=== PATIENT | female | born 1945 | race Caucasian/White ===

== ENCOUNTER 2020-08-02 14:00 | Outpatient (RCR) | payer MEDICARE, SELFPAY | END 2020-08-12 23:59 | disposition home or self-care (01) | LOC: SPO 14:00 | PROVIDERS: PCP Family Medicine; Referring Provider Physician Assistant; Visit Provider Physician Assistant | DX: S72.142A Displaced intertrochanteric fracture of left femur, initial encounter for closed fracture (principal); S52.592A Other fractures of lower end of left radius, initial encounter for closed fracture; X58.XXXA Exposure to other specified factors, initial encounter | CPT/HCPCS: 97110; 97116; 97162; 97165 ==

== ENCOUNTER 2020-08-13 06:00 | Outpatient (RCR) | payer MEDICARE, SELFPAY | END 2020-09-01 10:35 | disposition home or self-care (01) | LOC: SPO 06:00 | PROVIDERS: PCP Family Medicine; Visit Provider Physician Assistant | DX: S72.142D Displaced intertrochanteric fracture of left femur, subsequent encounter for closed fracture with routine healing (principal); S52.592D Other fractures of lower end of left radius, subsequent encounter for closed fracture with routine healing; X58.XXXD Exposure to other specified factors, subsequent encounter | CPT/HCPCS: 97035; 97110; 97116 ==

== ENCOUNTER 2021-12-30 10:10 | Emergency (ER) | payer MEDICARE, SELFPAY ==
[2021-12-30 10:29] VITALS: BP 175/90; PULSE 62; RESP 16; TEMP 36.4; O2SAT 96; BMI 15.6
--- NOTE | 2021-12-30 11:33 | XRR_ITS ---
PROCEDURE INFORMATION: Exam: XR Pelvis Exam date and time: 12/30/2021 11:13 AM Age: 76 years old Clinical indication: Hip pain; Bilateral; Prior surgery; Surgery date: 6+ months; Additional info: Injury TECHNIQUE: Imaging protocol: XR pelvis. Views: 1 or 2 view. COMPARISON: No relevant prior studies available. FINDINGS: Bones/joints: No acute fracture or dislocation identified. Old healed fracture deformities of the hips and bilateral ORIF hardware seen. No evidence of hardware related complication. There is itlm-gx-[id number] degenerative changes of the hip joints, manifested by joint space narrowing and periarticular osteophytes, left greater than right. Soft tissues: Unremarkable. XR/XR pelvis 1-2V* [id number] IMPRESSION: 1. No acute injury. 2. [id number] degenerative changes of the hip joints. 3. Status post bilateral hip fracture ORIF, without evidence of hardware related complication.
--- NOTE | 2021-12-30 11:33 | XRR_ITS ---
PROCEDURE INFORMATION: Exam: XR Left Ankle Exam date and time: 12/30/2021 11:15 AM Age: 76 years old Clinical indication: Injury or trauma; Fall; Blunt trauma; Ankle; Left TECHNIQUE: Imaging protocol: XR Left ankle. Views: 1 or 2 views. COMPARISON: No relevant prior studies available. FINDINGS: Bones/joints: No fracture or dislocation. Mild prominence of the soft tissues around the ankle is present. Soft tissues: See Bones/joints finding. XR/XR ankle LT 2V [id number] IMPRESSION: No acute fracture or dislocation.
--- NOTE | 2021-12-30 11:34 | XRR_ITS ---
PROCEDURE INFORMATION: Exam: XR Chest Exam date and time: 12/30/2021 11:10 AM Age: 76 years old Clinical indication: Injury or trauma; Fall; Blunt trauma (contusions or hematomas) TECHNIQUE: Imaging protocol: XR of the chest. Views: 1 view. COMPARISON: No relevant prior studies available. FINDINGS: Lungs: There is 1 cm sized nodular opacity in the left mid lung. Further evaluation such as with non urgent CT scan of the chest is suggested. There are emphysematous changes in the lungs. Pleural spaces: Unremarkable. No pleural effusion. No pneumothorax. Heart/Mediastinum: Heart is within normal limits of size. Vasculature: Atherosclerotic calcifications are present in the aortic arch. Bones/joints: There are what appear to be old healed fractures of the lateral aspects of the right 8th and 9th ribs. Soft tissues: There is a moderate hiatus hernia. XR/XR chest 1V portable [id number] IMPRESSION: Question of small left pulmonary nodule.
[2021-12-30 12:11] LABS: Basophils % 0.3 %; Eosinophils # 0.1 10^3/uL (0.0-0.8); Eosinophils % 0.9 %; Hematocrit 39.8 % (37.0-47.0); Hemoglobin 12.2 g/dL (11.5-15.3); Lymphocytes % 25.3 %; Mean Corpuscular HGB Conc 30.7 g/dL (30.0-36.0); Mean Corpuscular Volume 91.5 fl (81-99); Mean Platelet Volume 9.3 fL (7.4-10.4); Monocytes # 0.7 10^3/uL (0.2-0.9); Monocytes % 8.9 %; Neutrophils # 5.07 10^3/uL (1.8-7.7); Neutrophils % 64.2 %; Nucleated Red Blood Cells % 0 %; Platelet Count 344 10^3/cmm (130-400); Red Blood Count 4.35 10^6/uL (4.1-5.3); Red Cell Distribution Width 18.3 % (12.1-15.1); White Blood Count 7.9 10^3/uL (4.0-10.0)
[2021-12-30 12:26] LABS: Add Urine Microscopic? YES; Bilirubin Urine Neg (Negative); Blood Urine 2+ (Negative); Glucose Urine UA Norm (Normal); Ketones Urine Negative (Negative); Leukocyte Esterase Urine Negative (Negative); Nitrate Urine Negative (Negative); Protein Urine Neg (Negative); Specific Gravity, Urine 1.005 (1.005-1.030); Urine Appearance Clear (CLEAR); Urine Color Yellow (Yellow); Urobilinogen Urine Norm (Negative); pH Urine 5 (5-7)
[2021-12-30 12:28] LABS: Bacteria Urine 2+ /hpf; Mucus Urine 1+ /hpf; Squamous Epithelial Cell Urine RARE /hpf (0-5)
[2021-12-30 12:29] LABS: Add Urine Culture? Yes
--- NOTE | 2021-12-30 12:38 | W.ED.FALL ---
HPI - Fall General: Chief Complaint: Fall Stated Complaint: Rib and L leg pain Time Seen by Provider: 12/30/21 10:44 History of Present Illness: 76 year old fell against a door at home 2 weeks ago. She was seen at an outside hospital, primarily complaining of right shoulder pain at that time, x-rays were negative. Since then she has had persistent left ankle and hip pain and chest wall pain. She lives at home alone. Says she has been very weak. Her family has been trying to talk her into going to a mcc, but she has been reluctant up till now. She has had several falls at home for the last few months. No nausea, vomiting, diarrhea. No abdominal pain. No fever or shortness of breath. No wounds or rashes. Review of Systems General: Reports: 10 or more systems reviewed and unremarkable except in HPI and below Physical Exam Const: GENERAL APPEARANCE: lethargic and frail appearing NUTRITIONAL APPEARANCE: underweight ORIENTATION/CONSCIOUSNESS: Yes awake, Yes oriented to person, Yes oriented to place, Yes oriented to time and Yes lethargic HENMT: COMMON NORMALS: normocephalic and atraumatic HEAD & SCALP: normocephalic and atraumatic FACE & SINUS: normal facial exam Eye: COMMON NORMALS: Equal, round and reactive pupils present, EOMs intact bilaterally, conjunctivae normal and no scleral icterus CONJUNCTIVA: Yes conjunctivae normal PUPIL: Yes Equal, round and reactive pupils present Chest: CHEST: Yes tenderness rib (diffusely), No Ecchymosis present and No wounds Resp: EFFORT & INSPECTION: Yes able to speak in complete sentences, No tachypneic, No respiratory distress and No labored Cardio: COMMON NORMALS: regular rate and regular rhythm RATE: regular rate RHYTHM: regular rhythm GI: COMMON NORMALS: Soft to palpation INSPECTION: Yes normal to inspection PALPATION: Yes Soft to palpation, No Tenderness to palpation present (GI), No Guarding due to palpation present (GI) and No Rigid due to palpation Extremity: LEFT LOWER EXTREMITY: Yes ankle joint (tender) Left ankle: Yes inspection (baseline edema) and Yes palpation Neuro: SENSORIUM/ORIENTATION: Yes oriented to person, Yes oriented to place, Yes oriented to time and Yes lethargic Psych: ATTITUDE: Yes calm ACTIVITY/MOTOR BEHAVIOR: Yes psychomotor slowing SPEECH: Yes slow MOOD & AFFECT: Yes depressed mood, Yes apathetic and Yes Flat affect present Skin: COMMON NORMALS: no rashes or lesions noted GENERAL SKIN EXAM: no rashes or lesions noted Course Vital Signs: Vital signs: Vital Signs Temperature 97.6 F 12/30/21 10:29 Pulse Rate 62 12/30/21 10:29 Respiratory Rate 16 12/30/21 10:29 Blood Pressure 175/90 12/30/21 10:29 Pulse Oximetry 96 12/30/21 10:29 MDM - Fall Medical Decision Making 76 yo female with multiple falls, progressive debility and generalized weakness. Lives on her own, family is concerned about her safety and wants her to go to a mcc. She is agreeable. She has no acute fractures or other injuries on imaging today. Looking at her medications; she is a number of meds that could be contributing to her lethargy and fall risk , including gabapentin and norco, as well as prn tramadol and oxycodone. She appears volume depleted, and is on lasix 40mg qd. At this time she does not meet requirements for admission for NH placement. Her Daughter is here with her and has arranged appropriate followup for mcc assessment. I discussed problematic medications with her, and she will try to decrease the doses on some of those. Medical Records I reviewed the patient's medical records. Lab Data I reviewed the patient's lab results. : 12/30/21 11:50 12/30/21 11:50 Radiology Impressions Ankle X-Ray 12/30/21 11:33 IMPRESSION: No acute fracture or dislocation. Pelvis X-Ray 12/30/21 11:33 IMPRESSION: 1. No acute injury. 2. Sqve-[id number] degenerative changes of the hip joints. 3. Status post bilateral hip fracture ORIF, without evidence of hardware related complication. Chest X-Ray 12/30/21 11:34 IMPRESSION: Question of small left pulmonary nodule. Laboratory Results WBC 7.9 10^3/uL (4.0-10.0) 12/30/21 11:50 RBC 4.35 10^6/uL (4.1-5.3) 12/30/21 11:50 Hgb 12.2 g/dL (11.5-15.3) 12/30/21 11:50 Hct 39.8 % (37.0-47.0) 12/30/21 11:50 MCV 91.5 fl (81-99) 12/30/21 11:50 MCH 28.0 pg (28.0-34.0) 12/30/21 11:50 MCHC 30.7 g/dL (30.0-36.0) 12/30/21 11:50 RDW 18.3 % (12.1-15.1) H 12/30/21 11:50 Plt Count 344 10^3/cmm (130-400) 12/30/21 11:50 MPV 9.3 fL (7.4-10.4) 12/30/21 11:50 Neut % (Auto) 64.2 % 12/30/21 11:50 Lymph % (Auto) 25.3 % 12/30/21 11:50 [place] % (Auto) 8.9 % 12/30/21 11:50 Eos % (Auto) 0.9 % 12/30/21 11:50 Baso % (Auto) 0.3 % 12/30/21 11:50 Neut # (Auto) 5.07 10^3/uL (1.8-7.7) 12/30/21 11:50 Lymph # (Auto) 2.0 10^3/uL (0.8-4.8) 12/30/21 11:50 [place] # (Auto) 0.7 10^3/uL (0.2-0.9) 12/30/21 11:50 Eos # (Auto) 0.1 10^3/uL (0.0-0.8) 12/30/21 11:50 Baso # (Auto) 0.0 10^3/uL (0.0-0.1) 12/30/21 11:50 Nucleated RBC % (auto) 0 % 12/30/21 11:50 Nucleated RBCs # 0.0 /100WBC 12/30/21 11:50 Sodium 146 mmol/L (136-145) H 12/30/21 11:50 Potassium 3.7 mmol/L (3.5-5.1) 12/30/21 11:50 Chloride 106 mmol/L (98-107) 12/30/21 11:50 Carbon Dioxide 29 mmol/L (22-29) 12/30/21 11:50 Anion Gap 14.7 (5-19) 12/30/21 11:50 BUN 11 mg/dL (8-23) 12/30/21 11:50 Creatinine 0.7 mg/dL (0.5-0.9) 12/30/21 11:50 GFR Calculation Not Reportable 12/30/21 11:50 Glucose 96 mg/dL (65-115) 12/30/21 11:50 Calculated Osmolality 301 mOsm/kg (285-295) H 12/30/21 11:50 Calcium 10.4 mg/dL (8.5-10.5) 12/30/21 11:50 Magnesium 2.3 mg/dL (1.7-2.3) 12/30/21 11:50 Total Bilirubin 0.2 mg/dL (0.15-1.2) 12/30/21 11:50 AST 16 U/L (0-32) 12/30/21 11:50 ALT 8 U/L (0-33) 12/30/21 11:50 Alkaline Phosphatase 121 IU/L (35-105) H 12/30/21 11:50 Total Protein 7.3 g/dL (6.6-8.7) 12/30/21 11:50 Albumin 4.5 g/dL (3.5-5.2) 12/30/21 11:50 Globulin 2.8 g/dL (1.3-4.6) 12/30/21 11:50 Urine Color Yellow (Yellow) 12/30/21 11:53 Urine Appearance Clear (CLEAR) 12/30/21 11:53 Urine pH 5 (5-7) 12/30/21 11:53 Ur Specific [place] 1.005 (1.005-1.030) 12/30/21 11:53 Urine Protein Neg (Negative) 12/30/21 11:53 Urine Glucose (UA) Norm (Normal) 12/30/21 11:53 Urine Ketones Negative (Negative) 12/30/21 11:53 Urine Blood 2+ (Negative) H 12/30/21 11:53 Urine Nitrate Negative (Negative) 12/30/21 11:53 Urine Bilirubin Neg (Negative) 12/30/21 11:53 Urine Urobilinogen Norm mg/dL (Negative) 12/30/21 11:53 Ur Leukocyte Esterase Negative (Negative) 12/30/21 11:53 Urine RBC None /hpf (0-2) 12/30/21 11:53 Urine WBC None /hpf (0-5) 12/30/21 11:53 Ur Squamous Epith Cells Rare /hpf (0-5) 12/30/21 11:53 Amorphous Sediment Not Reportable 12/30/21 11:53 Urine Bacteria 2+ /hpf (NONE) H 12/30/21 11:53 Urine Mucus 1+ /hpf 12/30/21 11:53 Discharge Plan Discharge Patient Disposition: Home Clinical Impression: Weakness generalized, Falls frequently, Lives alone Condition: Stable Prescriptions: No Action multivitamin Tablet 1 tab PO DAILY 0RF tolterodine 2 mg capsule,extended release 24hr 2 mg PO DAILY 0RF furosemide 40 mg tablet 40 mg PO DAILY 0RF latanoprost 0.005 % drops 1 drp ophthalmic (eye) BEDTIME 0RF Zyrtec 10 mg Tablet 10 mg PO DAILY PRN (Reason: Allergic Reaction) 0RF aspirin 325 mg Tablet 325 mg PO DAILY 0RF sucralfate 1 gram Tablet 1 g PO TIDWM PRN (Reason: Stomach Upset) 0RF Restful Sleep 150-200-30 mg Capsule 1 cap PO DAILY 0RF potassium chloride 10 mEq tablet extended release 10 meq PO DAILY 0RF hydrocodone-acetaminophen 10-325 mg tablet 1 tab PO Q8H PRN (Reason: Pain) 0RF tramadol 50 mg Tablet 50 mg PO Q6H PRN (Reason: Pain) 0RF acetaminophen 500 mg Tablet 1,000 mg PO DAILY 0RF Vitamin B-12 50 mcg Tablet 50 mcg PO DAILY 0RF terbinafine HCl 250 mg tablet 250 mg PO DAILY 0RF famotidine 20 mg Tablet 20 mg PO DAILY PRN (Reason: Acid Reflux) 0RF amitriptyline 10 mg Tablet 10 mg PO BEDTIME PRN (Reason: Sleep) 0RF Tums 200 mg calcium (500 mg) Tablet,Chewable 200 mg PO DAILY PRN (Reason: Acid Reflux) 0RF gabapentin 300 mg capsule 600 mg PO BID 0RF omeprazole 20 mg capsule,delayed release(DR/EC) 20 mg PO DAILY 0RF Miralax 17 gram/dose Powder 17 g PO DAILY PRN (Reason: Constipation) 0RF oxycodone 5 mg Tablet 5 mg PO BEDTIME PRN (Reason: Pain) 0RF Vitamin D3 25 mcg (1,000 unit) Capsule 25 mcg PO DAILY 0RF biotin 1 mg Capsule 1 mg PO DAILY 0RF turmeric 400 mg Capsule 400 mg PO DAILY 0RF melatonin 12 mg Tablet 12 mg PO BEDTIME PRN (Reason: Sleep) 0RF vitamin K2 100 mcg Capsule 100 mcg PO DAILY 0RF Discharge Orders: Discharge ED (Routine); Ordered 12/30/21 Ordered By: Ivelisse Mcgrath Referrals: Eduardo Jimenez [Primary Care Provider] - Discharge Diet: Advance as tolerated Discharge Activity: Increase activity as tolerated Patient Instructions: Opioid Safety Activity Restrictions/Additional Instructions: Follow-up with your primary care doctor as scheduled this week. Decrease gabapentin to 300mg (1 pill) twice daily Only 1 hydrocodone at a time, every 6-8 hours Avoid taking oxycodone within 4 hours of hydrocodone. Ideally, try to discontinue oxycodone altogether. Decrease Lasix to 20 mg daily. Use a wheelchair whenever possible. 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
[2021-12-30 12:45] LABS: Alanine Aminotransferase 8 U/L (0-33); Albumin Level 4.5 g/dL (3.5-5.2); Alkaline Phosphatase 121 IU/L (35-105); Anion Gap 14.7 (5-19); Aspartate Amino Transferase 16 U/L (0-32); Blood Urea Nitrogen 11 mg/dL (8-23); Calcium 10.4 mg/dL (8.5-10.5); Carbon Dioxide 29 mmol/L (22-29); Chloride 106 mmol/L (98-107); Globulin 2.8 g/dL (1.3-4.6); Glucose 96 mg/dL (65-115); Magnesium 2.3 mg/dL (1.7-2.3); Osmolality Calculated 301 mOsm/kg (285-295); Potassium 3.7 mmol/L (3.5-5.1); Sodium 146 mmol/L (136-145); Total Bilirubin 0.2 mg/dL (0.15-1.2); Total Protein 7.3 g/dL (6.6-8.7)
--- NOTE | 2021-12-30 14:39 | PC.SOCIAL ---
CM was asked to come talk to patient and family about SNF placement. CM spoke to them about patient's insurance requiring 3 midnights inpatient and the physician didn't think that she would meet criteria. CM also explained self pay options and SNF vs [facility]. Patient and family are going to discuss with PCP after discharge too.
== END 2021-12-30 15:40 | disposition home or self-care (01) ==
PROVIDERS: Emergency Provider Family Medicine; PCP Family Medicine
DX: R53.1 Weakness (principal); R29.6 Repeated falls; Z79.82 Long term (current) use of aspirin
CPT/HCPCS: 71045; 72170; 73600; 80053; 81001; 83735; 85025; 87086; 99283

== ENCOUNTER 2022-01-22 08:44 | Emergency (ER) | payer MEDICARE, SELFPAY ==
[2022-01-22] VITALS (7 sets, daily range): BP systolic 127–151; BP diastolic 86–96; PULSE 73–83; RESP 15–23; TEMP 36.8; O2SAT 88–96; BMI 18.1
--- NOTE | 2022-01-22 09:04 | CT_ITS ---
WS: [id number] CT HEAD NONCONTRAST HISTORY: fall TECHNIQUE: Contiguous axial imaging performed through the brain in 2.5 mm imaging. Bone and soft tiss ue windows. Sagittal and coronal reformats reviewed. All CT scans at [facility] use at least one of these dose optimization techniques: automated exposure control; mA and/or kV adjustment per pa tient size (includes targeted exams where dose is matched to clinical indication); or iterative recon struction. DLP: 754.84 mGy.cm COMPARISON: None available. No acute intracranial hemorrhage, midline shift or mass effect. Mild atrophy and mild small vessel ischemic disease. No prior infarct. There is also mild cerebellar atrophy. Ventricles: Normal size with no hydrocephalus. Paranasal sinuses: As visualized are clear. Mastoid air cells: Well pneumatized. Calvarium and scalp: Skull is intact with no soft tissue edema or swelling. CT/CT head wo con* [id number] IMPRESSION: 1. No acute intracranial hemorrhage or edema. 2. Mild cerebellar and cerebral atrophy and chronic ischemic disease.
--- NOTE | 2022-01-22 09:11 | XRR_ITS ---
PROCEDURE INFORMATION: Exam: XR Chest Exam date and time: 01/22/2022 9:21 AM Age: 76 years old Clinical indication: Dyspnea; Angina pectoris; Patient HX: Cp near sternum, hip pain, isn't able to sit back for clear picture TECHNIQUE: Imaging protocol: XR of the chest. Views: 1 view. COMPARISON: CR XR chest 1V portable [id number] 12/30/2021 11:10 AM FINDINGS: Lungs: Low lung volumes seen. The lungs are otherwise clear No consolidation. Pleural spaces: Unremarkable. No pleural effusion. No pneumothorax. Heart/Mediastinum: Unremarkable. No cardiomegaly. Bones/joints: There is kyphoplasty in the lower dorsal spine. XR/XR chest 1V portable [id number] IMPRESSION: No acute findings. Stable dorsal spine kyphoplasty
[2022-01-22 09:27] LABS: Basophils % 0.2 %; Eosinophils % 0.2 %; Hematocrit 38.5 % (37.0-47.0); Hemoglobin 12.3 g/dL (11.5-15.3); Lymphocytes # 0.9 10^3/uL (0.8-4.8); Lymphocytes % 10.4 %; Mean Corpuscular HGB Conc 31.9 g/dL (30.0-36.0); Mean Corpuscular Hemoglobin 28.7 pg (28.0-34.0); Monocytes # 0.8 10^3/uL (0.2-0.9); Neutrophils # 6.71 10^3/uL (1.8-7.7); Neutrophils % 79.7 %; Nucleated Red Blood Cells % 0 %; Platelet Count 232 10^3/cmm (130-400); Red Blood Count 4.28 10^6/uL (4.1-5.3); Red Cell Distribution Width 17.2 % (12.1-15.1); White Blood Count 8.4 10^3/uL (4.0-10.0)
--- NOTE | 2022-01-22 09:39 | PC.PHAR ---
pt is from [facility]-bernarda huggins from [facility] states the pt takes care of her own medications[facility] states the pt has more medications she takes care of herself-pt verified medications and medications from the mar are entered-notes are made in the pharmacy comments
[2022-01-22 09:52] LABS: Alanine Aminotransferase 9 U/L (0-33); Albumin Level 3.7 g/dL (3.5-5.2); Alkaline Phosphatase 121 IU/L (35-105); Anion Gap 12.7 (5-19); Aspartate Amino Transferase 16 U/L (0-32); Blood Urea Nitrogen 18 mg/dL (8-23); Calcium 10.2 mg/dL (8.5-10.5); Carbon Dioxide 25 mmol/L (22-29); Chloride 102 mmol/L (98-107); Globulin 2.8 g/dL (1.3-4.6); Glucose 119 mg/dL (65-115); Osmolality Calculated 285 mOsm/kg (285-295); Potassium 3.7 mmol/L (3.5-5.1); Sodium 136 mmol/L (136-145); Total Bilirubin 0.4 mg/dL (0.15-1.2); Total Protein 6.5 g/dL (6.6-8.7)
[2022-01-22 10:08] LABS: Add Urine Microscopic? YES; Bilirubin Urine Neg (Negative); Blood Urine 3+ (Negative); Glucose Urine UA Norm (Normal); Ketones Urine Negative (Negative); Leukocyte Esterase Urine Negative (Negative); Nitrate Urine Negative (Negative); Protein Urine Trace (Negative); Urine Appearance Clear (CLEAR); Urine Color Dark Yellow (Yellow); Urobilinogen Urine 1 mg/dL (Negative); pH Urine 6 (5-7)
[2022-01-22 10:15] LABS: RBC Urine 50-80 /hpf (0-2)
[2022-01-22 10:16] LABS: Add Urine Culture? Yes; Bacteria Urine TRACE /hpf; Mucus Urine 1+ /hpf; Red Blood Cell Casts Urine 0-4 /lpf; Squamous Epithelial Cell Urine 0-4 /hpf (0-5)
--- NOTE | 2022-01-22 10:30 | W.ED.FALL ---
HPI - Fall General: Chief Complaint: Fall Stated Complaint: FALL HIT HEAD/HEADACHE Time Seen by Provider: 01/22/22 08:50 Source: patient Mode of arrival: EMS Limitations: no limitations History of Present Illness: 68-year-old female presents emergency room from assisted living via EMS. She had went to the restroom when she got up and began to walk she got dizzy weak and collapsed and fell. She has had multiple episodes of falling in the last week or 2. Patient states she did hit the right side of her head she denies loss of consciousness. She is denying any other injury. She is awake alert answers questions appropriately MD complaint: fall Onset (ago): minute(s) Fall from: standing Place fall occurred: snf/SNF Loss of consciousness: None Prolonged down time: no Symptoms prior to fall: lightheadedness Context: history of frequent falls Location of injury: head Associated symptoms-after fall: Reports difficulty walking and weakness; Denies abdominal pain, chest pain, confusion, headache(s), hematuria, lightheadedness, neck pain, numbness, short of breath or vertigo Review of Systems Const: Denies: fever(s), chills, body aches, change in appetite, fatigue or malaise ENMT: Denies: throat pain, ear or mastoid pain, nasal discharge or nasal congestion Card: Denies: chest pain or lightheadedness Resp: Denies: dyspnea, productive cough or non-productive cough GI: Denies: abdominal pain : Denies: hematuria Musc: Denies: neck pain Skin/Breast: Denies: rash or pruritus Neuro: Reports: difficulty walking; Denies: headache(s), vertigo or confusion FOR[facility]LY [facility] ED PFSH: Medical History Frequent falls Gastroesophageal reflux disease Osteoporosis Social History Smoking and tobacco status: never smoked Alcohol intake: never Physical Exam Const: GENERAL APPEARANCE: cooperative and comfortable ORIENTATION/CONSCIOUSNESS: Yes awake HENMT: COMMON NORMALS: normocephalic, atraumatic and hearing grossly normal bilaterally HEAD & SCALP: normocephalic and atraumatic Neck/C-Spine: COMMON NORMALS: no JVD Resp: COMMON NORMALS: normal respiratory effort, No retractions, No use of accessory muscles and clear to auscultation bilaterally AUSCULTATION: clear to auscultation bilaterally Cardio: COMMON NORMALS: no JVD, regular rate, regular rhythm and No murmurs present (Cardio) RATE: regular rate RHYTHM: regular rhythm GI: COMMON NORMALS: Soft to palpation and No hepatosplenomegaly present AUSCULTATION: Yes normoactive bowel sounds PALPATION: Yes Soft to palpation, No Tenderness to palpation present (GI), No Guarding due to palpation present (GI) and Yes No hepatosplenomegaly present Extremity: COMMON NORMALS: normal to inspection, capillary refill normal, no clubbing, cyanosis or edema, no calf tenderness and no pedal edema Skin: COMMON NORMALS: no rashes or lesions noted GENERAL SKIN EXAM: no rashes or lesions noted Course Vital Signs: Vital signs: Vital Signs Temperature 98.3 F 01/22/22 08:45 Pulse Rate 75 01/22/22 16:45 Respiratory Rate 18 01/22/22 16:45 Blood Pressure 151/86 01/22/22 16:45 Pulse Oximetry 92 01/22/22 16:45 MDM - Fall Medical Decision Making Labs and imaging reviewed CT the head is negative. We are about to did look at discharging the patient and I was made aware that she had been placed on oxygen was now requiring 2 L by nasal cannula. CTA of the chest was done was unremarkable there is no pneumonia. She clinically does not appear to be in congestive heart failure. We will discharge her home on home oxygen and have her follow-up with her primary care doctor. Suspect her oxygen needs may have contributed to her frequent falls. While her oxygen sats were low she did not complain of being short of breath. Medical Records I reviewed the patient's medical records. Lab Data I reviewed the patient's lab results. : 01/22/22 09:22 01/22/22 09:[address] 01/22/22 09:04 IMPRESSION: 1. No acute intracranial hemorrhage or edema. 2. Mild cerebellar and cerebral atrophy and chronic ischemic disease. Chest X-Ray 01/22/22 09:11 IMPRESSION: No acute findings. Stable dorsal spine kyphoplasty Abdomen/Pelvis CT 01/22/22 11:10 IMPRESSION: 1. No renal obstruction or calcifications identified. 2. Marked constipation. 3. Small pancreatic cystic masses the largest measures 9 mm in the tail of the pancreas. Differential includes serous cystadenomas and IPMNs. 4. Dense consolidation of the RIGHT lung base with a small effusion. Most consistent with atelectasis. 5. Large hiatal hernia or intrathoracic stomach. 6. Numerous osteoporotic compression fractures. Chest CTA 01/22/22 14:26 IMPRESSION: 1. No pulmonary embolism. 2. Subsegmental atelectasis lower lobes, greatest on the RIGHT with a small associated effusion. 3. Marked cardiomegaly. 4. Intrathoracic stomach versus large hiatal hernia. 5. Extensive osteopenia with numerous osteoporotic compression fractures throughout the thoracic and lumbar spines. Laboratory Results WBC 8.4 10^3/uL (4.0-10.0) 01/22/22 09: RBC 4.28 10^6/uL (4.1-5.3) 01/22/22 09:22 Hgb 12.3 g/dL (11.5-15.3) 01/22/22: Hct 38.5 % (37.0-47.0) 01/22/22: MCV 90.0 fl (81-99) 01/22/22: MCH 28.7 pg (28.0-34.0) 01/22/22: MCHC 31.9 g/dL (30.0-36.0) 01/22/22 09: RDW 17.2 % (12.1-15.1) H 01/22/22 09:22 Plt Count 232 10^3/cmm (130-400) 01/22/22 09: MPV 10.0 fL (7.4-10.4) 01/22/22 09: Neut % (Auto) 79.7 % 01/22/22:22 Lymph % (Auto) 10.4 % 01/22/22: Clinton % (Auto) 9.0 % 01/22/22: Eos % (Auto) 0.2 % 01/22/22 09:22 Baso % (Auto) 0.2 % 01/22/22:22 Neut # (Auto) 6.71 10^3/uL (1.8-7.7) 01/22/22 09: Lymph # (Auto) 0.9 10^3/uL (0.8-4.8) 01/22/22 09:22 Clinton # (Auto) 0.8 10^3/uL (0.2-0.9) 01/22/22 09:22 Eos # (Auto) 0.0 10^3/uL (0.0-0.8) 01/22/22 09:22 Baso # (Auto) 0.0 10^3/uL (0.0-0.1) 01/22/22 09: Nucleated RBC % (auto) 0 % 01/22/22 09: Nucleated RBCs # 0.0 /100WBC 01/22/22 09:22 Sodium 136 mmol/L (136-145) 01/22/22 09: Potassium 3.7 mmol/L (3.5-5.1) 01/22/22 09: Chloride 102 mmol/L (98-107) 01/22/22 09: Carbon Dioxide 25 mmol/L (22-29) 01/22/22 09: Anion Gap 12.7 (5-19) 01/22/22 09:22 BUN 18 mg/dL (8-23) 01/22/22 09:22 Creatinine 0.5 mg/dL (0.5-0.9) 01/22/22 09:22 GFR Calculation Not Reportable 01/22/22: Glucose 119 mg/dL (65-115) H 01/22/22 09:22 Calculated Osmolality 285 mOsm/kg (285-295) 01/22/22: Calcium 10.2 mg/dL (8.5-10.5) 01/22/22 09:22 Total Bilirubin 0.4 mg/dL (0.15-1.2) 01/22/22:22 AST 16 U/L (0-32) 01/22/22:22 ALT 9 U/L (0-33) 01/22/22 09:22 Alkaline Phosphatase 121 IU/L (35-105) H 01/22/22 09:22 Total Protein 6.5 g/dL (6.6-8.7) L 01/22/22 09:22 Albumin 3.7 g/dL (3.5-5.2) 01/22/22 09:22 Globulin 2.8 g/dL (1.3-4.6) 01/22/22 09:22 Urine Color Dark yellow (Yellow) 01/22/22 09:15 Urine Appearance Clear (CLEAR) 01/22/22 09:15 Urine pH 6 (5-7) 01/22/22 09:15 Ur Specific Upson 1.020 (1.005-1.030) 01/22/22 09:15 Urine Protein Trace (Negative) 01/22/22 09:15 Urine Glucose (UA) Norm (Normal) 01/22/22 09:15 Urine Ketones Negative (Negative) 01/22/22 09:15 Urine Blood 3+ (Negative) H 01/22/22 09:15 Urine Nitrate Negative (Negative) 01/22/22 09:15 Urine Bilirubin Neg (Negative) 01/22/22 09:15 Urine Urobilinogen 1 mg/dL (Negative) H 01/22/22 09:15 Ur Leukocyte Esterase Negative (Negative) 01/22/22 09:15 Urine RBC 50-80 /hpf (0-2) H 01/22/22 09:15 Urine WBC None /hpf (0-5) 01/22/22 09:15 Ur Squamous Epith Cells 0-4 /hpf (0-5) H 01/22/22 09:15 Amorphous Sediment Not Reportable 01/22/22 09:15 Urine Bacteria Trace /hpf (NONE) 01/22/22 09:15 RBC Casts 0-4 /lpf 01/22/22 09:15 Urine Mucus 1+ /hpf 01/22/22 09:15 Discharge Plan Discharge Patient Disposition: Home Clinical Impression: Fall, Osteoporosis, Frequent falls, Cystitis, Hypoxia Prescriptions: New Macrobid 100 mg capsule 100 mg PO BID 7 Days Qty: 14 0RF Rx Instructions: must administer with a meal/food No Action aspirin [Aspir-81] 81 mg Tablet,Delayed Release (Dr/Ec) 81 mg PO Q4H PRN (Reason: Pain) 0RF Tylenol 8 Hour 650 mg Tablet Extended Release 650 mg PO Q4H PRN (Reason: pain/fever) 0RF diphenhydramine HCl 25 mg Capsule 25 mg PO PRN 0RF ibuprofen 600 mg Tablet 600 mg PO DAILY 0RF ibandronate 150 mg Tablet 150 mg PO Q30D 0RF megestrol 40 mg Tablet See Rx Instructions .ROUTE .COMPLEX 0RF Rx Instructions: 40 mg po before meals and at bedtime multivitamin Tablet 1 tab PO DAILY 0RF furosemide 40 mg tablet 40 mg PO DAILY 0RF latanoprost 0.005 % drops 1 drp ophthalmic (eye) BEDTIME 0RF cetirizine [Zyrtec] 10 mg Tablet 10 mg PO DAILY PRN (Reason: Allergy Symptoms) 0RF Restful Sleep 150-200-30 mg Capsule 3 cap PO DAILY PRN (Reason: Restless Leg(S)) 0RF potassium chloride 10 mEq tablet extended release 10 meq PO DAILY 0RF hydrocodone-acetaminophen 10-325 mg tablet 1 tab PO BEDTIME 0RF Vitamin B-12 50 mcg Tablet 50 mcg PO DAILY 0RF terbinafine HCl 250 mg tablet 250 mg PO DAILY 0RF gabapentin 300 mg capsule 300 mg PO BID 0RF omeprazole 20 mg capsule,delayed release(DR/EC) 20 mg PO DAILY 0RF polyethylene glycol 3350 [Miralax] 17 gram/dose Powder 17 g PO DAILY PRN (Reason: Constipation) 0RF cholecalciferol (vitamin D3) [Vitamin D3] 25 mcg (1,000 unit) Capsule 25 mcg PO DAILY 0RF biotin 1 mg Capsule 1 mg PO DAILY 0RF turmeric 400 mg Capsule 400 mg PO DAILY 0RF vitamin K2 100 mcg Capsule 100 mcg PO DAILY 0RF Discharge Orders: Discharge ED (Routine); Ordered 01/22/22 Ordered By: Gerardo Gonsales Other Ambulatory Orders: DME: Oxygen (Order) Location: None Selected Ordered By: Gerardo Gonsales Referrals: Eduardo Jimenez [Primary Care Provider] - Discharge Diet: Usual diet Discharge Activity: Increase activity as tolerated Activity Restrictions/Additional Instructions: Complete antibiotics as prescribed. sustainable products marketing manager will make arrangements for you to have pulmonary function test follow-up with your primary care doctor. Coding Level of Care Code ED Crematorium Operator for Monica Fwlolis Exam Comprehensive
--- NOTE | 2022-01-22 11:10 | CT_ITS ---
WS: [id number] CT ABDOMEN AND PELVIS NONCONTRAST HISTORY: hematuria TECHNIQUE: Imaging performed through the abdomen and pelvis. Coronal and sagittal reformats are submi tted. All CT scans at [facility] use at least one of these dose optimization techniques: auto mated exposure control; mA and/or kV adjustment per patient size (includes targeted exams where dose is matched to clinical indication); or iterative reconstruction. DLP: 755.57 mGy.cm COMPARISON: None available. Lower thorax: Dependent changes at the lung bases, more focal consolidation at the RIGHT lung base. T here is a small amount of fluid and atelectasis. Heart is markedly enlarged. There is a large hiatal hernia. The majority of the stomach is intrathoracic. Liver: Normal size liver. No mass or bile duct dilatation. Gallbladder: Not visualized and surgically removed. Pancreas: Poorly visualized. There are several small cysts in the body and tail of the pancreas. The largest in the tail measures 9 mm. No adjacent inflammation. Spleen: Normal. Adrenal glands: Normal. No mass. Right kidney: Normal size kidney with no mass or hydronephrosis. Left kidney: No hydronephrosis or calcification. 10 mm low-attenuation nodule from the mid lateral ki dney. Aorta: Extensive atherosclerotic plaque. Aorta is tortuous and ectatic. Lymph nodes would be difficult to visualize without separation from the adjacent structures. There is very little fat present. GI tract: Marked fecal retention and constipation. No obstruction. No pneumatosis is evident. Abdominal wall: Negative. No hernia. Pelvis: No free fluid or adenopathy. Urinary bladder is well distended. Uterus is not identified. Osseous structures: Severe osteopenia. Osteoporotic compression fractures. Osteoporotic compression f ractures involve all the lumbar vertebral bodies and T11 and T12. Prior vertebroplasty at T11. Prior bilateral hip ORIF. CT/CT kidney stone [id number] IMPRESSION: 1. No renal obstruction or calcifications identified. 2. Marked constipation. 3. Small pancreatic cystic masses the largest measures 9 mm in the tail of the pancreas. Differential includes serous cystadenomas and IPMNs. 4. Dense consolidation of the RIGHT lung base with a small effusion. Most cons istent with atelectasis. 5. Large hiatal hernia or intrathoracic stomach. 6. Numerous osteoporotic compression fractures.
[2022-01-22] MEDS: morphine 4 mg/mL SDV 1 mL 2 MG IVP (11:51)
--- NOTE | 2022-01-22 14:26 | CT_ITS ---
WS: [id number] CT CHEST ANGIOGRAPHY WITH REFORMATS HISTORY: hypoxia TECHNIQUE: Contiguous axial images are obtained through the chest during arterial injection of intrav enous contrast. Images are reconstructed to evaluate the pulmonary arteries. MIP imaging also reviewe d. All CT scans at [facility] use at least one of these dose optimization techniques: automat ed exposure control; mA and/or kV adjustment per patient size (includes targeted exams where dose is matched to clinical indication); or iterative reconstruction. CONTRAST: Omnipaque 350; 95 mL IV. DLP: 491.64 mGy.cm COMPARISON: None available. Very good opacification of the pulmonary arteries. No filling defects or embolism. Mild atheroscleros is of the thoracic aorta. There is no aneurysm. Mild diffuse ectasia. Marked enlargement of the heart . No filling defect in the LEFT atrial appendage. Partial atelectasis RIGHT lower lobe. Small amount of atelectasis adjacent to the descending thoracic aorta on the LEFT. There is a very small layering RIGHT pleural effusion. No pulmonary mass or pneumonia. Small pericardial effusion. Large hiatal tere ia versus intrathoracic stomach. Extensive osteopenia. Multiple osteoporotic compression fractures. Severe vertebral planar compressio n fracture of T12. Prior vertebroplasty of T11. Severe compression fracture T8. Additional healing ri b fracture with callus formation in the mid to inferior RIGHT thorax. There is discontinuity of the d istal sternum. This was seen on a prior study thought to be related to a re-formation artifact. This may be a prior fracture. It does appear healed. CT/CT angio chest PE protcl [id number] IMPRESSION: 1. No pulmonary embolism. 2. Subsegmental atelectasis lower lobes, greatest on the RIGHT with a small as sociated effusion. 3. Marked cardiomegaly. 4. Intrathoracic stomach versus large hiatal hernia. 5. Extensive osteopenia with numerous osteoporotic compression fractures throu ghout the thoracic and lumbar spines.
[2022-01-22] MEDS: iohexol 350 mg/mL 100 mL Btl IV (15:05)
--- NOTE | 2022-01-23 07:00 | DCPLANNER ---
Addendum entered by Cathryn Mace 02/13/22 18:50: Patient had a follow up appointment scheduled for a PFT - appointment was cancelled. Addendum entered by Cathryn Mace 01/30/22 08:08: Patient has a PFT scheduled for Friday, February 13, 2022 at 10:15. Centralized scheduling will call patient with appointment information. Original Note: grocery department manager had message to schedule a PFT for patient. grocery department manager faxed signed order to centralized scheduling, who will call patient with appointment information.
== END 2022-01-22 16:47 | disposition home or self-care (01) ==
PROVIDERS: Emergency Provider Family Medicine; PCP Family Medicine
DX: R09.02 Hypoxemia (principal); N30.90 Cystitis, unspecified without hematuria; R29.6 Repeated falls; M81.0 Age-related osteoporosis without current pathological fracture; K21.9 Gastro-esophageal reflux disease without esophagitis
CPT/HCPCS: 51701; 70450; 71045; 71275; 74176; 80053; 81001; 85025; 87086; 96374; 99284; J2270; Q9967

== ENCOUNTER 2022-04-03 01:50 | Emergency (ER) | payer MEDICARE, SELFPAY ==
--- NOTE | 2022-04-03 01:50 | XRR_ITS ---
PROCEDURE INFORMATION: Exam: XR Left Hip Exam date and time: 04/03/2022 2:28 AM Age: 76 years old Clinical indication: Injury or trauma; Fall; Blunt trauma (contusions or hematomas); Left; Hip TECHNIQUE: Imaging protocol: Radiologic exam of the Left hip. Views: 2 or 3 views hip with pelvis when performed. COMPARISON: CR XR pelvis 1-2V* [id number] 12/30/2021 11:13 AM FINDINGS: Bones/joints: Diffuse osteopenia is noted. Hardware is present within the left femur. New mild sclerosis at medial left pubic bone likely represents healing nondisplaced fracture. No additional fractures and no findings of dislocation. Left femoroacetabular degenerative change again noted. Soft tissues: Unremarkable. XR/XR hip LT 2-3V wo/w pel* [id number] IMPRESSION: New mild sclerosis at medial left pubic bone likely represents healing nondisplaced fracture. Otherwise, no acute findings.
[2022-04-03 01:51] VITALS: BMI 19.2
[2022-04-03 01:53] VITALS: BP 164/71; PULSE 74; RESP 16; TEMP 36.6; O2SAT 95
--- NOTE | 2022-04-03 01:54 | XRR_ITS ---
PROCEDURE INFORMATION: Exam: XR Lumbosacral Spine Exam date and time: 04/03/2022 2:28 AM Age: 76 years old Clinical indication: Injury or trauma; Fall; Blunt trauma (contusions or hematomas) TECHNIQUE: Imaging protocol: Radiologic exam of the lumbosacral spine. Views: 2 or 3 views. COMPARISON: CT kidney stone [id number] 01/22/2022 1:20 PM FINDINGS: Bones/joints: Multilevel endplate compressions in lumbar spine are unchanged. Multilevel degenerative disc change. Soft tissues: Unremarkable. XR/XR lumbar spine 2-3V* [id number] IMPRESSION: No new abnormalities.
--- NOTE | 2022-04-03 01:55 | W.ED.FALL ---
HPI - Fall General: Chief Complaint: Fall Stated Complaint: left hip pain Time Seen by Provider: 04/03/22 01:50 Source: patient and EMS Mode of arrival: EMS Limitations: no limitations History of Present Illness: 76-year-old female who is here from local [place] [facility] after a fall. She states she tripped and fell landed on her left side she states she has some left hip pain along with left shoulder pain and slight low back pain she has no obvious deformity she denies any her head denies neck pain. Patient rates her pain a 2 out of 10 currently is resting comfortably in bed. Associated symptoms-after fall: Denies abdominal pain, chest pain or headache(s) Review of Systems Const: Denies: fever(s), chills, body aches or change in appetite Eyes: Denies: blurry vision or eye discomfort ENMT: Denies: throat pain or dental pain Card: Denies: chest pain Resp: Denies: dyspnea GI: Denies: abdominal pain, nausea, vomiting or diarrhea : Denies: dysuria Musc: Reports: back pain and extremity pain Skin/Breast: Denies: rash Neuro: Denies: headache(s) Psych: Denies: depression Dionicio/Lymph: Denies: easy bruising All/Imm: Denies: urticaria PFSH ED PFSH: Medical History Frequent falls Gastroesophageal reflux disease Osteoporosis Social History Smoking and tobacco status: former smoker Alcohol intake: never Physical Exam Const: COMMON NORMALS: no acute distress, patient oriented x3 and healthy appearing HENMT: COMMON NORMALS: normocephalic and atraumatic HEAD & SCALP: normocephalic and atraumatic Eye: COMMON NORMALS: Equal, round and reactive pupils present and EOMs intact bilaterally PUPIL: Yes Equal, round and reactive pupils present Neck/C-Spine: COMMON NORMALS: full ROM and supple Chest: COMMONS NORMALS: normal inspection of the chest and normal palpation of entire chest wall Resp: COMMON NORMALS: normal respiratory effort, No retractions, No use of accessory muscles and clear to auscultation bilaterally AUSCULTATION: clear to auscultation bilaterally Cardio: COMMON NORMALS: regular rate, regular rhythm and No murmurs present (Cardio) RATE: regular rate RHYTHM: regular rhythm GI: COMMON NORMALS: Normal to inspection, nondistended, normoactive bowel sounds present, Soft to palpation, non-tender and no masses PALPATION: Yes Soft to palpation Back/Pelvis: OTHER: L-spine tenderness no obvious deformity Extremity: COMMON NORMALS: normal to inspection and full ROM NARRATIVE EXTREMITY EXAM: Slight pain in left hip with range of motion no obvious deformity Neuro: COMMON NORMALS: patient oriented x3, moves all extremities and no focal motor deficits Psych: COMMON NORMALS: mental status grossly normal, Normal thought process present and cooperative THOUGHT PROCESS: Normal thought process present Skin: COMMON NORMALS: no rashes or lesions noted and no wounds GENERAL SKIN EXAM: no rashes or lesions noted Course Vital Signs: Vital signs: Vital Signs Temperature 97.9 F 04/03/22 01:53 Pulse Rate 61 04/03/22 04:42 Respiratory Rate 16 04/03/22 04:42 Blood Pressure 141/74 04/03/22 04:42 Pulse Oximetry 95 04/03/22 04:42 MDM - Fall Medical Decision Making Patient presents here with vertebral fractures along with a scapular fracture from a fall. She appears to have recent healing sternal and rib fractures. I did speak to Dr. Emery of spine Ortho who recommended follow-up. He did not recommend a TLSO brace as patient would likely not tolerate it with the rib fractures. She has no retropulsion on the vertebral body fractures. Patient stable for discharge back to the [place] [facility] we will place in a sling for her clavicle fracture Lab Data Radiology Impressions Hip/Pelvis X-Ray 04/03/22 01:50 IMPRESSION: New mild sclerosis at medial left pubic bone likely represents healing nondisplaced fracture. Otherwise, no acute findings. Lumbar Spine X-Ray 04/03/22 01:54 IMPRESSION: No new abnormalities. Shoulder X-Ray 04/03/22 01:57 IMPRESSION: Fracture of distal left clavicle. Ribs X-Ray 04/03/22 02:25 IMPRESSION: Multilevel healed left rib fractures are noted; please see discussion relating to new sclerosis probably representing healing fracture at anterior left 1st rib on CT from same date. Chest/Abdomen/Pelvis CT 04/03/22 02:56 IMPRESSION: Interval multilevel compression fractures of cervicothoracic spine. Healing fractures of sternum and healing of new fractures of anterior right rib 2 and anterior left rib 1. No acute cardiopulmonary findings. Large hiatal hernia. IMPRESSION: Interval development of sclerosis at medial left pubic bones likely represents healing occult fracture. No acute intra-abdominal findings. ADDENDUM: 04/03/22 0502 Cases discussed with ordering clinician. Hip CT 04/03/22 03:17 IMPRESSION: Sclerosis present at medial left pubic bones likely represents healing fracture. Otherwise, no acute findings. Discharge Plan Discharge Patient Disposition: Home Clinical Impression: Fall, Closed compression fracture of thoracic vertebra, Compression fracture of C7 vertebra Closed fracture of left clavicle Qualifiers: Encounter type: initial encounter Clavicle location: unspecified part of clavicle Condition: Stable Prescriptions: New hydrocodone-acetaminophen 5-325 mg tablet 1 tab PO Q6H PRN (Reason: pain) Qty: 14 0RF No Action hydrocodone-acetaminophen 5-325 mg tablet 1 tab PO Q8H PRN (Reason: pain) 30 Days Qty: 90 0RF aspirin [Aspir-81] 81 mg Tablet,Delayed Release (Dr/Ec) 81 mg PO Q4H PRN (Reason: Pain) 0RF Tylenol 8 Hour 650 mg Tablet Extended Release 650 mg PO Q4H PRN (Reason: pain/fever) 0RF diphenhydramine HCl 25 mg Capsule 25 mg PO PRN 0RF ibuprofen 600 mg Tablet 600 mg PO DAILY 0RF ibandronate 150 mg Tablet 150 mg PO Q30D 0RF megestrol 40 mg Tablet See Rx Instructions .ROUTE .COMPLEX 0RF Rx Instructions: 40 mg po before meals and at bedtime multivitamin Tablet 1 tab PO DAILY 0RF furosemide 40 mg tablet 40 mg PO DAILY 0RF cetirizine [Zyrtec] 10 mg Tablet 10 mg PO DAILY PRN (Reason: Allergy Symptoms) 0RF potassium chloride 10 mEq tablet extended release 10 meq PO DAILY 0RF Vitamin B-12 50 mcg Tablet 50 mcg PO DAILY 0RF gabapentin 300 mg capsule 300 mg PO BID 0RF omeprazole 20 mg capsule,delayed release(DR/EC) 20 mg PO DAILY 0RF polyethylene glycol 3350 [Miralax] 17 gram/dose Powder 17 g PO DAILY PRN (Reason: Constipation) 0RF cholecalciferol (vitamin D3) [Vitamin D3] 25 mcg (1,000 unit) Capsule 25 mcg PO DAILY 0RF Discharge Orders: Discharge ED (Routine); Ordered 04/03/22 Ordered By: Aj Vizcarra Referrals: Constantine Garcia DO [Primary Care Provider] - Caio Emery DO [Physician] - 1-3 days Discharge Diet: Advance as tolerated Discharge Activity: Resume usual activity Patient Instructions: Vertebral Compression Fracture (ED) Coding Level of Care Code ED Property Maintenance Technician for Chg Fwd Exam Comprehensive
--- NOTE | 2022-04-03 01:57 | XRR_ITS ---
PROCEDURE INFORMATION: Exam: XR Left Shoulder Exam date and time: 04/03/2022 2:28 AM Age: 76 years old Clinical indication: Injury or trauma; Fall; Swelling (edema); Shoulder; Left TECHNIQUE: Imaging protocol: Radiologic exam of the Left shoulder. Views: 2 or more views. COMPARISON: CR XR chest 1V portable [id number] 01/22/2022 9:21 AM FINDINGS: Bones/joints: Mildly comminuted fracture of distal clavicle noted. Diffuse osteopenia is evident. No dislocation. Soft tissues: Normal. XR/XR shoulder LT min 2V* [id number] IMPRESSION: Fracture of distal left clavicle.
--- NOTE | 2022-04-03 02:25 | XRR_ITS ---
PROCEDURE INFORMATION: Exam: XR Left Ribs with PA Chest Exam date and time: 04/03/2022 2:45 AM Age: 76 years old Clinical indication: Injury or trauma; Fall; Rib area, left side; Blunt trauma TECHNIQUE: Imaging protocol: Radiologic exam of the Left ribs with PA chest. Views: 3 views COMPARISON: CR XR chest 1V portable [id number] 01/22/2022 9:21 AM FINDINGS: Lungs: Unremarkable. No consolidation. Pleural spaces: Unremarkable. No pleural effusion. No pneumothorax. Heart/Mediastinum: Mild cardiomegaly. Bones/joints: Multilevel healed left rib fractures are noted. Diffuse osteopenia is evident. XR/XR ribs LT mn 3V w CXR1V [id number] IMPRESSION: Multilevel healed left rib fractures are noted; please see discussion relating to new sclerosis probably representing healing fracture at anterior left 1st rib on CT from same date.
--- NOTE | 2022-04-03 02:56 | CTR_ITS ---
PROCEDURE INFORMATION: Exam: CT Chest Without Contrast; Diagnostic Exam date and time: 04/03/2022 3:26 AM Age: 76 years old Clinical indication: Injury or trauma; Fall; Blunt; Generalized; Swelling (edema); Patient HX: PT fell. Complained of rib and hip pain. Unable to lie flat TECHNIQUE: Imaging protocol: Diagnostic computed tomography of the chest without contrast. Radiation optimization: All CT scans at this facility use at least one of these dose optimization techniques: automated exposure control; mA and/or kV adjustment per patient size (includes targeted exams where dose is matched to clinical indication); or iterative reconstruction. COMPARISON: CT angio chest PE protcl [id number] 01/22/2022 3:02 PM RADIATION DOSE METRICS: Total DLP (mGy-cm): 877.16 FINDINGS: Lungs: Mild dependent pulmonary parenchymal opacities likely represent atelectasis. Pleural spaces: Unremarkable. No pneumothorax. No pleural effusion. Heart: Coronary calcifications are noted. Lymph nodes: Unremarkable. No enlarged lymph nodes. Vasculature: Aortic calcifications are noted. No findings of aneurysm or mediastinal hemorrhage. Diaphragm: Large hiatal hernia. Bones/joints: Interval multilevel compression fractures involving vertebral bodies of C7, T1, T4, T6, T7, and T10. Interval fracture of manubrium of sternum with early healing. Early healing of lower sternal body fracture also noted. Interval fractures of anterior right rib 2 and anterior left rib 1 both demonstrate early healing. Multiple additional posttraumatic rib deformities are otherwise unchanged. Vertebroplasty findings at T11 vertebral body. Soft tissues: Unremarkable. PROCEDURE INFORMATION: Exam: CT Abdomen And Pelvis Without Contrast Exam date and time: 04/03/2022 3:26 AM Age: 76 years old Clinical indication: Injury or trauma; Fall; Blunt; Generalized; Swelling (edema); Patient HX: PT fell. Complained of rib and hip pain. Unable to lie flat TECHNIQUE: Imaging protocol: Computed tomography of the abdomen and pelvis without contrast. Radiation optimization: All CT scans at this facility use at least one of these dose optimization techniques: automated exposure control; mA and/or kV adjustment per patient size (includes targeted exams where dose is matched to clinical indication); or iterative reconstruction. COMPARISON: CR (PELVIS, ) 04/03/2022 2:28 AM RADIATION DOSE METRICS: Total DLP (mGy-cm): 877.16 FINDINGS: Liver: Normal. No mass. Gallbladder and bile ducts: Normal. No calcified stones. No ductal dilation. Pancreas: Normal. No ductal dilation. Spleen: Normal. No splenomegaly. Adrenal glands: Normal. No mass. Kidneys and ureters: Normal. No hydronephrosis. Stomach and bowel: Unremarkable. No obstruction. No mucosal thickening. Appendix: No evidence of appendicitis. Intraperitoneal space: Unremarkable. No free air. No significant fluid collection. Vasculature: Vascular calcifications are noted. No abdominal aortic aneurysm. Lymph nodes: Unremarkable. No enlarged lymph nodes. Urinary bladder: Unremarkable as visualized. Reproductive: Hysterectomy. Bones/joints: Bilateral femoral hardware in place. Interval development of sclerosis at medial left pubic bones likely represents healing occult fracture. Soft tissues: Unremarkable. CT/[place] [id number] IMPRESSION: Interval multilevel compression fractures of cervicothoracic spine. Healing fractures of sternum and healing of new fractures of anterior right rib 2 and anterior left rib 1. No acute cardiopulmonary findings. Large hiatal hernia. IMPRESSION: Interval development of sclerosis at medial left pubic bones likely represents healing occult fracture. No acute intra-abdominal findings.
--- NOTE | 2022-04-03 03:17 | CTR_ITS ---
PROCEDURE INFORMATION: Exam: CT Left Lower Extremity Without Contrast, Hip Exam date and time: 04/03/2022 3:32 AM Age: 76 years old Clinical indication: Injury or trauma; Fall; Blunt trauma; Left; Injury details: PT fell. Complained of rib and hip pain. Unable to lie flat TECHNIQUE: Imaging protocol: CT of the Left lower extremity without contrast was performed. Exam focused on the hip. Radiation optimization: All CT scans at this facility use at least one of these dose optimization techniques: automated exposure control; mA and/or kV adjustment per patient size (includes targeted exams where dose is matched to clinical indication); or iterative reconstruction. COMPARISON: CR (PELVIS, ) 04/03/2022 2:28 AM RADIATION DOSE METRICS: Total DLP (mGy-cm): 540.87 FINDINGS: Bones/joints: Hardware is noted within the left femur with compression screws noted at femoral neck and head and nail in place within the femoral shaft. Sclerosis present at medial left pubic bones likely represents healing fracture. No additional acute findings. Degenerative change femoroacetabular joint is moderately advanced. Soft tissues: Normal. CT/CT hip LT wo con* [id number] IMPRESSION: Sclerosis present at medial left pubic bones likely represents healing fracture. Otherwise, no acute findings.
[2022-04-03 04:42] VITALS: BP 141/74; PULSE 61; RESP 16; O2SAT 95
[2022-04-03] MEDS: HYDROcodone-acetaminophen 5-325 mg Tablet 1 TAB PO (05:35)
[2022-04-03 06:29] VITALS: BP 139/59; PULSE 74; RESP 18; TEMP 36.7; O2SAT 95
--- NOTE | 2022-04-03 10:00 | PC.SOCIAL ---
Addendum entered by Cathryn Mace 04/26/22 16:09: Patient had a follow up appointment scheduled for 04.04.22 at ortho - patient did not attend appointment. Original Note: Ortho Follow Up Message sent to Ortho clinic requesting follow up with Dr. Emery. Clinic will contact patient/facility with appointment time.
== END 2022-04-03 07:37 | disposition home or self-care (01) ==
PROVIDERS: Emergency Provider Emergency Medicine; PCP Family Medicine
DX: S12.691A Other nondisplaced fracture of seventh cervical vertebra, initial encounter for closed fracture (principal); S42.032A Displaced fracture of lateral end of left clavicle, initial encounter for closed fracture; W01.0XXA Fall on same level from slipping, tripping and stumbling without subsequent striking against object, initial encounter; Y92.129 Unspecified place in nursing home as the place of occurrence of the external cause; Z87.891 Personal history of nicotine dependence
CPT/HCPCS: 71101; 71250; 72100; 73030; 73502; 73700; 74176; 99283

== ENCOUNTER 2022-05-14 16:44 | Emergency (ER) | payer MEDICARE, SELFPAY ==
[2022-05-14 16:48] VITALS: BP 140/80; PULSE 80; RESP 17; TEMP 36.9; O2SAT 94; BMI 21.9
--- NOTE | 2022-05-14 17:03 | CTR_ITS ---
PROCEDURE INFORMATION: Exam: CT Head Without Contrast Exam date and time: 05/14/2022 6:41 PM Age: 77 years old Clinical indication: Altered mental status/memory loss; Additional info: AMS TECHNIQUE: Imaging protocol: Computed tomography of the head without contrast. Sagittal and coronal reformatted images were created and reviewed. Radiation optimization: All CT scans at this facility use at least one of these dose optimization techniques: automated exposure control; mA and/or kV adjustment per patient size (includes targeted exams where dose is matched to clinical indication); or iterative reconstruction. COMPARISON: CT head wo con* [id number] 01/22/2022 9:39 AM RADIATION DOSE METRICS: Total DLP (mGy-cm): 1197.98 FINDINGS: Brain: No acute intracranial hemorrhage. No acute infarct. No intra-axial or extra-axial masses. Stephens-white matter differentiation is preserved. No cerebral edema. No extra-axial fluid collections. No midline shift. No evidence for Chiari 1 malformation. Stable mild atrophy of the brain parenchyma. Stable mildly decreased attenuation in the deep white matter, consistent with mild chronic microangiopathic change. Cerebral ventricles: No hydrocephalus. Paranasal sinuses: Paranasal sinuses are clear. Mastoid air cells: Mastoid air cells are clear bilaterally. Orbital cavities: Globes and lenses, extraocular muscles, and optic nerves are intact bilaterally. No acute intraorbital abnormality. Bones/joints: No acute fracture. Soft tissues: No acute abnormality of the extracranial soft tissues. Vasculature: Atherosclerotic changes in the visualized arteries. CT/CT head wo con* [id number] IMPRESSION: 1. No acute abnormality of the brain. 2. Stable mild atrophy of the brain parenchyma. 3. Stable mild chronic white matter microangiopathic change. 4. Incidental/nonacute findings are listed in the report.
--- NOTE | 2022-05-14 17:03 | XRR_ITS ---
PROCEDURE INFORMATION: Exam: XR Chest Exam date and time: 05/14/2022 5:21 PM Age: 77 years old Clinical indication: Other: Fentanyl patch od; Additional info: AMS TECHNIQUE: Imaging protocol: Radiologic exam of the chest. Views: 1 view. COMPARISON: CT chest abdpel [id number] 04/03/2022 3:26 AM FINDINGS: Lungs: No focal consolidation. No pulmonary edema. Pleural spaces: No pleural effusion. No pneumothorax. Heart/Mediastinum: Stable moderate enlargement of the cardiac silhouette. Mediastinal contours are unremarkable. Stable moderate hiatal hernia. Vasculature: Stable tortuosity of the aorta. Stable vascular calcifications in the aorta. Bones/joints: Unremarkable for age. XR/XR chest 1V portable [id number] IMPRESSION: 1. No acute cardiopulmonary process. 2. Stable moderate hiatal hernia. 3. Incidental/nonacute findings are listed in the report.
--- NOTE | 2022-05-14 17:04 | ECG_ITS ---
[facility] Test Date: 2022-05-14 Pat Name: Trini Jeter Department: Room: Gender: Female Janitorial Assistant: : 1945 Requested By: Victorino Moody Order Number: [id number] Judith MD: Keegan Yung M.D. Measurements Intervals [place] Rate: 77 P: 37 TN: 200 QRS: 2 QRSD: 85 T: 69 QT: 395 QTc: 448 Interpretive Statements SINUS RHYTHM Possible old septal NH POSSIBLE LEFT ATRIAL ENLARGEMENT [-0.1mV P-WAVE IN V1/V2] MODERATE ST DEPRESSION [0.05+ mV ST DEPRESSION] No previous ECG available for comparison Electronically Signed On 05-14-2022 21:18:32 CDT by Keegan Yung M.D. [id number]
--- NOTE | 2022-05-14 17:23 | PC.NURSE ---
PT PLACED ON CONTINUOUS NIBP, SPO2, AND CM
--- NOTE | 2022-05-14 17:39 | ED_ITS ---
HPI - General Adult General: Chief complaint: Overdose Stated complaint: POSSIBLE FENTANYL OD Time Seen by Provider: 05/14/22 16:54 History of Present Illness: Patient is a 77-year-old female who presents the emergency room for concerns of confusion and altered mental status. Patient was found by nursing staff earlier today to have 9 of her fentanyl patches missing from her drawer. The longterm staff suspected that the patient has gone through 9 patches in the last 5-day. Earlier this morning, patient was noted to take off her fentanyl patch. Patient was noted to be lightheaded to bring patient to the emergency room for concerns of possible fentanyl overdose. Patient at no time had any respiratory depression or obtundation On arrival, patient is AAO x3 mildly confused. Per EMS, patient never had any respiratory depression or altered mental status. Onset:earlier today Duration: unknown Location:longterm Severity:mild/moderate Associated symptoms: Deny chest pain, dyspnea, nausea, rash, palpitations or vomiting Review of Systems Const: Denies: fever(s) or chills Eyes: Denies: change in vision ENMT: Denies: mouth pain Card: Denies: chest pain or palpitations Resp: Denies: dyspnea or non-productive cough GI: Denies: abdominal pain, nausea, vomiting or diarrhea : Denies: dysuria Musc: Denies: extremity pain Skin/Breast: Denies: rash or new lesions Neuro: Reports: other (altered mental status); Denies: weakness in extremities Psych: Reports: other (Normal mood) Dionicio/Lymph: Denies: easy bruising PFS ED PFSH: Medical History Frequent falls Gastroesophageal reflux disease Osteoporosis Social History Smoking and tobacco status: former smoker Alcohol intake: never Physical Exam Const: COMMON NORMALS: alert HENMT: COMMON NORMALS: atraumatic HEAD & SCALP: atraumatic MOUTH: moist mucous membranes not abnormal Eye: COMMON NORMALS: EOMs intact bilaterally and conjunctivae normal CONJUNCTIVA: Yes conjunctivae normal Neck/C-Spine: COMMON NORMALS: full ROM and supple Resp: COMMON NORMALS: normal respiratory effort and clear to auscultation bilaterally AUSCULTATION: clear to auscultation bilaterally Cardio: COMMON NORMALS: regular rate RATE: regular rate GI: COMMON NORMALS: Soft to palpation and non-tender PALPATION: Yes Soft to palpation OTHER: No focal TTP. NO guarding rebound, guarding, rigidity. No CVA tenderness to percussion. Neg Machado/Neg McBurney's point tenderness, no suprabupic tenderness to palpation. Extremity: COMMON NORMALS: full ROM Neuro: SENSORIUM/ORIENTATION: Yes alert MOTOR EXAM: No Abnormal motor st rength present and Other motor observations present (no focal motor deficits) OTHER: AAOx3, answering all questions appropriately, +occasional confusion, moving all extremities, CN2-12 grossly intact Psych: COMMON NORMALS: speech normal SPEECH: Yes normal speech MOOD & AFFECT: Yes euthymic mood Skin: OTHER: +no attached fentayl patches, bruises or track araujo Course Vital Signs: Vital signs: Vital Signs Temperature 98.3 F 05/14/22 19:00 Pulse Rate 76 05/14/22 19:00 Respiratory Rate 20 H 05/14/22 19:00 Blood Pressure 160/88 05/14/22 19:00 Pulse Oximetry 98 05/14/22 19:00 Oxygen Delivery Me thod 05/14/22 19:00 MDM - General Adult Medical Decision Making 77-year-old female male with a history of osteoporosis, 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 On physical exam, patient has no more fentanyl patches applied. Troponin x2 with delta less than 5. Rest of work-up largely unremarkable. CT head negative for any acute finding. Her chest appears to be clear. Patient is now able to tolerate p.o. without any difficulty. Do not suspect respiratory depression or acute opiate toxicity from fentanyl patch after observation for 3 hours. Disposition: Discharge. Patient's counseled regarding diagnostic impression, treatment plan. Patient given ED strict return precautions to return for continuation, worsening, or development of new symptoms. Instructed to f/u w/ PCP regarding symptoms today. Patient's verbalized understanding. Lab Data : 05/14/22 17:27 05/14/22 17:27 Radiology Impressions Chest X-Ray 05/14/22 17:03 IMPRESSION: 1. No acute cardiopulmonary process. 2. Stable moderate hiatal hernia. 3. Incidental/nonacute findings are listed in the report. Head CT 05/14/22 17:03 IMPRESSION: 1. No acute abnormality of the brain. 2. Stable mild atrophy of the brain parenchyma. 3. Stable mild chronic white matter microangiopathic change. 4. Incidental/nonacute findings are listed in the report. Laboratory Results WBC 10.5 10^3/uL (4.0-10.0) H 05/14/22 17: RBC 4.57 10^6/uL (4.1-5.3) 05/14/22 17: Hgb 13.9 g/dL (11.5-15.3) 05/14/22 17: Hct 43.1 % (37.0-47.0) 05/14/22 17: MCV 94.3 fl (81-99) 05/14/22: MCH 30.4 pg (28.0-34.0) 05/14/22: MCHC 32.3 g/dL (30.0-36.0) 05/14/22: RDW 13.5 % (12.1-15.1) 05/14/22: Plt Count 175 10^3/cmm (130-400) 05/14/22: MPV 10.7 fL (7.4-10.4) H 05/14/22: Neut % (Auto) 71.9 % 05/14/22: Lymph % (Auto) 19.1 % 05/14/22: [place] % (Auto) 8.4 % 05/14/22: Eos % (Auto) 0.2 % 05/14/22: Baso % (Auto) 0.2 % 05/14/22: Neut # (Auto) 7.55 10^3/uL (1.8-7.7) 05/14/22: Lymph # (Auto) 2.0 10^3/uL (0.8-4.8) 05/14/22: [place] # (Auto) 0.9 10^3/uL (0.2-0.9) 05/14/22: Eos # (Auto) 0.0 10^3/uL (0.0-0.8) 05/14/22: Baso # (Auto) 0.0 10^3/uL (0.0-0.1) 05/14/22 17:27 Nucleated RBC % (auto) 0 % 05/14/22 17: Nucleated RBCs # 0.0 /100WBC 05/14/22 17:27 Sodium 136 mmol/L (136-145) 05/14/22 17:27 Potassium 5.1 mmol/L (3.5-5.1) 05/14/22 17:27 Chloride 97 mmol/L (98-107) L 05/14/22 17:27 Carbon Dioxide 31 mmol/L (22-29) H 05/14/22 17:27 Anion Gap 13.1 (5-19) 05/14/22 17:27 BUN 18 mg/dL (8-23) 05/14/22 17: Creatinine 0.6 mg/dL (0.5-0.9) 05/14/22 17:27 GFR Calculation Not Reportable 05/14/22 17: Glucose 94 mg/dL (65-115) 05/14/22 17: Calculated Osmolality 284 mOsm/kg (285-295) L 05/14/22 17:27 Calcium 10.5 mg/dL (8.5-10.5) 05/14/22 17:27 Total Bilirubin 0.2 mg/dL (0.15-1.2) 05/14/22 17:27 AST 24 U/L (0-32) 05/14/22 17:27 ALT 10 U/L (0-33) 05/14/22 17:27 Alkaline Phosphatase 83 IU/L (35-105) 05/14/22 17:27 Troponin T Baseline 22 ng/L (0-10) H 05/14/22 17:27 Troponin T 120 Minute 22.00 ng/L (0-10) H 05/14/22 19:24 Delta Troponin T 0 ABS# (0-10) 05/14/22 19:24 Total Protein 6.5 g/dL (6.6-8.7) L 05/14/22 17:27 Albumin 4.2 g/dL (3.5-5.2) 05/14/22 17:27 Globulin 2.3 g/dL (1.3-4.6) 05/14/22 17: Lipase 28 U/L (13-60) 05/14/22 17:27 Salicylates < 0.3 mg/dL (3-10) L 05/14/22 17:27 Acetaminophen < 5.0 ug/mL (10-30) L 05/14/22 17:27 Imaging Data Other Imaging: Radiologist's impression: [facility] [address] [place] [place] [address] CT Scan Report Signed Patient: Trini Jeter Unit #: [id number] : 1945 Age/Sex: 77 / F ADM Date: 05/14/22 Loc: ER Room/Bed: Attending Dr: Ordering Provider/Ordering MD: Victorino Moody MD Date of Service: 05/14/22 Procedure(s): CT head wo con* [id number] Accession Number(s): [id number] Report Number: [id number] PROCEDURE INFORMATION: Exam: CT Head Without Contrast Exam date and time: 05/14/2022 6:41 PM Age: 77 years old Clinical indication: Altered mental status/memory loss; Additional info: AMS TECHNIQUE: Imaging protocol: Computed tomography of the head without contrast. Sagittal and coronal reformatted images were created and reviewed. Radiation optimization: All CT scans at this facility use at least one of these dose optimization techniques: automated exposure control; mA and/or kV adjustment per patient size (includes targeted exams where dose is matched to clinical indication); or iterative reconstruction. COMPARISON: CT head wo con* [id number] 01/22/2022 9:39 AM RADIATION DOSE METRICS: Total DLP (mGy-cm): 1197.98 FINDINGS: Brain: No acute intracranial hemorrhage. No acute infarct. No intra-axial or extra-axial masses. Stephens-white matter differentiation is preserved. No cerebral edema. No extra-axial fluid collections. No midline shift. No evidence for Chiari 1 malformation. Stable mild atrophy of the brain parenchyma. Stable mildly decreased attenuation in the deep white matter, consistent with mild chronic microangiopathic change. Cerebral ventricles: No hydrocephalus. Paranasal sinuses: Paranasal sinuses are clear. Mastoid air cells: Mastoid air cells are clear bilaterally. Orbital cavities: Globes and lenses, extraocular muscles, and optic nerves are intact bilaterally. No acute intraorbital abnormality. Bones/joints: No acute fracture. Soft tissues: No acute abnormality of the extracranial soft tissues. Vasculature: Atherosclerotic changes in the visualized arteries. CT/CT head wo con* [id number] IMPRESSION: 1. No acute abnormality of the brain. 2. Stable mild atrophy of the brain parenchyma. 3. Stable mild chronic white matter microangiopathic change. 4. Incidental/nonacute findings are listed in the report. ? Dictated By: Julieta Dillard MD Signed By: Julieta Dillard MD Signed Date/Time: 05/14/22 190 DD/ [address] [address] XRay Report Signed Patient: Trini Jeter Unit #: [id number] : 1945 Age/Sex: 77 / F ADM Date: 05/14/22 Loc: ER Room/Bed: Attending Dr: Ordering Provider/Ordering MD: Victorino Moody MD Date of Service: 05/14/22 Procedure(s): XR chest 1V portable [id number] Accession Number(s): [id number] Report Number: [id number] PROCEDURE INFORMATION: Exam: XR Chest Exam date and time: 05/14/2022 5:21 PM Age: 77 years old Clinical indication: Other: Fentanyl patch od; Additional info: AMS TECHNIQUE: Imaging protocol: Radiologic exam of the chest. Views: 1 view. COMPARISON: [place] [id number] 04/03/2022 3:26 AM FINDINGS: Lungs: No focal consolidation. No pulmonary edema. Pleural spaces: No pleural effusion. No pneumothorax. Heart/Mediastinum: Stable moderate enlargement of the cardiac silhouette. Mediastinal contours are unremarkable. Stable moderate hiatal hernia. Vasculature: Stable tortuosity of the aorta. Stable vascular calcifications in the aorta. Bones/joints: Unremarkable for age. XR/XR chest 1V portable [id number] IMPRESSION: 1. No acute cardiopulmonary process. 2. Stable moderate hiatal hernia. 3. Incidental/nonacute findings are listed in the report. ? Dictated By: Julieta Dillard MD Signed By: Julieta Dillard MD Signed Date/Time: 05/14/22 1808 DD/ 1721 Discharge Plan Discharge Patient Disposition: Home Clinical Impression: Altered mental status Condition: Stable Prescriptions: No Action hydrocodone-acetaminophen 5-325 mg tablet 1 tab PO Q8H PRN (Reason: pain) 30 Days Qty: 90 0RF aspirin [Aspir-81] 81 mg Tablet,Delayed Release (Dr/Ec) 81 mg PO Q4H PRN (Reason: Pain) Tylenol 8 Hour 650 mg Tablet Extended Release 650 mg PO Q4H PRN (Reason: pain/fever) diphenhydramine HCl 25 mg Capsule 25 mg PO PRN ibuprofen 600 mg Tablet 600 mg PO DAILY ibandronate 150 mg Tablet 150 mg PO Q30D megestrol 40 mg Tablet See Rx Instructions .ROUTE .COMPLEX Rx Instructions: 40 mg po before meals and at bedtime multivitamin Tablet 1 tab PO DAILY furosemide 40 mg tablet 40 mg PO DAILY cetirizine [Zyrtec] 10 mg Tablet 10 mg PO DAILY PRN (Reason: Allergy Symptoms) potassium chloride 10 mEq tablet extended release 10 meq PO DAILY Vitamin B-12 50 mcg Tablet 50 mcg PO DAILY gabapentin 300 mg capsule 300 mg PO BID omeprazole 20 mg capsule,delayed release(DR/EC) 20 mg PO DAILY polyethylene glycol 3350 [Miralax] 17 gram/dose Powder 17 g PO DAILY PRN (Reason: Constipation) cholecalciferol (vitamin D3) [Vitamin D3] 25 mcg (1,000 unit) Capsule 25 mcg PO DAILY hydrocodone-acetaminophen 5-325 mg tablet 1 tab PO Q6H PRN (Reason: pain) Qty: 14 0RF Discharge Orders: Discharge ED (Routine); Ordered 05/14/22 Ordered By: Victorino Moody Referrals: Constantine Garcia DO [Primary Care Provider] - Discharge Diet: Advance as tolerated Discharge Activity: Increase activity as tolerated Patient Instructions: Altered Mental Status (ED) Activity Restrictions/Additional Instructions: Come back if you have any new or concerning issues. Coding Level of Care Code ED [employer] for [facility] Exam Comprehensive
[2022-05-14 17:46] LABS: Basophils % 0.2 %; Eosinophils % 0.2 %; Hematocrit 43.1 % (37.0-47.0); Hemoglobin 13.9 g/dL (11.5-15.3); Lymphocytes % 19.1 %; Mean Corpuscular HGB Conc 32.3 g/dL (30.0-36.0); Mean Corpuscular Hemoglobin 30.4 pg (28.0-34.0); Mean Corpuscular Volume 94.3 fl (81-99); Mean Platelet Volume 10.7 fL (7.4-10.4); Monocytes # 0.9 10^3/uL (0.2-0.9); Monocytes % 8.4 %; Neutrophils # 7.55 10^3/uL (1.8-7.7); Neutrophils % 71.9 %; Nucleated Red Blood Cells % 0 %; Platelet Count 175 10^3/cmm (130-400); Red Blood Count 4.57 10^6/uL (4.1-5.3); Red Cell Distribution Width 13.5 % (12.1-15.1); White Blood Count 10.5 10^3/uL (4.0-10.0)
[2022-05-14 18:14] LABS: Troponin(5th) Baseline 22 ng/L (0-10)
[2022-05-14 18:16] LABS: Alanine Aminotransferase 10 U/L (0-33); Albumin Level 4.2 g/dL (3.5-5.2); Alkaline Phosphatase 83 IU/L (35-105); Anion Gap 13.1 (5-19); Aspartate Amino Transferase 24 U/L (0-32); Blood Urea Nitrogen 18 mg/dL (8-23); Calcium 10.5 mg/dL (8.5-10.5); Carbon Dioxide 31 mmol/L (22-29); Chloride 97 mmol/L (98-107); Creatinine Clr Calc Pharmacy 46.6582; Globulin 2.3 g/dL (1.3-4.6); Glucose 94 mg/dL (65-115); Lipase 28 U/L (13-60); Osmolality Calculated 284 mOsm/kg (285-295); Potassium 5.1 mmol/L (3.5-5.1); Sodium 136 mmol/L (136-145); Total Bilirubin 0.2 mg/dL (0.15-1.2); Total Protein 6.5 g/dL (6.6-8.7)
[2022-05-14 18:17] LABS: Acetaminophen < 5.0 ug/mL (10-30); Salicylate < 0.3 mg/dL (3-10)
[2022-05-14 19:00] VITALS: BP 160/88; PULSE 76; RESP 20; TEMP 36.8; O2SAT 98
--- NOTE | 2022-05-14 19:01 | ECG_ITS ---
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 Measurements Intervals [place] Rate: 74 P: 29 TN: 166 QRS: -37 QRSD: 109 T: 89 QT: 410 QTc: 455 Interpretive Statements SINUS RHYTHM WITH OCCASIONAL SUPRAVENTRICULAR PREMATURE COMPLEXES POSSIBLE LEFT ATRIAL ENLARGEMENT [-0.1mV P-WAVE IN V1/V2] LEFT AXIS DEVIATION [QRS AXIS < -30] POSSIBLE LEFT VENTRICULAR HYPERTROPHY [VOLTAGE CRITERIA PLUS LAE OR QRS WIDENING] ST DEVIATION AND MODERATE T-WAVE ABNORMALITY, CONSIDER LATERAL ISCHEMIA [-0.1+ mV T-WAVE IN I/aVL/V5/V6] Compared to ECG 05/14/2022 17:11:32 Left-axis deviation now present T-wave abnormality now present Possible ischemia now present ST (T wave) deviation no longer present Electronically Signed On 05-15-2022 19:51:57 CDT by Roxie Mcmanus M.D. [id number]
[2022-05-14 19:58] LABS: Troponin 5 2HR Delta 0 ABS# (0-10)
--- NOTE | 2022-05-14 20:57 | PC.NURSE ---
1899: Report from DIEGO Trevino. Pt resting quietly in bed. at bedside. No c/o at this time. Adjusted pt in bed.
== END 2022-05-14 21:40 | disposition home or self-care (01) ==
PROVIDERS: Emergency Provider Emergency Medicine; PCP Family Medicine
DX: R41.82 Altered mental status, unspecified (principal); Z79.82 Long term (current) use of aspirin; Z87.891 Personal history of nicotine dependence; Z79.891 Long term (current) use of opiate analgesic
CPT/HCPCS: 70450; 71045; 80053; 80307; 83690; 84484; 85025; 93005; 99285

== ENCOUNTER 2022-05-29 21:34 | Emergency (ER) | payer MEDICARE, SELFPAY ==
[2022-05-29 21:38] VITALS: BMI 19.0
--- NOTE | 2022-05-29 21:41 | CTR_ITS ---
PROCEDURE INFORMATION: Exam: CT Cervical Spine Without Contrast Exam date and time: 05/29/2022 11:00 PM Age: 77 years old Clinical indication: Injury or trauma; Fall; Blunt trauma; Injury date: 05/29/2022 TECHNIQUE: Imaging protocol: Computed tomography of the cervical spine without contrast. Sagittal and coronal reformatted images were created and reviewed. Radiation optimization: All CT scans at this facility use at least one of these dose optimization techniques: automated exposure control; mA and/or kV adjustment per patient size (includes targeted exams where dose is matched to clinical indication); or iterative reconstruction. COMPARISON: No relevant prior studies available. RADIATION DOSE METRICS: Total DLP (mGy-cm): 159.17 FINDINGS: Bones/joints: Stable old, mild compression deformity of T1. Bones are diffusely osteopenic. No evidence for an epidural hematoma. No acute fracture. Discs/Spinal canal/Neural foramina: Multilevel degenerative changes of varying severity in the visualized spine. Mild spinal canal stenosis at C3-C4, C4-C5, and C5-C6. Multilevel foraminal stenosis of varying severity in the cervical spine. Lungs: Visualized lungs are clear. Vasculature: Atherosclerotic changes in the visualized arteries. Soft tissues: Unremarkable. CT/CT cervical spin wo con* [id number] IMPRESSION: 1. No acute fracture of the cervical spine. 2. Stable old, mild compression deformity of T1. 3. Multilevel degenerative changes of varying severity in the visualized spine. Mild spinal canal stenosis at C3-C4, C4-C5, and C5-C6. Multilevel foraminal stenosis of varying severity in the cervical spine. 4. Incidental/nonacute findings are listed in the report.
--- NOTE | 2022-05-29 21:41 | CTR_ITS ---
PROCEDURE INFORMATION: Exam: CT Head Without Contrast Exam date and time: 05/29/2022 10:57 PM Age: 77 years old Clinical indication: Injury or trauma; Fall; Blunt trauma (contusions or hematomas); Without loss of consciousness; Injury details: Glf at home, posterior head / neck pain, no laceration or noticeable hematoma TECHNIQUE: Imaging protocol: Computed tomography of the head without contrast. Sagittal and coronal reformatted images were created and reviewed. Radiation optimization: All CT scans at this facility use at least one of these dose optimization techniques: automated exposure control; mA and/or kV adjustment per patient size (includes targeted exams where dose is matched to clinical indication); or iterative reconstruction. COMPARISON: CT head wo con* [id number] 05/14/2022 6:41 PM RADIATION DOSE METRICS: Total DLP (mGy-cm): 1094.28 FINDINGS: Brain: No acute intracranial hemorrhage. No acute infarct. No intra-axial or extra-axial masses. Stephens-white matter differentiation is preserved. No cerebral edema. No extra-axial fluid collections. No midline shift. No evidence for Chiari 1 malformation. Stable mild atrophy of the brain parenchyma. Stable mildly decreased attenuation in the deep white matter, consistent with mild chronic microangiopathic change. No evidence for Chiari 1 malformation. Cerebral ventricles: No hydrocephalus. Paranasal sinuses: Paranasal sinuses are clear. Mastoid air cells: Unremarkable as visualized. Orbital cavities: Globes and lenses, extraocular muscles, and optic nerves are intact bilaterally. No acute intraorbital abnormality. Nasal cavity: Mild right nasal septal deviation. Bones/joints: No acute fracture. Soft tissues: Small right parietal scalp contusion. Vasculature: Atherosclerotic changes in the visualized arteries. CT/CT head wo con* [id number] IMPRESSION: 1. No acute abnormality of the brain. 2. Small right parietal scalp contusion. 3. Stable mild atrophy of the brain parenchyma. 4. Stable mild chronic white matter microangiopathic change. 5. Incidental/nonacute findings are listed in the report.
--- NOTE | 2022-05-29 21:41 | XRR_ITS ---
PROCEDURE INFORMATION: Exam: XR Chest Exam date and time: 05/29/2022 9:48 PM Age: 77 years old Clinical indication: Injury or trauma; Fall; Blunt trauma (contusions or hematomas) TECHNIQUE: Imaging protocol: Radiologic exam of the chest. Views: 1 view. Other technique: The patient is rotated to the left. COMPARISON: CR XR chest 1V portable [id number] 05/14/2022 5:21 PM FINDINGS: Lungs: No focal consolidation. No pulmonary edema. Pleural spaces: No pleural effusion. No pneumothorax. Heart/Mediastinum: Stable moderate enlargement of the cardiac silhouette. Mediastinal contours are unremarkable. Vasculature: Stable vascular calcifications in the aorta. Bones/joints: Multiple old rib fractures bilaterally. Multilevel degenerative changes of varying severity in the visualized spine. Moderate degenerative changes at the right shoulder. Bones are diffusely osteopenic. Flattened appearance of multiple vertebrae in the thoracic spine suspicious for old compression deformities. There are findings suggesting a prior kyphoplasty procedure at T11. No acute fracture. XR/XR chest 1V portable [id number] IMPRESSION: 1. No acute cardiopulmonary process. 2. CT scan of the chest with contrast would be recommended if there is continuing clinical concern for thoracic injury. 3. No acute fracture. 4. Incidental/nonacute findings are listed in the report.
--- NOTE | 2022-05-29 21:41 | XRR_ITS ---
PROCEDURE INFORMATION: Exam: XR Pelvis Exam date and time: 05/29/2022 9:54 PM Age: 77 years old Clinical indication: Injury or trauma; Fall; Blunt trauma (contusions or hematomas); Bilateral; Pelvic region TECHNIQUE: Imaging protocol: Radiologic exam of the pelvis. Views: 1 or 2 view. COMPARISON: [place] [id number] 04/03/2022 3:26 AM FINDINGS: Bones/joints: Stable changes consistent with prior bilateral femoral fracture repairs. No evidence for loosening of the visualized surgical hardware. Degenerative changes in the spine, sacroiliac joints, and hips. Bones are diffusely osteopenic. No acute fracture. No dislocation. Soft tissues: No soft tissue swelling. No radiopaque foreign body. XR/XR pelvis 1-2V* [id number] IMPRESSION: 1. No acute fracture. MRI would be recommended if clinical concern for fracture persists. 2. Incidental/nonacute findings are listed in the report.
[2022-05-29 21:42] VITALS: BP 103/58; PULSE 64; RESP 16; TEMP 36.8; O2SAT 95
--- NOTE | 2022-05-29 21:44 | ED_ITS ---
HPI - Trauma General: Chief Complaint: Trauma Stated Complaint: fall Time Seen by Provider: 05/29/22 21:35 Source: patient and EMS Mode of arrival: EMS Limitations: no limitations History of Present Illness: 77-year-old female who presents here from residential with a fall. Patient fell hit her head she does have a hematoma to the right side of her head she had a loss conscious complains of some slight neck pain no other known injuries. She rates her pain a 5 out of 10. Associated symptoms: Reports headache(s); Denies abdominal pain, back pain, chest pain, chills, dental pain, fever(s), nausea or vomiting Review of Systems Const: Denies: fever(s), chills, body aches or change in appetite Eyes: Denies: blurry vision or eye discomfort ENMT: Denies: throat pain or dental pain Card: Denies: chest pain Resp: Denies: dyspnea GI: Denies: abdominal pain, nausea, vomiting or diarrhea : Denies: dysuria Musc: Denies: neck pain or back pain Skin/Breast: Denies: rash Neuro: Reports: headache(s) Psych: Denies: depression Dionicio/Lymph: Denies: easy bruising All/Imm: Denies: urticaria PFSH ED PFSH: Medical History Frequent falls Gastroesophageal reflux disease Osteoporosis Social History Smoking and tobacco status: former smoker Alcohol intake: never Physical Exam Const: COMMON NORMALS: no acute distress, patient oriented x3 and healthy appearing HENMT: COMMON NORMALS: normocephalic; head/scalp not atraumatic (hematoma to right scalp) HEAD & SCALP: normocephalic; not atraumatic (hematoma to right scalp) Eye: COMMON NORMALS: Equal, round and reactive pupils present and EOMs intact bilaterally PUPIL: Yes Equal, round and reactive pupils present Neck/C-Spine: COMMON NORMALS: full ROM and supple Chest: COMMONS NORMALS: normal inspection of the chest and normal palpation of entire chest wall Resp: COMMON NORMALS: normal respiratory effort, No retractions, No use of accessory muscles and clear to auscultation bilaterally AUSCULTATION: clear to auscultation bilaterally Cardio: COMMON NORMALS: regular rate, regular rhythm and No murmurs present (Cardio) RATE: regular rate RHYTHM: regular rhythm GI: COMMON NORMALS: Normal to inspection, nondistended, normoactive bowel sounds present, Soft to palpation, non-tender and no masses PALPATION: Yes Soft to palpation Extremity: COMMON NORMALS: normal to inspection and full ROM Neuro: COMMON NORMALS: patient oriented x3, moves all extremities and no focal motor deficits Psych: COMMON NORMALS: mental status grossly normal, Normal thought process present and cooperative THOUGHT PROCESS: Normal thought process present Skin: COMMON NORMALS: no rashes or lesions noted and no wounds GENERAL SKIN EXAM: no rashes or lesions noted Course Vital Signs: Vital signs: Vital Signs Temperature 98.2 F 05/29/22 21:42 Pulse Rate 64 05/29/22 21:42 Respiratory Rate 16 05/29/22 21:42 Blood Pressure 103/58 05/29/22 21:42 Pulse Oximetry 95 05/29/22 21:42 Oxygen Delivery Me thod 05/29/22 21:42 MDM - Trauma Medical Decision Making Patient presents with a closed head injury from a fall head CT and C-spine CT here are both normal she is well-appearing here she is stable for discharge she is to follow-up with PCP and return if worsening. Lab Data Radiology Impressions Cervical Spine CT 05/29/22 21:41 IMPRESSION: 1. No acute fracture of the cervical spine. 2. Stable old, mild compression deformity of T1. 3. Multilevel degenerative changes of varying severity in the visualized spine. Mild spinal canal stenosis at C3-C4, C4-C5, and C5-C6. Multilevel foraminal stenosis of varying severity in the cervical spine. 4. Incidental/nonacute findings are listed in the report. Chest X-Ray 05/29/22 21:41 IMPRESSION: 1. No acute cardiopulmonary process. 2. CT scan of the chest with contrast would be recommended if there is continuing clinical concern for thoracic injury. 3. No acute fracture. 4. Incidental/nonacute findings are listed in the report. Head CT 05/29/22 21:41 IMPRESSION: 1. No acute abnormality of the brain. 2. Small right parietal scalp contusion. 3. Stable mild atrophy of the brain parenchyma. 4. Stable mild chronic white matter microangiopathic change. 5. Incidental/nonacute findings are listed in the report. Pelvis X-Ray 05/29/22 21:41 IMPRESSION: 1. No acute fracture. MRI would be recommended if clinical concern for fracture persists. 2. Incidental/nonacute findings are listed in the report. Discharge Plan Discharge Patient Disposition: Home Clinical Impression: Fall Closed head injury Qualifiers: Encounter type: initial encounter Qualified Code(s): S09.90XA - Unspecified injury of head, initial encounter Condition: Stable Prescriptions: No Action hydrocodone-acetaminophen 5-325 mg tablet 1 tab PO Q8H PRN (Reason: pain) 30 Days Qty: 90 0RF aspirin [Aspir-81] 81 mg Tablet,Delayed Release (Dr/Ec) 81 mg PO Q4H PRN (Reason: Pain) Tylenol 8 Hour 650 mg Tablet Extended Release 650 mg PO Q4H PRN (Reason: pain/fever) diphenhydramine HCl 25 mg Capsule 25 mg PO PRN ibuprofen 600 mg Tablet 600 mg PO DAILY ibandronate 150 mg Tablet 150 mg PO Q30D megestrol 40 mg Tablet See Rx Instructions .ROUTE .COMPLEX Rx Instructions: 40 mg po before meals and at bedtime multivitamin Tablet 1 tab PO DAILY furosemide 40 mg tablet 40 mg PO DAILY cetirizine [Zyrtec] 10 mg Tablet 10 mg PO DAILY PRN (Reason: Allergy Symptoms) potassium chloride 10 mEq tablet extended release 10 meq PO DAILY Vitamin B-12 50 mcg Tablet 50 mcg PO DAILY gabapentin 300 mg capsule 300 mg PO BID omeprazole 20 mg capsule,delayed release(DR/EC) 20 mg PO DAILY polyethylene glycol 3350 [Miralax] 17 gram/dose Powder 17 g PO DAILY PRN (Reason: Constipation) cholecalciferol (vitamin D3) [Vitamin D3] 25 mcg (1,000 unit) Capsule 25 mcg PO DAILY hydrocodone-acetaminophen 5-325 mg tablet 1 tab PO Q6H PRN (Reason: pain) Qty: 14 0RF Discharge Orders: Discharge ED (Routine); Ordered 05/29/22 Ordered By: Aj Vizcarra Referrals: Constantine Garcia DO [Primary Care Provider] - Discharge Diet: Advance as tolerated Discharge Activity: Resume usual activity Patient Instructions: Head Injury (ED) Coding Level of Care Code ED Documentation Nurse for g Fwd Exam Comprehensive
[2022-05-30 00:28] VITALS: RESP 16; O2SAT 97
== END 2022-05-30 00:20 | disposition home or self-care (01) ==
PROVIDERS: Emergency Provider Emergency Medicine; PCP Family Medicine
DX: S09.8XXA Other specified injuries of head, initial encounter (principal); Z79.82 Long term (current) use of aspirin; Z87.891 Personal history of nicotine dependence; W19.XXXA Unspecified fall, initial encounter; Y92.129 Unspecified place in nursing home as the place of occurrence of the external cause
CPT/HCPCS: 70450; 71045; 72125; 72170; 99284

== ENCOUNTER 2022-07-02 10:58 | Emergency (ER) | payer MEDICARE, SELFPAY ==
[2022-07-02 11:17] VITALS: BMI 19.0
[2022-07-02 11:21] VITALS: BP 133/83; PULSE 74; RESP 16; TEMP 36.6; O2SAT 94
--- NOTE | 2022-07-02 11:41 | CT_ITS ---
WS: [id number] CT CERVICAL TRAUMA TECHNIQUE: Noncontrast CT of the cervical spine with coronal and sagittal reformatted images. CLINICAL INFORMATION: fall COMPARISON: None. DLP: 1919.[address] scans at [facility] use at least one of these dose optimization techniques: automated e xposure control; mA and/or kV adjustment per patient size (includes targeted exams where dose is matc hed to clinical indication); or iterative reconstruction. FINDINGS: Osteopenia. Cervical scoliosis convex LEFT. Exaggeration of the normal cervical lordosis. Moderate sp ondylitic changes. Disc space narrowing worse at C6-C7 and C7-T1. Mild endplate compression deformiti es C7 and T1 unchanged from May 29, 2022 Normal craniocervical junction. Normal C1-C2 articulation. Dens is normal in appearance. Normal occip ital condyles. No high-grade spinal canal narrowing. Normal C1 ring. No evidence of acute. fracture or dislocation. Normal prevertebral soft tissues. Mastoids air cells are well aerated. CT/CT cervical spin wo con* [id number] IMPRESSION: No evidence of acute fracture or dislocation.
--- NOTE | 2022-07-02 11:41 | CT_ITS ---
WS: [id number] CT HEAD TECHNIQUE: Noncontrast CT of the head obtained from the skullbase to the vertex. CLINICAL INFORMATION: fall COMPARISON: May 29, 2022 DLP: 1919.[address] scans at [facility] use at least one of these dose optimization techniques: automated e xposure control; mA and/or kV adjustment per patient size (includes targeted exams where dose is matc hed to clinical indication); or iterative reconstruction. FINDINGS: No evidence of intracranial hemorrhage or mass effect. Ventricular system and basal cisterns are owen nt. Mild small vessel changes with mild parenchymal volume loss. No extra-axial fluid collections. No evidence of mass or mass effect. Paranasal sinuses and mastoid air cells are well aerated. .Normal visualized soft tissues. CT/CT head wo con* [id number] IMPRESSION: 1. No evidence of intracranial hemorrhage or mass effect. 2. Tiny chronic lacunar infarct RIGHT thalamus. 3. Mild small vessel changes. Mild parenchymal volume loss. 4. No acute intracranial findings.
--- NOTE | 2022-07-02 11:41 | CT_ITS ---
WS: [id number] CT THORACIC SPINE TECHNIQUE: Noncontrast CT of the thoracic spine with coronal and sagittal reformatted images. CLINICAL INFORMATION: fall COMPARISON: CT April 03, 2022 DLP: 1919.[address] scans at [facility] use at least one of these dose optimization techniques: automated e xposure control; mA and/or kV adjustment per patient size (includes targeted exams where dose is matc hed to clinical indication); or iterative reconstruction. FINDINGS: Osteopenia. Moderate thoracic kyphosis. Multiple compression deformities throughout the thoracic spin e. Prior kyphoplasty changes at T11. Compared to April 03 additional compression along the inferior en dplate at T12 with fracture cleft. Comminuted fracture involving the inferior endplate at L1 with ant erior extension into the anterior vertebral body. Pedicles appear intact at this level. Associated pa ravertebral edema. Discitis is not excluded at this level. New mild compression superior endplate T7 and T9 with fracture cleft visualized in the superior endpl ate. Some evidence of prior healing with sclerosis at T9. Stable compression along the inferior endplate T1, superior endplate T4, inferior endplate T5, inferi or endplate T6 and biconcave compression at T8 Mild central canal stenosis at T8 -T9, T10-T11 and moderate central canal stenosis T11-T12. Large esophageal hiatal hernia. Adrenal glands are normal. Slight atelectasis in the lung bases. CT/CT thoracic spin wo con* [id number] IMPRESSION: 1. 1. Moderate thoracic kyphosis with thoracolumbar scoliosis. 2. Prior kyphoplasty changes at T11. 3. New fractures involving the inferior endplate at T12 with prior chronic com pression deformity. Additional new fracture inferior endplate L1 with extension to the anterior cortex. Associated paravertebral edema. 4. Erosive changes in the L1 vertebral body. Discitis not excluded at this lev el. This can be followed up with MRI if no contraindications. 5. Mild compression superior endplate T7 and T9 appears new from previous. 6. Additional chronic compression deformities described above. 7. Mild to moderate central canal stenosis worse at T11-T12 described above. 8. Large esophageal hiatal hernia.
--- NOTE | 2022-07-02 11:42 | ED_ITS ---
HPI - Fall General: Chief Complaint: Fall Stated Complaint: Back pain Time Seen by Provider: 07/02/22 11:30 Source: patient and EMS Mode of arrival: EMS Limitations: no limitations History of Present Illness: This patient was transported by EMS from her assisted living home. She states that she was talking to her sister on the telephone while standing and related to her sister that she wanted to sit down. She began moving to that goal but apparently either lost her balance or somehow missed stepped and wind up falling backwards. She states that she did not have any lightheadedness, chest pain, palpitations or loss of consciousness prior to the episode or after the episode. She complains of pain in her head and her mid back at this time. She states that she does have a history of falls. She states that she has no history of heart rhythm issues, syncope etc. She has not been recently ill. She denies any other complaints of injury at this time. Fall from: standing Fall witnessed: no Place fall occurred: home Loss of consciousness: None Location of injury: head and back Associated symptoms-after fall: Denies abdominal pain, chest pain, difficulty walking, headache(s) or vertigo Review of Systems Const: Denies: fever(s) or chills Eyes: Denies: change in vision ENMT: Denies: odynophagia, dental pain or change in hearing Card: Denies: chest pain, palpitations, irregular heart rhythm, syncope or pre-syncope Resp: Denies: dyspnea, productive cough or non-productive cough GI: Denies: abdominal pain, nausea, vomiting or diarrhea : Denies: flank pain, difficulty voiding, dysuria or urinary frequency Musc: Reports: back pain; Denies: extremity pain or extremity swelling Skin/Breast: Denies: rash, pruritus or erythema Neuro: Reports: frequent falls; Denies: headache(s), numbness in extremities, weakness in extremities, difficulty walking, dizziness, vertigo or seizure-like activity Psych: Denies: anxiety or depression Endo: Denies: polyuria or polydipsia Dionicio/Lymph: Denies: easy bruising PFS ED PFSH: Medical History Frequent falls Gastroesophageal reflux disease Osteoporosis Social History Smoking and tobacco status: former smoker Alcohol intake: never Physical Exam Narrative: EXAM NARRATIVE: Upon my arrival the patient is in the examination room cervical collar in place. She is alert makes good eye contact answers all questions in a goal-directed and fluent fashion. Const: COMMON NORMALS: no acute distress, patient oriented x3 and no limitations GENERAL APPEARANCE: cooperative HENMT: COMMON NORMALS: normocephalic, atraumatic, Normal external nose present, moist oral mucous membranes and oropharynx normal HEAD & SCALP: normocephalic and atraumatic; no hematoma, no laceration and no scalp tenderness FACE & SINUS: normal facial exam and face symmetric NOSE: Normal external nose present Eye: COMMON NORMALS: Equal, round and reactive pupils present and EOMs intact bilaterally PUPIL: Yes Equal, round and reactive pupils present Neck/C-Spine: CERVICAL SPINE: Yes collar present Chest: COMMONS NORMALS: normal inspection of the chest and normal palpation of entire chest wall Resp: COMMON NORMALS: normal respiratory effort, No use of accessory muscles and clear to auscultation bilaterally AUSCULTATION: clear to auscultation bilaterally Cardio: COMMON NORMALS: regular rate, regular rhythm and Peripheral pulses 2+ throughout RATE: regular rate RHYTHM: regular rhythm HEART SOUNDS: Murmur heart sound present (3/6) systolic PERIPHERAL PULSES: Peripheral puls es 2+ throughout GI: COMMON NORMALS: Normal to inspection, nondistended, normoactive bowel sounds present, Soft to palpation, non-tender and no masses PALPATION: Yes Soft to palpation Back/Pelvis: COMMON NORMALS: straight leg raise negative bilaterally THORACIC SPINE/UPPER BACK: Yes thoracic spinal tenderness LUMBAR SPINE/LOWER BACK: Yes normal to inspection and No lumbar spinal tenderness PELVIS: Yes no pain with lateral compression and Yes tenderness over symphysis pubis Extremity: COMMON NORMALS: normal to inspection, full ROM, capillary refill normal, no clubbing, cyanosis or edema, no calf tenderness and no pedal edema Neuro: COMMON NORMALS: patient oriented x3, moves all extremities, no focal motor deficits and no sensory deficits noted CRANIAL NERVES: Yes CN normal except as noted Course Reevaluation(s): Reevaluation #1: Cervical collar removed. She was able to range her neck in all ranges without any discomfort. No midline tenderness or step-off. Repeat neurologic examination revealed no evidence of peroneal numbness. She had also intact lower extremity sensation and motor. Bedside ultrasound was used to evaluate bladder distention. She had approximately 150 mL estimated urine in her bladder at this time. Will order a TLSO brace. Time: 14:06 Consultations: Consultation #1: I did consult Dr. Emery regarding CT scan findings. To his evaluation a CT scan and he did not feel that acute intervention was indicated but that he would happy to follow-up with the patient. We will go ahead and provide a TLSO brace for comfort at this time as well. Time: 14:08 Vital Signs: Vital signs: Vital Signs Temperature 97.8 F 07/02/22 11:21 Pulse Rate 74 07/02/22 11:21 Respiratory Rate 16 07/02/22 11:21 Blood Pressure 133/83 07/02/22 11:21 Pulse Oximetry 94 07/02/22 11:21 Oxygen Delivery Me thod 07/02/22 11:21 MDM - Fall Medical Decision Making Frail elderly woman with history of significant degenerative spine disease presented to the emergency department via ambulance from the assisted living after a ground-level nonsyncopal fall. Her evaluation here revealed no evidence of any new intracranial lesions, CVA, hemorrhage etc. Cervical spine was unremarkable both clinically as well as radiographically. Her CT of her thoracic spine revealed new changes in the lower thoracic spine without any evidence of spinal column or cord encroachment or unstable fractures. She was neurologically intact and bedside ultrasound showed no evidence of urinary retention or bladder distention. Consulted with Dr. Emery who agreed with possi ble TLSO brace as well as outpatient follow-up. Patient stable at this time. All findings were discussed with both she and her family. Medical Records I reviewed the patient's medical records. Lab Data Radiology Impressions Cervical Spine CT 07/02/22 11:41 IMPRESSION: No evidence of acute fracture or dislocation. Head CT 07/02/22 11:41 IMPRESSION: 1. No evidence of intracranial hemorrhage or mass effect. 2. Tiny chronic lacunar infarct RIGHT thalamus. 3. Mild small vessel changes. Mild parenchymal volume loss. 4. No acute intracranial findings. Thoracic Spine CT 07/02/22 11:41 IMPRESSION: 1. 1. Moderate thoracic kyphosis with thoracolumbar scoliosis. 2. Prior kyphoplasty changes at T11. 3. New fractures involving the inferior endplate at T12 with prior chronic compression deformity. Additional new fracture inferior endplate L1 with extension to the anterior cortex. Associated paravertebral edema. 4. Erosive changes in the L1 vertebral body. Discitis not excluded at this level. This can be followed up with MRI if no contraindications. 5. Mild compression superior endplate T7 and T9 appears new from previous. 6. Additional chronic compression deformities described above. 7. Mild to moderate central canal stenosis worse at T11-T12 described above. 8. Large esophageal hiatal hernia. EKG Data EKG 1: I personally reviewed and interpreted this EKG as follows: Computer generated interpretation: EKG reveals sinus rhythm with a ventricular rate of 60 bpm. VT interval, QRS duration, QTc all normal. She has loss of anterior forces in the precordial leads. No acute ST-T wave changes at this time.She has suggestion of possible right atrial enlargement. She also has voltage criteria borderline for LVH. None of these findings today are changed from previous tracing available within the system. Discharge Plan Discharge Patient Disposition: Home Clinical Impression: Fall from ground level, Compression fracture of body of thoracic vertebra Condition: Stable Prescriptions: No Action hydrocodone-acetaminophen 5-325 mg tablet 1 tab PO Q8H PRN (Reason: pain) 30 Days Qty: 90 0RF aspirin [Aspir-81] 81 mg Tablet,Delayed Release (Dr/Ec) 81 mg PO Q4H PRN (Reason: Pain) Tylenol 8 Hour 650 mg Tablet Extended Release 650 mg PO Q4H PRN (Reason: pain/fever) diphenhydramine HCl 25 mg Capsule 25 mg PO PRN ibuprofen 600 mg Tablet 600 mg PO DAILY ibandronate 150 mg Tablet 150 mg PO Q30D megestrol 40 mg Tablet See Rx Instructions .ROUTE .COMPLEX Rx Instructions: 40 mg po before meals and at bedtime multivitamin Tablet 1 tab PO DAILY furosemide 40 mg tablet 40 mg PO DAILY cetirizine [Zyrtec] 10 mg Tablet 10 mg PO DAILY PRN (Reason: Allergy Symptoms) potassium chloride 10 mEq tablet extended release 10 meq PO DAILY Vitamin B-12 50 mcg Tablet 50 mcg PO DAILY gabapentin 300 mg capsule 300 mg PO BID omeprazole 20 mg capsule,delayed release(DR/EC) 20 mg PO DAILY polyethylene glycol 3350 [Miralax] 17 gram/dose Powder 17 g PO DAILY PRN (Reason: Constipation) cholecalciferol (vitamin D3) [Vitamin D3] 25 mcg (1,000 unit) Capsule 25 mcg PO DAILY hydrocodone-acetaminophen 5-325 mg tablet 1 tab PO Q6H PRN (Reason: pain) Qty: 14 0RF Discharge Orders: Discharge ED (Routine); Ordered 07/02/22 Ordered By: Dereje Sage Referrals: Constantine Garcia DO [Primary Care Provider] - Discharge Diet: Usual diet Discharge Activity: Limit activity as instructed and As per PT/OT instructions Patient Instructions: Opioid Safety, Pain Management Activity Restrictions/Additional Instructions: Use the brace to help with your discomfort. Make sure you are drinking at least 2 quarts of water daily. Use MiraLAX twice daily to prevent constipation. If you develop weakness, numbness, fever or any other concerns return to this emergency department immediately. environmental services director will contact you for your follow-up appoint with Dr. Mirza. Coding Level of Care Code ED Electroneurodiagnostic Technologist for [facility] Fwd Exam Comprehensive
--- NOTE | 2022-07-02 11:49 | ECG_ITS ---
[facility] Test Date: 2022-07-02 Pat Name: Trini Jeter Department: Room: Gender: Female Clinical Services Assistant: : 1945 Requested By: Dereje Sage Order Number: [id number] Judith MD: Keegan Yung M.D. Measurements Intervals Drift Rate: 60 P: 31 CA: 183 QRS: -14 QRSD: 88 T: 86 QT: 433 QTc: 434 Interpretive Statements SINUS RHYTHM POSSIBLE LEFT ATRIAL ENLARGEMENT [-0.1mV P-WAVE IN V1/V2] LEFT VENTRICULAR HYPERTROPHY AND ST-T CHANGE [VOLTAGE CRITERIA PLUS ST/T ABNORMALITY] POSSIBLE ANTERIOR MYOCARDIAL INFARCTION , OF INDETERMINATE AGE [30 ms Q WAVE IN V3/V4, OR R < 0.2 mV IN V4] INFERIOR MYOCARDIAL INFARCTION , OF INDETERMINATE AGE [40+ ms Q WAVE AND/OR ST/T ABNORMALITY IN II/aVF] Compared to ECG 05/14/2022 19:01:04 ST (T wave) deviation now present Myocardial infarct finding now present Left-axis deviation no longer present T-wave abnormality no longer present Possible ischemia no longer present Electronically Signed On 07-02-2022 20:47:36 CDT by Keegan Yung M.D. [id number]
[2022-07-02 15:20] VITALS: BP 166/85; PULSE 58; RESP 16; O2SAT 99
--- NOTE | 2022-07-03 11:55 | DCPLANNER ---
Addendum entered by Cathryn Mace 07/04/22 08:02: manager it security received the following message from ortho regarding follow up appointment: Attempted to call patient. Someone answered and hung up without saying anything. mailed letter for pt to call back and schedule with Dr. Emery/pt no showed last appt Original Note: manager it security had message to schedule a follow up appointment for patient with ortho. manager it security sent patients information to the front office staff at ortho. Patients information will be printed and reviewed. Clinic will call patient with appointment information.
== END 2022-07-02 15:24 | disposition home or self-care (01) ==
PROVIDERS: Emergency Provider Emergency Medicine; PCP Family Medicine
DX: S22.080A Wedge compression fracture of T11-T12 vertebra, initial encounter for closed fracture (principal); Z79.82 Long term (current) use of aspirin; Z87.891 Personal history of nicotine dependence; W19.XXXA Unspecified fall, initial encounter
CPT/HCPCS: 70450; 72125; 72128; 93005; 97760; 99285; L0456

== ENCOUNTER 2022-07-05 15:23 | Emergency (ER) | payer MEDICARE, SELFPAY ==
[2022-07-05 15:24] VITALS: BP 132/83; PULSE 84; RESP 16; TEMP 36.9; O2SAT 94; BMI 19.0
--- NOTE | 2022-07-05 15:33 | ED_ITS ---
HPI - Fall General: Chief Complaint: Fall Stated Complaint: FALL Time Seen by Provider: 07/05/22 15:33 History of Present Illness: Ms. Jeter is a 77-year-old lady with history of frequent falls who presents to the emergency department due to fall with perhaps postevent confusion though this is improved. She reports being unsure why she fell and this happened about 30 minutes prior to arrival. Post fall [facility] staff was concerned that her pupils were not equal and she was confused. Currently alert oriented PERRLA. She complains of back pain, some chest discomfort more in the superior sternum which has just been since the fall, and neck and head pain. Intensity symptoms is moderate. Course has persisted. No other specific changes in health, exacerbating, or alleviating factors identified. Onset (ago): minute(s) Fall from: standing Place fall occurred: [facility] Loss of consciousness: Unsure Review of Systems General: Reports: 10 or more systems reviewed and unremarkable except in HPI and below PFSH ED PFSH: Medical History Frequent falls Gastroesophageal reflux disease Osteoporosis Social History Smoking and tobacco status: former smoker Alcohol intake: never Physical Exam Const: COMMON NORMALS: alert GENERAL APPEARANCE: cooperative and well developed HENMT: COMMON NORMALS: normocephalic and atraumatic HEAD & SCALP: normocephalic and atraumatic OTHER: No gutierres signs or raccoon eyes. No otorrhea or rhinorrhea. Jaw alignment normal. Dentition baseline. No obvious bony step-offs. No septal hematoma. No evidence of ocular entrapment. Eye: COMMON NORMALS: conjunctivae normal CONJUNCTIVA: Yes conjunctivae normal SCLERA: sclerae normal Neck/C-Spine: COMMON NORMALS: supple GENERAL: Yes trachea midline Resp: COMMON NORMALS: normal respiratory effort EFFORT & INSPECTION: Yes able to speak in complete sentences Cardio: COMMON NORMALS: regular rate and regular rhythm RATE: regular rate RHYTHM: regular rhythm GI: COMMON NORMALS: Soft to palpation PALPATION: Yes Soft to palpation and No Tenderness to palpation present (GI) PERCUSSION: normal to percussion Back/Pelvis: OTHER: Kyphotic changes. Generalized tenderness to palpation though not specifically paraspinal. Extremity: GENERAL: Yes normal exam except as noted and No edema Neuro: COMMON NORMALS: moves all extremities SENSORIUM/ORIENTATION: Yes alert and No Orientation impaired Psych: COMMON NORMALS: mental status grossly normal and Normal thought process present THOUGHT PROCESS: Normal thought process present Course Vital Signs: Vital signs: Vital Signs Temperature 97.8 F 07/05/22 17:53 Pulse Rate 74 07/05/22 17:53 Respiratory Rate 15 07/05/22 17:53 Blood Pressure 162/84 07/05/22 17:53 Pulse Oximetry 93 07/05/22 17:53 Oxygen Delivery Me thod 07/05/22 17:00 MDM - Fall Medical Decision Making 77-year-old lady presenting with fall. Head to toe exam performed. EKG without evidence of STEMI. Hematologic panel unremarkable. Metabolic panel without obvious contributing factor to fall. CT imaging without acute traumatic injury. Incidental findings were discussed with patient including pancreatic cyst and recommended follow-up. Satisfactory for outpatient management. Return precautions and follow-up plan discussed. Medical Records I reviewed the patient's medical records. Lab Data I reviewed the patient's lab results. : 07/05/22 16:00 07/05/22 16:00 Radiology Impressions Cervical Spine CT 07/05/22 15:43 IMPRESSION: 1. Negative for fracture or dislocation. 2. C7 superior endplate chronic degenerative changes with multilevel disc space narrowing throughout the spine. Chest/Abdomen/Pelvis CT 07/05/22 15:43 IMPRESSION: 1. Negative for acute traumatic injury to the chest. 2. Moderate to large hiatal hernia. 3. Coronary artery atherosclerotic calcifications. 4. Bibasilar atelectasis. 5. Cardiomegaly. 6. Multilevel chronic compression fractures and vertebroplasty changes seen throughout the spine similar to prior exam. 7. Sternal manubrium chronic fracture again seen similar to prior exam. IMPRESSION: 1. Negative for acute traumatic injury to the abdomen or pelvis. 2. Left kidney cyst, negative follow up. 3. Chronic compression fractures again seen throughout the spine without retropulsion of bony fragments or spinal canal narrowing appear chronic. 4. Surgical hardware in the hips bilaterally. 5. Constipation. 6. 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 Reimaging every 6 months for 2 years, then every 1 year for 2 years, then every 2 years for 6 years is recommended. Alternatively, endoscopic ultrasound with fine needle aspiration is recommended. (Reference: Ivette, 2017). If the patient reaches 80 and the cyst appears unchanged, reimaging every 2 years for 4 years is recommended. (Reference: Ivette, 2017) References: Ivette VELARDE, et al. Management of Incidental Pancreatic Cysts: A White Paper of the ACR Incidental Findings Committee. J Am Oxana Radiol. 2017;14(7):911-923. COMMENTS: Consistent with the [place] College of [employer]iology's Incidental Findings Committee white paper (J Am Oxana Radiol 2018): Any incidental renal lesion less than 1 cm or classified as too small to characterize, or any incidental cystic renal lesion characterized as simple-appearing, is likely benign. No follow-up imaging is recommended for these lesions per consensus recommendations based on imaging criteria. Head CT 07/05/22 15:43 IMPRESSION: Negative for intracranial hemorrhage or mass effect. Laboratory Results WBC 8.3 10^3/uL (4.0-10.0) 07/05/22 16:00 RBC 4.23 10^6/uL (4.1-5.3) 07/05/22 16:00 Hgb 13.3 g/dL (11.5-15.3) 07/05/22 16:00 Hct 40.9 % (37.0-47.0) 07/05/22 16:00 MCV 96.7 fl (81-99) 07/05/22 16:00 MCH 31.4 pg (28.0-34.0) 07/05/22 16:00 MCHC 32.5 g/dL (30.0-36.0) 07/05/22 16:00 RDW 13.3 % (12.1-15.1) 07/05/22 16:00 Plt Count 167 10^3/cmm (130-400) 07/05/22 16:00 MPV 10.7 fL (7.4-10.4) H 07/05/22 16:00 Neut % (Auto) 72.0 % 07/05/22 16:00 Lymph % (Auto) 15.6 % 07/05/22 16:00 [place] % (Auto) 10.9 % 07/05/22 16:00 Eos % (Auto) 0.7 % 07/05/22 16:00 Baso % (Auto) 0.4 % 07/05/22 16:00 Neut # (Auto) 6.00 10^3/uL (1.8-7.7) 07/05/22 16:00 Lymph # (Auto) 1.3 10^3/uL (0.8-4.8) 07/05/22 16:00 [place] # (Auto) 0.9 10^3/uL (0.2-0.9) 07/05/22 16:00 Eos # (Auto) 0.1 10^3/uL (0.0-0.8) 07/05/22 16:00 Baso # (Auto) 0.0 10^3/uL (0.0-0.1) 07/05/22 16:00 Nucleated RBC % (auto) 0 % 07/05/22 16:00 Nucleated RBCs # 0.0 /100WBC 07/05/22 16:00 Sodium 138 mmol/L (136-145) 07/05/22 16:00 Potassium 3.6 mmol/L (3.5-5.1) 07/05/22 16:00 Chloride 101 mmol/L (98-107) 07/05/22 16:00 Carbon Dioxide 25 mmol/L (22-29) 07/05/22 16:00 Anion Gap 15.6 (5-19) 07/05/22 16:00 BUN 20 mg/dL (8-23) 07/05/22 16:00 Creatinine 0.8 mg/dL (0.5-0.9) 07/05/22 16:00 GFR Calculation Not Reportable 07/05/22 16:00 Glucose 140 mg/dL (65-115) H 07/05/22 16:00 POC Glucose 123 mg/dL (70-110) H 07/05/22 16:00 Calculated Osmolality 291 mOsm/kg (285-295) 07/05/22 16:00 Calcium 10.1 mg/dL (8.5-10.5) 07/05/22 16:00 Total Bilirubin 0.2 mg/dL (0.15-1.2) 07/05/22 16:00 AST 18 U/L (0-32) 07/05/22 16:00 ALT 9 U/L (0-33) 07/05/22 16:00 Alkaline Phosphatase 85 U/L (35-105) 07/05/22 16:00 Total Protein 6.9 g/dL (6.6-8.7) 07/05/22 16:00 Albumin 3.9 g/dL (3.5-5.2) 07/05/22 16:00 Globulin 3.0 g/dL (1.3-4.6) 07/05/22 16:00 Discharge Plan Discharge Patient Disposition: Home Clinical Impression: Fall, Closed head injury Condition: Stable Prescriptions: No Action aspirin [Aspir-81] 81 mg Tablet,Delayed Release (Dr/Ec) 81 mg PO DAILY@08 acetaminophen [Tylenol 8 Hour] 650 mg Tablet Extended Release 650 mg PO Q4H PRN (Reason: pain/fever) diphenhydramine HCl 25 mg Capsule 25 mg PO BEDTIME@19 ibuprofen 600 mg Tablet 600 mg PO DAILY@08 furosemide 40 mg tablet 40 mg PO DAILY@08 potassium chloride 10 mEq tablet extended release 10 meq PO DAILY@08 omeprazole 20 mg capsule,delayed release(DR/EC) 20 mg PO DAILY@08 polyethylene glycol 3350 [Gavilax] 17 gram/dose Powder 17 g PO DAILY@08 Rx Instructions: with 8 oz of water or juice Evangelist Chew 1 tab PO .Q4-6H PRN (Reason: unknown) tolterodine 2 mg capsule,extended release 24hr 2 mg PO DAILY@08 latanoprost 0.005 % drops 1 drp ophthalmic (eye) BEDTIME@19 Vitamin B-12 1,000 mcg Tablet Extended Release 1,000 mcg PO DAILY@08 gabapentin 600 mg tablet 600 mg PO BID@08,19 Vitamin C 500 mg Tablet 500 mg PO DAILY@08 Tums 200 mg calcium (500 mg) Tablet,Chewable 1,000 mg PO BID PRN (Reason: Heartburn) Vitamin D3 10 mcg (400 unit) Tablet 10 mcg PO DAILY@08 turmeric root extract 500 mg Capsule 500 mg PO DAILY@08 magnesium citrate 100 mg Tablet 100 mg PO DAILY@08 Cough Drops 7.5 mg Lozenge See Rx Instructions .ROUTE .COMPLEX Rx Instructions: dissolve 1 lozenge every 2 hours as needed for cough or sore throat *may keep at bedside* biotin 1,000 mcg Tablet,Chewable 1,000 mcg PO DAILY@08 One-A-Day Women's 50 Plus 400-20 mcg Tablet 1 tab PO DAILY@08 hydrocodone-acetaminophen 5-325 mg tablet 1 tab PO Q6H PRN (Reason: pain) Discharge Orders: Discharge ED (Routine); Ordered 07/05/22 Ordered By: Bishop Mcintosh Referrals: Constantine Garcia DO [Primary Care Provider] - Discharge Diet: Usual diet Discharge Activity: Resume usual activity Patient Instructions: Fall Prevention for Older Adults (ED), Head Injury (ED) Activity Restrictions/Additional Instructions: Thank you for visiting the emergency department. He was evaluated for fall with confusion postevent. The exact cause of your symptoms is unclear though likely related to closed head injury. No new acute traumatic injury was identified. I believe that the cause of your fall is related to a history of frequent falls. Please follow-up with your primary care provider. Return to the emergency department for anything that you are concerned about a feel needs emergency department evaluation. Per radiology report you have numerous degenerative likely age-related changes. Additionally you have: 12 mm cyst in the pancreatic body, similar to prior exam. Reimaging every 6 months for 2 years, then every 1 year for 2 years, then every 2 years for 6 years is recommended. Alternatively, endoscopic ultrasound with fine needle aspiration is recommended.? If the patient reaches 80 and the cyst appears unchanged, reimaging every 2 years for 4 years is recommended. Coding Level of Care Code ED Manager It Training for [facility] Exam Comprehensive
--- NOTE | 2022-07-05 15:43 | CTR_ITS ---
PROCEDURE INFORMATION: Exam: CT Cervical Spine Without Contrast Exam date and time: 07/05/2022 4:08 PM Age: 77 years old Clinical indication: Pain and injury or trauma; Blunt trauma; Neck pain; Injury date: 07/05/22; Injury details: Fall injury 30x mins ago; Limited history due to PT condition; Additional info: Fall, neck pain TECHNIQUE: Imaging protocol: Computed tomography of the cervical spine without contrast. Radiation optimization: All CT scans at this facility use at least one of these dose optimization techniques: automated exposure control; mA and/or kV adjustment per patient size (includes targeted exams where dose is matched to clinical indication); or iterative reconstruction. COMPARISON: CT cervical spin wo con* [id number] 07/02/2022 12:20 PM RADIATION DOSE METRICS: Total DLP (mGy-cm): 123.6 FINDINGS: Bones/joints: C7 superior endplate chronic degenerative changes with multilevel disc space narrowing throughout the spine. C2-C3: No significant disc protrusion. No severe spinal canal stenosis. No significant neural foraminal narrowing. C3-C4: No significant disc protrusion. No severe spinal canal stenosis. No significant neural foraminal narrowing. C4-C5: No significant disc protrusion. No severe spinal canal stenosis. No significant neural foraminal narrowing. C5-C6: No significant disc protrusion. No severe spinal canal stenosis. No significant neural foraminal narrowing. C6-C7: No significant disc protrusion. No severe spinal canal stenosis. No significant neural foraminal narrowing. C7-T1: No significant disc protrusion. No severe spinal canal stenosis. No significant neural foraminal narrowing. Lungs: Lung apices are normal. Soft tissues: Unremarkable. CT/CT cervical spin wo con* [id number] IMPRESSION: 1. Negative for fracture or dislocation. 2. C7 superior endplate chronic degenerative changes with multilevel disc space narrowing throughout the spine.
--- NOTE | 2022-07-05 15:43 | CTR_ITS ---
PROCEDURE INFORMATION: Exam: CT Head Without Contrast Exam date and time: 07/05/2022 4:08 PM Age: 77 years old Clinical indication: Injury or trauma; Blunt trauma (contusions or hematomas); With loss of consciousness; Not specified; Injury date: 07/05/22; Patient HX: Fall injury 30x mins ago; Limited history due to PT condition; Additional info: Fall, loc TECHNIQUE: Imaging protocol: Computed tomography of the head without contrast. Radiation optimization: All CT scans at this facility use at least one of these dose optimization techniques: automated exposure control; mA and/or kV adjustment per patient size (includes targeted exams where dose is matched to clinical indication); or iterative reconstruction. COMPARISON: CT head wo con* [id number] 07/02/2022 12:20 PM RADIATION DOSE METRICS: Total DLP (mGy-cm): 1115.9 FINDINGS: Brain: Mild diffuse white matter disease likely reflecting chronic microvascular ischemic changes. Cerebral ventricles: No ventriculomegaly. Paranasal sinuses: Visualized sinuses are unremarkable. No fluid levels. Mastoid air cells: Visualized mastoid air cells are well aerated. Bones/joints: Unremarkable. No acute fracture. Soft tissues: Unremarkable. CT/CT head wo con* [id number] IMPRESSION: Negative for intracranial hemorrhage or mass effect.
--- NOTE | 2022-07-05 15:43 | CTR_ITS ---
PROCEDURE INFORMATION: Exam: CT Chest With Contrast; Diagnostic Exam date and time: 07/05/2022 4:16 PM Age: 77 years old Clinical indication: Injury or trauma; Fall; Generalized; Blunt trauma (contusions or hematomas); Injury date: 07/05/22; Injury details: Limited HX due to PT condition; Additional info: Fall, chest/back pain TECHNIQUE: Imaging protocol: Diagnostic computed tomography of the chest with contrast. Radiation optimization: All CT scans at this facility use at least one of these dose optimization techniques: automated exposure control; mA and/or kV adjustment per patient size (includes targeted exams where dose is matched to clinical indication); or iterative reconstruction. Contrast material: OMNIPAQUE 350; Contrast volume: 80 ml; Contrast route: INTRAVENOUS (IV); COMPARISON: CT chest [facility] [id number] 04/03/2022 3:26 AM RADIATION DOSE METRICS: Total DLP (mGy-cm): 561.7 FINDINGS: Lungs: Bibasilar atelectasis. Pleural spaces: Unremarkable. No pneumothorax. No pleural effusion. Heart: Coronary artery atherosclerotic calcifications. Cardiomegaly. Lymph nodes: Unremarkable. No enlarged lymph nodes. Vasculature: Unremarkable. No aortic aneurysm. Diaphragm: Moderate to large hiatal hernia. Bones/joints: Multilevel chronic compression fractures and vertebroplasty changes seen throughout the spine similar to prior exam. Sternal manubrium chronic fracture again seen similar to prior exam. Soft tissues: Unremarkable. PROCEDURE INFORMATION: Exam: CT Abdomen And Pelvis With Contrast Exam date and time: 07/05/2022 4:16 PM Age: 77 years old Clinical indication: Injury or trauma; Fall; Generalized; Blunt trauma (contusions or hematomas); Injury date: 07/05/22; Injury details: Limited HX due to PT condition; Additional info: Fall, chest/back pain TECHNIQUE: Imaging protocol: Computed tomography of the abdomen and pelvis with contrast. Radiation optimization: All CT scans at this facility use at least one of these dose optimization techniques: automated exposure control; mA and/or kV adjustment per patient size (includes targeted exams where dose is matched to clinical indication); or iterative reconstruction. Contrast material: OMNIPAQUE 350; Contrast volume: 80 ml; Contrast route: INTRAVENOUS (IV); COMPARISON: CT chest [facility] [id number] 04/03/2022 3:26 AM RADIATION DOSE METRICS: Total DLP (mGy-cm): 561.7 FINDINGS: Liver: Normal. No mass. Gallbladder and bile ducts: Normal. No calcified stones. No ductal dilation. Pancreas: 12 mm cyst in the pancreatic body. Spleen: Normal. No splenomegaly. Adrenal glands: Normal. No mass. Kidneys and ureters: Left kidney cyst, negative follow up. Stomach and bowel: Constipation. Appendix: No evidence of appendicitis. Intraperitoneal space: Unremarkable. No free air. No significant fluid collection. Vasculature: Unremarkable. No abdominal aortic aneurysm. Lymph nodes: Unremarkable. No enlarged lymph nodes. Urinary bladder: Unremarkable as visualized. Reproductive: Unremarkable as visualized. Bones/joints: Chronic compression fractures again seen throughout the spine without retropulsion of bony fragments or spinal canal narrowing appear chronic. Surgical hardware in the hips bilaterally. Soft tissues: Unremarkable. CT/CT chest abd pel w con* IMPRESSION: 1. Negative for acute traumatic injury to the chest. 2. Moderate to large hiatal hernia. 3. Coronary artery atherosclerotic calcifications. 4. Bibasilar atelectasis. 5. Cardiomegaly. 6. Multilevel chronic compression fractures and vertebroplasty changes seen throughout the spine similar to prior exam. 7. Sternal manubrium chronic fracture again seen similar to prior exam. IMPRESSION: 1. Negative for acute traumatic injury to the abdomen or pelvis. 2. Left kidney cyst, negative follow up. 3. Chronic compression fractures again seen throughout the spine without retropulsion of bony fragments or spinal canal narrowing appear chronic. 4. Surgical hardware in the hips bilaterally. 5. Constipation. 6. 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 Reimaging every 6 months for 2 years, then every 1 year for 2 years, then every 2 years for 6 years is recommended. Alternatively, endoscopic ultrasound with fine needle aspiration is recommended. (Reference: Ivette, 2017). If the patient reaches 80 and the cyst appears unchanged, reimaging every 2 years for 4 years is recommended. (Reference: Ivette, 2017) References: Ivette VELARDE, et al. Management of Incidental Pancreatic Cysts: A White Paper of the ACR Incidental Findings Committee. J Am [employer] Radiol. 2017;14(7):911-923. COMMENTS: Consistent with the [place] [employer]'s Incidental Findings Committee white paper (J Am [employer] Radiol 2018): Any incidental renal lesion less than 1 cm or classified as too small to characterize, or any incidental cystic renal lesion characterized as simple-appearing, is likely benign. No follow-up imaging is recommended for these lesions per consensus recommendations based on imaging criteria.
--- NOTE | 2022-07-05 15:52 | ECG_ITS ---
[facility] Test Date: 2022-07-05 Pat Name: Trini Jeter Department: Room: Gender: Female [employer] Operator: : 1945 Requested By: Bishop Mcintosh Order Number: [id number] Judith MD: Roxie Mcmanus M.D. Measurements Intervals [place] Rate: 82 P: 26 TN: 187 QRS: -35 QRSD: 89 T: 73 QT: 369 QTc: 431 Interpretive Statements SINUS RHYTHM POSSIBLE LEFT ATRIAL ENLARGEMENT [-0.1mV P-WAVE IN V1/V2] LEFT VENTRICULAR HYPERTROPHY AND ST-T CHANGE [VOLTAGE CRITERIA PLUS ST/T ABNORMALITY] POSSIBLE ANTERIOR MYOCARDIAL INFARCTION , OF INDETERMINATE AGE [30 ms Q WAVE IN V3/V4, OR R < 0.2 mV IN V4] INFERIOR MYOCARDIAL INFARCTION , OF INDETERMINATE AGE [40+ ms Q WAVE AND/OR ST/T ABNORMALITY IN II/aVF] Compared to ECG 07/02/2022 12:37:59 No significant changes Electronically Signed On 07-05-2022 16:21:29 CDT by Roxie Mcmanus M.D. [id number]
--- NOTE | 2022-07-05 15:59 | PC.PHAR ---
pt is from [facility] from [facility] the pt has all meds and no prns
[2022-07-05 16:03] LABS: Glucose Point of Care 123 mg/dL (70-110)
[2022-07-05 16:13] LABS: Basophils % 0.4 %; Eosinophils # 0.1 10^3/uL (0.0-0.8); Eosinophils % 0.7 %; Hematocrit 40.9 % (37.0-47.0); Hemoglobin 13.3 g/dL (11.5-15.3); Lymphocytes # 1.3 10^3/uL (0.8-4.8); Lymphocytes % 15.6 %; Mean Corpuscular HGB Conc 32.5 g/dL (30.0-36.0); Mean Corpuscular Hemoglobin 31.4 pg (28.0-34.0); Mean Corpuscular Volume 96.7 fl (81-99); Mean Platelet Volume 10.7 fL (7.4-10.4); Monocytes # 0.9 10^3/uL (0.2-0.9); Monocytes % 10.9 %; Nucleated Red Blood Cells % 0 %; Platelet Count 167 10^3/cmm (130-400); Red Blood Count 4.23 10^6/uL (4.1-5.3); Red Cell Distribution Width 13.3 % (12.1-15.1); White Blood Count 8.3 10^3/uL (4.0-10.0)
[2022-07-05] MEDS: iohexol 350 mg/mL 100 mL Btl IV (16:21)
[2022-07-05 16:35] LABS: Alanine Aminotransferase 9 U/L (0-33); Albumin Level 3.9 g/dL (3.5-5.2); Alkaline Phosphatase 85 U/L (35-105); Anion Gap 15.6 (5-19); Aspartate Amino Transferase 18 U/L (0-32); Blood Urea Nitrogen 20 mg/dL (8-23); Calcium 10.1 mg/dL (8.5-10.5); Carbon Dioxide 25 mmol/L (22-29); Chloride 101 mmol/L (98-107); Glucose 140 mg/dL (65-115); Osmolality Calculated 291 mOsm/kg (285-295); Potassium 3.6 mmol/L (3.5-5.1); Sodium 138 mmol/L (136-145); Total Bilirubin 0.2 mg/dL (0.15-1.2); Total Protein 6.9 g/dL (6.6-8.7)
[2022-07-05 17:00] VITALS: BP 164/101; PULSE 74; RESP 14; O2SAT 94
[2022-07-05 17:53] VITALS: BP 162/84; PULSE 74; RESP 15; TEMP 36.6; O2SAT 93
== END 2022-07-05 18:15 | disposition home or self-care (01) ==
PROVIDERS: Emergency Provider Emergency Medicine; PCP Family Medicine
DX: S09.8XXA Other specified injuries of head, initial encounter (principal); Z79.82 Long term (current) use of aspirin; Z87.891 Personal history of nicotine dependence; W19.XXXA Unspecified fall, initial encounter
CPT/HCPCS: 36416; 70450; 71260; 72125; 74177; 80053; 82962; 85025; 93005; 99285; Q9967

== ENCOUNTER 2022-11-17 18:44 | Emergency (ER) | payer MEDICARE, SELFPAY ==
[2022-11-17 18:50] VITALS: BMI 18.1
[2022-11-17 18:55] VITALS: BP 126/75; PULSE 83; RESP 16; TEMP 36.7; O2SAT 95
--- NOTE | 2022-11-17 19:11 | XRR_ITS ---
PROCEDURE INFORMATION: Exam: XR Left Tibia and Fibula Exam date and time: 11/17/2022 8:47 PM Age: 77 years old Clinical indication: Injury or trauma; Fall; Blunt trauma; Lower leg; Left; Additional info: Fall leg pain TECHNIQUE: Imaging protocol: Radiologic exam of the Left tibia and fibula. Views: 2 views. COMPARISON: No relevant prior studies available. FINDINGS: Bones/joints: No acute fracture or dislocation is noted. The skeletal structures seem age-appropriate. Partially imaged left femur ORIF. Mild left ankle and knee DJD. Soft tissues: Unremarkable. XR/XR tibia fibula LT 2V [id number] IMPRESSION: No acute findings.
--- NOTE | 2022-11-17 19:11 | CTR_ITS ---
PROCEDURE INFORMATION: Exam: CT Head Without Contrast Exam date and time: 11/17/2022 7:59 PM Age: 77 years old Clinical indication: Injury or trauma; Fall; Blunt trauma (contusions or hematomas); Additional info: Fall head injury TECHNIQUE: Imaging protocol: Computed tomography of the head without contrast. Radiation optimization: All CT scans at this facility use at least one of these dose optimization techniques: automated exposure control; mA and/or kV adjustment per patient size (includes targeted exams where dose is matched to clinical indication); or iterative reconstruction. Other protocol: This patient has received 14 known CTs and 0 known cardiac nuclear medicine studies in the 12 months prior to the current study. COMPARISON: CT head wo con* [id number] 07/05/2022 4:08 PM RADIATION DOSE METRICS: Total DLP (mGy-cm): 986.38 FINDINGS: Brain: No focal hemorrhage or midline shift is identified. Mild age-related changes are similar to 07/05/2022. Cerebral ventricles: No ventriculomegaly or evidence of acute hydrocephalus. Paranasal sinuses: The partially assessed sinuses are grossly clear. Mastoid air cells: Visualized mastoid air cells are well aerated. Bones/joints: No displaced skull fracture is noted. Soft tissues: Unremarkable. CT/CT head wo con* [id number] IMPRESSION: No acute intracranial abnormality.
--- NOTE | 2022-11-17 19:11 | XRR_ITS ---
PROCEDURE INFORMATION: Exam: XR Left Femur Exam date and time: 11/17/2022 8:47 PM Age: 77 years old Clinical indication: Injury or trauma; Fall; Blunt trauma; Thigh or upper leg; Left; Prior surgery; Additional info: Fall thigh pain TECHNIQUE: Imaging protocol: Radiologic exam of the Left femur. Views: 2 views. COMPARISON: CT chest abd pel w con* 07/05/2022 4:16 PM FINDINGS: Bones/joints: Severe left hip DJD. Left femur ORIF. Diffuse osteopenia. No acute fracture noted. Soft tissues: Unremarkable. XR/XR femur LT min 2V* [id number] IMPRESSION: No acute finding.
--- NOTE | 2022-11-17 19:11 | XRR_ITS ---
PROCEDURE INFORMATION: Exam: XR Chest Exam date and time: 11/17/2022 8:47 PM Age: 77 years old Clinical indication: Injury or trauma; Fall; Blunt trauma (contusions or hematomas); Additional info: Fall rib pain TECHNIQUE: Imaging protocol: Radiologic exam of the chest. Views: 1 view. COMPARISON: CT chest abd pel w con* 07/05/2022 4:16 PM FINDINGS: Lungs: Lung base atelectasis or scarring. No consolidation. Pleural spaces: Unremarkable. No pleural effusion. No pneumothorax. Heart/Mediastinum: The heart is large. Diffuse vascular calcification. Large hiatal hernia. Bones/joints: Multiple bilateral rib deformities are probably old. These are present on 07/05/2022 CT chest. Left distal clavicle acute appearing fracture. Few left lower lateral rib fractures appear mildly displaced and potentially acute. XR/XR chest 1V portable [id number] IMPRESSION: 1. Left distal clavicle acute appearing fracture. 2. Bilateral rib deformities were generally present on a 07/05/2022 CT chest. Subtle acute fracture are possible in a few left lower lateral ribs. No evidence of pneumothorax. 3. Numerous chronic findings above.
--- NOTE | 2022-11-17 20:05 | ED_ITS ---
HPI - Trauma General: Chief Complaint: Trauma Stated Complaint: LEFT FRANKLIN/BACK PAIN S/P FALL Time Seen by Provider: 11/17/22 18:53 Source: patient History of Present Illness: 77-year-old female who fell in the shelter. She essentially was in her normal state of health prior to the fall. halfway staff found her pinned against a wall. She has a bruise on the left side of her religion. She does not complain of a headache. She first complained of some left-sided rib pain, but does not anymore. She does complain of left franklin pain complaint: fall and injury Onset (ago): minute(s) Loss of Consciousness: no Location: head and chest (Left ribs) Location - Extremities: Left: lower leg Context: fall Associated symptoms: Reports chest pain; Denies abdominal pain, confusion, difficulty breathing, dizziness, fever(s), headache(s), nausea, short of breath or vomiting Review of Systems Const: Denies: fever(s) Eyes: Reports: other Card: Reports: chest pain Resp: Denies: dyspnea GI: Denies: abdominal pain, nausea or vomiting Neuro: Denies: headache(s), dizziness or confusion PFSH ED PFSH: Medical History Frequent falls Gastroesophageal reflux disease Osteoporosis Social History Smoking and tobacco status: former smoker Alcohol intake: never Physical Exam Const: COMMON NORMALS: no acute distress GENERAL APPEARANCE: comfortable and frail appearing; not ill appearing NUTRITIONAL APPEARANCE: thin HENMT: COMMON NORMALS: normocephalic and Normal external nose present HEAD & SCALP: normocephalic and contusion (L forehead) FACE & SINUS: normal facial exam and face symmetric NOSE: Normal external nose present and Normal nares present Eye: COMMON NORMALS: Equal, round and reactive pupils present and EOMs intact bilaterally PUPIL: Yes Equal, round and reactive pupils present Neck/C-Spine: GENERAL: Yes trachea midline Chest: CHEST: Yes Symmetrical chest wall rise OTHER: significant kyphosis Resp: COMMON NORMALS: normal respiratory effort, No use of accessory muscles and clear to auscultation bilaterally AUSCULTATION: clear to auscultation bilaterally Cardio: COMMON NORMALS: regular rate and regular rhythm RATE: regular rate RHYTHM: regular rhythm GI: COMMON NORMALS: Normal to inspection, nondistended, normoactive bowel sounds present, Soft to palpation and non-tender PALPATION: Yes Soft to pa lpation Back/Pelvis: OTHER: no reproducible spine tenderness. Extremity: NARRATIVE EXTREMITY EXAM: Examination the left leg reveals swelling and tenderness, mainly laterally to the mid leg. No gross deformity. Neuro: EVELINA COMA SCALE: document GCS findings [place] coma scale eye opening: Spontaneous [place] coma scale verbal response: Orientated [place] coma scale motor response: Obey commands [place] coma scale total score: 15 Course Vital Signs: Vital signs: Vital Signs Temperature 98.0 F 11/17/22 18:55 Pulse Rate 88 11/17/22 22:38 Respiratory Rate 16 11/17/22 22:38 Blood Pressure 137/110 11/17/22 22:38 Pulse Oximetry 95 11/17/22 22:38 Oxygen Delivery Me thod 11/17/22 18:55 MDM - Trauma Medical Decision Making Medically, the patient appears stable. Chest x-ray reveals a left distal clavicle fracture, although the patient is not tender in this area, and the fracture is not likely acute. What it does show with acute left rib fractures in the lateral side. There is no evidence of pneumothorax. Femur x-ray and tibia-fibula x-ray showed no acute findings. Head CT is negative. She has no cervical spinal tenderness. She will be allowed discharged back to the shelter. Her is here to get her. Lab Data Radiology Impressions Chest X-Ray 11/17/22 19:11 IMPRESSION: 1. Left distal clavicle acute appearing fracture. 2. Bilateral rib deformities were generally present on a 07/05/2022 CT chest. Subtle acute fracture are possible in a few left lower lateral ribs. No evidence of pneumothorax. 3. Numerous chronic findings above. Femur X-Ray 11/17/22 19:11 IMPRESSION: No acute finding. Head CT 11/17/22 19:11 IMPRESSION: No acute intracranial abnormality. Tibia/Fibula X-Ray 11/17/22 19:11 IMPRESSION: No acute findings. Discharge Plan Discharge Patient Disposition: Home Clinical Impression: Fractured rib Condition: Stable Prescriptions: No Action tolterodine 2 mg capsule,extended release 24hr 2 mg PO DAILY@08 Qty: 90 3RF Rx Instructions: 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 latanoprost 0.005 % drops 1 drp ophthalmic (eye) BEDTIME@19 Qty: 2.5 3RF aspirin [Aspir-81] 81 mg Tablet,Delayed Release (Dr/Ec) 81 mg PO DAILY@08 acetaminophen [Tylenol 8 Hour] 650 mg Tablet Extended Release 650 mg PO Q4H PRN (Reason: pain/fever) diphenhydramine HCl 25 mg Capsule 25 mg PO BEDTIME@19 ibuprofen 600 mg Tablet 600 mg PO DAILY@08 furosemide 40 mg tablet 40 mg PO DAILY@08 potassium chloride 10 mEq tablet extended release 10 meq PO DAILY@08 omeprazole 20 mg capsule,delayed release(DR/EC) 20 mg PO DAILY@08 polyethylene glycol 3350 [Gavilax] 17 gram/dose Powder 17 g PO DAILY@08 Rx Instructions: with 8 oz of water or juice Evangelist Chew 1 tab PO .Q4-6H PRN (Reason: unknown) Vitamin B-12 1,000 mcg Tablet Extended Release 1,000 mcg PO DAILY@08 gabapentin 600 mg tablet 600 mg PO BID@08,19 Vitamin C 500 mg Tablet 500 mg PO DAILY@08 Tums 200 mg calcium (500 mg) Tablet,Chewable 1,000 mg PO BID PRN (Reason: Heartburn) Vitamin D3 10 mcg (400 unit) Tablet 10 mcg PO DAILY@08 turmeric root extract 500 mg Capsule 500 mg PO DAILY@08 magnesium citrate 100 mg Tablet 100 mg PO DAILY@08 Cough Drops 7.5 mg Lozenge See Rx Instructions .ROUTE .COMPLEX Rx Instructions: dissolve 1 lozenge every 2 hours as needed for cough or sore throat *may keep at bedside* biotin 1,000 mcg Tablet,Chewable 1,000 mcg PO DAILY@08 One-A-Day Women's 50 Plus 400-20 mcg Tablet 1 tab PO DAILY@08 hydrocodone-acetaminophen 5-325 mg tablet 1 tab PO Q6H PRN (Reason: pain) Discharge Orders: Discharge ED (Routine); Ordered 11/17/22 Ordered By: John Emery Referrals: Constantine Garcia DO [Primary Care Provider] - 4-7 days Patient Instructions: Rib Fracture (ED), Opioid Safety, Pain Management Activity Restrictions/Additional Instructions: Return for worsening shortness of breath, frequent falls, mental status changes, other concerns and symptoms. Follow-up with your doctor this week. Coding Level of Care Code ED Tongue Trimmer for Chg Fwd Exam Comprehensive
[2022-11-17 22:38] VITALS: BP 137/110; PULSE 88; RESP 16; O2SAT 95
== END 2022-11-17 22:38 | disposition home or self-care (01) ==
PROVIDERS: Emergency Provider Emergency Medicine; PCP Family Medicine
DX: S22.42XA Multiple fractures of ribs, left side, initial encounter for closed fracture (principal); Z79.82 Long term (current) use of aspirin; Z87.891 Personal history of nicotine dependence; W19.XXXA Unspecified fall, initial encounter; Y92.129 Unspecified place in nursing home as the place of occurrence of the external cause
CPT/HCPCS: 70450; 71045; 73552; 73590; 99284

== ENCOUNTER 2022-11-19 23:39 | Emergency (ER) | payer MEDICARE, SELFPAY ==
--- NOTE | 2022-11-19 23:43 | ED_ITS ---
HPI - Back Pain/Injury General: Chief Complaint: Back Pain/Injury Stated Complaint: low back pain, fall Time Seen by Provider: 11/19/22 23:40 Source: patient and EMS Mode of arrival: EMS Limitations: no limitations History of Present Illness: 77-year-old female who had a fall at night 830 she been having some low back pain since that fall was a ground-level fall she denies any other injuries denies hitting her head or any neck pain. Associated symptoms: Deny abdominal pain, chills, dysuria, fever(s), nausea or vomiting Review of Systems Const: Denies: fever(s), chills, body aches or change in appetite Eyes: Denies: blurry vision or eye discomfort ENMT: Denies: throat pain or dental pain Card: Denies: chest pain Resp: Denies: dyspnea GI: Denies: abdominal pain, nausea, vomiting or diarrhea : Denies: dysuria Musc: Reports: back pain Skin/Breast: Denies: rash Neuro: Denies: headache(s) Psych: Denies: depression Dionicio/Lymph: Denies: easy bruising All/Imm: Denies: urticaria PFSH ED PFSH: Medical History Frequent falls Gastroesophageal reflux disease Osteoporosis Social History Smoking and tobacco status: former smoker Alcohol intake: never Physical Exam Const: COMMON NORMALS: no acute distress, patient oriented x3 and healthy appearing HENMT: COMMON NORMALS: normocephalic and atraumatic HEAD & SCALP: normocephalic and atraumatic Eye: COMMON NORMALS: Equal, round and reactive pupils present and EOMs intact bilaterally PUPIL: Yes Equal, round and reactive pupils present Neck/C-Spine: COMMON NORMALS: full ROM and supple Chest: COMMONS NORMALS: normal inspection of the chest and normal palpation of entire chest wall Resp: COMMON NORMALS: normal respiratory effort, No retractions, No use of accessory muscles and clear to auscultation bilaterally AUSCULTATION: clear to auscultation bilaterally Cardio: COMMON NORMALS: regular rate, regular rhythm and No murmurs present (Cardio) RATE: regular rate RHYTHM: regular rhythm GI: COMMON NORMALS: Normal to inspection, nondistended, normoactive bowel sounds present, Soft to palpation, non-tender and no masses PALPATION: Yes Soft to palpation Extremity: COMMON NORMALS: normal to inspection and full ROM Neuro: COMMON NORMALS: patient oriented x3, moves all extremities and no focal motor deficits Psych: COMMON NORMALS: mental status grossly normal, Normal thought process present and cooperative THOUGHT PROCESS: Normal thought process present Skin: COMMON NORMALS: no rashes or lesions noted and no wounds GENERAL SKIN EXAM: no rashes or lesions noted Course Vital Signs: Vital signs: Vital Signs Temperature 98.8 F 11/19/22 23:44 Pulse Rate 73 11/20/22 00:45 Respiratory Rate 16 11/20/22 00:45 Blood Pressure 111/77 11/20/22 00:45 Pulse Oximetry 95 11/20/22 00:45 Oxygen Delivery Me thod 11/19/22 23:44 MDM - Back Pain/Injury Medical Decision Making Patient presents here with low back pain after a fall she does have some progression of her previous fractures no acute abnormalities noted she is got severe kyphosis she is to weight-bear as tolerated she is to follow-up PCP and return if worsening. Labs Radiology Impressions Lumbar Spine CT 11/19/22 23:44 IMPRESSION: 1. Extremely limited evaluation of the vertebral bodies. Marked osteopenia and thoracic kyphosis. 2. Prior vertebroplasty at T11. 3. Prior vertebral planar fracture at T12. 4. Progression of the L1 previously described fracture described on 06/24/2022. Fracture was acute at that time and this may simply be progression of that prior fracture. Superimposed new fracture is not excluded. 5. No apparent change in the remaining vertebral bodies throughout the lumbar spine since 07/05/2022. Thoracic Spine CT 11/19/22 23:44 IMPRESSION: 1. Severe thoracic kyphosis and osteopenia. 2. T6 vertebral body compression fracture is minimal but progressed since the prior study. 3. The remaining thoracic vertebral body fractures are unchanged. Discharge Plan Discharge Patient Disposition: Home Clinical Impression: Low back pain Condition: Stable Prescriptions: New hydrocodone-acetaminophen 5-325 mg tablet 1 tab PO Q6H PRN (Reason: pain) Qty: 14 0RF No Action tolterodine 2 mg capsule,extended release 24hr 2 mg PO DAILY@08 Qty: 90 3RF Rx Instructions: 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 latanoprost 0.005 % drops 1 drp ophthalmic (eye) BEDTIME@19 Qty: 2.5 3RF aspirin [Aspir-81] 81 mg Tablet,Delayed Release (Dr/Ec) 81 mg PO DAILY@08 acetaminophen [Tylenol 8 Hour] 650 mg Tablet Extended Release 650 mg PO Q4H PRN (Reason: pain/fever) diphenhydramine HCl 25 mg Capsule 25 mg PO BEDTIME@19 ibuprofen 600 mg Tablet 600 mg PO DAILY@08 furosemide 40 mg tablet 40 mg PO DAILY@08 potassium chloride 10 mEq tablet extended release 10 meq PO DAILY@08 omeprazole 20 mg capsule,delayed release(DR/EC) 20 mg PO DAILY@08 polyethylene glycol 3350 [Gavilax] 17 gram/dose Powder 17 g PO DAILY@08 Rx Instructions: with 8 oz of water or juice Evangelist Chew 1 tab PO .Q4-6H PRN (Reason: unknown) Vitamin B-12 1,000 mcg Tablet Extended Release 1,000 mcg PO DAILY@08 gabapentin 600 mg tablet 600 mg PO BID@08,19 Vitamin C 500 mg Tablet 500 mg PO DAILY@08 Tums 200 mg calcium (500 mg) Tablet,Chewable 1,000 mg PO BID PRN (Reason: Heartburn) Vitamin D3 10 mcg (400 unit) Tablet 10 mcg PO DAILY@08 turmeric root extract 500 mg Capsule 500 mg PO DAILY@08 magnesium citrate 100 mg Tablet 100 mg PO DAILY@08 Cough Drops 7.5 mg Lozenge See Rx Instructions .ROUTE .COMPLEX Rx Instructions: dissolve 1 lozenge every 2 hours as needed for cough or sore throat *may keep at bedside* biotin 1,000 mcg Tablet,Chewable 1,000 mcg PO DAILY@08 One-A-Day Women's 50 Plus 400-20 mcg Tablet 1 tab PO DAILY@08 hydrocodone-acetaminophen 5-325 mg tablet 1 tab PO Q6H PRN (Reason: pain) Discharge Orders: Discharge ED (Routine); Ordered 11/20/22 Ordered By: Aj Vizcarra Referrals: Constantine Garcia DO [Primary Care Provider] - 1-3 days Discharge Diet: Advance as tolerated Discharge Activity: Resume usual activity Patient Instructions: Back Pain (ED) Coding Level of Care Code ED [employer] Supervisor for Monica Toledo
[2022-11-19 23:44] VITALS: BP 124/78; PULSE 76; RESP 16; TEMP 37.1; O2SAT 95
--- NOTE | 2022-11-19 23:44 | CT_ITS ---
WS: [id number] CT THORACIC SPINE HISTORY: fall TECHNIQUE: Contiguous 2.5 mm axial images are reviewed to thoracic spine. Images are reformatted in s agittal and coronal planes. All CT scans at [facility] use at least one of these dose optimiz ation techniques: automated exposure control; mA and/or kV adjustment per patient size (includes targ eted exams where dose is matched to clinical indication); or iterative reconstruction. DLP: 382.12 mGy.cm COMPARISON: 07/02/2022 Extremely limited and difficult evaluation of the thoracic spine due to kyphosis. Multiple prior osteoporotic compression fractures which have been previously described. Vertebroplast y at T11. Severe vertebral planar fractures at T12. T6 vertebral compression fracture has progressed T8 and T10 vertebral compression fractures are unchanged. Large hiatal hernia. Multiple remote rib fractures of various ages. Cannot confirm these fractures are acute. CT/CT thoracic spin wo con* [id number] IMPRESSION: 1. Severe thoracic kyphosis and osteopenia. 2. T6 vertebral body compression fracture is minimal but progressed since the prior study. 3. The remaining thoracic vertebral body fractures are unchanged.
--- NOTE | 2022-11-19 23:44 | CT_ITS ---
WS: [id number] CT LUMBAR SPINE, noncontrast. HISTORY: back pain TECHNIQUE: Contiguous 2.5 mm axial imaging are performed. Sagittal and coronal reformats are submitte d and reviewed. All CT scans at [facility] use at least one of these dose optimization techni ques: automated exposure control; mA and/or kV adjustment per patient size (includes targeted exams w here dose is matched to clinical indication); or iterative reconstruction. IV contrast: None DLP: 726.58 mGy.cm COMPARISON: 07/05/2022 Severe osteopenia and thoracic kyphosis. Prior vertebroplasty at T11. Severe vertebral planar fractur e of T12 is unchanged. Severe L1 compression fracture has progressed since 07/05/2022. There is a frac ture evident through the vertebral body which may be the result of healing of the previously noted fr acture. No change at L2 or L3. Biconcave L3 fracture. L4 and L5 similar to the prior study. L1-2: Diffuse annular disc bulging with bilateral foraminal stenosis. L2-3: Diffuse annular disc bulging with bilateral foraminal stenosis. L3-4: No significant stenosis. L4-5: Marked annular disc bulging. Bilateral foraminal stenosis. L5-S1: Mild LEFT foraminal stenosis. No acute sacral fracture is identified. Marked atherosclerosis aorta. CT/CT lumbar spine wo con* [id number] IMPRESSION: 1. Extremely limited evaluation of the vertebral bodies. Marked osteopenia and thoracic kyphosis. 2. Prior vertebroplasty at T11. 3. Prior vertebral planar fracture at T12. 4. Progression of the L1 previously described fracture described on 06/24/2022. Fracture was acute at that time and this may simply be progression of that jacinta or fracture. Superimposed new fracture is not excluded. 5. No apparent change in the remaining vertebral bodies throughout the lumbar spine since 07/05/2022.
[2022-11-20 00:45] VITALS: BP 111/77; PULSE 73; RESP 16; O2SAT 95
[2022-11-20] MEDS: HYDROcodone-acetaminophen 5-325 mg Tablet 1 TAB PO (01:02)
== END 2022-11-20 01:47 | disposition home or self-care (01) ==
PROVIDERS: Emergency Provider Emergency Medicine; PCP Family Medicine
DX: M54.50 Low back pain, unspecified (principal); Z79.82 Long term (current) use of aspirin; S22.050A Wedge compression fracture of T5-T6 vertebra, initial encounter for closed fracture; Z87.891 Personal history of nicotine dependence; W18.30XA Fall on same level, unspecified, initial encounter
CPT/HCPCS: 72128; 72131; 99284

== ENCOUNTER 2022-11-20 14:32 | Emergency (ER) | payer MEDICARE, SELFPAY ==
[2022-11-20 14:51] VITALS: BP 134/97; PULSE 77; RESP 17; O2SAT 97
--- NOTE | 2022-11-20 15:20 | ED_ITS ---
Documented by User: MARISOL Donaldson 11/20/22 16:42 HPI - Altered Mental Status General: Chief Complaint: Altered Mental Status Stated Complaint: ams Time Seen by Provider: 11/20/22 15:19 Source: patient Mode of arrival: EMS Limitations: no limitations History of Present Illness: Patient is a 77-year-old female who presents to ED today from her skilled nursing for evaluation of altered mental status. According to [facility] nursing reports patient was not acting herself and stated her oxygen was low (they state patient normally sats around 90 to 91% on room air) thus sent her to the ED for evaluation. Upon arrival patient is alert and oriented to her name, date of , location, current date, president. She answers the vast majority of my questions appropriately. She complains of some rib pain and tells me she has a fractured rib. Patient was seen at our facility yesterday following a fall. She has a history of multiple falls. She states she otherwise feels okay and would like to go home. complaint: altered mental status Onset (ago): hour(s) Timing confirmed by: caregiver Severity: mild Consistency of symptoms: Waxing and Waning (seems to be better upon arrival) Associated symptoms: Reports no associated symptoms Review of Systems Const: Denies: fever(s), chills, body aches, fatigue or malaise Card: Reports: chest pain (reports rib pain); Denies: palpitations, irregular heart rhythm, edema, syncope or pre-syncope Resp: Reports: pain on inspiration; Denies: dyspnea, productive cough, non-productive cough, wheezing, hemoptysis or chest congestion GI: Denies: abdominal pain, vomiting or diarrhea Musc: Reports: back pain (chronic ); Denies: neck pain, extremity pain or joint pain Skin/Breast: Denies: rash Neuro: Denies: headache(s), numbness in extremities, weakness in extremities, sensory changes or dizziness PFS ED PFSH: Medical History Frequent falls Gastroesophageal reflux disease Osteoporosis Social History Smoking and tobacco status: former smoker Alcohol intake: never Physical Exam Const: COMMON NORMALS: no acute distress, patient oriented x3, no limitations and alert GENERAL APPEARANCE: cooperative ORIENTATION/CONSCIOUSNESS: Yes awake, Yes oriented to person, Yes oriented to place and Yes oriented to time HENMT: COMMON NORMALS: normocephalic and atraumatic HEAD & SCALP: normal to inspection, normocephalic and atraumatic FACE & SINUS: normal facial exam Eye: GENERAL EYE: appearance normal, both eyes and all related structures Neck/C-Spine: COMMON NORMALS: full ROM CERVICAL SPINE: No Cervical spine tenderness and No step off deformity Resp: COMMON NORMALS: normal respiratory effort AUSCULTATION: diminished lung sounds OTHER: Patient is extremely kyphotic Cardio: COMMON NORMALS: regular rate and regular rhythm RATE: regular rate RHYTHM: regular rhythm Extremity: GENERAL: Yes normal exam except as noted Neuro: MERYL COMA SCALE: document GCS findings Meryl coma scale eye opening: Spontaneous Meryl coma scale verbal response: Orientated Meryl coma scale motor response: Obey commands Meryl coma scale total score: 15 COMMON NORMALS: patient oriented x3 SENSORIUM/ORIENTATION: Yes alert, Yes oriented to person, Yes oriented to place and Yes oriented to time Skin: COMMON NORMALS: no rashes or lesions noted GENERAL SKIN EXAM: no rashes or lesions noted Course Vital Signs: Vital signs: Vital Signs Temperature 97.6 F 11/20/22 16:04 Pulse Rate 76 11/20/22 16:04 Respiratory Rate 14 11/20/22 16:04 Blood Pressure 172/86 11/20/22 16:04 Pulse Oximetry 94 11/20/22 16:04 Oxygen Delivery Me thod 11/20/22 16:04 Oxygen Flow Rate 2 11/20/22 14:51 MDM - Altered Mental Status Lab Data 11/20/22 16:35 11/20/22 16:35 Radiology Impressions Chest X-Ray 11/20/22 15:27 IMPRESSION: 1. Bibasilar left greater than right atelectasis versus infiltrate. 2. Hiatal hernia suspected. Head CT 11/20/22 15:27 IMPRESSION: 1. Negative for intracranial hemorrhage or mass effect. 2. Moderate diffuse white matter disease likely reflecting chronic microvascular ischemic changes. Laboratory Results WBC 7.3 10^3/uL (4.0-10.0) 11/20/22 16:35 RBC 3.83 10^6/uL (4.1-5.3) L 11/20/22 16:35 Hgb 11.2 g/dL (11.5-15.3) L 11/20/22 16:35 Hct 35.8 % (37.0-47.0) L 11/20/22 16:35 MCV 93.5 fl (81-99) 11/20/22 16:35 MCH 29.2 pg (28.0-34.0) 11/20/22 16:35 MCHC 31.3 g/dL (30.0-36.0) 11/20/22 16:35 RDW 13.0 % (12.1-15.1) 11/20/22 16:35 Plt Count 182 10^3/cmm (130-400) 11/20/22 16:35 MPV 10.3 fL (7.4-10.4) 11/20/22 16:35 Neut % (Auto) 67.8 % 11/20/22 16:35 Lymph % (Auto) 20.8 % 11/20/22 16:35 [place] % (Auto) 10.5 % 11/20/22 16:35 Eos % (Auto) 0.3 % 11/20/22 16:35 Baso % (Auto) 0.3 % 11/20/22 16:35 Neut # (Auto) 4.98 10^3/uL (1.8-7.7) 11/20/22 16:35 Lymph # (Auto) 1.5 10^3/uL (0.8-4.8) 11/20/22 16:35 [place] # (Auto) 0.8 10^3/uL (0.2-0.9) 11/20/22 16:35 Eos # (Auto) 0.0 10^3/uL (0.0-0.8) 11/20/22 16:35 Baso # (Auto) 0.0 10^3/uL (0.0-0.1) 11/20/22 16:35 Nucleated RBC % (auto) 0 % 11/20/22:35 Nucleated RBCs # 0.0 /100WBC 11/20/22 16:35 Sodium 133 mmol/L (136-145) L 11/20/22 16:35 Potassium 3.9 mmol/L (3.5-5.1) 11/20/22 16:35 Chloride 96 mmol/L (98-107) L 11/20/22 16:35 Carbon Dioxide 29 mmol/L (22-29) 11/20/22 16:35 Anion Gap 11.9 (5-19) 11/20/22 16:35 BUN 14 mg/dL (8-23) 11/20/22 16:35 Creatinine 0.7 mg/dL (0.5-0.9) 11/20/22 16:35 GFR Calculation Not Reportable 11/20/22 16:35 Glucose 99 mg/dL (65-115) 11/20/22 16:35 Calculated Osmolality 277 mOsm/kg (285-295) L 11/20/22 16:35 Calcium 9.8 mg/dL (8.5-10.5) 11/20/22 16:35 Total Bilirubin 0.4 mg/dL (0.15-1.2) 11/20/22 16:35 AST 13 U/L (0-32) 11/20/22 16:35 ALT < 5 U/L (0-33) 11/20/22 16:35 Alkaline Phosphatase 93 U/L (35-105) 11/20/22 16:35 Total Protein 6.2 g/dL (6.6-8.7) L 11/20/22 16:35 Albumin 3.7 g/dL (3.5-5.2) 11/20/22 16:35 Globulin 2.5 g/dL (1.3-4.6) 11/20/22 16:35 Procalcitonin 0.03 ng/mL (0-0.5) 11/20/22 16:35 Urine Color Yellow (Yellow) 11/20/22 17:41 Urine Appearance Clear (CLEAR) 11/20/22 17:41 Urine pH 6 (5-7) 11/20/22 17:41 Ur Specific [place] 1.010 (1.005-1.030) 11/20/22 17:41 Urine Protein Neg (Negative) 11/20/22 17:41 Urine Glucose (UA) Norm (Normal) 11/20/22 17:41 Urine Ketones Negative (Negative) 11/20/22 17:41 Urine Blood 3+ (Negative) H 11/20/22 17:41 Urine Nitrate Negative (Negative) 11/20/22 17:41 Urine Bilirubin Neg (Negative) 11/20/22 17:41 Urine Urobilinogen Norm mg/dL (Negative) 11/20/22 17:41 Ur Leukocyte Esterase Negative (Negative) 11/20/22 17:41 Urine RBC 5-10 /hpf (0-2) H 11/20/22 17:41 Urine WBC 0-4 /hpf (0-5) H 11/20/22 17:41 Ur Squamous Epith Cells 0-4 /hpf (0-5) H 11/20/22 17:41 Amorphous Sediment Not Reportable 11/20/22 17:41 Urine Bacteria Trace /hpf (NONE) 11/20/22 17:41 Influenza Type A Ag negative (Negative) 11/20/22 17:22 Influenza Type B Ag negative (Negative) 11/20/22 17:22 SARS-CoV-2 Ag (Rapid) negative (Negative) 11/20/22 17:22 Discharge Plan Discharge Patient Disposition: Home Clinical Impression: Pneumonia Qualifiers: Pneumonia type: due to unspecified organism Laterality: left Lung location: lower lobe of lung Qualified Code(s): J18.9 - Pneumonia, unspecified organism Condition: Stable Prescriptions: New doxycycline monohydrate 100 mg capsule 100 mg PO BID 7 Days Qty: 14 0RF No Action tolterodine 2 mg capsule,extended release 24hr 2 mg PO DAILY@08 Qty: 90 3RF Rx Instructions: 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 latanoprost 0.005 % drops 1 drp ophthalmic (eye) BEDTIME@19 Qty: 2.5 3RF aspirin [Aspir-81] 81 mg Tablet,Delayed Release (Dr/Ec) 81 mg PO DAILY@08 acetaminophen [Tylenol 8 Hour] 650 mg Tablet Extended Release 650 mg PO Q4H PRN (Reason: pain/fever) diphenhydramine HCl 25 mg Capsule 25 mg PO BEDTIME@19 ibuprofen 600 mg Tablet 600 mg PO DAILY@08 hydrocodone-acetaminophen 5-325 mg tablet 1 tab PO Q6H PRN (Reason: pain) Qty: 14 0RF furosemide 40 mg tablet 40 mg PO DAILY@08 potassium chloride 10 mEq tablet extended release 10 meq PO DAILY@08 omeprazole 20 mg capsule,delayed release(DR/EC) 20 mg PO DAILY@08 polyethylene glycol 3350 [Gavilax] 17 gram/dose Powder 17 g PO DAILY@08 Rx Instructions: with 8 oz of water or juice [place] Chew 1 tab PO .Q4-6H PRN (Reason: unknown) Vitamin B-12 1,000 mcg Tablet Extended Release 1,000 mcg PO DAILY@08 gabapentin 600 mg tablet 600 mg PO BID@08,19 Vitamin C 500 mg Tablet 500 mg PO DAILY@08 Tums 200 mg calcium (500 mg) Tablet,Chewable 1,000 mg PO BID PRN (Reason: Heartburn) Vitamin D3 10 mcg (400 unit) Tablet 10 mcg PO DAILY@08 turmeric root extract 500 mg Capsule 500 mg PO DAILY@08 magnesium citrate 100 mg Tablet 100 mg PO DAILY@08 Cough Drops 7.5 mg Lozenge See Rx Instructions .ROUTE .COMPLEX Rx Instructions: dissolve 1 lozenge every 2 hours as needed for cough or sore throat *may keep at bedside* biotin 1,000 mcg Tablet,Chewable 1,000 mcg PO DAILY@08 One-A-Day Women's 50 Plus 400-20 mcg Tablet 1 tab PO DAILY@08 hydrocodone-acetaminophen 5-325 mg tablet 1 tab PO Q6H PRN (Reason: pain) Discharge Orders: Discharge ED (Routine); Ordered 11/20/22 Ordered By: Vahe Montesinos Referrals: Constantine Garcia DO [Primary Care Provider] - Discharge Diet: Usual diet Discharge Activity: Increase activity as tolerated Patient Instructions: Pneumonia (ED) Activity Restrictions/Additional Instructions: Home and rest. Encourage deep breath exercises. Give antibiotic doxycycline 100 mg 2 times a day for the next 7 days. Follow-up with primary care in 3 to 5 days for recheck. Return to ED for worsening symptoms or new concerns. Sign Out Sign Out Data: Patient Sign Out occurred on 11/20/22 at 17:10. Patient's care was discussed, and care was transferred from to Vahe Montesinos. Coding Level of Care Code ED Mold Repair Technician for Chg Fwd Documented by User: KEON Dumont 11/20/22 18:30 HPI - Altered Mental Status General: Chief Complaint: Altered Mental Status Stated Complaint: ams Time Seen by Provider: 11/20/22 15:19 [facility] PFSH: Medical History Frequent falls Gastroesophageal reflux disease Osteoporosis Social History Smoking and tobacco status: former smoker Alcohol intake: never Physical Exam Neuro: MERYL COMA SCALE: document GCS findings Meryl coma scale total score: 15 Course Vital Signs: Vital signs: Vital Signs Temperature 97.6 F 11/20/22 16:04 Pulse Rate 76 11/20/22 16:04 Respiratory Rate 14 11/20/22 16:04 Blood Pressure 172/86 11/20/22 16:04 Pulse Oximetry 94 11/20/22 16:04 Oxygen Delivery Me thod 11/20/22 16:04 Oxygen Flow Rate 2 11/20/22 14:51 MDM - Altered Mental Status Medical Decision Making 77-year-old female comes in today for complaints of decreased oxygen level at skilled nursing. On exam patient is kyphotic and leans forward on exam. Patient does have a history of rib fracture. Respirations are even decreased breath sounds in the bases. Vital signs note a 94% SaO2 on room air. Skin is warm and dry. Differential diagnosis includes but not limited to sepsis, pneumonia, urinary tract infection, dehydration. X-ray noted some atelectasis versus infiltrate in the left lower lung. Head CT was unremarkable. CBC showed some mild anemia with 11 hemoglobin. CMP noted a sodium of 133 creatinine 0.7. Procalcitonin was 0.03. Believe the patient probably has more atelectasis in the left lower lung but will cover with doxycycline 100 mg twice a day for the next 7 days for pneumonia. Patient may need oxygen at another day but with repositioning and encouragement patient's oxygen saturation was never below 90%. Nursing will follow-up with skilled nursing staff for further instruction and need for return as needed. Lab Data 11/20/22 16:35 11/20/22 16:35 Radiology Impressions Chest X-Ray 11/20/22 15:27 IMPRESSION: 1. Bibasilar left greater than right atelectasis versus infiltrate. 2. Hiatal hernia suspected. Head CT 11/20/22 15:27 IMPRESSION: 1. Negative for intracranial hemorrhage or mass effect. 2. Moderate diffuse white matter disease likely reflecting chronic microvascular ischemic changes. Laboratory Results WBC 7.3 10^3/uL (4.0-10.0) 11/20/22 16:35 RBC 3.83 10^6/uL (4.1-5.3) L 11/20/22 16:35 Hgb 11.2 g/dL (11.5-15.3) L 11/20/22 16:35 Hct 35.8 % (37.0-47.0) L 11/20/22 16:35 MCV 93.5 fl (81-99) 11/20/22 16:35 MCH 29.2 pg (28.0-34.0) 11/20/22 16:35 MCHC 31.3 g/dL (30.0-36.0) 11/20/22 16:35 RDW 13.0 % (12.1-15.1) 11/20/22 16:35 Plt Count 182 10^3/cmm (130-400) 11/20/22 16:35 MPV 10.3 fL (7.4-10.4) 11/20/22 16:35 Neut % (Auto) 67.8 % 11/20/22 16:35 Lymph % (Auto) 20.8 % 11/20/22 16:35 [place] % (Auto) 10.5 % 11/20/22 16:35 Eos % (Auto) 0.3 % 11/20/22 16:35 Baso % (Auto) 0.3 % 11/20/22 16:35 Neut # (Auto) 4.98 10^3/uL (1.8-7.7) 11/20/22 16:35 Lymph # (Auto) 1.5 10^3/uL (0.8-4.8) 11/20/22 16:35 [place] # (Auto) 0.8 10^3/uL (0.2-0.9) 11/20/22 16:35 Eos # (Auto) 0.0 10^3/uL (0.0-0.8) 11/20/22 16:35 Baso # (Auto) 0.0 10^3/uL (0.0-0.1) 11/20/22 16:35 Nucleated RBC % (auto) 0 % 11/20/22 16:35 Nucleated RBCs # 0.0 /100WBC 11/20/22 16:35 Sodium 133 mmol/L (136-145) L 11/20/22 16:35 Potassium 3.9 mmol/L (3.5-5.1) 11/20/22 16:35 Chloride 96 mmol/L (98-107) L 11/20/22 16:35 Carbon Dioxide 29 mmol/L (22-29) 11/20/22 16:35 Anion Gap 11.9 (5-19) 11/20/22 16:35 BUN 14 mg/dL (8-23) 11/20/22 16:35 Creatinine 0.7 mg/dL (0.5-0.9) 11/20/22 16:35 GFR Calculation Not Reportable 11/20/22 16:35 Glucose 99 mg/dL (65-115) 11/20/22 16:35 Calculated Osmolality 277 mOsm/kg (285-295) L 11/20/22 16:35 Calcium 9.8 mg/dL (8.5-10.5) 11/20/22 16:35 Total Bilirubin 0.4 mg/dL (0.15-1.2) 11/20/22 16:35 AST 13 U/L (0-32) 11/20/22 16:35 ALT < 5 U/L (0-33) 11/20/22 16:35 Alkaline Phosphatase 93 U/L (35-105) 11/20/22 16:35 Total Protein 6.2 g/dL (6.6-8.7) L 11/20/22 16:35 Albumin 3.7 g/dL (3.5-5.2) 11/20/22 16:35 Globulin 2.5 g/dL (1.3-4.6) 11/20/22 16:35 Procalcitonin 0.03 ng/mL (0-0.5) 11/20/22 16:35 Urine Color Yellow (Yellow) 11/20/22 17:41 Urine Appearance Clear (CLEAR) 11/20/22 17:41 Urine pH 6 (5-7) 11/20/22 17:41 Ur Specific [place] 1.010 (1.005-1.030) 11/20/22 17:41 Urine Protein Neg (Negative) 11/20/22 17:41 Urine Glucose (UA) Norm (Normal) 11/20/22 17:41 Urine Ketones Negative (Negative) 11/20/22 17:41 Urine Blood 3+ (Negative) H 11/20/22 17:41 Urine Nitrate Negative (Negative) 11/20/22 17:41 Urine Bilirubin Neg (Negative) 11/20/22 17:41 Urine Urobilinogen Norm mg/dL (Negative) 11/20/22 17:41 Ur Leukocyte Esterase Negative (Negative) 11/20/22 17:41 Urine RBC 5-10 /hpf (0-2) H 11/20/22 17:41 Urine WBC 0-4 /hpf (0-5) H 11/20/22 17:41 Ur Squamous Epith Cells 0-4 /hpf (0-5) H 11/20/22 17:41 Amorphous Sediment Not Reportable 11/20/22 17:41 Urine Bacteria Trace /hpf (NONE) 11/20/22 17:41 Influenza Type A Ag negative (Negative) 11/20/22 17:22 Influenza Type B Ag negative (Negative) 11/20/22 17:22 SARS-CoV-2 Ag (Rapid) negative (Negative) 11/20/22 17:22 Discharge Plan Discharge Patient Disposition: Home Clinical Impression: Pneumonia Qualifiers: Pneumonia type: due to unspecified organism Laterality: left Lung location: lower lobe of lung Qualified Code(s): J18.9 - Pneumonia, unspecified organism Condition: Stable Prescriptions: New doxycycline monohydrate 100 mg capsule 100 mg PO BID 7 Days Qty: 14 0RF No Action tolterodine 2 mg capsule,extended release 24hr 2 mg PO DAILY@08 Qty: 90 3RF Rx Instructions: 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 latanoprost 0.005 % drops 1 drp ophthalmic (eye) BEDTIME@19 Qty: 2.5 3RF aspirin [Aspir-81] 81 mg Tablet,Delayed Release (Dr/Ec) 81 mg PO DAILY@08 acetaminophen [Tylenol 8 Hour] 650 mg Tablet Extended Release 650 mg PO Q4H PRN (Reason: pain/fever) diphenhydramine HCl 25 mg Capsule 25 mg PO BEDTIME@19 ibuprofen 600 mg Tablet 600 mg PO DAILY@08 hydrocodone-acetaminophen 5-325 mg tablet 1 tab PO Q6H PRN (Reason: pain) Qty: 14 0RF furosemide 40 mg tablet 40 mg PO DAILY@08 potassium chloride 10 mEq tablet extended release 10 meq PO DAILY@08 omeprazole 20 mg capsule,delayed release(DR/EC) 20 mg PO DAILY@08 polyethylene glycol 3350 [Gavilax] 17 gram/dose Powder 17 g PO DAILY@08 Rx Instructions: with 8 oz of water or juice [place] Chew 1 tab PO .Q4-6H PRN (Reason: unknown) Vitamin B-12 1,000 mcg Tablet Extended Release 1,000 mcg PO DAILY@08 gabapentin 600 mg tablet 600 mg PO BID@08,19 Vitamin C 500 mg Tablet 500 mg PO DAILY@08 Tums 200 mg calcium (500 mg) Tablet,Chewable 1,000 mg PO BID PRN (Reason: Heartburn) Vitamin D3 10 mcg (400 unit) Tablet 10 mcg PO DAILY@08 turmeric root extract 500 mg Capsule 500 mg PO DAILY@08 magnesium citrate 100 mg Tablet 100 mg PO DAILY@08 Cough Drops 7.5 mg Lozenge See Rx Instructions .ROUTE .COMPLEX Rx Instructions: dissolve 1 lozenge every 2 hours as needed for cough or sore throat *may keep at bedside* biotin 1,000 mcg Tablet,Chewable 1,000 mcg PO DAILY@08 One-A-Day Women's 50 Plus 400-20 mcg Tablet 1 tab PO DAILY@08 hydrocodone-acetaminophen 5-325 mg tablet 1 tab PO Q6H PRN (Reason: pain) Discharge Orders: Discharge ED (Routine); Ordered 11/20/22 Ordered By: Vahe Monteisnos Referrals: Constantine Garcia DO [Primary Care Provider] - Discharge Diet: Usual diet Discharge Activity: Increase activity as tolerated Patient Instructions: Pneumonia (ED) Activity Restrictions/Additional Instructions: Home and rest. Encourage deep breath exercises. Give antibiotic doxycycline 100 mg 2 times a day for the next 7 days. Follow-up with primary care in 3 to 5 days for recheck. Return to ED for worsening symptoms or new concerns. Sign Out Sign Out Data: Patient Sign Out occurred on 11/20/22 at 17:10. Patient's care was discussed, and care was transferred from to Vahe Montesinos. Coding Level of Care Code ED Mold Repair Technician for Monica Tol[place]
--- NOTE | 2022-11-20 15:27 | XRR_ITS ---
PROCEDURE INFORMATION: Exam: XR Chest Exam date and time: 11/20/2022 3:44 PM Age: 77 years old Clinical indication: Other: Hypoxia; Additional info: Rib FX? AMS, hypoxia TECHNIQUE: Imaging protocol: Radiologic exam of the chest. Views: 1 view. COMPARISON: CR (CHEST, ) 11/17/2022 8:47 PM FINDINGS: Lungs: Bibasilar left greater than right atelectasis versus infiltrate. Pleural spaces: Unremarkable. No pleural effusion. No pneumothorax. Heart/Mediastinum: Hiatal hernia suspected. Bones/joints: Unremarkable. XR/XR chest 1V portable [id number] IMPRESSION: 1. Bibasilar left greater than right atelectasis versus infiltrate. 2. Hiatal hernia suspected.
--- NOTE | 2022-11-20 15:27 | CTR_ITS ---
PROCEDURE INFORMATION: Exam: CT Head Without Contrast Exam date and time: 11/20/2022 3:52 PM Age: 77 years old Clinical indication: Altered mental status/memory loss; Additional info: AMS TECHNIQUE: Imaging protocol: Computed tomography of the head without contrast. Radiation optimization: All CT scans at this facility use at least one of these dose optimization techniques: automated exposure control; mA and/or kV adjustment per patient size (includes targeted exams where dose is matched to clinical indication); or iterative reconstruction. Other protocol: This patient has received 16 known CTs and 0 known cardiac nuclear medicine studies in the 12 months prior to the current study. COMPARISON: CT head wo con* [id number] 11/17/2022 7:59 PM RADIATION DOSE METRICS: Total DLP (mGy-cm): 1096.79 FINDINGS: Brain: Moderate diffuse white matter disease likely reflecting chronic microvascular ischemic changes. Cerebral ventricles: No ventriculomegaly. Paranasal sinuses: Visualized sinuses are unremarkable. No fluid levels. Mastoid air cells: Visualized mastoid air cells are well aerated. Bones/joints: Unremarkable. No acute fracture. Soft tissues: Unremarkable. CT/CT head wo con* [id number] IMPRESSION: 1. Negative for intracranial hemorrhage or mass effect. 2. Moderate diffuse white matter disease likely reflecting chronic microvascular ischemic changes.
[2022-11-20 16:04] VITALS: BP 172/86; PULSE 76; RESP 14; TEMP 36.4; O2SAT 94; BMI 20.2
[2022-11-20 17:05] LABS: Basophils % 0.3 %; Eosinophils % 0.3 %; Hematocrit 35.8 % (37.0-47.0); Hemoglobin 11.2 g/dL (11.5-15.3); Lymphocytes # 1.5 10^3/uL (0.8-4.8); Lymphocytes % 20.8 %; Mean Corpuscular HGB Conc 31.3 g/dL (30.0-36.0); Mean Corpuscular Hemoglobin 29.2 pg (28.0-34.0); Mean Corpuscular Volume 93.5 fl (81-99); Mean Platelet Volume 10.3 fL (7.4-10.4); Monocytes # 0.8 10^3/uL (0.2-0.9); Monocytes % 10.5 %; Neutrophils # 4.98 10^3/uL (1.8-7.7); Neutrophils % 67.8 %; Nucleated Red Blood Cells % 0 %; Platelet Count 182 10^3/cmm (130-400); Red Blood Count 3.83 10^6/uL (4.1-5.3); White Blood Count 7.3 10^3/uL (4.0-10.0)
[2022-11-20 17:45] LABS: Influenza A by IFA negative (Negative); Influenza B by IFA negative (Negative); SARS Covid-2 Antigen negative (Negative)
[2022-11-20 17:51] LABS: Alanine Aminotransferase < 5 U/L (0-33); Albumin Level 3.7 g/dL (3.5-5.2); Alkaline Phosphatase 93 U/L (35-105); Anion Gap 11.9 (5-19); Aspartate Amino Transferase 13 U/L (0-32); Blood Urea Nitrogen 14 mg/dL (8-23); Calcium 9.8 mg/dL (8.5-10.5); Carbon Dioxide 29 mmol/L (22-29); Chloride 96 mmol/L (98-107); Globulin 2.5 g/dL (1.3-4.6); Glucose 99 mg/dL (65-115); Osmolality Calculated 277 mOsm/kg (285-295); Potassium 3.9 mmol/L (3.5-5.1); Sodium 133 mmol/L (136-145); Total Bilirubin 0.4 mg/dL (0.15-1.2); Total Protein 6.2 g/dL (6.6-8.7)
[2022-11-20 17:54] LABS: Procalcitonin 0.03 ng/mL (0-0.5)
[2022-11-20 18:02] LABS: Add Urine Culture? No; Add Urine Microscopic? YES; Bacteria Urine TRACE /hpf; Bilirubin Urine Neg (Negative); Blood Urine 3+ (Negative); Glucose Urine UA Norm (Normal); Ketones Urine Negative (Negative); Leukocyte Esterase Urine Negative (Negative); Nitrate Urine Negative (Negative); Protein Urine Neg (Negative); Squamous Epithelial Cell Urine 0-4 /hpf (0-5); Urine Appearance Clear (CLEAR); Urine Color Yellow (Yellow); Urobilinogen Urine Norm (Negative); WBC Urine 0-4 /hpf (0-5); pH Urine 6 (5-7)
[2022-11-20] MEDS: doxycycline 100 mg Tablet PO (18:51)
== END 2022-11-20 19:03 | disposition home or self-care (01) ==
PROVIDERS: Physician Assistant; Emergency Provider Nurse Practitioner Family; PCP Family Medicine
DX: J18.9 Pneumonia, unspecified organism (principal)
CPT/HCPCS: 36415; 70450; 71045; 80053; 81001; 84145; 85025; 87426; 87804; 99285

== ENCOUNTER 2022-12-22 20:40 | Emergency (ER) | payer MEDICARE, SELFPAY ==
[2022-12-22 20:43] VITALS: BP 123/89; PULSE 85; RESP 16; TEMP 36.7; O2SAT 96
--- NOTE | 2022-12-22 20:57 | W.ED.NAVMDI ---
HPI - Nausea/Vomiting/Diarrhea General: Chief complaint: Nausea/Vomiting/Diarrhea Stated complaint: vomiting blood Time Seen by Provider: 12/22/22 20:46 Source: patient and EMS Mode of arrival: ambulatory Limitations: no limitations History of Present Illness: 77-year-old female states she had a nosebleed earlier today states she had swallowed some blood and had to be bloody emesis at the [facility]. Patient denies any pain she denies any blood in her stool she has no worsening proving factors. Associated symtoms: Reports epistaxis; Denies chest pain, dysuria or headache(s) Review of Systems Const: Denies: fever(s), chills, body aches or change in appetite Eyes: Denies: blurry vision or eye discomfort ENMT: Reports: epistaxis Card: Denies: chest pain Resp: Denies: dyspnea GI: Reports: vomiting : Denies: dysuria Musc: Denies: neck pain or back pain Skin/Breast: Denies: rash Neuro: Denies: headache(s) Psych: Denies: depression Dionicio/Lymph: Denies: easy bruising All/Imm: Denies: urticaria PFSH ED PFSH: Medical History Frequent falls Gastroesophageal reflux disease Osteoporosis Social History Smoking and tobacco status: former smoker Alcohol intake: never Physical Exam Const: COMMON NORMALS: no acute distress, patient oriented x3 and healthy appearing HENMT: COMMON NORMALS: normocephalic and atraumatic HEAD & SCALP: normocephalic and atraumatic Eye: COMMON NORMALS: Equal, round and reactive pupils present and EOMs intact bilaterally PUPIL: Yes Equal, round and reactive pupils present Neck/C-Spine: COMMON NORMALS: full ROM and supple Chest: COMMONS NORMALS: normal inspection of the chest and normal palpation of entire chest wall Resp: COMMON NORMALS: normal respiratory effort, No retractions, No use of accessory muscles and clear to auscultation bilaterally AUSCULTATION: clear to auscultation bilaterally Cardio: COMMON NORMALS: regular rate, regular rhythm and No murmurs present (Cardio) RATE: regular rate RHYTHM: regular rhythm GI: COMMON NORMALS: Normal to inspection, nondistended, normoactive bowel sounds present, Soft to palpation, non-tender and no masses PALPATION: Yes Soft to palpation Extremity: COMMON NORMALS: normal to inspection and full ROM Neuro: COMMON NORMALS: patient oriented x3, moves all extremities and no focal motor deficits Psych: COMMON NORMALS: mental status grossly normal, Normal thought process present and cooperative THOUGHT PROCESS: Normal thought process present Skin: COMMON NORMALS: no rashes or lesions noted and no wounds GENERAL SKIN EXAM: no rashes or lesions noted Course Vital Signs: Vital signs: Vital Signs Temperature 98.1 F 12/22/22 20:43 Pulse Rate 85 12/22/22 20:43 Respiratory Rate 16 12/22/22 20:43 Blood Pressure 123/89 12/22/22 20:43 Pulse Oximetry 96 12/22/22 20:43 Oxygen Delivery Me thod 12/22/22 20:43 MDM - Nausea/Vomiting/Diarrhea Medical Decision Making Patient presents here with vomiting had some blood in her vomit likely from her swallowing blood when she had a nosebleed her hemoglobin here is normal she wants to go back to [facility] she has been stable here she is stable for discharge back to [facility]. Lab Data 12/22/22 21:17 12/22/22 21:17 Laboratory Results WBC 7.0 10^3/uL (4.0-10.0) 12/22/22 21:17 RBC 4.05 10^6/uL (4.1-5.3) L 12/22/22 21:17 Hgb 12.1 g/dL (11.5-15.3) 12/22/22 21:17 Hct 38.1 % (37.0-47.0) 12/22/22 21:17 MCV 94.1 fl (81-99) 12/22/22 21:17 MCH 29.9 pg (28.0-34.0) 12/22/22 21: MCHC 31.8 g/dL (30.0-36.0) 12/22/22 21:17 RDW 13.8 % (12.1-15.1) 12/22/22 21:17 Plt Count 194 10^3/cmm (130-400) 12/22/22 21:17 MPV 10.0 fL (7.4-10.4) 12/22/22 21:17 Neut % (Auto) 61.8 % 12/22/22 21:17 Lymph % (Auto) 28.0 % 12/22/22 21:17 [place] % (Auto) 9.1 % 12/22/22 21:17 Eos % (Auto) 0.6 % 12/22/22 21:17 Baso % (Auto) 0.4 % 12/22/22 21:17 Neut # (Auto) 4.32 10^3/uL (1.8-7.7) 12/22/22 21:17 Lymph # (Auto) 2.0 10^3/uL (0.8-4.8) 12/22/22 21:17 [place] # (Auto) 0.6 10^3/uL (0.2-0.9) 12/22/22 21:17 Eos # (Auto) 0.0 10^3/uL (0.0-0.8) 12/22/22 21:17 Baso # (Auto) 0.0 10^3/uL (0.0-0.1) 12/22/22 21:17 Nucleated RBC % (auto) 0 % 12/22/22 21:17 Nucleated RBCs # 0.0 /100WBC 12/22/22 21:17 Sodium 140 mmol/L (136-145) 12/22/22 21:17 Potassium 3.7 mmol/L (3.5-5.1) 12/22/22 21:17 Chloride 102 mmol/L (98-107) 12/22/22 21:17 Carbon Dioxide 23 mmol/L (22-29) 12/22/22 21:17 Anion Gap 18.7 (5-19) 12/22/22 21:17 BUN 17 mg/dL (8-23) 12/22/22 21:17 Creatinine 0.8 mg/dL (0.5-0.9) 12/22/22 21:17 GFR Calculation Not Reportable 12/22/22 21:17 Glucose 95 mg/dL (65-115) 12/22/22 21:17 Calculated Osmolality 291 mOsm/kg (285-295) 12/22/22 21:17 Calcium 9.6 mg/dL (8.5-10.5) 12/22/22 21:17 Total Bilirubin 0.2 mg/dL (0.15-1.2) 12/22/22 21:17 AST 15 U/L (0-32) 12/22/22 21:17 ALT 6 U/L (0-33) 12/22/22 21:17 Alkaline Phosphatase 81 U/L (35-105) 12/22/22 21:17 Total Protein 6.6 g/dL (6.6-8.7) 12/22/22 21:17 Albumin 4.1 g/dL (3.5-5.2) 12/22/22 21:17 Globulin 2.5 g/dL (1.3-4.6) 12/22/22 21:17 Discharge Plan Discharge Patient Disposition: Home Clinical Impression: Vomiting, Epistaxis Condition: Stable Prescriptions: New ondansetron 4 mg tablet,disintegrating 4 mg PO Q6H PRN (Reason: nausea and vomiting) Qty: 14 0RF No Action tolterodine 2 mg capsule,extended release 24hr 2 mg PO DAILY@08 Qty: 90 3RF Rx Instructions: 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 latanoprost 0.005 % drops 1 drp ophthalmic (eye) BEDTIME@19 Qty: 2.5 3RF aspirin [Aspir-81] 81 mg Tablet,Delayed Release (Dr/Ec) 81 mg PO DAILY@08 acetaminophen [Tylenol 8 Hour] 650 mg Tablet Extended Release 650 mg PO Q4H PRN (Reason: pain/fever) diphenhydramine HCl 25 mg Capsule 25 mg PO BEDTIME@19 ibuprofen 600 mg Tablet 600 mg PO DAILY@08 hydrocodone-acetaminophen 5-325 mg tablet 1 tab PO Q6H PRN (Reason: pain) Qty: 14 0RF furosemide 40 mg tablet 40 mg PO DAILY@08 potassium chloride 10 mEq tablet extended release 10 meq PO DAILY@08 omeprazole 20 mg capsule,delayed release(DR/EC) 20 mg PO DAILY@08 polyethylene glycol 3350 [Gavilax] 17 gram/dose Powder 17 g PO DAILY@08 Rx Instructions: with 8 oz of water or juice [place] Chew 1 tab PO .Q4-6H PRN (Reason: unknown) Vitamin B-12 1,000 mcg Tablet Extended Release 1,000 mcg PO DAILY@08 gabapentin 600 mg tablet 600 mg PO BID@08,19 Vitamin C 500 mg Tablet 500 mg PO DAILY@08 Tums 200 mg calcium (500 mg) Tablet,Chewable 1,000 mg PO BID PRN (Reason: Heartburn) Vitamin D3 10 mcg (400 unit) Tablet 10 mcg PO DAILY@08 turmeric root extract 500 mg Capsule 500 mg PO DAILY@08 magnesium citrate 100 mg Tablet 100 mg PO DAILY@08 Cough Drops 7.5 mg Lozenge See Rx Instructions .ROUTE .COMPLEX Rx Instructions: dissolve 1 lozenge every 2 hours as needed for cough or sore throat *may keep at bedside* biotin 1,000 mcg Tablet,Chewable 1,000 mcg PO DAILY@08 One-A-Day Women's 50 Plus 400-20 mcg Tablet 1 tab PO DAILY@08 hydrocodone-acetaminophen 5-325 mg tablet 1 tab PO Q6H PRN (Reason: pain) Discharge Orders: Discharge ED (Routine); Ordered 12/22/22 Ordered By: Aj Vizcarra Discharge Diet: Advance as tolerated Discharge Activity: Resume usual activity Patient Instructions: Nosebleed (ED), Acute Nausea and Vomiting (ED) Coding Level of Care Code ED Groundhand for Monica Toledo
[2022-12-22 21:34] LABS: Basophils % 0.4 %; Eosinophils % 0.6 %; Hematocrit 38.1 % (37.0-47.0); Hemoglobin 12.1 g/dL (11.5-15.3); Mean Corpuscular HGB Conc 31.8 g/dL (30.0-36.0); Mean Corpuscular Hemoglobin 29.9 pg (28.0-34.0); Mean Corpuscular Volume 94.1 fl (81-99); Monocytes # 0.6 10^3/uL (0.2-0.9); Monocytes % 9.1 %; Neutrophils # 4.32 10^3/uL (1.8-7.7); Neutrophils % 61.8 %; Nucleated Red Blood Cells % 0 %; Platelet Count 194 10^3/cmm (130-400); Red Blood Count 4.05 10^6/uL (4.1-5.3); Red Cell Distribution Width 13.8 % (12.1-15.1)
[2022-12-22 21:57] LABS: Alanine Aminotransferase 6 U/L (0-33); Albumin Level 4.1 g/dL (3.5-5.2); Alkaline Phosphatase 81 U/L (35-105); Anion Gap 18.7 (5-19); Aspartate Amino Transferase 15 U/L (0-32); Blood Urea Nitrogen 17 mg/dL (8-23); Calcium 9.6 mg/dL (8.5-10.5); Carbon Dioxide 23 mmol/L (22-29); Chloride 102 mmol/L (98-107); Globulin 2.5 g/dL (1.3-4.6); Glucose 95 mg/dL (65-115); Osmolality Calculated 291 mOsm/kg (285-295); Potassium 3.7 mmol/L (3.5-5.1); Sodium 140 mmol/L (136-145); Total Bilirubin 0.2 mg/dL (0.15-1.2); Total Protein 6.6 g/dL (6.6-8.7)
--- NOTE | 2022-12-22 22:03 | PC.NURSE ---
Assisted pt to restroom via wheelchair. Pt tolerated well.
[2022-12-22 22:13] VITALS: BP 147/79; PULSE 88; RESP 14; O2SAT 95
--- NOTE | 2022-12-24 16:21 | DCPLANNER ---
TCM called patient due to no primary care physician - patient stated that she sees Dr. Jimenez in [place]
== END 2022-12-22 22:18 | disposition home or self-care (01) ==
PROVIDERS: Emergency Provider Emergency Medicine
DX: R04.0 Epistaxis (principal); R11.11 Vomiting without nausea; Z79.82 Long term (current) use of aspirin; Z87.891 Personal history of nicotine dependence
CPT/HCPCS: 80053; 85025; 99283

== ENCOUNTER 2023-01-05 22:53 | Emergency (ER) | payer MEDICARE, SELFPAY ==
[2023-01-05 22:54] VITALS: BP 113/82; PULSE 79; RESP 16; TEMP 36.8; O2SAT 94; BMI 17.7
--- NOTE | 2023-01-05 23:30 | XRR_ITS ---
PROCEDURE INFORMATION: Exam: XR Left Wrist Exam date and time: 01/05/2023 11:50 PM Age: 77 years old Clinical indication: Injury or trauma; Fall; Blunt trauma (contusions or hematomas); Wrist; Left; Additional info: Large hematoma, previous fall, not evaluated, large hematoma on forearm, TECHNIQUE: Imaging protocol: Radiologic exam of the left wrist. Views: 3 or more views. COMPARISON: No relevant prior studies available. FINDINGS: Bones/joints: Three views submitted. Osteopenia limiting assessment of nondisplaced acute osseous injury. No obvious acute fracture dislocation. Mild radiocarpal and 1st MCP joint space narrowing with minimal spurring consistent with degenerative disease. Soft tissues: Probable regional soft tissue swelling. No soft tissue gas. XR/XR wrist LT min 3V* [id number] IMPRESSION: 1. No acute findings. 2. If there is a strong clinical concern for an occult fracture, followup exam or MRI correlation may also be considered.
--- NOTE | 2023-01-05 23:30 | CTR_ITS ---
PROCEDURE INFORMATION: Exam: CT Cervical Spine Without Contrast Exam date and time: 01/05/2023 11:44 PM Age: 77 years old Clinical indication: Injury or trauma; Fall; Blunt trauma; Additional info: Fall, hit head, unknown length of time down TECHNIQUE: Imaging protocol: Computed tomography of the cervical spine without contrast. Radiation optimization: All CT scans at this facility use at least one of these dose optimization techniques: automated exposure control; mA and/or kV adjustment per patient size (includes targeted exams where dose is matched to clinical indication); or iterative reconstruction. REPORTING DATA: Count of CT and Cardiac NM exams in prior 12 months: This patient has received 18 known CTs and 0 known cardiac nuclear medicine studies in the 12 months prior to the current study. COMPARISON: CT cervical spin wo con* [id number] 07/05/2022 4:08 PM RADIATION DOSE METRICS: Total DLP (mGy-cm): 144.6 FINDINGS: Bones/joints: Multilevel endplate/uncovertebral osteophytes and facet arthropathy are noted. No acute spine fracture or subluxation. Osteopenia. Mild-moderate disc space narrowing from C5 through C7. C2-C3: No significant disc bulge or herniation. No severe spinal canal stenosis. No significant neural foraminal narrowing. C3-C4: No significant disc bulge or herniation. No severe spinal canal stenosis. No significant neural foraminal narrowing. C4-C5: No significant disc bulge or herniation. No severe spinal canal stenosis. No significant neural foraminal narrowing. C5-C6: No significant disc bulge or herniation. No severe spinal canal stenosis. Moderate-severe right neural foraminal narrowing. C6-C7: No significant disc bulge or herniation. No severe spinal canal stenosis. No significant neural foraminal narrowing. C7-T1: No significant disc bulge or herniation. No severe spinal canal stenosis. No significant neural foraminal narrowing. Lungs: Lung apices are normal. Soft tissues: Unremarkable. CT/CT cervical spin wo con* [id number] IMPRESSION: No acute spine fracture-subluxation. Multilevel disc disease and chronic endplate/facet disease with spondylosis as described above. No significant central canal stenosis related to osseous elements.
--- NOTE | 2023-01-05 23:30 | CTR_ITS ---
PROCEDURE INFORMATION: Exam: CT Head Without Contrast Exam date and time: 01/05/2023 11:44 PM Age: 77 years old Clinical indication: Injury or trauma; Fall; Blunt trauma (contusions or hematomas); Additional info: Fall, hit head, having headache TECHNIQUE: Imaging protocol: Computed tomography of the head without contrast. Radiation optimization: All CT scans at this facility use at least one of these dose optimization techniques: automated exposure control; mA and/or kV adjustment per patient size (includes targeted exams where dose is matched to clinical indication); or iterative reconstruction. REPORTING DATA: Count of CT and Cardiac NM exams in prior 12 months: This patient has received 18 known CTs and 0 known cardiac nuclear medicine studies in the 12 months prior to the current study. COMPARISON: CT head wo con* [id number] 11/20/2022 3:52 PM RADIATION DOSE METRICS: Total DLP (mGy-cm): 1161.7 FINDINGS: Brain: Minimal periventricular white matter hypodense changes, most likely related to chronic microvascular ischemic disease. Mild brain parenchymal atrophy. No hemorrhage. No mass effect or midline shift. Cerebral ventricles: No pathologic hydrocephalus. Paranasal sinuses: Visualized sinuses are unremarkable. No fluid levels. Mastoid air cells: Visualized mastoid air cells are well aerated. Bones/joints: Unremarkable. No acute fracture. Soft tissues: Unremarkable. CT/CT head wo con* [id number] IMPRESSION: No acute intracranial findings.
[2023-01-05 23:44] LABS: Basophils % 0.3 %; Eosinophils # 0.1 10^3/uL (0.0-0.8); Eosinophils % 1.4 %; Hematocrit 34.7 % (37.0-47.0); Hemoglobin 10.8 g/dL (11.5-15.3); Lymphocytes # 1.7 10^3/uL (0.8-4.8); Lymphocytes % 26.3 %; Mean Corpuscular HGB Conc 31.1 g/dL (30.0-36.0); Mean Corpuscular Hemoglobin 29.2 pg (28.0-34.0); Mean Corpuscular Volume 93.8 fl (81-99); Mean Platelet Volume 9.9 fL (7.4-10.4); Monocytes # 0.6 10^3/uL (0.2-0.9); Monocytes % 9.8 %; Neutrophils # 4.07 10^3/uL (1.8-7.7); Nucleated Red Blood Cells % 0 %; Platelet Count 236 10^3/cmm (130-400); Red Cell Distribution Width 13.6 % (12.1-15.1); White Blood Count 6.6 10^3/uL (4.0-10.0)
--- NOTE | 2023-01-05 23:52 | W.ED.FALL ---
HPI - Fall General: Chief Complaint: Fall Stated Complaint: fall Time Seen by Provider: 01/05/23 23:14 Source: patient and family Mode of arrival: EMS Limitations: no limitations History of Present Illness: Patient presents to the emergency department today brought by ambulance from her assisted living facility after sustaining a fall. Patient states she is not sure why she falls but, family indicates she falls quite a bit. Patient states she did hit her head and she is experiencing headache but, is not dizzy. Patient indicates she has had some upset stomach without vomiting or fever here recently though. Patient has had a fall recently affecting her left arm that was not fully evaluated and indicates a large hematoma to the lower left arm. Patient takes an 81 mg aspirin. Associated symptoms-after fall: Reports abdominal pain and headache(s); Denies confusion Review of Systems General: Reports: 10 or more systems reviewed and unremarkable except in HPI and below GI: Reports: abdominal pain; Denies: vomiting Musc: Reports: extremity pain (Left arm) Neuro: Reports: headache(s); Denies: confusion PFSH ED PFSH: Medical History Frequent falls Gastroesophageal reflux disease Osteoporosis Social History Smoking and tobacco status: former smoker Alcohol intake: never Physical Exam Narrative: EXAM NARRATIVE: Patient in general is extremely cachectic looking. Due to her kyphosis she is bent forward to where she barely is able to lift her head to look at you. She speaks very quietly and only answers with simple responses. Patient is very nonspecific when asked questions regarding her condition. Const: COMMON NORMALS: no acute distress, patient oriented x3 and alert HENMT: COMMON NORMALS: normocephalic, atraumatic and hearing grossly normal bilaterally HEAD & SCALP: normocephalic and atraumatic Eye: COMMON NORMALS: Equal, round and reactive pupils present, EOMs intact bilaterally and conjunctivae normal CONJUNCTIVA: Yes conjunctivae normal PUPIL: Yes Equal, round and reactive pupils present Neck/C-Spine: COMMON NORMALS: full ROM and no JVD Lymph: LYMPHATIC: no lymphadenopathy noted Resp: COMMON NORMALS: normal respiratory effort, No retractions and No use of accessory muscles Cardio: COMMON NORMALS: no JVD and regular rate RATE: regular rate Back/Pelvis: OTHER: Patient is extremely kyphotic. Neuro: COMMON NORMALS: patient oriented x3 SENSORIUM/ORIENTATION: Yes alert Psych: COMMON NORMALS: mental status grossly normal, Normal thought process present, cooperative and normal affect THOUGHT PROCESS: Normal thought process present Skin: NARRATIVE SKIN EXAM: Patient has an area of scabbed over abrasion to her left posterior shoulder. Patient also has a large hematoma over her left forearm extending down over the wrist and the dorsum of the hand. Course Vital Signs: Vital signs: Vital Signs Temperature 98.2 F 01/05/23 22:54 Pulse Rate 79 01/05/23 22:54 Respiratory Rate 16 01/05/23 22:54 Blood Pressure 113/82 01/05/23 22:54 Pulse Oximetry 94 01/05/23 22:54 Oxygen Delivery Me thod 01/05/23 22:54 MDM - Fall Medical Decision Making Patient presented to the emergency department today for evaluation treatment of injury sustained after a fall. Patient indicated she had fallen at her assisted living facility and had hit her head. She is complaining of a headache has not had any vomiting. She reports she has not felt particularly well in the last few days and indicates some upset stomach. Patient indicates she falls quite a bit. She has a large hematoma on her left arm from a fall last week which was never evaluated. CT examination of her head and neck revealed no acute concerns. X-ray of her left wrist, hand, forearm region indicated no signs of acute fractures. Given her complaints of abdominal pain we did attempt to get some urine for urinalysis however, patient was not able to use the commode and, refuses straight cath. She also wishes to proceed on with discharge without having urinalysis performed. Lab work is otherwise unremarkable. Encouraged the patient to talk to her doctor about having a urinalysis performed on an outpatient basis if she continues to have upset stomach or, if there is any acute worsening in her symptoms should be seen and reevaluated back here in the ER. Differential Diagnosis Likely syncope, fracture of wrist and concussion with loss of consciousness Lab Data 01/05/23 23:20 01/05/23 23:20 Radiology Impressions Cervical Spine CT 01/05/23 23:30 IMPRESSION: No acute spine fracture-subluxation. Multilevel disc disease and chronic endplate/facet disease with spondylosis as described above. No significant central canal stenosis related to osseous elements. Head CT 01/05/23 23:30 IMPRESSION: No acute intracranial findings. Wrist X-Ray 01/05/23 23:30 IMPRESSION: 1. No acute findings. 2. If there is a strong clinical concern for an occult fracture, followup exam or MRI correlation may also be considered. Laboratory Results WBC 6.6 10^3/uL (4.0-10.0) 01/05/23 23:20 RBC 3.70 10^6/uL (4.1-5.3) L 01/05/23 23:20 Hgb 10.8 g/dL (11.5-15.3) L 01/05/23 23:20 Hct 34.7 % (37.0-47.0) L 01/05/23 23:20 MCV 93.8 fl (81-99) 01/05/23 23:20 MCH 29.2 pg (28.0-34.0) 01/05/23 23:20 MCHC 31.1 g/dL (30.0-36.0) 01/05/23 23:20 RDW 13.6 % (12.1-15.1) 01/05/23 23:20 Plt Count 236 10^3/cmm (130-400) 01/05/23 23:20 MPV 9.9 fL (7.4-10.4) 01/05/23 23:20 Neut % (Auto) 62.0 % 01/05/23 23:20 Lymph % (Auto) 26.3 % 01/05/23 23:20 [place] % (Auto) 9.8 % 01/05/23 23:20 Eos % (Auto) 1.4 % 01/05/23 23:20 Baso % (Auto) 0.3 % 01/05/23 23:20 Neut # (Auto) 4.07 10^3/uL (1.8-7.7) 01/05/23 23:20 Lymph # (Auto) 1.7 10^3/uL (0.8-4.8) 01/05/23 23:20 [place] # (Auto) 0.6 10^3/uL (0.2-0.9) 01/05/23 23:20 Eos # (Auto) 0.1 10^3/uL (0.0-0.8) 01/05/23 23:20 Baso # (Auto) 0.0 10^3/uL (0.0-0.1) 01/05/23 23:20 Nucleated RBC % (auto) 0 % 01/05/23 23:20 Nucleated RBCs # 0.0 /100WBC 01/05/23 23:20 Sodium 138 mmol/L (136-145) 01/05/23 23:20 Potassium 4.2 mmol/L (3.5-5.1) 01/05/23 23:20 Chloride 100 mmol/L (98-107) 01/05/23 23:20 Carbon Dioxide 25 mmol/L (22-29) 01/05/23 23:20 Anion Gap 17.2 (5-19) 01/05/23 23:20 BUN 11 mg/dL (8-23) 01/05/23 23:20 Creatinine 0.7 mg/dL (0.5-0.9) 01/05/23 23:20 GFR Calculation Not Reportable 01/05/23 23:20 Glucose 90 mg/dL (65-115) 01/05/23 23:20 Calculated Osmolality 285 mOsm/kg (285-295) 01/05/23 23:20 Calcium 9.5 mg/dL (8.5-10.5) 01/05/23 23:20 Total Bilirubin 0.3 mg/dL (0.15-1.2) 01/05/23 23:20 AST 16 U/L (0-32) 01/05/23 23:20 ALT 7 U/L (0-33) 01/05/23 23:20 Alkaline Phosphatase 83 U/L (35-105) 01/05/23 23:20 Total Protein 6.5 g/dL (6.6-8.7) L 01/05/23 23:20 Albumin 3.8 g/dL (3.5-5.2) 01/05/23 23:20 Globulin 2.7 g/dL (1.3-4.6) 01/05/23 23:20 Discharge Plan Discharge Patient Disposition: Home Clinical Impression: Fall, Contusion of head, Traumatic hematoma of left forearm Condition: Stable Prescriptions: No Action tolterodine 2 mg capsule,extended release 24hr 2 mg PO DAILY@08 Qty: 90 3RF Rx Instructions: 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 latanoprost 0.005 % drops 1 drp ophthalmic (eye) BEDTIME@19 Qty: 2.5 3RF aspirin [Aspir-81] 81 mg Tablet,Delayed Release (Dr/Ec) 81 mg PO DAILY@08 acetaminophen [Tylenol 8 Hour] 650 mg Tablet Extended Release 650 mg PO Q4H PRN (Reason: pain/fever) diphenhydramine HCl 25 mg Capsule 25 mg PO BEDTIME@19 ibuprofen 600 mg Tablet 600 mg PO DAILY@08 hydrocodone-acetaminophen 5-325 mg tablet 1 tab PO Q6H PRN (Reason: pain) Qty: 14 0RF ondansetron 4 mg tablet,disintegrating 4 mg PO Q6H PRN (Reason: nausea and vomiting) Qty: 14 0RF furosemide 40 mg tablet 40 mg PO DAILY@08 potassium chloride 10 mEq tablet extended release 10 meq PO DAILY@08 omeprazole 20 mg capsule,delayed release(DR/EC) 20 mg PO DAILY@08 polyethylene glycol 3350 [Gavilax] 17 gram/dose Powder 17 g PO DAILY@08 Rx Instructions: with 8 oz of water or juice [place] Chew 1 tab PO .Q4-6H PRN (Reason: unknown) Vitamin B-12 1,000 mcg Tablet Extended Release 1,000 mcg PO DAILY@08 gabapentin 600 mg tablet 600 mg PO BID@08,19 Vitamin C 500 mg Tablet 500 mg PO DAILY@08 Tums 200 mg calcium (500 mg) Tablet,Chewable 1,000 mg PO BID PRN (Reason: Heartburn) Vitamin D3 10 mcg (400 unit) Tablet 10 mcg PO DAILY@08 turmeric root extract 500 mg Capsule 500 mg PO DAILY@08 magnesium citrate 100 mg Tablet 100 mg PO DAILY@08 Cough Drops 7.5 mg Lozenge See Rx Instructions .ROUTE .COMPLEX Rx Instructions: dissolve 1 lozenge every 2 hours as needed for cough or sore throat *may keep at bedside* biotin 1,000 mcg Tablet,Chewable 1,000 mcg PO DAILY@08 One-A-Day Women's 50 Plus 400-20 mcg Tablet 1 tab PO DAILY@08 hydrocodone-acetaminophen 5-325 mg tablet 1 tab PO Q6H PRN (Reason: pain) Discharge Orders: Discharge ED (Routine); Ordered 01/06/23 Ordered By: Shaye Blanco Referrals: Eduardo Jimenez [Primary Care Provider] - Discharge Diet: Usual diet Discharge Activity: Increase activity as tolerated Activity Restrictions/Additional Instructions: Patient CT examination revealed no acute injuries within the head or neck. The patient's previous injury to her left arm has resulted in a large hematoma but no signs of any fractures. While we would like to evaluate the patient urine to see if it is the cause of her abdominal pain, we understand the patient is not able to produce urine for us at this time and does not want to have a catheterization. We do encourage you to talk to your doctor if you continue to have abdominal discomfort as they may be able to run an outpatient urinalysis for you. Otherwise, if abdominal symptoms worsen or you would like to have your urine checked, we do recommend returning to the ER. Coding Level of Care Code ED Cut Off Machine Operator for Monica Toledo
[2023-01-05 23:56] LABS: Alanine Aminotransferase 7 U/L (0-33); Albumin Level 3.8 g/dL (3.5-5.2); Alkaline Phosphatase 83 U/L (35-105); Anion Gap 17.2 (5-19); Aspartate Amino Transferase 16 U/L (0-32); Blood Urea Nitrogen 11 mg/dL (8-23); Calcium 9.5 mg/dL (8.5-10.5); Carbon Dioxide 25 mmol/L (22-29); Chloride 100 mmol/L (98-107); Globulin 2.7 g/dL (1.3-4.6); Glucose 90 mg/dL (65-115); Osmolality Calculated 285 mOsm/kg (285-295); Potassium 4.2 mmol/L (3.5-5.1); Sodium 138 mmol/L (136-145); Total Bilirubin 0.3 mg/dL (0.15-1.2); Total Protein 6.5 g/dL (6.6-8.7)
== END 2023-01-06 02:01 | disposition home or self-care (01) ==
PROVIDERS: Emergency Provider Physician Assistant; PCP Family Medicine
DX: S00.93XA Contusion of unspecified part of head, initial encounter (principal); S50.12XA Contusion of left forearm, initial encounter; Z79.82 Long term (current) use of aspirin; Z87.891 Personal history of nicotine dependence; W19.XXXA Unspecified fall, initial encounter; Y92.099 Unspecified place in other non-institutional residence as the place of occurrence of the external cause
CPT/HCPCS: 70450; 72125; 73110; 80053; 85025; 99284; 99285

== ENCOUNTER 2023-01-27 18:12 | Outpatient (CLI) | payer MEDICARE, SELFPAY ==
[2023-01-27 18:16] LABS: Add Urine Microscopic? NO; Charge for UA Resulting for Rev
[2023-01-27 18:49] LABS: Bilirubin Urine Neg (Negative); Blood Urine Neg (Negative); Glucose Urine UA Norm (Normal); Ketones Urine Negative (Negative); Leukocyte Esterase Urine Negative (Negative); Nitrate Urine Negative (Negative); Protein Urine Neg (Negative); Urine Appearance Clear (CLEAR); Urine Color Yellow (Yellow); Urobilinogen Urine Norm (Negative); pH Urine 5 (5-7)
== END 2023-01-27 18:13 | disposition home or self-care (01) ==
PROVIDERS: PCP Family Medicine; Visit Provider Family Medicine
DX: N39.0 Urinary tract infection, site not specified (principal)
CPT/HCPCS: 81003; 87086

== ENCOUNTER 2023-04-12 13:45 | Outpatient (CLI) | payer MEDICARE, SELFPAY ==
[2023-04-12 13:54] LABS: Add Urine Microscopic? NO; Charge for UA Resulting for Rev
[2023-04-12 14:12] LABS: Bilirubin Urine Neg (Negative); Blood Urine Neg (Negative); Glucose Urine UA Norm (Normal); Ketones Urine Negative (Negative); Leukocyte Esterase Urine Negative (Negative); Nitrate Urine Negative (Negative); Protein Urine Neg (Negative); Urine Appearance Clear (CLEAR); Urine Color Yellow (Yellow); Urobilinogen Urine Norm (Negative); pH Urine 5 (5-7)
== END 2023-04-12 13:46 | disposition home or self-care (01) ==
PROVIDERS: PCP Family Medicine; Visit Provider Family Medicine
DX: N39.0 Urinary tract infection, site not specified (principal)
CPT/HCPCS: 81003; 87086

== ENCOUNTER 2023-05-05 18:51 | Emergency (ER) | payer MEDICARE, SELFPAY ==
[2023-05-05 18:54] VITALS: BP 122/65; PULSE 74; RESP 18; TEMP 36.8; O2SAT 94; BMI 15.1
[2023-05-05 19:01] VITALS: BP 122/65; PULSE 78; O2SAT 93
--- NOTE | 2023-05-05 19:03 | ED_ITS ---
HPI - General Adult General: Chief complaint: General Medical Stated complaint: prolapsed rectum Time Seen by Provider: 05/05/23 18:56 Source: patient and EMS Mode of arrival: EMS Limitations: no limitations History of Present Illness: 77-year-old female is here with a rectal prolapse she has had this before she denies any pain states she was straining and prolapse. Associated symptoms: Deny chest pain, dyspnea, headache(s), nausea, rash or vomiting Review of Systems Const: Denies: fever(s) or chills ENMT: Denies: throat pain or dental pain Card: Denies: chest pain Resp: Denies: dyspnea GI: Denies: abdominal pain, nausea, vomiting or diarrhea Musc: Denies: neck pain or back pain Skin/Breast: Denies: rash Neuro: Denies: headache(s) PFSH ED PFSH: Medical History Frequent falls Gastroesophageal reflux disease Osteoporosis Social History Smoking and tobacco status: former smoker Alcohol intake: never Physical Exam Const: COMMON NORMALS: no acute distress, patient oriented x3 and healthy appearing HENMT: COMMON NORMALS: normocephalic; head/scalp not atraumatic HEAD & SCALP: normocephalic; not atraumatic Eye: COMMON NORMALS: Equal, round and reactive pupils present and EOMs intact bilaterally PUPIL: Yes Equal, round and reactive pupils present Neck/C-Spine: COMMON NORMALS: full ROM; negative for supple Chest: COMMONS NORMALS: normal inspection of the chest Resp: COMMON NORMALS: normal respiratory effort Cardio: COMMON NORMALS: regular rate, regular rhythm and No murmurs present (Cardio) RATE: regular rate RHYTHM: regular rhythm GI: COMMON NORMALS: Normal to inspection, nondistended, normoactive bowel sounds present, Soft to palpation, non-tender and no masses PALPATION: Yes Soft to palpation OTHER: Rectal prolapse Extremity: COMMON NORMALS: normal to inspection and full ROM Neuro: COMMON NORMALS: patient oriented x3, moves all extremities and no focal motor deficits Psych: COMMON NORMALS: mental status grossly normal, Normal thought process present and cooperative THOUGHT PROCESS: Normal thought process present Skin: COMMON NORMALS: no rashes or lesions noted and no wounds GENERAL SKIN EXAM: no rashes or lesions noted Course Vital Signs: Vital signs: Vital Signs Temperature 98.2 F 05/05/23 18:54 Pulse Rate 74 05/05/23 18:54 Respiratory Rate 18 05/05/23 18:54 Blood Pressure 122/65 05/05/23 18:54 Pulse Oximetry 94 05/05/23 18:54 Oxygen Delivery Me thod Room Air 05/05/23 18:54 MDM - General Adult Medical Decision Making Patient presents here with rectal prolapse that was easily reduced she is stable for discharge Discharge Plan Discharge Patient Disposition: Home Clinical Impression: Rectal prolapse Condition: Stable Prescriptions: No Action tolterodine 2 mg capsule,extended release 24hr 2 mg PO DAILY@08 Qty: 90 3RF Rx Instructions: 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 latanoprost 0.005 % drops 1 drp ophthalmic (eye) BEDTIME@19 Qty: 2.5 3RF aspirin [Aspir-81] 81 mg Tablet,Delayed Release (Dr/Ec) 81 mg PO DAILY@08 acetaminophen [Tylenol 8 Hour] 650 mg Tablet Extended Release 650 mg PO Q4H PRN (Reason: pain/fever) diphenhydramine HCl 25 mg Capsule 25 mg PO BEDTIME@19 ibuprofen 600 mg Tablet 600 mg PO DAILY@08 hydrocodone-acetaminophen 5-325 mg tablet 1 tab PO Q6H PRN (Reason: pain) Qty: 14 0RF ondansetron 4 mg tablet,disintegrating 4 mg PO Q6H PRN (Reason: nausea and vomiting) Qty: 14 0RF furosemide 40 mg tablet 40 mg PO DAILY@08 potassium chloride 10 mEq tablet extended release 10 meq PO DAILY@08 omeprazole 20 mg capsule,delayed release(DR/EC) 20 mg PO DAILY@08 polyethylene glycol 3350 [Gavilax] 17 gram/dose Powder 17 g PO DAILY@08 Rx Instructions: with 8 oz of water or juice [place] Chew 1 tab PO .Q4-6H PRN (Reason: unknown) Vitamin B-12 1,000 mcg Tablet Extended Release 1,000 mcg PO DAILY@08 gabapentin 600 mg tablet 600 mg PO BID@08,19 Vitamin C 500 mg Tablet 500 mg PO DAILY@08 Tums 200 mg calcium (500 mg) Tablet,Chewable 1,000 mg PO BID PRN (Reason: Heartburn) Vitamin D3 10 mcg (400 unit) Tablet 10 mcg PO DAILY@08 turmeric root extract 500 mg Capsule 500 mg PO DAILY@08 magnesium citrate 100 mg Tablet 100 mg PO DAILY@08 Cough Drops 7.5 mg Lozenge See Rx Instructions .ROUTE .COMPLEX Rx Instructions: dissolve 1 lozenge every 2 hours as needed for cough or sore throat *may keep at bedside* biotin 1,000 mcg Tablet,Chewable 1,000 mcg PO DAILY@08 One-A-Day Women's 50 Plus 400-20 mcg Tablet 1 tab PO DAILY@08 hydrocodone-acetaminophen 5-325 mg tablet 1 tab PO Q6H PRN (Reason: pain) Discharge Orders: Discharge ED (Routine); Ordered 05/05/23 Ordered By: Aj Vizcarra Referrals: Eduardo Jimenez [Primary Care Provider] - Discharge Diet: Advance as tolerated Discharge Activity: Resume usual activity Patient Instructions: Rectal Prolapse (ED) Coding Level of Care Code ED Information Technology Analyst for Monica Toledo
[2023-05-05 19:21] VITALS: BP 122/75; PULSE 74; RESP 18; O2SAT 94
== END 2023-05-05 19:58 | disposition home or self-care (01) ==
LOC: ER 19:19
PROVIDERS: Emergency Provider Emergency Medicine; PCP Family Medicine
DX: K62.3 Rectal prolapse (principal); Z79.899 Other long term (current) drug therapy; Z79.82 Long term (current) use of aspirin; Z87.891 Personal history of nicotine dependence
CPT/HCPCS: 99282

== ENCOUNTER 2023-05-24 10:37 | Inpatient (IN) | payer MEDICARE, SELFPAY ==
[2023-05-24] VITALS (14 sets, daily range): BP systolic 120–191; BP diastolic 70–105; PULSE 61–89; RESP 15–22; TEMP 36.3–36.8; O2SAT 93–96
--- NOTE | 2023-05-24 10:58 | CTR_ITS ---
PROCEDURE INFORMATION: Exam: CT Head Without Contrast Exam date and time: 05/24/2023 11:11 AM Age: 78 years old Clinical indication: Stroke-like symptoms; Other: Weakness confusion; Additional info: Symptoms of acute stroke TECHNIQUE: Imaging protocol: Computed tomography of the head without contrast. Radiation optimization: All CT scans at this facility use at least one of these dose optimization techniques: automated exposure control; mA and/or kV adjustment per patient size (includes targeted exams where dose is matched to clinical indication); or iterative reconstruction. Other technique: STROKE PROTOCOL was implemented. REPORTING DATA: Count of CT and Cardiac NM exams in prior 12 months: This patient has received 13 known CTs and 0 known cardiac nuclear medicine studies in the 12 months prior to the current study. COMPARISON: CT head wo con* [id number] 01/05/2023 11:44 PM RADIATION DOSE METRICS: Total DLP (mGy-cm): 1094.28 FINDINGS: Brain: Increased cortical atrophy. Periventricular small-vessel ischemic change. Area of decreased attenuation in the nellie and right cerebellar peduncle. Infarction not excluded. Cerebral ventricles: No ventriculomegaly. Paranasal sinuses: Visualized sinuses are unremarkable. No fluid levels. Mastoid air cells: Visualized mastoid air cells are well aerated. Bones/joints: Unremarkable. No acute fracture. Soft tissues: Unremarkable. CT/CT head thrombolytic [id number] IMPRESSION: 1. There appears to be decreased attenuation in the right side of the nellie and cerebellar peduncle. Infarction not excluded. 2. Age-appropriate cortical atrophy with periventricular small-vessel ischemic change ASSESSMENT: ASPECTS ([place] Stroke Program Early CT Score) is 10.
--- NOTE | 2023-05-24 11:00 | ECG_ITS ---
[facility] Test Date: 2023-05-24 Pat Name: Trini Jeter Department: Room: Gender: Female Manufacturing Plant Technician: : 1945 Requested By: Chelsi Key Order Number: [id number] Reading MD: Arvin Barahona M.D. Measurements Intervals [place] Rate: 69 P: 39 NV: 201 QRS: -27 QRSD: 86 T: 59 QT: 412 QTc: 443 Interpretive Statements SINUS RHYTHM INFERIOR MYOCARDIAL INFARCTION , OF INDETERMINATE AGE [40+ ms Q WAVE AND/OR ST/T ABNORMALITY IN II/aVF] ANTEROSEPTAL MYOCARDIAL INFARCTION , OF INDETERMINATE AGE [40+ ms Q WAVE IN V1-V4] Compared to ECG 07/05/2022 15:52:07 Left ventricular hypertrophy no longer present ST (T wave) deviation no longer present Myocardial infarct finding still present Electronically Signed On 05-25-2023 11:25:58 CDT by Arvin Barahona M.D. [id number]
--- NOTE | 2023-05-24 11:13 | CTR_ITS ---
PROCEDURE INFORMATION: Exam: CT Cervical Spine Without Contrast Exam date and time: 05/24/2023 11:43 AM Age: 78 years old Clinical indication: Injury or trauma; Fall; Blunt trauma; Additional info: Fall pain TECHNIQUE: Imaging protocol: Computed tomography of the cervical spine without contrast. Radiation optimization: All CT scans at this facility use at least one of these dose optimization techniques: automated exposure control; mA and/or kV adjustment per patient size (includes targeted exams where dose is matched to clinical indication); or iterative reconstruction. REPORTING DATA: Count of CT and Cardiac NM exams in prior 12 months: This patient has received 13 known CTs and 0 known cardiac nuclear medicine studies in the 12 months prior to the current study. COMPARISON: 1. CT cervical spin wo con* [id number] 01/05/2023 11:[address] cervical spin wo con* [id number] 07/05/2022 4:[address] cervical spin wo con* [id number] 07/02/2022 12:20 PM RADIATION DOSE METRICS: Total DLP (mGy-cm): 169.87 FINDINGS: Bones/joints: Diffusely demineralized bones without evidence of acute fracture. Mild anterior wedge morphology of the C6, C7, and T1 vertebral bodies are stable. Multilevel degenerative changes without severe spinal canal stenosis. Moderate osseous right neural foraminal narrowing at C5-C6. Lungs: Lung apices are clear. Pleural spaces: Bilateral calcified pleural plaques at the lung apices. Vasculature: Moderate systemic atherosclerotic calcification. Soft tissues: Unremarkable. CT/CT cervical spin wo con* [id number] IMPRESSION: Osteopenia without evidence of acute fracture or traumatic listhesis.
[2023-05-24 11:43] LABS: Basophils % 0.5 %; Hematocrit 34.8 % (37.0-47.0); Hemoglobin 10.5 g/dL (11.5-15.3); Lymphocytes # 0.7 10^3/uL (0.8-4.8); Lymphocytes % 10.6 %; Mean Corpuscular HGB Conc 30.2 g/dL (30.0-36.0); Mean Corpuscular Hemoglobin 23.8 pg (28.0-34.0); Mean Corpuscular Volume 78.7 fl (81-99); Mean Platelet Volume 9.6 fL (7.4-10.4); Monocytes # 0.3 10^3/uL (0.2-0.9); Monocytes % 4.4 %; Neutrophils # 5.56 10^3/uL (1.8-7.7); Neutrophils % 83.9 %; Nucleated Red Blood Cells % 0 %; Platelet Count 311 10^3/cmm (130-400); Red Blood Count 4.42 10^6/uL (4.1-5.3); Red Cell Distribution Width 15.9 % (12.1-15.1); White Blood Count 6.6 10^3/uL (4.0-10.0)
[2023-05-24 11:53] LABS: Glucose Point of Care 148 mg/dL (70-110)
--- NOTE | 2023-05-24 11:56 | W.ED.AMS ---
HPI - Altered Mental Status General: Chief Complaint: Altered Mental Status Stated Complaint: AMS Time Seen by Provider: 05/24/23 10:47 History of Present Illness: Trini Jeter is an 78-year-old female that presents to the emergency department?transported from her assisted living place?for falls and AMS. Patient arrives alert and oriented to herself, location, year, and situation. Patient reportedly had a fall 4 days ago. She likely struck her head. reports new onset in the last 48 hours of left-sided facial droop. Balance issues are reportedly caused by her kyphotic state. She is no longer allowed to be ambulatory without assistive devices and personnel. She walks with a walker and gait belt She has multiple comorbidities that includes hypertension, high cholesterol, heart failure, Last known normal 24 to 48 hours ago Review of Systems General: Reports: 10 or more systems reviewed and unremarkable except in HPI and below Const: Denies: fever(s), chills, change in appetite, change in weight, fatigue or malaise Eyes: Denies: change in vision, eye discomfort, eye discharge or eye redness ENMT: Denies: throat pain, enlarged tonsils, odynophagia, hoarseness, ear or mastoid pain, ear discharge, change in hearing, tinnitus, nasal discharge, nasal congestion, post nasal drip or sinus pain Card: Denies: chest pain, palpitations, irregular heart rhythm, edema, dyspnea on exertion, orthopnea or leg pain with exertion Resp: Denies: dyspnea, productive cough, non-productive cough, wheezing, stridor or chest congestion GI: Denies: abdominal pain, nausea, vomiting, dysphagia, diarrhea, constipation, bloating, GI cramping or hematochezia : Denies: flank pain, difficulty voiding, dysuria, urinary frequency, urinary urgency, urinary hesitancy, oliguria or hematuria Musc: Denies: neck pain, back pain, extremity pain, joint pain, joint swelling, joint redness, joint warmth or muscle weakness Skin/Breast: Denies: rash, pruritus, erythema, photosensitivity or new lesions Neuro: Reports: frequent falls and other (Neck pain over SCM bilaterally); Denies: headache(s), numbness in extremities, weakness in extremities, sensory changes, lack of coordination, difficulty walking, dizziness, confusion, Slurred speech present, difficulty communicating thoughts, seizure-like activity or involuntary movements Endo: Denies: polyuria, polydipsia or tired all the time Dionicio/Lymph: Reports: easy bruising; Denies: easy bleeding PFSH ED PFSH: Medical History Frequent falls Gastroesophageal reflux disease Osteoporosis Social History Smoking and tobacco status: former smoker Alcohol intake: never Physical Exam Const: COMMON NORMALS: no acute distress, patient oriented x3, no limitations and alert GENERAL APPEARANCE: cooperative ORIENTATION/CONSCIOUSNESS: Yes awake, Yes oriented to person, Yes oriented to place and Yes oriented to time HENMT: COMMON NORMALS: normocephalic and atraumatic HEAD & SCALP: normal to inspection, normocephalic and atraumatic FACE & SINUS: normal facial exam Eye: GENERAL EYE: appearance normal, both eyes and all related structures Neck/C-Spine: COMMON NORMALS: full ROM CERVICAL SPINE: No Cervical spine tenderness and No step off deformity Resp: COMMON NORMALS: normal respiratory effort AUSCULTATION: diminished lung sounds OTHER: Patient is extremely kyphotic Cardio: COMMON NORMALS: regular rate and regular rhythm RATE: regular rate RHYTHM: regular rhythm Extremity: GENERAL: Yes normal exam except as noted Neuro: MERYL COMA SCALE: document GCS findings Sterling coma scale eye opening: Spontaneous Meryl coma scale verbal response: Orientated [place] coma scale motor response: Obey commands [place] coma scale total score: 15 COMMON NORMALS: patient oriented x3 SENSORIUM/ORIENTATION: Yes alert, Yes oriented to person, Yes oriented to place and Yes oriented to time CRANIAL NERVES: Yes CN normal except as noted, Yes vestibular testing Vestibular testing: Yes Nystagmus not present, Yes pupillary reactivity/size and Yes CN VII (facial) Laterality: left CN VII left: facial droop COORDINATION/BALANCE: No [id number] test normal SPEECH: abnormal speech (Speech pattern slow but at baseline) GAIT: Yes Unable to assess gait SENSORY EXAM: Yes extremities (Normal sensory); No sensory level loss detected MOTOR EXAM: 5/5 motor strength present throughout, Pronator motor function not present, no tremor noted and Motor abnormalities not present COORDINATION: [id number] test abnormal Right pupil size (mm): 3 Left pupil size (mm): 3 Skin: COMMON NORMALS: no rashes or lesions noted GENERAL SKIN EXAM: no rashes or lesions noted Course Vital Signs: Vital signs: Vital Signs Temperature 97.5 F L 05/24/23 10:39 Pulse Rate 71 05/24/23 12:24 Respiratory Rate 21 H 05/24/23 12:24 Blood Pressure 127/95 05/24/23 12:24 Pulse Oximetry 94 05/24/23 12:24 Oxygen Delivery Me thod Room Air 05/24/23 12:24 MDM - Altered Mental Status Medical Decision Making Was evaluated in the emergency department due to concerns for alteration in mentation. Patient differential diagnoses include seizure, stroke, TBI/ICH, medication induced, urinary tract infection, hypoglycemia Patient has had numerous falls with the most recent being about 4 days ago. He does have a new facial droop that is concerning for acute neurological change Patient is complaining of SCM tenderness or strain Patient was worked up for possible CVA this included CT head without contrast, CT cervical spine to rule out fracture, EKG, troponin, BNP, CBC, CMP, urinalysis. The INR were also evaluated. Amatory studies revealed a mild hyperglycemia of 140s EKG revealed possible AMI. There is some mild elevation in anterior ST segment although this is unchanged from EKG in June of last year. I reviewed findings with Dr. Sage, my ER attending, CT head reveals new nellie ischemic changes. CT cervical negative for acute fracture Troponin is mildly elevated at 20. Pending 2-hour troponin EKG unchanged at 2 hours No evidence of any leukocytosis, anemias, electrolyte abnormality. Spoke with Dr. Montalvo and Dr. Morrison. Dr. Montalvo has requested 81 mg aspirin, 10 mg Lipitor, carotid Doppler, echo, prothrombin, anticardiolipin, beta-2 glycoprotein, and a lupus anticoagulation panel. Dr. David has evaluated the patient and initially was going to order a CTA however he is going to wait on the pending ultrasound. Dr. Morrison is agreeable to admission Lab Data 05/24/23 11:33 05/24/23 11:[address] 05/24/23 10:58 IMPRESSION: 1. There appears to be decreased attenuation in the right side of the nellie and cerebellar peduncle. Infarction not excluded. 2. Age-appropriate cortical atrophy with periventricular small-vessel ischemic change ASSESSMENT: ASPECTS ([place] Stroke Program Early CT Score) is 10. Cervical Spine CT 05/24/23 11:13 IMPRESSION: Osteopenia without evidence of acute fracture or traumatic listhesis. Laboratory Results WBC 6.6 10^3/uL (4.0-10.0) 05/24/23 11: RBC 4.42 10^6/uL (4.1-5.3) 05/24/23 11:33 Hgb 10.5 g/dL (11.5-15.3) L 05/24/23 11:33 Hct 34.8 % (37.0-47.0) L 05/24/23 11:33 MCV 78.7 fl (81-99) L 05/24/23 11: MCH 23.8 pg (28.0-34.0) L 05/24/23 11: MCHC 30.2 g/dL (30.0-36.0) 05/24/23 11: RDW 15.9 % (12.1-15.1) H 05/24/23 11:33 Plt Count 311 10^3/cmm (130-400) 05/24/23 11:33 MPV 9.6 fL (7.4-10.4) 05/24/23 11:33 Neut % (Auto) 83.9 % 05/24/23 11:33 Lymph % (Auto) 10.6 % 05/24/23 11:33 Rankin % (Auto) 4.4 % 05/24/23 11:33 Eos % (Auto) 0.0 % 05/24/23 11: Baso % (Auto) 0.5 % 05/24/23 11:33 Neut # (Auto) 5.56 10^3/uL (1.8-7.7) 05/24/23 11:33 Lymph # (Auto) 0.7 10^3/uL (0.8-4.8) L 05/24/23 11:33 Rankin # (Auto) 0.3 10^3/uL (0.2-0.9) 05/24/23 11:33 Eos # (Auto) 0.0 10^3/uL (0.0-0.8) 05/24/23 11:33 Baso # (Auto) 0.0 10^3/uL (0.0-0.1) 05/24/23 11:33 Nucleated RBC % (auto) 0 % 05/24/23 11:33 Nucleated RBCs # 0.0 /100WBC 05/24/23 11:33 PT 13.90 SECONDS (12.1-14.9) 05/24/23 11:33 INR 1.03 (0.8-1.2) 05/24/23 11:33 APTT 28.7 SECONDS (23.9-36.7) 05/24/23 11:33 Sodium 136 mmol/L (136-145) 05/24/23 11:33 Potassium 3.7 mmol/L (3.5-5.1) 05/24/23 11:33 Chloride 99 mmol/L (98-107) 05/24/23 11:33 Carbon Dioxide 24 mmol/L (22-29) 05/24/23 11:33 Anion Gap 16.7 (5-19) 05/24/23 11:33 BUN 18 mg/dL (8-23) 05/24/23 11:33 Creatinine 0.6 mg/dL (0.5-0.9) 05/24/23 11:33 GFR Calculation Not Reportable 05/24/23 11:33 Glucose 152 mg/dL (65-115) H 05/24/23 11:33 POC Glucose 148 mg/dL (70-110) H 05/24/23 11:51 Calculated Osmolality 287 mOsm/kg (285-295) 05/24/23 11:33 Calcium 9.6 mg/dL (8.5-10.5) 05/24/23 11:33 Total Bilirubin 0.2 mg/dL (0.15-1.2) 05/24/23 11:33 AST 16 U/L (0-32) 05/24/23 11:33 ALT 9 U/L (0-33) 05/24/23 11:33 Alkaline Phosphatase 73 U/L (35-105) 05/24/23 11:33 Troponin T Baseline 20 ng/L (0-10) H 05/24/23 11:33 Total Protein 7.1 g/dL (6.6-8.7) 05/24/23 11:33 Albumin 4.4 g/dL (3.5-5.2) 05/24/23 11:33 Globulin 2.7 g/dL (1.3-4.6) 05/24/23 11:33 Discharge Plan Discharge Patient Disposition: Admitted As Inpatient Clinical Impression: Fall, Acute CVA (cerebrovascular accident), Hyperglycemia Prescriptions: No Action tolterodine 2 mg capsule,extended release 24hr 2 mg PO DAILY@08 Qty: 90 3RF Rx Instructions: 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 latanoprost 0.005 % drops 1 drp ophthalmic (eye) BEDTIME@19 Qty: 2.5 3RF acetaminophen [Tylenol 8 Hour] 650 mg Tablet Extended Release 650 mg PO Q4H PRN (Reason: pain/fever) diphenhydramine HCl 25 mg Capsule 25 mg PO BEDTIME@19 Tussin DM 10-100 mg/5 mL liquid 10 ml PO Q4H PRN (Reason: Cough) tramadol 50 mg tablet 50 mg PO Q6H PRN (Reason: Pain) Artificial Tears (cmc) 1 % Drops 1 drp OPHTHALMIC (EYE) QID furosemide 40 mg tablet 40 mg PO DAILY@08 potassium chloride 10 mEq tablet extended release 10 meq PO DAILY@08 omeprazole 20 mg capsule,delayed release(DR/EC) 20 mg PO DAILY@08 polyethylene glycol 3350 [Gavilax] 17 gram/dose Powder 17 g PO DAILY@08 Rx Instructions: with 8 oz of water or juice Evangelist Chew 1 tab PO .Q4-6H PRN (Reason: unknown) cyanocobalamin (vitamin B-12) [Vitamin B-12] 1,000 mcg Tablet Extended Release 1,000 mcg PO DAILY@08 gabapentin 600 mg tablet 600 mg PO BID@08,19 ascorbic acid (vitamin C) [Vitamin C] 500 mg Tablet 500 mg PO DAILY@08 calcium carbonate [Tums] 200 mg calcium (500 mg) Tablet,Chewable 1,000 mg PO BID PRN (Reason: Heartburn) cholecalciferol (vitamin D3) [Vitamin D3] 10 mcg (400 unit) Tablet 10 mcg PO DAILY@08 turmeric root extract 500 mg Capsule 500 mg PO DAILY@08 magnesium citrate 100 mg Tablet 100 mg PO DAILY@08 Cough Drops 7.5 mg Lozenge See Rx Instructions .ROUTE .COMPLEX Rx Instructions: dissolve 1 lozenge every 2 hours as needed for cough or sore throat *may keep at bedside* biotin 1,000 mcg Tablet,Chewable 1,000 mcg PO DAILY@08 Referrals: Eduardo Jimenez [Primary Care Provider] - Patient Instructions: Hyponatremia (ED), Benzodiazepine Use Disorder (ED), Dementia (ED), Non-diabetic Hypoglycemia (ED), Hypoglycemia in a Person with Diabetes (ED), Concussion (ED), Alcohol Intoxication (ED), Subarachnoid Hemorrhage (GEN), Altered Mental Status (ED) Coding Level of Care Code ED Tower Loader Operator for Monica Toledo
--- NOTE | 2023-05-24 12:02 | USR_ITS ---
PROCEDURE INFORMATION: Exam: US Duplex Bilateral Extracranial Arteries; Complete; Carotid Arteries Exam date and time: 05/24/2023 6:01 PM Age: 78 years old Clinical indication: Other: CVA TECHNIQUE: Imaging protocol: Real-time duplex ultrasound scan of the bilateral extracranial arteries combining kelly scale, color Doppler and spectral waveform analysis with image documentation. Complete exam. Exam focused on the carotid arteries. COMPARISON: CT angio headneck* [id number] 05/24/2023 3:25 PM FINDINGS: Right common carotid artery: Unremarkable. No occlusion or stenosis. Waveforms are normal. Right internal carotid artery: Minimal calcified atherosclerotic plaque is unchanged with comparison CTA. No occlusion or stenosis. Waveforms are normal. Right ICA/CCA ratio: Within normal limits. Right external carotid artery: Patent. Right vertebral artery: Unremarkable. Antegrade flow. Left common carotid artery: Unremarkable. No occlusion or stenosis. Waveforms are normal. Left internal carotid artery: Minimal calcified atherosclerotic plaque is unchanged with comparison CTA. No occlusion or stenosis. Waveforms are normal. Left ICA/CCA ratio: Within normal limits. Left external carotid artery: Patent. Left vertebral artery: Unremarkable. Antegrade flow. US/CV carotid duplex BI* [id number] IMPRESSION: No carotid arterial stenosis. REFERENCES: SRU CRITERIA. The degree of internal carotid artery stenosis is based on criteria defined by the Society of Radiologists in Ultrasound (SRU). Normal is no stenosis. Mild is less than 50% stenosis. Moderate is 50-69% stenosis. Severe is greater than 69% stenosis to near occlusion. Near occlusion is a markedly narrowed lumen. Total occlusion is no detectable patent lumen.
--- NOTE | 2023-05-24 12:02 | USCV_ITS ---
Trini Jeter Age: 78 Gender: F : 1945 Exam Date: 05/24/2023 18:41 Ordering Phys: Chelsi Gomez Technologist: MIMI [place] [facility] [place] Indication: cva BP: / HR: 66 Rhythm: Sinus Technical Quality: Adequate MEASUREMENTS (Male / Female) Normal Values 2D ECHO LV Diastolic Diameter PLAX 3.8 cm 4.2 - 5.9 / 3.9 - 5.3 cm LV Systolic Diameter PLAX 2.3 cm IVS Diastolic Thickness 0.9 cm 0.6 - 1.0 / 0.6 - 0.9 cm IVS Systolic Thickness 1.1 cm LVPW Diastolic Thickness 0.9 cm 0.6 - 1.0 / 0.6 - 0.9 cm LVPW Systolic Thickness 1.2 cm LVOT Diameter 2.0 cm LV Ejection Fraction 2D Teich 71.9 % LV Ejection Fraction MOD 2C 68.6 % LV Ejection Fraction 2C AL 69.6 % LA Diameter 3.5 cm M-MODE Aortic Annulus Diameter 3.0 cm LA Ao Ratio MM 0.9 MV E Point Septal Separation 0.1 cm DOPPLER MV Area PHT 2.6 cm squared Mitral E to A Ratio 0.6 MV E' Velocity 33.5 cm/s Mitral E to MV E' Ratio 14.4 Mitral E to LV E' Lateral Ratio 14.4 Mitral E to LV E' Septal Ratio 14.4 TR Peak Velocity 285.0 cm/s TR Peak Gradient 32.5 mmHg TV Peak E Velocity 61.0 cm/s Right Atrial Pressure 6.0 mmHg Pulmonary Artery Systolic Pressu 38.5 mmHg FINDINGS Left Ventricle Normal left ventricular cavity size. Mild left ventricular hypertrophy. Normal left ventricular systolic function. Left ventricular ejection fraction is estimated at 70 %. Grade I/IV diastolic dysfunction (abnormal relaxation filling pattern), normal to mildly elevated filling pressures. Right Ventricle Normal right ventricular size and systolic function. Mild pulmonary hypertension, RVSP 38.5 mmHg. Right Atrium The right atrium is normal in size. Left Atrium The left atrium is normal in size. Mitral Valve Structurally normal mitral valve. Trace mitral valve regurgitation. Aortic Valve Structurally normal trileaflet aortic valve. Mild aortic valve calcification. No aortic valve regurgitation. No aortic valve stenosis. Tricuspid Valve Structurally normal tricuspid valve. Trace tricuspid valve regurgitation. Pulmonic Valve Pulmonic valve not well visualized. Pericardium Normal pericardium without effusion. Aorta Normal ascending aorta dimension. IVC Inferior vena cava not visualized. CONCLUSIONS Normal left ventricular cavity size. Mild left ventricular hypertrophy. Normal left ventricular systolic function. Left ventricular ejection fraction is estimated at 70 %. Grade I/IV diastolic dysfunction (abnormal relaxation filling pattern), normal to mildly elevated filling pressures. Normal right ventricular size and systolic function. Mild pulmonary hypertension, RVSP 38.5 mmHg. Structurally normal mitral valve. Trace mitral valve regurgitation. There are no prior echocardiogram studies to compare. Dr. Arvin Barahona MD (Electronically Signed) Final Date: 25 May 2023 09:33 S
[2023-05-24 12:13] LABS: Alanine Aminotransferase 9 U/L (0-33); Albumin Level 4.4 g/dL (3.5-5.2); Alkaline Phosphatase 73 U/L (35-105); Anion Gap 16.7 (5-19); Aspartate Amino Transferase 16 U/L (0-32); Blood Urea Nitrogen 18 mg/dL (8-23); Calcium 9.6 mg/dL (8.5-10.5); Carbon Dioxide 24 mmol/L (22-29); Chloride 99 mmol/L (98-107); Globulin 2.7 g/dL (1.3-4.6); Glucose 152 mg/dL (65-115); Osmolality Calculated 287 mOsm/kg (285-295); Potassium 3.7 mmol/L (3.5-5.1); Sodium 136 mmol/L (136-145); Total Bilirubin 0.2 mg/dL (0.15-1.2); Total Protein 7.1 g/dL (6.6-8.7)
[2023-05-24 12:14] LABS: Troponin(5th) Baseline 20 ng/L (0-10)
[2023-05-24 12:20] LABS: INR 1.03 (0.8-1.2)
[2023-05-24 12:21] LABS: Partial Thromboplastin Time 28.7 SECONDS (23.9-36.7)
--- NOTE | 2023-05-24 12:56 | ECG_ITS ---
[facility] Test Date: 2023-05-24 Pat Name: Trini Jeter Department: Room: Gender: Female Manager Lsw: : 1945 Requested By: Chelsi Key Order Number: [id number] Reading MD: Arvin Barahona M.D. Measurements Intervals [place] Rate: 69 P: 21 OK: 180 QRS: -20 QRSD: 90 T: 64 QT: 411 QTc: 441 Interpretive Statements SINUS RHYTHM ANTERIOR MYOCARDIAL INFARCTION , PROBABLY RECENT [40+ ms Q WAVE AND/OR ST/T ABNORMALITY IN V3/V4] INFERIOR MYOCARDIAL INFARCTION , OF INDETERMINATE AGE [40+ ms Q WAVE AND/OR ST/T ABNORMALITY IN II/aVF] Compared to ECG 05/24/2023 11:07:18 No significant changes Electronically Signed On 05-25-2023 11:35:10 CDT by Arvin Barahona M.D. [id number]
--- NOTE | 2023-05-24 13:42 | PC.NURSE ---
Assisted pt to bedside commode. Pt tolerated well. Urine sample collected.
[2023-05-24 14:13] LABS: Add Urine Microscopic? YES; Bacteria Urine TRACE /hpf; Bilirubin Urine Neg (Negative); Blood Urine Trace (Negative); Glucose Urine UA Norm (Normal); Ketones Urine Negative (Negative); Leukocyte Esterase Urine Negative (Negative); Nitrate Urine Negative (Negative); Protein Urine Neg (Negative); RBC Urine 0-4 /hpf (0-2); Squamous Epithelial Cell Urine RARE /hpf (0-5); Urine Appearance Clear (CLEAR); Urine Color Colorless (Yellow); Urobilinogen Urine Norm (Negative); pH Urine 6.5 (5-7)
[2023-05-24 14:14] LABS: Add Urine Culture? No
[2023-05-24 14:33] LABS: Troponin 5 2HR 19.19 ng/L (0-10)
[2023-05-24 14:42] LABS: Troponin 5 2HR Delta -0.81 ABS# (0-10)
--- NOTE | 2023-05-24 14:47 | CTR_ITS ---
PROCEDURE INFORMATION: Exam: CTA Head With Contrast, Arteriography Exam date and time: 05/24/2023 3:25 PM Age: 78 years old Clinical indication: Other: Ans, left facial droop TECHNIQUE: Imaging protocol: Computed tomographic angiography of the head with contrast. Exam focused on the arteries. 3D rendering (Not supervised by radiologist): MIP and/or 3D reconstructed images were created by the technologist. Radiation optimization: All CT scans at this facility use at least one of these dose optimization techniques: automated exposure control; mA and/or kV adjustment per patient size (includes targeted exams where dose is matched to clinical indication); or iterative reconstruction. Contrast material: OMNI 350; Contrast volume: 100 ml; Contrast route: INTRAVENOUS (IV); REPORTING DATA: Count of CT and Cardiac NM exams in prior 12 months: This patient has received 13 known CTs and 0 known cardiac nuclear medicine studies in the 12 months prior to the current study. COMPARISON: CT head thrombolytic [id number] 05/24/2023 11:11 AM RADIATION DOSE METRICS: Total DLP (mGy-cm): 326.59 FINDINGS: ANTERIOR CIRCULATION: Right internal carotid artery: Intracranial segment is patent with no significant stenosis. No aneurysm. Right middle cerebral artery: No occlusion or significant stenosis. No aneurysm. Right anterior cerebral artery: No occlusion or significant stenosis. No aneurysm. Left internal carotid artery: Intracranial segment is patent with no significant stenosis. No aneurysm. Left middle cerebral artery: No occlusion or significant stenosis. No aneurysm. Left anterior cerebral artery: No occlusion or significant stenosis. No aneurysm. POSTERIOR CIRCULATION: Right vertebral artery: No occlusion or significant stenosis. No aneurysm. Left vertebral artery: No occlusion or significant stenosis. No aneurysm. Basilar artery: No occlusion or significant stenosis. No aneurysm. Right posterior cerebral artery: No occlusion or significant stenosis. No aneurysm. Left posterior cerebral artery: No occlusion or significant stenosis. No aneurysm. Brain: No definite mass, mass effect, or midline shift. Cerebral ventricles: No ventriculomegaly. Bones/joints: Unremarkable. No acute fracture. Soft tissues: Unremarkable. PROCEDURE INFORMATION: Exam: CTA Neck With Contrast Exam date and time: 05/24/2023 3:25 PM Age: 78 years old Clinical indication: Other: Ans, left facial droop TECHNIQUE: Imaging protocol: Computed tomographic angiography of the neck with contrast. 3D rendering (Not supervised by radiologist): MIP and/or 3D reconstructed images were created by the technologist. Radiation optimization: All CT scans at this facility use at least one of these dose optimization techniques: automated exposure control; mA and/or kV adjustment per patient size (includes targeted exams where dose is matched to clinical indication); or iterative reconstruction. Contrast material: OMNI 350; Contrast volume: 100 ml; Contrast route: INTRAVENOUS (IV); REPORTING DATA: Count of CT and Cardiac NM exams in prior 12 months: This patient has received 13 known CTs and 0 known cardiac nuclear medicine studies in the 12 months prior to the current study. COMPARISON: CT cervical spin wo con* [id number] 05/24/2023 11:43 AM RADIATION DOSE METRICS: Total DLP (mGy-cm): 326.59 FINDINGS: Right common carotid artery: No stenosis. No dissection or occlusion. Right internal carotid artery: Atherosclerotic changes proximal right internal carotid artery without significant stenosis less than 30%. Right external carotid artery: No occlusion or stenosis of the origin. Left common carotid artery: No stenosis. No dissection or occlusion. Left internal carotid artery: No stenosis of the extracranial segment. No dissection or occlusion. Left external carotid artery: No occlusion or stenosis of the origin. Right vertebral artery: No stenosis. No dissection or occlusion. Left vertebral artery: No stenosis. No dissection or occlusion. Soft tissues: Normal. No significant soft tissue swelling. Bones/joints: No acute fracture. Lungs: Partially imaged infiltrates in the inferior right upper lobe and right lower lobe. Esophagus: The esophagus is dilated and thickened with partially imaged suspected large-sized hiatal hernia. CT/CT angio headneck* [id number] IMPRESSION: No large vessel stenosis or occlusion. IMPRESSION: 1. No occlusion or significant stenosis. 2. Infiltrates in the visualized right lung suspicious for pneumonia. 3. Thickened esophagus suspicious for esophagitis with distal dilation possibly large hiatal hernia incompletely imaged. REFERENCES: NASCET CRITERIA. The degree of stenosis in the cervical segment of the internal carotid artery is based on NASCET criteria. Normal is no stenosis. Mild is less than 50% stenosis. Moderate is 50-69% stenosis. Severe is 70% to 99% stenosis. Total occlusion is no detectable patent lumen.
[2023-05-24 15:02] LABS: D Dimer 1.27 ug/mIFEU (0-0.59)
[2023-05-24 15:15] LABS: Procalcitonin 0.03 ng/mL (0-0.5); Thyroid Stimulating Hormone 1.08 uIU/mL (0.27-4.20)
[2023-05-24] MEDS: iohexol 350 mg/mL 500 mL Btl (per mL) IV (15:31)
--- NOTE | 2023-05-24 15:49 | PM.HP ---
Providers/Chief Complaint Admitting Physician: Kieran Morrison MD Primary Care Provider: Eduardo Jimenez Chief Complaint: AMS History of Present Illness Trini Jeter is a 78 year old female with a past medical history of GERD, osteoporosis, history of recurrent falls, currently nonambulatory, resident at [facility], history of bilateral hip fracture status post surgery, for which she is at [place] due to episode of nonresponsiveness and left-sided facial droop. Patient does not know why she is here in the hospital she [facility], she is alert oriented x3, follows all commands, denies any slurring of her words, no visual deficits reported, denies any focal weakness, no focal paresthesias, she is not exactly sure what happened, denies any lightheadedness, no dizziness, no nausea, vomiting, no chest pain, palpitations, shortness of breath no abdominal pain,, had a fall 4 days ago, she has a friend at bedside who tells me that for the last few months she has had a gradual decline, decreased appetite, weight loss, currently she has no complaints, she does notably have a left facial droop, on examination her [id number] is abnormal bilaterally, [id number] is abnormal bilaterally, no focal weakness, her last known well normal is not known, possibly yesterday, she denies a history of strokes, I was able to speak to [facility], who tell me that this morning, patient became nonresponsive she looked flushed and pale, became stiff as a board, she was leaning more towards the right side it seemed like she was favoring her right side, and then nursing staff called EMS, and they noticed a left facial droop they are not exactly sure of the timeframe of this facial droop Review of Systems Const: Denies: fever(s) or chills Eyes: Denies: change in vision ENMT: Denies: throat pain Card: Denies: chest pain or palpitations Resp: Denies: dyspnea or productive cough GI: Denies: abdominal pain or nausea : Denies: flank pain or difficulty voiding Musc: Denies: neck pain or back pain Skin/Breast: Denies: rash Neuro: Denies: headache(s) Psych: Denies: anxiety Medications/Allergies Home Medications Medication Instructions Recorded Confirmed Last Taken Type furosemide 40 mg tablet 40 mg PO DAILY@12/30/21 05/24/23 07/05/22 History omeprazole 20 mg capsule,delayed 20 mg PO DAILY@12/30/21 05/24/23 07/05/22 History release polyethylene glycol 3350 17 17 g PO DAILY@12/30/21 05/24/23 07/05/22 History gram/dose oral powder (Gavilax) potassium chloride 10 mEq 10 meq PO DAILY@12/30/21 05/24/23 07/05/22 08:00 History tablet,extended release acetaminophen 650 mg 650 mg PO Q4H PRN pain/fever 01/22/22 05/24/23 Unknown History tablet,extended release (Tylenol 8 Hour) diphenhydramine HCl 25 mg capsule 25 mg PO BEDTIME@01/22/22 05/24/23 07/04/22 History [place] Chew 1 tab PO .Q4-6H PRN unknown 07/05/22 05/24/23 Unknown History ascorbic acid (vitamin C) 500 mg 500 mg PO DAILY@07/05/22 05/24/23 07/05/22 History tablet (Vitamin C) biotin 1,000 mcg chewable tablet 1,000 mcg PO DAILY@07/05/22 05/24/23 07/05/22 History calcium carbonate 200 mg calcium 1,000 mg PO BID PRN Heartburn 07/05/22 05/24/23 Unknown History (500 mg) chewable tablet (Tums) cholecalciferol (vitamin D3) 10 10 mcg PO DAILY@07/05/22 05/24/23 07/05/22 History mcg (400 unit) tablet (Vitamin D3) cyanocobalamin (vitamin B-12) 1,000 mcg PO DAILY@07/05/22 05/24/23 07/05/22 History 1,000 mcg tablet,extended release (Vitamin B-12 ER) gabapentin 600 mg tablet 600 mg PO BID@07/05/22 05/24/23 07/05/22 History magnesium citrate 100 mg tablet 100 mg PO DAILY@07/05/22 05/24/23 07/05/22 History menthol 7.5 mg lozenges (Cough See Rx Instructions .Route .COMPLEX 07/05/22 05/24/23 Unknown History Drops) turmeric root extract 500 mg 500 mg PO DAILY@08 07/05/22 05/24/23 07/05/22 History capsule tolterodine 2 mg capsule,extended 2 mg PO DAILY@08 #90 caps 08/27/22 05/24/23 Unknown Rx release 24 hr latanoprost 0.005 % eye drops 1 drp ophthalmic (eye) BEDTIME@19 10/01/22 05/24/23 Unknown Rx #2.5 mL carboxymethylcellulose sodium 1 % 1 drp ophthalmic (eye) QID 05/24/23 05/24/23 Unknown History eye drops (Artificial Tears (carboxymethylcellulose)) dextromethorphan-guaifenesin 10 10 ml PO Q4H PRN Cough 05/24/23 05/24/23 Unknown History mg-100 mg/5 mL oral liquid (Tussin DM) tramadol 50 mg tablet 50 mg PO Q6H PRN Pain 05/24/23 05/24/23 Unknown History Allergies Allergy/AdvReac Type Severity Reaction Status Date / Time No Known Allergies Allergy Verified 05/24/23 13:12 PFSH Acute PFSH: Medical History (Updated 05/24/23 @ 15:57 by Kieran Morrison MD) Frequent falls Gastroesophageal reflux disease Osteoporosis Surgical History (Updated 05/24/23 @ 15:54 by Kieran Morrison MD) H/O bilateral hip replacements Social History (Updated 05/24/23 @ 15:55 by Kieran Morrison MD) Smoking and tobacco status: former smoker Alcohol intake: never Substance/Drug Use: never Vitals/I&O/Wt Last Vital Signs Temp 97.5 F L 05/24/23 10:39 Pulse 64 05/24/23 14:30 Resp 20 H 05/24/23 14:30 BP 141/75 05/24/23 14:30 Pulse Ox 94 05/24/23 14:30 O2 Del Method Room Air 05/24/23 12:24 Weight last 48 hrs Weight 40.823 kg Physical Exam Const: COMMON NORMALS: no acute distress and patient oriented x3 GENERAL APPEARANCE: cooperative, well kempt and well developed OTHER: Severe over muscle wasting, severe peripheral muscle wasting, bilateral arms, bilateral thighs, bilateral calves, temporal muscle wasting HENMT: COMMON NORMALS: normocephalic and Normal external nose present HEAD & SCALP: normocephalic NOSE: Normal external nose present Eye: COMMON NORMALS: Equal, round and reactive pupils present, EOMs intact bilaterally, conjunctivae normal and no scleral icterus CONJUNCTIVA: Yes conjunctivae normal PUPIL: Yes Equal, round and reactive pupils present Neck/C-Spine: COMMON NORMALS: full ROM, no lymphadenopathy, no JVD, Thyroid normal and No carotid bruits THYROID: Thyroid normal Lymph: LYMPHATIC: no lymphadenopathy noted Chest: COMMONS NORMALS: normal inspection of the chest Resp: COMMON NORMALS: normal respiratory effort, No retractions, No use of accessory muscles and clear to auscultation bilaterally AUSCULTATION: clear to auscultation bilaterally Cardio: COMMON NORMALS: regular rate, regular rhythm, S1 normal heart sound present, S2 normal heart sound present, No murmurs present (Cardio) and Peripheral pulses 2+ throughout RATE: regular rate RHYTHM: regular rhythm HEART SOUNDS: S1 normal heart sound present and S2 normal heart sound present PERIPHERAL PULSES: Peripheral pulses 2+ throughout GI: COMMON NORMALS: Normal to inspection, nondistended, normoactive bowel sounds present, Soft to palpation and non-tender : BLADDER/KIDNEY EXAM: Yes no CVA tenderness Back/Pelvis: COMMON NORMALS: no CVA tenderness Extremity: COMMON NORMALS: normal to inspection, full ROM, capillary refill normal, no calf tenderness and no pedal edema Neuro: COMMON NORMALS: patient oriented x3, CN's II-XII intact bilaterally, moves all extremities, no focal motor deficits and no sensory deficits noted MENINGEAL SIGNS: Yes no meningeal signs OTHER: Noted to have left facial droop, forehead reflex intact Psych: COMMON NORMALS: mental status grossly normal, Normal thought process present, cooperative and speech normal APPEARANCE: Yes well kempt SPEECH: Yes normal speech THOUGHT PROCESS: Normal thought process present Skin: COMMON NORMALS: turgor normal and no jaundice GENERAL SKIN EXAM: turgor normal Data 05/24/23 11:33 05/24/23 11:33 A&P Assessment and plan (1) Facial droop: (2) Altered mental status: (3) group home resident: (4) Goals of care, counseling/discussion: (5) Muscle wasting: (6) Protein calorie malnutrition: (7) Physical deconditioning: Plan Left facial droop -1. ? There appears to be decreased attenuation in the right side of the nellie and cerebellar peduncle. Infarction not excluded. 2. ? Age-appropriate cortical atrophy with periventricular small-vessel ischemic change -Does have positive cerebellar signs -No other focal neurologic deficits -CVA? -Versus Galvan's palsy -Plan -Neurochecks -Aspiration precautions. ? NIH stroke scale ? Aspirin, statin ? CT angiogram of the head and neck ? Cardiac echo ? Monitor neurologic status closely ? TSH Altered mental status -Etiology unclear -Possible syncopal episode -Serial EKGs, serial troponins, telemetry monitoring -Left facial droop as above etiology unclear could be a CVA versus Galvan's palsy Severe protein calorie malnutrition, with physical deconditioning, with muscle wasting, BMI of 18.2, ? Consult dietary ? Consult speech therapy ? Consult PT OT Goals of care discussion, patient would like to be DNR/DNI Spoke to patient, spoke to patient's family member at bedside, spoke to [facility], spoke to ER provider Attestations Medical Necessity Statement*: Patient requires hospitalization for altered mental status, left facial droop, inpatient, greater than 2 midnights and High Time for a total of 60 minutes, includes reviewing past or interval history, examining/interviewing patient, placing orders, counseling patient/family/other support, updating patient/family/other support, discussing plan of care with staff, communicating with other healthcare providers, documenting encounter and coordinating care Diagnoses Facial droop R29.810 Altered mental status R41.82 group home resident Z59.3 Goals of care, counseling/discussion Z71.89 Muscle wasting M62.50 Protein calorie malnutrition E46 Physical deconditioning R53.81
[2023-05-24] MEDS: aspirin 81 mg EC Tablet PO (15:58)
[2023-05-24] MEDS: pantoprazole 40 mg SDV IVP (15:58)
[2023-05-24] MEDS: sodium chloride 0.9% 1,000 ML 75 ML IV (16:00)
[2023-05-24 16:13] LABS: Chol HDL Ratio 2.78 mg/dL (0.0-4.40); Cholesterol 186 mg/dL (0-200); HDL Cholesterol 67 mg/dL (60-100); LDL Cholesterol Calculated 111 mg/dL (50-129); LDL HDL Ratio 1.66 RATIO (0.00-3.22); Triglycerides 41 mg/dL (0-150)
[2023-05-24] MEDS: TRAMadol 50 mg Tablet PO (16:14)
[2023-05-24 16:29] LABS: Estmated Average Glucose 97
--- NOTE | 2023-05-24 17:00 | ECG_ITS ---
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 Measurements Intervals [place] Rate: 69 P: 33 [place]: 190 QRS: -24 QRSD: 93 T: 58 QT: 439 QTc: 471 Interpretive Statements SINUS RHYTHM WITH OCCASIONAL SUPRAVENTRICULAR PREMATURE COMPLEXES LEFT VENTRICULAR HYPERTROPHY AND ST-T CHANGE [VOLTAGE CRITERIA PLUS ST/T ABNORMALITY] POSSIBLE ANTERIOR MYOCARDIAL INFARCTION , OF INDETERMINATE AGE [30 ms Q WAVE IN V3/V4, OR R < 0.2 mV IN V4] INFERIOR MYOCARDIAL INFARCTION , OF INDETERMINATE AGE [40+ ms Q WAVE AND/OR ST/T ABNORMALITY IN II/aVF] Compared to ECG 05/24/2023 12:56:43 Left ventricular hypertrophy now present ST (T wave) deviation now present Myocardial infarct finding still present Electronically Signed On 05-25-2023 11:36:00 CDT by Arvin Barahona M.D. [id number]
[2023-05-24] MEDS: amoxicillin-clav 875-125 mg Tablet 1 TAB PO (17:31)
[2023-05-24] MEDS: gabapentin 300 mg Capsule 600 MG PO (17:31)
--- NOTE | 2023-05-24 18:22 | PC.NURSE ---
Patient refused SCDs.
[2023-05-24 19:16] LABS: Troponin 5 6HR 17.11 ng/L (0-10)
[2023-05-24 19:17] LABS: Troponin 5 6HR Delta -2.89 ng/L (0-12)
[2023-05-24] MEDS: atorvastatin 40 mg Tablet PO (20:39)
[2023-05-25] VITALS (8 sets, daily range): BP systolic 106–129; BP diastolic 48–70; PULSE 60–81; RESP 16–18; TEMP 36.4–37.4; O2SAT 90–98
[2023-05-25] MEDS: ondansetron 2 mg/ML SDV 2 mL 4 MG IVP (02:46)
[2023-05-25] MEDS: sodium chloride 0.9% 1,000 ML 75 ML IV ×2 (04:43→17:28)
[2023-05-25 05:23] LABS: Basophils % 0.3 %; Eosinophils % 0.2 %; Hematocrit 35.3 % (37.0-47.0); Hemoglobin 10.4 g/dL (11.5-15.3); Lymphocytes # 0.7 10^3/uL (0.8-4.8); Lymphocytes % 6.2 %; Mean Corpuscular HGB Conc 29.5 g/dL (30.0-36.0); Mean Corpuscular Hemoglobin 23.9 pg (28.0-34.0); Mean Platelet Volume 10.4 fL (7.4-10.4); Monocytes # 0.8 10^3/uL (0.2-0.9); Monocytes % 6.8 %; Neutrophils # 10.26 10^3/uL (1.8-7.7); Neutrophils % 86.2 %; Nucleated Red Blood Cells % 0 %; Platelet Count 310 10^3/cmm (130-400); Red Blood Count 4.36 10^6/uL (4.1-5.3); Red Cell Distribution Width 15.9 % (12.1-15.1); White Blood Count 11.9 10^3/uL (4.0-10.0)
[2023-05-25 05:45] LABS: Blood Urea Nitrogen 11 mg/dL (8-23); Calcium 9.7 mg/dL (8.5-10.5); Carbon Dioxide 25 mmol/L (22-29); Chloride 100 mmol/L (98-107); Glucose 94 mg/dL (65-115); Osmolality Calculated 283 mOsm/kg (285-295); Sodium 137 mmol/L (136-145)
[2023-05-25 05:46] LABS: Anion Gap 15.5 (5-19); Potassium 3.5 mmol/L (3.5-5.1)
[2023-05-25 05:50] LABS: Procalcitonin 0.03 ng/mL (0-0.5)
[2023-05-25] MEDS: amoxicillin-clav 875-125 mg Tablet 1 TAB PO ×2 (07:41→17:27)
[2023-05-25] MEDS: gabapentin 300 mg Capsule 600 MG PO ×2 (07:41→18:41)
[2023-05-25] MEDS: aspirin 81 mg EC Tablet PO (07:42)
[2023-05-25] MEDS: cyanocobalamin 1,000 mcg Tablet 1000 MCG PO (07:42)
[2023-05-25] MEDS: potassium chloride ER 10 mEq Tablet PO (07:42)
[2023-05-25] MEDS: ascorbic acid 500 mg Tablet PO (07:42)
[2023-05-25] MEDS: TRAMadol 50 mg Tablet PO ×2 (09:55→18:42)
--- NOTE | 2023-05-25 15:04 | MRR_ITS ---
PROCEDURE INFORMATION: Exam: MR Head Without Contrast Exam date and time: 05/25/2023 4:00 PM Age: 78 years old Clinical indication: Altered mental status/memory loss and dizziness and weakness, facial; Confusion or disorientation; Additional info: Left facial drop TECHNIQUE: Imaging protocol: Magnetic resonance imaging of the head without contrast. COMPARISON: CT head thrombolytic [id number] 05/24/2023 11:11 AM FINDINGS: Brain: No acute infarct. No hemorrhage. Stable involutional changes of the brain. No mass effect. Cerebral ventricles: Stable ventricular size. No ventriculomegaly. Bones/joints: Unremarkable. Paranasal sinuses: Normal as visualized. No acute sinusitis. Mastoid air cells: Normal as visualized. No mastoid effusion. Orbital cavities: Unremarkable. Soft tissues: Unremarkable. Other findings: The study is motion degraded. MR/MR head wo con* [id number] IMPRESSION: No acute intracranial abnormality.
--- NOTE | 2023-05-25 15:04 | PM.PN ---
Subjective Subjective: Patient was seen this morning, patient sister, and family friend are at bedside, she is alert to person, to place, not to time, she follows commands she continues to have left facial droop, she tells me that she was confused throughout the night, on examination she does have slightly more left upper extremity weakness than the right, but her family friends at bedside tells me that she is always weak in the left arm, she denies any nausea, no vomiting, no paresthesias reported, no fevers, no chills, Vitals/I&O/Wt Last Vital Signs Temp 98 F 05/25/23 12:12 Pulse 69 05/25/23 12:12 Resp 16 05/25/23 12:12 BP 116/64 05/25/23 12:12 Pulse Ox 90 05/25/23 12:12 O2 Del Method Room Air 05/25/23 12:12 05/25/23 05/25/23 05/25/23 06:59 14:59 22:59 Intake Total 953.75 / 953.75 360 / 360 Balance 953.75 / 953.75 360 / 360 Weight last 48 hrs Weight 40.823 kg Physical Exam Const: COMMON NORMALS: no acute distress ORIENTATION/CONSCIOUSNESS: Yes awake, Yes oriented to person and Yes oriented to place; not oriented to time OTHER: Left facial droop, sparing the forehead, [id number] abnormal bilaterally, left upper extremity strength 4-5 Resp: COMMON NORMALS: normal respiratory effort, No retractions, No use of accessory muscles and clear to auscultation bilaterally AUSCULTATION: clear to auscultation bilaterally Cardio: COMMON NORMALS: regular rate, regular rhythm, S1 normal heart sound present and S2 normal heart sound present RATE: regular rate RHYTHM: regular rhythm HEART SOUNDS: S1 normal heart sound present and S2 normal heart sound present GI: COMMON NORMALS: Normal to inspection, nondistended, normoactive bowel sounds present and non-tender Extremity: COMMON NORMALS: no pedal edema Neuro: COMMON NORMALS: CN's II-XII intact bilaterally, moves all extremities, no focal motor deficits and no sensory deficits noted SENSORIUM/ORIENTATION: Yes oriented to person, Yes oriented to place and No oriented to time Psych: COMMON NORMALS: mental status grossly normal Data 05/25/23 04:36 05/25/23 04:36 A&P Assessment and plan (1) Facial droop: (2) Altered mental status: (3) group home resident: (4) Goals of care, counseling/discussion: (5) Muscle wasting: (6) Protein calorie malnutrition: (7) Physical deconditioning: (8) Acute CVA (cerebrovascular accident): Plan Left facial droop -Concerns for CVA -1. ? There appears to be decreased attenuation in the right side of the nellie and cerebellar peduncle. Infarction not excluded. 2. ? Age-appropriate cortical atrophy with periventricular small-vessel ischemic change -Does have positive cerebellar signs -No other focal neurologic deficits -CTA head and neck no acute findings -No forehead symptoms, able to close both eyes, no complaints of dry -CVA versus Galvan's palsy -Plan -Neurochecks -Aspiration precautions. ? NIH stroke scale ? Aspirin, statin ? We will order MRI of the brain ? Cardiac echo ? Monitor neurologic status closely ? TSH Altered mental status, back to baseline -Etiology unclear -Possible syncopal episode -Serial EKGs, serial troponins, telemetry monitoring -Left facial droop as above etiology unclear could be a CVA versus Galvan's palsy Aspiration pneumonia CT evidence of right upper lobe infiltrate -With altered mental status could be aspiration pneumonia -Start Augmentin Severe protein calorie malnutrition, with physical deconditioning, with muscle wasting, BMI of 18.2, ? Consult dietary ? Consult speech therapy ? Consult PT OT Goals of care discussion, patient would like to be DNR/DNI Spoke to patient, spoke to patient's family at bedside, continues to have left facial droop, positive cerebellar signs, continue IV fluids, aspirin, statin, await cardiac echo, speech therapy eval, MRI of the brain Attestations Medical Necessity Statement*: Patient requires hospitalization for left facial droop, concerns for CVA Diagnoses Facial droop R29.810 Altered mental status R41.82 group home resident Z59.3 Goals of care, counseling/discussion Z71.89 Muscle wasting M62.50 Protein calorie malnutrition E46 Physical deconditioning R53.81 Acute CVA (cerebrovascular accident) I63.9
[2023-05-25] MEDS: pantoprazole 40 mg SDV IVP (17:25)
--- NOTE | 2023-05-25 20:45 | PC.NURSE ---
The patient is refusing her bedtime medications stated she already took them. Attempted multiple times to redirect, with no success.
[2023-05-26 03:37] VITALS: BP 107/55; PULSE 66; RESP 17; TEMP 37.3; O2SAT 92
[2023-05-26 04:54] LABS: Basophils % 0.3 %; Eosinophils % 0.6 %; Hematocrit 28.3 % (37.0-47.0); Hemoglobin 8.4 g/dL (11.5-15.3); Lymphocytes # 1.1 10^3/uL (0.8-4.8); Lymphocytes % 17.7 %; Mean Corpuscular HGB Conc 29.7 g/dL (30.0-36.0); Mean Corpuscular Hemoglobin 24.3 pg (28.0-34.0); Monocytes # 0.6 10^3/uL (0.2-0.9); Neutrophils # 4.53 10^3/uL (1.8-7.7); Neutrophils % 71.1 %; Nucleated Red Blood Cells % 0 %; Platelet Count 230 10^3/cmm (130-400); Red Blood Count 3.45 10^6/uL (4.1-5.3); Red Cell Distribution Width 15.9 % (12.1-15.1); White Blood Count 6.4 10^3/uL (4.0-10.0)
[2023-05-26 05:17] LABS: Anion Gap 10.9 (5-19); Blood Urea Nitrogen 10 mg/dL (8-23); Calcium 8.7 mg/dL (8.5-10.5); Carbon Dioxide 25 mmol/L (22-29); Chloride 110 mmol/L (98-107); Glucose 95 mg/dL (65-115); Osmolality Calculated 293 mOsm/kg (285-295); Potassium 3.9 mmol/L (3.5-5.1); Sodium 142 mmol/L (136-145)
[2023-05-26 07:13] VITALS: BP 108/53; PULSE 61; RESP 18; TEMP 37.1; O2SAT 93
[2023-05-26] MEDS: aspirin 81 mg EC Tablet PO (07:59)
[2023-05-26] MEDS: gabapentin 300 mg Capsule 600 MG PO (08:00)
[2023-05-26] MEDS: potassium chloride ER 10 mEq Tablet PO (08:00)
[2023-05-26] MEDS: cyanocobalamin 1,000 mcg Tablet 1000 MCG PO (08:00)
[2023-05-26] MEDS: ascorbic acid 500 mg Tablet PO (08:00)
[2023-05-26] MEDS: amoxicillin-clav 875-125 mg Tablet 1 TAB PO (08:03)
--- NOTE | 2023-05-26 10:25 | P.DS_ITS ---
Discharge Providers Date of Admission: 05/24/23 13:25 Date of Discharge: May 26, 2023 Attending Provider at Admission: Kieran Morrison MD Attending Provider at Discharge: Kieran Morrison MD Primary Care Provider: Eduardo Jimenez Diagnoses at Discharge Discharge Diagnosis (1) Facial droop: Status: Acute (2) Altered mental status: Status: Inactive (3) retirement resident: Status: Acute (4) Goals of care, counseling/discussion: Status: Acute (5) Muscle wasting: Status: Acute (6) Protein calorie malnutrition: Status: Acute (7) Physical deconditioning: Status: Acute (8) Acute CVA (cerebrovascular accident): Status: Acute Reason for Visit Reason for Visit: [facility] Hospital Course Hospital Course Trini Jeter is a 78 year old female with a past medical history of GERD, osteoporosis, history of recurrent falls, currently nonambulatory, resident at [facility], history of bilateral hip fracture status post surgery, for which she is at [facility] due to episode of nonresponsiveness and left-sided facial droop.? Patient does not know why she is here in the hospital she tells me that the assisted sent her here, she is alert oriented x3, follows all commands, denies any slurring of her words, no visual deficits reported, denies any focal weakness, no focal paresthesias, she is not exactly sure what happened, denies any lightheadedness, no dizziness, no nausea, vomiting, no chest pain, palpitations, shortness of breath no abdominal pain,, had a fall 4 days ago, she has a friend at bedside who tells me that for the last few months she has had a gradual decline, decreased appetite, weight loss, currently she has no complaints, she does notably have a left facial droop, on examination her [id number] is abnormal bilaterally, [id number] is abnormal bilaterally, no focal weakness, her last known well normal is not known, possibly yesterday, she denies a history of strokes, I was able to speak to [facility], who tell me that this morning, patient became nonresponsive she looked flushed and pale, became stiff as a board, she was leaning more towards the right side it seemed like she was favoring her right side, and then nursing staff called EMS, and they noticed a left facial droop they are not exactly sure of the timeframe of this facial droop Patient was admitted to [facility] for left facial droop Left facial droop -Concerns for CVA versus Galvan's palsy -1. ? There appears to be decreased attenuation in the right side of the nellie and cerebellar peduncle. Infarction not excluded. 2. ? Age-appropriate cortical atrophy with periventricular small-vessel ischemic change -Does have positive cerebellar signs -No other focal neurologic deficits -CTA head and neck no acute findings -No forehead symptoms, able to close both eyes, no complaints of dry -MRI of the brain FINDINGS: Brain: No acute infarct. No hemorrhage. Stable involutional changes of the brain. No mass effect. Cerebral ventricles: Stable ventricular size. No ventriculomegaly. Bones/joints: Unremarkable. Paranasal sinuses: Normal as visualized. No acute sinusitis. Mastoid air cells: Normal as visualized. No mastoid effusion. Orbital cavities: Unremarkable. Soft tissues: Unremarkable. 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 -Continue aspirin, statin -Follow-up with neurology as outpatient -Patient had aspiration pneumonia during her hospitalization, likely secondary to chronic cough, poor airway clearance, managed with Augmentin, discharged on dysphagia diet, aspiration precautions, monitor for recurrent aspiration pneumonias Physical Exam Const: COMMON NORMALS: no acute distress and patient oriented x3 OTHER: Minimal left facial droop Resp: COMMON NORMALS: normal respiratory effort, No retractions, No use of accessory muscles and clear to auscultation bilaterally AUSCULTATION: clear to auscultation bilaterally Cardio: COMMON NORMALS: regular rate, regular rhythm, S1 normal heart sound present and S2 normal heart sound present RATE: regular rate RHYTHM: regular rhythm HEART SOUNDS: S1 normal heart sound present and S2 normal heart sound present GI: COMMON NORMALS: Normal to inspection, nondistended, normoactive bowel sounds present and non-tender Extremity: COMMON NORMALS: no pedal edema Neuro: COMMON NORMALS: patient oriented x3 Psych: COMMON NORMALS: mental status grossly normal Discharge Data Studies Completed and Pending Completed Studies During Hospitalization Category Date Time Status CT angio head neck [CT angio headneck* [id number]] Cat Scan 05/24/23 14:[address] cervical spin wo con* [id number] Stat Cat Scan 05/24/23 11:[address] head thrombolytic [id number] Stat Cat Scan 05/24/23 10:58 Completed MR head wo con* [id number] Routine MRI 05/25/23 15:04 Completed CV. echo complete* [id number] Stat Ultrasound 05/24/23 12:02 Completed US carotid duplex bilateral [CV carotid duplex BI* Ultrasound 05/24/23 12:02 Completed [id number]] Stat Pending at discharge Category Date Time Status Anti-Cariolipin IgA AB Stat Lab 05/24/23 12:24 Received Basic Metabolic Panel AM LABS Lab 05/27/23 04:00 Ordered Complete Blood Count w/Auto AM LABS Lab 05/27/23 04:00 Ordered Hemoglobin and Hematocrit Stat Lab 05/26/23 10:17 Ordered Lupus Inhibitor Panel Anticoag Stat Lab 05/24/23 12:24 Received Radiology Impressions Head CT 05/24/23 10:58 IMPRESSION: 1. There appears to be decreased attenuation in the right side of the nellie and cerebellar peduncle. Infarction not excluded. 2. Age-appropriate cortical atrophy with periventricular small-vessel ischemic change ASSESSMENT: ASPECTS ([place] Stroke Program Early CT Score) is 10. Cervical Spine CT 05/24/23 11:13 IMPRESSION: Osteopenia without evidence of acute fracture or traumatic listhesis. Carotid Doppler Study 05/24/23 12:02 IMPRESSION: No carotid arterial stenosis. REFERENCES: SRU CRITERIA. The degree of internal carotid artery stenosis is based on criteria defined by the Society of Radiologists in Ultrasound (SRU). Normal is no stenosis. Mild is less than 50% stenosis. Moderate is 50-69% stenosis. Severe is greater than 69% stenosis to near occlusion. Near occlusion is a markedly narrowed lumen. Total occlusion is no detectable patent lumen. Head/Neck CTA 05/24/23 14:47 IMPRESSION: No large vessel stenosis or occlusion. IMPRESSION: 1. No occlusion or significant stenosis. 2. Infiltrates in the visualized right lung suspicious for pneumonia. 3. Thickened esophagus suspicious for esophagitis with distal dilation possibly large hiatal hernia incompletely imaged. REFERENCES: NASCET CRITERIA. The degree of stenosis in the cervical segment of the internal carotid artery is based on NASCET criteria. Normal is no stenosis. Mild is less than 50% stenosis. Moderate is 50-69% stenosis. Severe is 70% to 99% stenosis. Total occlusion is no detectable patent lumen. Head MRI 05/25/23 15:04 IMPRESSION: No acute intracranial abnormality. Laboratory Results WBC 6.4 10^3/uL (4.0-10.0) 05/26/23 04:24 RBC 3.45 10^6/uL (4.1-5.3) L 05/26/23 04:24 Hgb 8.4 g/dL (11.5-15.3) L 05/26/23 04:24 Hct 28.3 % (37.0-47.0) L 05/26/23 04:24 MCV 82.0 fl (81-99) 05/26/23 04:24 MCH 24.3 pg (28.0-34.0) L 05/26/23 04:24 MCHC 29.7 g/dL (30.0-36.0) L 05/26/23 04:24 RDW 15.9 % (12.1-15.1) H 05/26/23 04:24 Plt Count 230 10^3/cmm (130-400) 05/26/23 04:24 MPV 10.0 fL (7.4-10.4) 05/26/23 04:24 Neut % (Auto) 71.1 % 05/26/23 04:24 Lymph % (Auto) 17.7 % 05/26/23 04:24 [place] % (Auto) 10.0 % 05/26/23 04:24 Eos % (Auto) 0.6 % 05/26/23 04:24 Baso % (Auto) 0.3 % 05/26/23 04:24 Neut # (Auto) 4.53 10^3/uL (1.8-7.7) 05/26/23 04:24 Lymph # (Auto) 1.1 10^3/uL (0.8-4.8) 05/26/23 04:24 [place] # (Auto) 0.6 10^3/uL (0.2-0.9) 05/26/23 04:24 Eos # (Auto) 0.0 10^3/uL (0.0-0.8) 05/26/23 04:24 Baso # (Auto) 0.0 10^3/uL (0.0-0.1) 05/26/23 04:24 Nucleated RBC % (auto) 0 % 05/26/23 04:24 Nucleated RBCs # 0.0 /100WBC 05/26/23 04:24 PT 13.90 SECONDS (12.1-14.9) 05/24/23 11:33 INR 1.03 (0.8-1.2) 05/24/23 11:33 APTT 28.7 SECONDS (23.9-36.7) 05/24/23 11:33 D-Dimer 1.27 ug/mIFEU (0-0.59) H 05/24/23 11:33 Sodium 142 mmol/L (136-145) 05/26/23 04:24 Potassium 3.9 mmol/L (3.5-5.1) 05/26/23 04:24 Chloride 110 mmol/L (98-107) H 05/26/23 04:24 Carbon Dioxide 25 mmol/L (22-29) 05/26/23 04:24 Anion Gap 10.9 (5-19) 05/26/23 04:24 BUN 10 mg/dL (8-23) 05/26/23 04:24 Creatinine 0.6 mg/dL (0.5-0.9) 05/26/23 04:24 GFR Calculation Not Reportable 05/26/23 04:24 Glucose 95 mg/dL (65-115) 05/26/23 04:24 POC Glucose 148 mg/dL (70-110) H 05/24/23 11:51 Estimat Average Glucose 97 05/24/23 11:33 Hemoglobin A1c 5.0 % (4.0-6.0) 05/24/23 11:33 Calculated Osmolality 293 mOsm/kg (285-295) 05/26/23 04:24 Calcium 8.7 mg/dL (8.5-10.5) 05/26/23 04:24 Total Bilirubin 0.2 mg/dL (0.15-1.2) 05/24/23 11:33 AST 16 U/L (0-32) 05/24/23 11:33 ALT 9 U/L (0-33) 05/24/23 11:33 Alkaline Phosphatase 73 U/L (35-105) 05/24/23 11:33 Troponin T Baseline 20 ng/L (0-10) H 05/24/23 11:33 Troponin T 120 Minute 19.19 ng/L (0-10) H 05/24/23 14:06 Delta Troponin T -0.81 ABS# (0-10) L 05/24/23 14:06 Troponin T Hi Sens 6Hr 17.11 ng/L (0-10) H 05/24/23 18:23 Troponin T Hi Sens 6Hr Delta -2.89 ng/L (0-12) L 05/24/23 18:23 C-Reactive Protein 3.0 mg/L (0.0-4.9) 05/25/23 04:36 Total Protein 7.1 g/dL (6.6-8.7) 05/24/23 11:33 Albumin 4.4 g/dL (3.5-5.2) 05/24/23 11:33 Globulin 2.7 g/dL (1.3-4.6) 05/24/23 11:33 Triglycerides 41 mg/dL (0-150) 05/24/23 11:33 Cholesterol 186 mg/dL (0-200) 05/24/23 11:33 LDL Cholesterol, Calc 111 mg/dL (50-129) 05/24/23 11:33 HDL Cholesterol 67 mg/dL (60-100) 05/24/23 11:33 LDL/HDL Ratio 1.66 RATIO (0.00-3.22) 05/24/23 11:33 Cholesterol/HDL Ratio 2.78 mg/dL (0.0-4.40) 05/24/23 11:33 Procalcitonin 0.03 ng/mL (0-0.5) 05/25/23 04:36 TSH 1.08 uIU/mL (0.27-4.20) 05/24/23 11:33 Urine Color Colorless (Yellow) 05/24/23 13:27 Urine Appearance Clear (CLEAR) 05/24/23 13:27 Urine pH 6.5 (5-7) 05/24/23 13:27 Ur Specific [place] 1.010 (1.005-1.030) 05/24/23 13:27 Urine Protein Neg (Negative) 05/24/23 13:27 Urine Glucose (UA) Norm (Normal) 05/24/23 13:27 Urine Ketones Negative (Negative) 05/24/23 13:27 Urine Blood Trace (Negative) H 05/24/23 13:27 Urine Nitrate Negative (Negative) 05/24/23 13:27 Urine Bilirubin Neg (Negative) 05/24/23 13:27 Urine Urobilinogen Norm mg/dL (Negative) 05/24/23 13:27 Ur Leukocyte Esterase Negative (Negative) 05/24/23 13:27 Urine RBC 0-4 /hpf (0-2) H 05/24/23 13:27 Urine WBC None /hpf (0-5) 05/24/23 13:27 Ur Squamous Epith Cells Rare /hpf (0-5) 05/24/23 13:27 Amorphous Sediment Not Reportable 05/24/23 13:27 Urine Bacteria Trace /hpf (NONE) 05/24/23 13:27 Vitals Last Vital Signs Temp 98.7 F 05/26/23 07:13 Pulse 61 05/26/23 07:13 Resp 18 05/26/23 07:13 BP 108/53 05/26/23 07:13 Pulse Ox 93 05/26/23 07:13 O2 Del Method Room Air 05/26/23 07:13 Discharge Plan Discharge Patient Disposition: Xfer SNF Condition: Stable Prescriptions: New aspirin 81 mg Tablet,Delayed Release (Dr/Ec) 81 mg PO DAILY 30 Days Qty: 30 0RF atorvastatin 40 mg Tablet 40 mg PO BEDTIME 30 Days Qty: 30 0RF pantoprazole 40 mg Tablet,Delayed Release (Dr/Ec) 40 mg PO BID 30 Days Qty: 60 0RF prednisone 20 mg Tablet 60 mg PO DAILY 5 Days Qty: 15 0RF sucralfate 1 gram Tablet 1 g PO Q12H 30 Days Qty: 60 0RF valacyclovir 1 gram Tablet 1,000 mg PO Q8H 5 Days Qty: 15 0RF amoxicillin-pot clavulanate 875-125 mg Tablet 1 tab PO BID 3 Days Qty: 6 0RF Continued tolterodine 2 mg capsule,extended release 24hr 2 mg PO DAILY@08 Qty: 90 3RF Rx Instructions: 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 latanoprost 0.005 % drops 1 drp ophthalmic (eye) BEDTIME@19 Qty: 2.5 3RF acetaminophen [Tylenol 8 Hour] 650 mg Tablet Extended Release 650 mg PO Q4H PRN (Reason: pain/fever) diphenhydramine HCl 25 mg Capsule 25 mg PO BEDTIME@19 Tussin DM 10-100 mg/5 mL liquid 10 ml PO Q4H PRN (Reason: Cough) tramadol 50 mg tablet 50 mg PO Q6H PRN (Reason: Pain) Artificial Tears (cmc) 1 % Drops 1 drp OPHTHALMIC (EYE) QID potassium chloride 10 mEq tablet extended release 10 meq PO DAILY@08 omeprazole 20 mg capsule,delayed release(DR/EC) 20 mg PO DAILY@08 polyethylene glycol 3350 [Gavilax] 17 gram/dose Powder 17 g PO DAILY@08 Rx Instructions: with 8 oz of water or juice Clara-Volin Chew 1 tab PO .Q4-6H PRN (Reason: unknown) cyanocobalamin (vitamin B-12) [Vitamin B-12] 1,000 mcg Tablet Extended Release 1,000 mcg PO DAILY@08 gabapentin 600 mg tablet 600 mg PO BID@08,19 ascorbic acid (vitamin C) [Vitamin C] 500 mg Tablet 500 mg PO DAILY@08 calcium carbonate [Tums] 200 mg calcium (500 mg) Tablet,Chewable 1,000 mg PO BID PRN (Reason: Heartburn) cholecalciferol (vitamin D3) [Vitamin D3] 10 mcg (400 unit) Tablet 10 mcg PO DAILY@08 turmeric root extract 500 mg Capsule 500 mg PO DAILY@08 magnesium citrate 100 mg Tablet 100 mg PO DAILY@08 Cough Drops 7.5 mg Lozenge See Rx Instructions .ROUTE .COMPLEX Rx Instructions: dissolve 1 lozenge every 2 hours as needed for cough or sore throat *may keep at bedside* biotin 1,000 mcg Tablet,Chewable 1,000 mcg PO DAILY@08 Changed furosemide 40 mg tablet 40 mg PO DAILY@08 PRN (Reason: edema) 30 Days Qty: 30 0RF Discharge Orders: Discharge Order (Routine); Ordered 05/26/23 Ordered By: Kieran Morrison Referrals: Quentin Camara MD, DO [Physician] - Forrest Montalvo MD [Physician] - 1 week Eduardo Jimenez [Primary Care Provider] - Discharge Diet: As Directed Discharge Activity: Resume usual activity and Return to work/school after cleared by PCP/Specialist Patient Instructions: Galvan Palsy (DC), Ischemic Stroke (DC) Activity Restrictions/Additional Instructions: - If you have any recurrent strokelike symptoms please go to the emergency room -Please take steroids and valacyclovir as prescribed -Monitor blood sugars -Please follow-up with neurology Discharge Attestations Time Spent in Discharge Care*: greater than 30 min Quality Metrics Clinical Quality Measures [ No reported AMI, CVA or VTE this stay] Coding Level of Care Code 82848 Total time (in minutes) for Discharge: 45 Diagnoses Facial droop R29.810 Altered mental status R41.82 retirement resident Z59.3 Goals of care, counseling/discussion Z71.89 Muscle wasting M62.50 Protein calorie malnutrition E46 Physical deconditioning R53.81 Acute CVA (cerebrovascular accident) I63.9
[2023-05-26] MEDS: sucralfate 1 gm Tablet PO (10:30)
[2023-05-26] MEDS: predniSONE 20 mg Tablet 60 MG PO (10:30)
[2023-05-26] MEDS: pantoprazole DR 40 mg Tablet PO (10:31)
[2023-05-26 10:55] LABS: Hematocrit 34.7 % (37.0-47.0)
[2023-05-26 11:18] VITALS: BP 138/77; PULSE 62; RESP 18; TEMP 36.9; O2SAT 93
[2023-05-28 14:44] LABS: PTT-LA-Screen 32 sec (< OR = 40)
[2023-06-01 01:55] LABS: Anti-Cardiolipin IgA AB 2.2 APL-U/mL
== END 2023-05-26 13:58 | disposition home or self-care (01) | DRG 64 ==
LOC: ER 13:37 → MEDSURG 14:59
PROVIDERS: Admitting Provider Family Medicine; Emergency Provider Nurse Practitioner; PCP Family Medicine; Visit Provider Family Medicine
DX: I63.9 Cerebral infarction, unspecified (principal); E43 Unspecified severe protein-calorie malnutrition; J69.0 Pneumonitis due to inhalation of food and vomit; Z68.1 Body mass index [BMI] 19.9 or less, adult; R29.810 Facial weakness; R29.701 NIHSS score 1; K21.9 Gastro-esophageal reflux disease without esophagitis; M81.0 Age-related osteoporosis without current pathological fracture; Z79.891 Long term (current) use of opiate analgesic; Z96.643 Presence of artificial hip joint, bilateral; Z87.891 Personal history of nicotine dependence
CPT/HCPCS: 36415; 36416; 70450; 70496; 70498; 70551; 72125; 80048; 80053; 80061; 81001; 82962; 83036; 84145; 84443; 84484; 85014; 85018; 85025; 85378; 85610; 85613; 85730; 86140; 86147; 92526; 92610; 93005; 93306; 93880; 96360; 96361; 97162; 97165; 97530; 99285; C9113; J2405; J7030; J7512; Q9967

== ENCOUNTER 2023-05-26 16:38 | Emergency (ER) | payer MEDICARE, SELFPAY ==
[2023-05-26 16:40] VITALS: BP 132/90; PULSE 85; RESP 18; TEMP 36.7; O2SAT 92; BMI 18.3
--- NOTE | 2023-05-26 17:40 | W.ED.SKABFB ---
HPI - Skin/Abscess/Foreign Bdy General: Chief complaint: Skin/Abscess/Foreign Body Stated complaint: rectal prolapse Time Seen by Provider: 05/26/23 17:03 History of Present Illness: 78-year-old female presents emergency room with a friend after he was found to have [facility] prolapse at a local [facility]. Patient reveals having similar symptoms in the past and was seen in the emergency room twice. Patient denies any rectal pain, rectal bleeding, abdominal pain, fever or chills. Associated symptoms: Deny chills or fever(s) Review of Systems General: Reports: 10 or more systems reviewed and unremarkable except in HPI and below Const: Denies: fever(s), chills, body aches, change in appetite, change in weight, fatigue or malaise GI: Reports: other (rectal mass ) : Denies: flank pain, difficulty voiding, dysuria, urinary frequency, urinary urgency, urinary hesitancy, dribbling, nocturia, oliguria, urinary incontinence, hematuria, genital lesions, genital pruritis, vaginal dryness, vaginal odor, vaginal bleeding, vaginal discharge, amenorrhea or pelvic pain PFSH ED PFSH: Medical History (Updated 05/26/23 @ 17:39 by Tristen Carmona MD) Frequent falls Gastroesophageal reflux disease Osteoporosis Surgical History (Updated 05/24/23 @ 15:54 by Kieran Morrison MD) H/O bilateral hip replacements Social History (Updated 05/24/23 @ 15:55 by Kieran Morrison MD) Smoking and tobacco status: former smoker Alcohol intake: never Substance/Drug Use: never Physical Exam Const: COMMON NORMALS: no acute distress, average body habitus, patient oriented x3, no limitations, healthy appearing, alert and well nourished Chest: COMMONS NORMALS: normal inspection of the chest, normal palpation of entire chest wall, normal inspection of the breasts and normal palpation of the breasts Breast/axilla inspection: Yes normal inspection of the breasts BREAST/AXILLA PALPATION: Yes normal palpation of the breasts Resp: COMMON NORMALS: normal respiratory effort, No retractions, No use of accessory muscles, clear to auscultation bilaterally and percussion normal AUSCULTATION: clear to auscultation bilaterally PERCUSSION: percussion normal GI: RECTAL EXAM: visual inspection normal, No External hemorrhoid(s) present, No Internal hemorrhoid(s) present, Rectal prolapse (improved ), no fissure noted and no mass(es) noted Extremity: COMMON NORMALS: normal to inspection, full ROM, capillary refill normal, no joint enlargement, no clubbing, cyanosis or edema, no calf tenderness and no pedal edema Neuro: COMMON NORMALS: patient oriented x3 SENSORIUM/ORIENTATION: Yes alert Course Vital Signs: Vital signs: Vital Signs Temperature 98.1 F 05/26/23 16:40 Pulse Rate 85 05/26/23 16:40 Respiratory Rate 18 05/26/23 16:40 Blood Pressure 132/90 05/26/23 16:40 Pulse Oximetry 92 05/26/23 16:40 Oxygen Delivery Me thod Room Air 05/26/23 16:40 MDM - Skin/Abscess/Foreign Bdy Medicial Decision Making Was made comfortable emergency room. Patient had a thorough examination and at this time no visible rectal prolapse noted prolapse apparently resolved in route to the emergency room. Current sedation with family member. Patient with [facility] back to [facility] and was given referral to see GI for further evaluation and treatment. Discharge Plan Discharge Patient Disposition: Home Clinical Impression: Rectal prolapse Condition: Stable Prescriptions: No Action tolterodine 2 mg capsule,extended release 24hr 2 mg PO DAILY@08 Qty: 90 3RF Rx Instructions: 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 latanoprost 0.005 % drops 1 drp ophthalmic (eye) BEDTIME@19 Qty: 2.5 3RF acetaminophen [Tylenol 8 Hour] 650 mg Tablet Extended Release 650 mg PO Q4H PRN (Reason: pain/fever) diphenhydramine HCl 25 mg Capsule 25 mg PO BEDTIME@19 Tussin DM 10-100 mg/5 mL liquid 10 ml PO Q4H PRN (Reason: Cough) tramadol 50 mg tablet 50 mg PO Q6H PRN (Reason: Pain) Artificial Tears (cmc) 1 % Drops 1 drp OPHTHALMIC (EYE) QID atorvastatin 40 mg Tablet 40 mg PO BEDTIME 30 Days Qty: 30 0RF valacyclovir 1 gram Tablet 1,000 mg PO Q8H 5 Days Qty: 15 0RF sucralfate 1 gram Tablet 1 g PO Q12H 30 Days Qty: 60 0RF prednisone 20 mg Tablet 60 mg PO DAILY 5 Days Qty: 15 0RF aspirin 81 mg Tablet,Delayed Release (Dr/Ec) 81 mg PO DAILY 30 Days Qty: 30 0RF pantoprazole 40 mg Tablet,Delayed Release (Dr/Ec) 40 mg PO BID 30 Days Qty: 60 0RF amoxicillin-pot clavulanate 875-125 mg Tablet 1 tab PO BID 3 Days Qty: 6 0RF furosemide 40 mg tablet 40 mg PO DAILY@08 PRN (Reason: edema) 30 Days Qty: 30 0RF potassium chloride 10 mEq tablet extended release 10 meq PO DAILY@08 omeprazole 20 mg capsule,delayed release(DR/EC) 20 mg PO DAILY@08 polyethylene glycol 3350 [Gavilax] 17 gram/dose Powder 17 g PO DAILY@08 Rx Instructions: with 8 oz of water or juice [place] Chew 1 tab PO .Q4-6H PRN (Reason: unknown) cyanocobalamin (vitamin B-12) [Vitamin B-12] 1,000 mcg Tablet Extended Release 1,000 mcg PO DAILY@08 gabapentin 600 mg tablet 600 mg PO BID@08,19 ascorbic acid (vitamin C) [Vitamin C] 500 mg Tablet 500 mg PO DAILY@08 calcium carbonate [Tums] 200 mg calcium (500 mg) Tablet,Chewable 1,000 mg PO BID PRN (Reason: Heartburn) cholecalciferol (vitamin D3) [Vitamin D3] 10 mcg (400 unit) Tablet 10 mcg PO DAILY@08 turmeric root extract 500 mg Capsule 500 mg PO DAILY@08 magnesium citrate 100 mg Tablet 100 mg PO DAILY@08 Cough Drops 7.5 mg Lozenge See Rx Instructions .ROUTE .COMPLEX Rx Instructions: dissolve 1 lozenge every 2 hours as needed for cough or sore throat *may keep at bedside* biotin 1,000 mcg Tablet,Chewable 1,000 mcg PO DAILY@08 Discharge Orders: Discharge ED (Routine); Ordered 05/26/23 Ordered By: Tristen Carmona Referrals: Jose Egan DO [Physician] - 7-10 days Eduardo Jimenez [Primary Care Provider] - Discharge Diet: Advance as tolerated Discharge Activity: Resume usual activity Patient Instructions: Opioid Safety, Pain Management Coding Level of Care Code ED Floral Designer Salesperson for Monica Toledo
== END 2023-05-26 17:56 | disposition home or self-care (01) ==
PROVIDERS: Emergency Provider Family Medicine; PCP Family Medicine
DX: Z79.82 Long term (current) use of aspirin (principal); Z87.891 Personal history of nicotine dependence
CPT/HCPCS: 99282

== ENCOUNTER 2023-06-23 23:01 | Emergency (ER) | payer MEDICARE, SELFPAY ==
[2023-06-23 23:02] VITALS: BP 144/93; PULSE 71; RESP 16; TEMP 36.4; O2SAT 94; BMI 16.1
--- NOTE | 2023-06-23 23:15 | W.ED.GENADLT ---
HPI - General Adult General: Chief complaint: General Medical Stated complaint: rectal prolaspe Time Seen by Provider: 06/23/23 23:15 History of Present Illness: 78-year-old female comes in today for complaints of rectal prolapse. Patient appears nontoxic. Patient appears in no pain. Patient reports a history of prior rectal prolapse that has just been pushed back in. Patient denies any severe pain or discomfort. Review of Systems General: Reports: 10 or more systems reviewed and unremarkable except in HPI and below GI: Reports: other (Rectal prolapse) PFSH ED PFSH: Medical History (Updated 06/23/23 @ 23:33 by KEON Dumont) Frequent falls Gastroesophageal reflux disease Osteoporosis Surgical History (Updated 05/24/23 @ 15:54 by Kieran Morrison MD) H/O bilateral hip replacements Social History (Updated 05/24/23 @ 15:55 by Kieran Morrison MD) Smoking and tobacco status: former smoker Alcohol intake: never Substance/Drug Use: never Physical Exam Const: COMMON NORMALS: alert HENMT: COMMON NORMALS: normocephalic HEAD & SCALP: normocephalic Resp: COMMON NORMALS: normal respiratory effort Cardio: COMMON NORMALS: regular rate RATE: regular rate GI: RECTAL EXAM: visual inspection normal Extremity: COMMON NORMALS: normal to inspection Neuro: SENSORIUM/ORIENTATION: Yes alert Skin: COMMON NORMALS: no rashes or lesions noted GENERAL SKIN EXAM: no rashes or lesions noted Course Vital Signs: Vital signs: Vital Signs Temperature 97.6 F 06/23/23 23:02 Pulse Rate 71 06/23/23 23:02 Respiratory Rate 16 06/23/23 23:02 Blood Pressure 144/93 06/23/23 23:02 Pulse Oximetry 94 06/23/23 23:02 Oxygen Delivery Me thod Room Air 06/23/23 23:02 MDM - General Adult Medical Decision Making 78-year-old female comes in today for complaints of rectal prolapse. Patient was sent here from [facility]. On exam abdomen soft nontender. Rectal exam visual inspection noted no prolapse. Differential diagnosis includes constipation, hemorrhoid, rectal prolapse. Believe the patient's rectal prolapse resolved on its own. Recommended adequate hydration to help keep stool soft and avoid from straining with defecation. Patient reported understanding and agreed to plan. [facility]. Patient was stable on discharge. Discharge Plan Discharge Patient Disposition: Home Clinical Impression: Incomplete rectal prolapse Condition: Stable Prescriptions: No Action tolterodine 2 mg capsule,extended release 24hr 2 mg PO DAILY@08 Qty: 90 3RF Rx Instructions: 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 latanoprost 0.005 % drops 1 drp ophthalmic (eye) BEDTIME@19 Qty: 2.5 3RF acetaminophen [Tylenol 8 Hour] 650 mg Tablet Extended Release 650 mg PO Q4H PRN (Reason: pain/fever) diphenhydramine HCl 25 mg Capsule 25 mg PO BEDTIME@19 Tussin DM 10-100 mg/5 mL liquid 10 ml PO Q4H PRN (Reason: Cough) tramadol 50 mg tablet 50 mg PO Q6H PRN (Reason: Pain) Artificial Tears (cmc) 1 % Drops 1 drp OPHTHALMIC (EYE) QID atorvastatin 40 mg Tablet 40 mg PO BEDTIME 30 Days Qty: 30 0RF sucralfate 1 gram Tablet 1 g PO Q12H 30 Days Qty: 60 0RF aspirin 81 mg Tablet,Delayed Release (Dr/Ec) 81 mg PO DAILY 30 Days Qty: 30 0RF pantoprazole 40 mg Tablet,Delayed Release (Dr/Ec) 40 mg PO BID 30 Days Qty: 60 0RF furosemide 40 mg tablet 40 mg PO DAILY@08 PRN (Reason: edema) 30 Days Qty: 30 0RF potassium chloride 10 mEq tablet extended release 10 meq PO DAILY@08 omeprazole 20 mg capsule,delayed release(DR/EC) 20 mg PO DAILY@08 polyethylene glycol 3350 [Gavilax] 17 gram/dose Powder 17 g PO DAILY@08 Rx Instructions: with 8 oz of water or juice [facility] Chew 1 tab PO .Q4-6H PRN (Reason: unknown) cyanocobalamin (vitamin B-12) [Vitamin B-12] 1,000 mcg Tablet Extended Release 1,000 mcg PO DAILY@08 gabapentin 600 mg tablet 600 mg PO BID@08,19 ascorbic acid (vitamin C) [Vitamin C] 500 mg Tablet 500 mg PO DAILY@08 calcium carbonate [Tums] 200 mg calcium (500 mg) Tablet,Chewable 1,000 mg PO BID PRN (Reason: Heartburn) cholecalciferol (vitamin D3) [Vitamin D3] 10 mcg (400 unit) Tablet 10 mcg PO DAILY@08 turmeric root extract 500 mg Capsule 500 mg PO DAILY@08 magnesium citrate 100 mg Tablet 100 mg PO DAILY@08 Cough Drops 7.5 mg Lozenge See Rx Instructions .ROUTE .COMPLEX Rx Instructions: dissolve 1 lozenge every 2 hours as needed for cough or sore throat *may keep at bedside* biotin 1,000 mcg Tablet,Chewable 1,000 mcg PO DAILY@08 Discharge Orders: Discharge ED (Routine); Ordered 06/23/23 Ordered By: Vahe Montesinos Referrals: Eduardo Jimenez [Primary Care Provider] - Discharge Diet: Usual diet Discharge Activity: Increase activity as tolerated Patient Instructions: Rectal Prolapse (ED) Activity Restrictions/Additional Instructions: Drink plenty water and fluids. Most important thing when you have issues with rectal prolapse is try to maintain soft stools and protect from straining too hard. Follow-up with primary care for further instruction and other interventions. Return to ED for new concerns. Coding Level of Care Code ED Operations Support Analyst for [facility]edo
[2023-06-24 00:43] VITALS: BP 144/93; PULSE 71; RESP 16; TEMP 36.4; O2SAT 94
== END 2023-06-24 00:44 | disposition home or self-care (01) ==
PROVIDERS: Emergency Provider Nurse Practitioner Family; PCP Family Medicine
DX: K62.3 Rectal prolapse (principal); Z79.82 Long term (current) use of aspirin; Z87.891 Personal history of nicotine dependence
CPT/HCPCS: 99282

== ENCOUNTER 2023-07-05 00:13 | Emergency (ER) | payer MEDICARE, SELFPAY ==
[2023-07-05 00:15] VITALS: BP 134/87; PULSE 68; RESP 16; TEMP 36.7; O2SAT 95; BMI 17.4
--- NOTE | 2023-07-05 00:35 | W.ED.GENADLT ---
HPI - General Adult General: Chief complaint: General Medical Stated complaint: RECTAL PROLAPSE Time Seen by Provider: 07/05/23 00:33 History of Present Illness: 78-year-old female comes in [facility] for rectal prolapse. Patient had been straining and her rectum had protruded after a bowel movement. Patient believes that it has reduced on its own. Patient appears nontoxic. Patient denies any other complaints. Patient was referred to the ER from her care home at [place]. Review of Systems General: Reports: 10 or more systems reviewed and unremarkable except in HPI and below GI: Reports: other (Rectal prolapse) PFS ED PFSH: Medical History (Updated 07/05/23 @ 00:35 by KEON Dumont) Frequent falls Gastroesophageal reflux disease Osteoporosis Surgical History (Updated 05/24/23 @ 15:54 by Kieran Morrison MD) H/O bilateral hip replacements Social History (Updated 05/24/23 @ 15:55 by Kieran Morrison MD) Smoking and tobacco status: former smoker Alcohol intake: never Substance/Drug Use: never Physical Exam Const: COMMON NORMALS: alert HENMT: COMMON NORMALS: normocephalic HEAD & SCALP: normocephalic Neck/C-Spine: COMMON NORMALS: full ROM Resp: COMMON NORMALS: normal respiratory effort Cardio: COMMON NORMALS: regular rate RATE: regular rate GI: RECTAL EXAM: visual inspection normal, Anal wink reflex intact and other (Old skin tags from hemorrhoids) Extremity: COMMON NORMALS: full ROM Neuro: SENSORIUM/ORIENTATION: Yes alert Skin: COMMON NORMALS: turgor normal GENERAL SKIN EXAM: turgor normal Course Vital Signs: Vital signs: Vital Signs Temperature 98.1 F 07/05/23 00:15 Pulse Rate 68 07/05/23 00:15 Respiratory Rate 16 07/05/23 00:15 Blood Pressure 134/87 07/05/23 00:15 Pulse Oximetry 95 07/05/23 00:15 Oxygen Delivery Me thod Room Air 07/05/23 00:15 MDM - General Adult Medical Decision Making Patient was referred to the ER from [facility] for concern of a rectal prolapse. On exam patient appears nontoxic. Abdomen soft nontender. Skin is warm and dry. On evaluation rectal prolapse had resolved itself. There is some skin tags there from old hemorrhoids, normal sphincter control. Reviewed exam with patient with recommendations for treatment and follow-up. Patient should follow-up with surgeon as necessary for repair as needed. Probably due to the patient's age this is not necessary most rectal prolapses will reduce on their own. Recommend return to the ER for high fever or blood in stool. Differential Diagnosis Hemorrhoid, rectal prolapse, carcinoma. No radiology studies performed this visit Discharge Plan Discharge Patient Disposition: Home Clinical Impression: RP (rectal prolapse) Condition: Stable Prescriptions: No Action tolterodine 2 mg capsule,extended release 24hr 2 mg PO DAILY@08 Qty: 90 3RF Rx Instructions: 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 latanoprost 0.005 % drops 1 drp ophthalmic (eye) BEDTIME@19 Qty: 2.5 3RF acetaminophen [Tylenol 8 Hour] 650 mg Tablet Extended Release 650 mg PO Q4H PRN (Reason: pain/fever) diphenhydramine HCl 25 mg Capsule 25 mg PO BEDTIME@19 Tussin DM 10-100 mg/5 mL liquid 10 ml PO Q4H PRN (Reason: Cough) tramadol 50 mg tablet 50 mg PO Q6H PRN (Reason: Pain) Artificial Tears (cmc) 1 % Drops 1 drp OPHTHALMIC (EYE) QID furosemide 40 mg tablet 40 mg PO DAILY@08 PRN (Reason: edema) 30 Days Qty: 30 0RF potassium chloride 10 mEq tablet extended release 10 meq PO DAILY@08 omeprazole 20 mg capsule,delayed release(DR/EC) 20 mg PO DAILY@08 polyethylene glycol 3350 [Gavilax] 17 gram/dose Powder 17 g PO DAILY@08 Rx Instructions: with 8 oz of water or juice [facility] Chew 1 tab PO .Q4-6H PRN (Reason: unknown) cyanocobalamin (vitamin B-12) [Vitamin B-12] 1,000 mcg Tablet Extended Release 1,000 mcg PO DAILY@08 gabapentin 600 mg tablet 600 mg PO BID@08,19 ascorbic acid (vitamin C) [Vitamin C] 500 mg Tablet 500 mg PO DAILY@08 calcium carbonate [Tums] 200 mg calcium (500 mg) Tablet,Chewable 1,000 mg PO BID PRN (Reason: Heartburn) cholecalciferol (vitamin D3) [Vitamin D3] 10 mcg (400 unit) Tablet 10 mcg PO DAILY@08 turmeric root extract 500 mg Capsule 500 mg PO DAILY@08 magnesium citrate 100 mg Tablet 100 mg PO DAILY@08 Cough Drops 7.5 mg Lozenge See Rx Instructions .ROUTE .COMPLEX Rx Instructions: dissolve 1 lozenge every 2 hours as needed for cough or sore throat *may keep at bedside* biotin 1,000 mcg Tablet,Chewable 1,000 mcg PO DAILY@08 Discharge Orders: Discharge ED (Routine); Ordered 07/05/23 Ordered By: Vahe Montesinos Referrals: Eduardo Jimenez [Primary Care Provider] - Discharge Diet: Usual diet Discharge Activity: Increase activity as tolerated Patient Instructions: Rectal Prolapse (ED) Activity Restrictions/Additional Instructions: Avoid straining too hard. Diet high in fiber to help prevent constipation. Drink plenty of water and fluids. Follow-up with primary care as needed. Coding Level of Care Code ED Sales And Marketing Coordinator for Monica Toledo
[2023-07-05 00:42] VITALS: BP 151/81; PULSE 66; RESP 18; O2SAT 97
[2023-07-05 00:46] VITALS: BP 145/84; PULSE 64; RESP 18; O2SAT 97
== END 2023-07-05 00:56 | disposition home or self-care (01) ==
PROVIDERS: Emergency Provider Nurse Practitioner Family; PCP Family Medicine
DX: K62.3 Rectal prolapse (principal); Z87.891 Personal history of nicotine dependence
CPT/HCPCS: 99282

== ENCOUNTER 2023-08-02 17:27 | Emergency (ER) | payer MEDICARE, SELFPAY ==
[2023-08-02] VITALS (19 sets, daily range): BP systolic 154–217; BP diastolic 77–119; PULSE 65–89; RESP 16–27; TEMP 36.7; O2SAT 88–98; BMI 18.1
--- NOTE | 2023-08-02 17:36 | XRR_ITS ---
PROCEDURE INFORMATION: Exam: XR Chest Exam date and time: 08/02/2023 5:58 PM Age: 78 years old Clinical indication: Other: Hypertensive. N/v; Patient HX: Hypertensive with n/v. ; Additional info: HTN, n/v, HTN with n/v TECHNIQUE: Imaging protocol: Radiologic exam of the chest. Views: 1 view. COMPARISON: CR XR chest 1V portable [id number] 11/20/2022 3:44 PM FINDINGS: Lungs: Bibasilar right greater than left atelectasis versus infiltrate. Emphysematous changes. Pleural spaces: Unremarkable. No pleural effusion. No pneumothorax. Heart/Mediastinum: Moderate hiatal hernia. Bones/joints: Unremarkable. XR/XR chest 1V [id number] IMPRESSION: 1. Bibasilar right greater after left atelectasis versus infiltrate. 2. Emphysematous changes. 3. Moderate hiatal hernia.
--- NOTE | 2023-08-02 17:41 | ED_ITS ---
HPI - Neck Pain/Injury General: Chief Complaint: Neck Pain/Injury Stated Complaint: NECK PAIN; NAUSEA Time Seen by Provider: 08/02/23 17:30 Source: patient and EMS Mode of arrival: EMS Limitations: no limitations History of Present Illness: Patient presents emergency department today brought by EMS for evaluation treatment of complaints of neck pain, nausea, and vomiting. EMS indicates that they were notified by family member requesting her transport to the ER after the patient had called him to complain of neck pain since approximately 2:00 this morning. Patient endorses nausea and some vomiting today as well. She denies headache or fevers. She denies abdominal pains. She states her arms are weak and painful as well. No indications of chest pains. EMS found the patient to be hypertensive on their arrival which is out of the ordinary for this patient. She received antinausea medication in route. Review of Systems General: Reports: 10 or more systems reviewed and unremarkable except in HPI and below PFSH ED PFSH: Medical History Frequent falls Gastroesophageal reflux disease Osteoporosis Surgical History H/O bilateral hip replacements Social History Smoking and tobacco/nicotine status: former use of tobacco/nicotine Alcohol intake: never Substance/Drug Use: never Physical Exam Narrative: EXAM NARRATIVE: Patient is afebrile but is acutely hypertensive. No tachycardia. Const: COMMON NORMALS: no acute distress, patient oriented x3 and alert HENMT: COMMON NORMALS: normocephalic, atraumatic and hearing grossly normal bilaterally HEAD & SCALP: normocephalic and atraumatic Eye: COMMON NORMALS: Equal, round and reactive pupils present, EOMs intact bilaterally and conjunctivae normal CONJUNCTIVA: Yes conjunctivae normal PUPIL: Yes Equal, round and reactive pupils present Neck/C-Spine: OTHER: Patient refuses to move her neck. She will not place her chin to chest but, is not necessarily tender on palpation to anywhere specific. Patient's musculature does feel tight and does not indicate tenderness on palpation to the cervical vertebrae. No step-offs appreciated. Lymph: LYMPHATIC: no lymphadenopathy noted Resp: COMMON NORMALS: normal respiratory effort, No retractions and No use of accessory muscles Cardio: COMMON NORMALS: regular rate RATE: regular rate GI: OTHER: Abdomen is soft, nontender. Back/Pelvis: OTHER: Patient is nontender on palpation to the musculature or the thoracic vertebrae/lumbar vertebrae on examination. She also demonstrates ability to sit up straight as well as lay on her side showing flexion of her back without difficulty. Extremity: NARRATIVE EXTREMITY EXAM: Patient has full range of motion to the extremities including the upper extremities. Patient has intact and strong/equal broadcast journalist strength in the hands bilaterally. Neuro: COMMON NORMALS: patient oriented x3 SENSORIUM/ORIENTATION: Yes alert Psych: COMMON NORMALS: mental status grossly normal, Normal thought process present, cooperative and normal affect THOUGHT PROCESS: Normal thought p rocess present Skin: COMMON NORMALS: no rashes or lesions noted and turgor normal GENERAL SKIN EXAM: no rashes or lesions noted and turgor normal Course Vital Signs: Vital signs: Vital Signs Temperature 98.0 F 08/02/23 17:28 Pulse Rate 91 08/03/23 01:00 Respiratory Rate 25 H 08/03/23 00:00 Blood Pressure 169/100 08/03/23 01:00 Pulse Oximetry 91 08/03/23 01:00 Oxygen Delivery Me thod Nasal Cannula 08/02/23 23:40 Oxygen Flow Rate 2 08/02/23 23:40 MDM - Neck Pain/Injury Medical Decision Making Patient presents to the emergency department today acutely hypertensive and complaining of neck pain. While the patient will not move her neck, she does not have other signs of meningitis including fever, severe headache, profuse vomiting, or worst headache of her life. I originally consulted with Dr. Kumar regarding the patient's pain and elevated blood pressure readings. We did discuss treatment of pain to see if blood pressure responded. Patient was able to sleep a little after taking the pain medication but, blood pressure, after briefly coming down some, went right back up. Lab work is unremarkable for any signs of an elevated white blood cell count, anemia, or kidney injury. Chest x-ray is negative for any acute findings. I discussed the case with Dr. Nevarez and we discussed the patient's elevated blood pressure readings. Given that she does not have an elevated heart rate, we will avoid a beta-dahlia and he discussed providing nifedipine. Since patient would require IV antihypertensives, patient would most likely need to be admitted. Since we have not provided relief of the patient's neck pain, he also recommended scanning the head and the neck prior to admission. CT of the head and neck are generally unremarkable for any acute findings. Patient was found to have systolic blood pressure readings in the 160s. With this, nursing protocol is to hold nifedipine and we performed serial blood pressure readings for a while to closely monitor blood pressure tracking's. Patient was still having readings up into the 180s so, after consulting with Dr. Emery, did provide the patient Vas otec and a muscle relaxer. Nursing let us know that the patient's IV had come out prior to administration of the medication and it took quite a while for the IV to be replaced. Patient received her muscle relaxer at 12:45 AM. We are awaiting a little bit to let the medication take effect and to reevaluate. At this time, I am transferring care to Dr. Emery for continued monitoring, treatment, and intervention as needed. Differential Diagnosis Likely disc disorder of cervical region and strain of neck muscle; Unlikely whiplash injury to neck, closed subluxation of cervical spine, fracture of cervical spine without lesion of spinal cord, cervical radiculopathy or vertebral artery dissection Lab Data 08/02/23 17:30 08/02/23 17:30 Radiology Impressions Chest X-Ray 08/02/23 17:36 IMPRESSION: 1. Bibasilar right greater after left atelectasis versus infiltrate. 2. Emphysematous changes. 3. Moderate hiatal hernia. Head CT 08/02/23 22:21 IMPRESSION: 1. Negative for intracranial hemorrhage or mass effect. 2. Large amount diffuse white matter disease likely reflecting chronic microvascular ischemic changes. 3. Chronic cerebellar atrophy, similar to prior exam. Neck CT 08/02/23 22:21 IMPRESSION: 1. Negative for mass lesion or adenopathy. 2. Right upper lobe atelectasis versus minimal infiltrate. 3. Multilevel disc space narrowing and productive degenerative endplate changes in the cervical spine. 4. Grade 1 retrolisthesis of C2 relative to C3 of 2 mm. 5. Grade 1 anterolisthesis of C3 relative to C4 of 2 mm. Laboratory Results WBC 7.56 10^3/uL (3.29-11.43) 08/02/23 17:30 RBC 4.45 10^6/uL (3.85-5.65) 08/02/23 17: Hgb 11.30 g/dL (11.27-16.99) 08/02/23 17: Hct 36.9 % (36-47) 08/02/23 17: MCV 82.9 fl (85-98) L 08/02/23 17: MCH 25.4 pg (27-33) L 08/02/23 17: MCHC 30.6 g/dL (30-55) 08/02/23 17: RDW 16.6 % (12.1-15.1) H 08/02/23 17: Plt Count 219 10^3/cmm (157-399) 08/02/23: MPV 10.9 fL (7.4-10.4) H 08/02/23 17: Neut % (Auto) 82.5 % 08/02/23 17: Lymph % (Auto) 11.1 % 08/02/23: Gregg % (Auto) 5.4 % 08/02/23 17: Eos % (Auto) 0.0 % 08/02/23 17: Baso % (Auto) 0.3 % 08/02/23 17: Neut # (Auto) 6.24 10^3/uL (1.8-7.7) 08/02/23 17: Lymph # (Auto) 0.8 10^3/uL (0.8-4.8) 08/02/23 17: Gregg # (Auto) 0.4 10^3/uL (0.2-0.9) 08/02/23 17: Eos # (Auto) 0.0 10^3/uL (0.0-0.8) 08/02/23 17: Baso # (Auto) 0.0 10^3/uL (0.0-0.1) 08/02/23: Nucleated RBC % (auto) 0 % 08/02/23: Nucleated RBCs # 0.0 /100WBC 08/02/23 17:30 Sodium 134 mmol/L (136-145) L 08/02/23 17: Potassium 3.8 mmol/L (3.5-5.1) 08/02/23 17:30 Chloride 101 mmol/L (98-107) 08/02/23 17:30 Carbon Dioxide 22 mmol/L (22-29) 08/02/23 17:30 Anion Gap 14.8 (5-19) 08/02/23 17:30 BUN 13 mg/dL (8-23) 08/02/23 17:30 Creatinine 0.5 mg/dL (0.5-0.9) 08/02/23 17:30 GFR Calculation Not Reportable 08/02/23 17: Glucose 144 mg/dL (65-115) H 08/02/23 17:30 Calculated Osmolality 281 mOsm/kg (285-295) L 08/02/23 17: Calcium 9.7 mg/dL (8.5-10.5) 08/02/23 17: Total Bilirubin 0.3 mg/dL (0.15-1.2) 08/02/23 17:30 AST 16 U/L (0-32) 08/02/23 17:30 ALT 7 U/L (0-33) 08/02/23 17:30 Alkaline Phosphatase 67 U/L (35-105) 08/02/23 17:30 Total Protein 7.1 g/dL (6.6-8.7) 08/02/23 17:30 Albumin 4.2 g/dL (3.5-5.2) 08/02/23 17:30 Globulin 2.9 g/dL (1.3-4.6) 08/02/23 17:30 Urine Color Yellow (Yellow) 08/02/23 20: Urine Appearance Clear (CLEAR) 08/02/23 20: Urine pH 7 (5-7) 08/02/23 20: Ur Specific [place] 1.015 (1.005-1.030) 08/02/23 20: Urine Protein 1+ (Negative) H 08/02/23 20: Urine Glucose (UA) Norm (Normal) 08/02/23 20: Urine Ketones 1+ (Negative) H 08/02/23 20: Urine Blood 3+ (Negative) H 08/02/23 20: Urine Nitrate Negative (Negative) 08/02/23 20: Urine Bilirubin Neg (Negative) 08/02/23 20: Urine Urobilinogen Norm mg/dL (Negative) 08/02/23 20:30 Ur Leukocyte Esterase Negative (Negative) 08/02/23 20:30 Urine RBC 5-10 /hpf (0-2) H 08/02/23 20:30 Urine WBC 0-4 /hpf (0-5) H 08/02/23 20:30 Ur Squamous Epith Cells 0-4 /hpf (0-5) H 08/02/23 20:30 Calcium Oxalate Crystal 0-4 /hpf H 08/02/23 20:30 Amorphous Sediment 2+ /hpf 08/02/23 20:30 Urine Bacteria Trace /hpf (NONE) 08/02/23 20:30 All radiology interpretation(s) finalized by discharge Discharge Plan Discharge Condition: Stable Prescriptions: No Action tolterodine 2 mg capsule,extended release 24hr 2 mg PO DAILY@08 Qty: 90 3RF Rx Instructions: 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 latanoprost 0.005 % drops 1 drp ophthalmic (eye) BEDTIME@19 Qty: 2.5 3RF acetaminophen [Tylenol 8 Hour] 650 mg Tablet Extended Release 650 mg PO Q4H PRN (Reason: pain/fever) diphenhydramine HCl 25 mg Capsule 25 mg PO BEDTIME@19 Tussin DM 10-100 mg/5 mL liquid 10 ml PO Q4H PRN (Reason: Cough) tramadol 50 mg tablet 50 mg PO Q6H PRN (Reason: Pain) Artificial Tears (cmc) 1 % Drops 1 drp OPHTHALMIC (EYE) QID furosemide 40 mg tablet 40 mg PO DAILY@08 PRN (Reason: edema) 30 Days Qty: 30 0RF potassium chloride 10 mEq tablet extended release 10 meq PO DAILY@08 omeprazole 20 mg capsule,delayed release(DR/EC) 20 mg PO DAILY@08 polyethylene glycol 3350 [Gavilax] 17 gram/dose Powder 17 g PO DAILY@08 Rx Instructions: with 8 oz of water or juice Clara-Mcgrady Chew 1 tab PO .Q4-6H PRN (Reason: unknown) cyanocobalamin (vitamin B-12) [Vitamin B-12] 1,000 mcg Tablet Extended Release 1,000 mcg PO DAILY@08 gabapentin 600 mg tablet 600 mg PO BID@08,19 ascorbic acid (vitamin C) [Vitamin C] 500 mg Tablet 500 mg PO DAILY@08 calcium carbonate [Tums] 200 mg calcium (500 mg) Tablet,Chewable 1,000 mg PO BID PRN (Reason: Heartburn) cholecalciferol (vitamin D3) [Vitamin D3] 10 mcg (400 unit) Tablet 10 mcg PO DAILY@08 turmeric root extract 500 mg Capsule 500 mg PO DAILY@08 magnesium citrate 100 mg Tablet 100 mg PO DAILY@08 Cough Drops 7.5 mg Lozenge See Rx Instructions .ROUTE .COMPLEX Rx Instructions: dissolve 1 lozenge every 2 hours as needed for cough or sore throat *may keep at bedside* biotin 1,000 mcg Tablet,Chewable 1,000 mcg PO DAILY@08 Referrals: Eduardo Jimenez [Primary Care Provider] - Coding Level of Care Code ED J2Ee Android Developer for Monica Toledo
--- NOTE | 2023-08-02 17:42 | ECG_ITS ---
[facility] Test Date: 2023-08-02 Pat Name: Trini Jeter Department: Room: Gender: Female Job Estimator: : 1945 Requested By: Shaye Jean Order Number: [id number] Judith MD: Roxie Mcmanus M.D. Measurements Intervals [place] Rate: 79 P: 42 ME: 178 QRS: -8 QRSD: 86 T: 59 QT: 396 QTc: 456 Interpretive Statements SINUS RHYTHM WITH OCCASIONAL SUPRAVENTRICULAR PREMATURE COMPLEXES POSSIBLE ANTERIOR MYOCARDIAL INFARCTION , OF INDETERMINATE AGE [30 ms Q WAVE IN V3/V4, OR R < 0.2 mV IN V4] Compared to ECG 05/24/2023 16:53:15 Left ventricular hypertrophy no longer present ST (T wave) deviation no longer present Myocardial infarct finding still present Electronically Signed On 08-03-2023 6:04:36 CDT by Roxie Mcmanus M.D. [email or web address] health barber[facility] [id number]
[2023-08-02 17:57] LABS: Basophils % 0.3 %; Hematocrit 36.9 % (36-47); Lymphocytes # 0.8 10^3/uL (0.8-4.8); Lymphocytes % 11.1 %; Mean Corpuscular HGB Conc 30.6 g/dL (30-55); Mean Corpuscular Hemoglobin 25.4 pg (27-33); Mean Corpuscular Volume 82.9 fl (85-98); Mean Platelet Volume 10.9 fL (7.4-10.4); Monocytes # 0.4 10^3/uL (0.2-0.9); Monocytes % 5.4 %; Neutrophils # 6.24 10^3/uL (1.8-7.7); Neutrophils % 82.5 %; Nucleated Red Blood Cells % 0 %; Platelet Count 219 10^3/cmm (157-399); Red Blood Count 4.45 10^6/uL (3.85-5.65); Red Cell Distribution Width 16.6 % (12.1-15.1); White Blood Count 7.56 10^3/uL (3.29-11.43)
[2023-08-02 18:17] LABS: Alanine Aminotransferase 7 U/L (0-33); Albumin Level 4.2 g/dL (3.5-5.2); Alkaline Phosphatase 67 U/L (35-105); Anion Gap 14.8 (5-19); Aspartate Amino Transferase 16 U/L (0-32); Blood Urea Nitrogen 13 mg/dL (8-23); Calcium 9.7 mg/dL (8.5-10.5); Carbon Dioxide 22 mmol/L (22-29); Chloride 101 mmol/L (98-107); Globulin 2.9 g/dL (1.3-4.6); Glucose 144 mg/dL (65-115); Osmolality Calculated 281 mOsm/kg (285-295); Potassium 3.8 mmol/L (3.5-5.1); Sodium 134 mmol/L (136-145); Total Bilirubin 0.3 mg/dL (0.15-1.2); Total Protein 7.1 g/dL (6.6-8.7)
[2023-08-02] MEDS: morphine 4 mg/mL SDV 1 mL IVP (18:58)
[2023-08-02 20:57] LABS: Add Urine Microscopic? YES; Bacteria Urine TRACE /hpf; Bilirubin Urine Neg (Negative); Blood Urine 3+ (Negative); Calcium Oxalate Crystals Urine 0-4 /hpf; Glucose Urine UA Norm (Normal); Ketones Urine 1+ (Negative); Leukocyte Esterase Urine Negative (Negative); Nitrate Urine Negative (Negative); Protein Urine 1+ (Negative); Specific Gravity, Urine 1.015 (1.005-1.030); Squamous Epithelial Cell Urine 0-4 /hpf (0-5); Urine Appearance Clear (CLEAR); Urine Color Yellow (Yellow); Urobilinogen Urine Norm (Negative); WBC Urine 0-4 /hpf (0-5); pH Urine 7 (5-7)
[2023-08-02 20:58] LABS: Add Urine Culture? No; Amorphous Sediment Urine 2+ /hpf
[2023-08-02] MEDS: sodium chloride 0.9% 500 ML IV (21:12)
--- NOTE | 2023-08-02 22:21 | CTR_ITS ---
PROCEDURE INFORMATION: Exam: CT Neck With Contrast Exam date and time: 08/02/2023 11:09 PM Age: 78 years old Clinical indication: Patient HX: C/O of neck pain with nausea. Hypertensive on monitor. ; Additional info: Acute HTN, stiff neck TECHNIQUE: Imaging protocol: Computed tomography of the neck with contrast. Radiation optimization: All CT scans at this facility use at least one of these dose optimization techniques: automated exposure control; mA and/or kV adjustment per patient size (includes targeted exams where dose is matched to clinical indication); or iterative reconstruction. Contrast material: OMNI 350; Contrast volume: 70 ml; Contrast route: INTRAVENOUS (IV); REPORTING DATA: Count of CT and Cardiac NM exams in prior 12 months: This patient has received 8 known CTs and 0 known cardiac nuclear medicine studies in the 12 months prior to the current study. COMPARISON: CT angio headneck* [id number] 05/24/2023 3:25 PM RADIATION DOSE METRICS: Total DLP (mGy-cm): 935.1 FINDINGS: Pharynx: Unremarkable. No significant tonsillar enlargement. Larynx: Unremarkable. Epiglottis is normal. Prevertebral and retropharyngeal spaces: Unremarkable. Salivary glands: Normal. Glands are normal in size. Thyroid: Normal. No enlarged or calcified nodules. Lymph nodes: Unremarkable. No lymphadenopathy. Trachea: Visualized trachea is unremarkable. Lungs: Right upper lobe atelectasis versus minimal infiltrate. Bones/joints: Multilevel disc space narrowing and productive degenerative endplate changes in the cervical spine. Grade 1 retrolisthesis of C2 relative to C3 of 2 mm. Grade 1 anterolisthesis of C3 relative to C4 of 2 mm. Soft tissues: Unremarkable. No significant soft tissue swelling. CT/CT neck w con* [id number] IMPRESSION: 1. Negative for mass lesion or adenopathy. 2. Right upper lobe atelectasis versus minimal infiltrate. 3. Multilevel disc space narrowing and productive degenerative endplate changes in the cervical spine. 4. Grade 1 retrolisthesis of C2 relative to C3 of 2 mm. 5. Grade 1 anterolisthesis of C3 relative to C4 of 2 mm.
--- NOTE | 2023-08-02 22:21 | CTR_ITS ---
PROCEDURE INFORMATION: Exam: CT Head With Contrast Exam date and time: 08/02/2023 10:58 PM Age: 78 years old Clinical indication: Other: Hypertension/nausea; Patient HX: C/O of neck pain with nausea. Hypertensive on monitor. ; Additional info: Acute HTN, stiff neck TECHNIQUE: Imaging protocol: Computed tomography of the head with intravenous contrast. Radiation optimization: All CT scans at this facility use at least one of these dose optimization techniques: automated exposure control; mA and/or kV adjustment per patient size (includes targeted exams where dose is matched to clinical indication); or iterative reconstruction. Contrast material: OMNI 350; Contrast volume: 70 ml; Contrast route: INTRAVENOUS (IV); REPORTING DATA: Count of CT and Cardiac NM exams in prior 12 months: This patient has received 8 known CTs and 0 known cardiac nuclear medicine studies in the 12 months prior to the current study. COMPARISON: MR head wo con* [id number] 05/25/2023 4:00 PM RADIATION DOSE METRICS: Total DLP (mGy-cm): 3310.38 FINDINGS: Brain: Large amount diffuse white matter disease likely reflecting chronic microvascular ischemic changes. Chronic cerebellar atrophy, similar to prior exam. Cerebral ventricles: Unremarkable. No ventriculomegaly. Bones/joints: Unremarkable. No acute fracture. Paranasal sinuses: Visualized sinuses are unremarkable. No fluid levels. Mastoid air cells: Visualized mastoid air cells are well aerated. Soft tissues: Unremarkable. CT/CT head w con [id number] IMPRESSION: 1. Negative for intracranial hemorrhage or mass effect. 2. Large amount diffuse white matter disease likely reflecting chronic microvascular ischemic changes. 3. Chronic cerebellar atrophy, similar to prior exam.
--- NOTE | 2023-08-02 22:36 | PC.NURSE ---
Provider notified of pt BP, provider said to start cardene drip.
[2023-08-02] MEDS: iohexol 350 mg/mL 500 mL Btl (per mL) IV (23:04)
--- NOTE | 2023-08-02 23:39 | PC.NURSE ---
This nurse notified of BP after CT. Provider said to hold cardene.
[2023-08-03] VITALS (9 sets, daily range): BP systolic 130–193; BP diastolic 73–100; PULSE 79–95; RESP 25; O2SAT 91–94
[2023-08-03] MEDS: orphenadrine 30 mg/mL Inj 2 mL 60 MG IVP (00:42)
[2023-08-03] MEDS: ketorolac 30 mg/mL INJ 15 MG IVP (00:43)
[2023-08-03] MEDS: enalaprilat 2.5 mg/2 mL SDV 1.25 MG IVP (00:44)
[2023-08-03] MEDS: LORazepam 2 mg/mL INJ 1 mL 0.5 MG IVP (01:57)
--- NOTE | 2023-08-03 02:24 | PC.NURSE ---
Labetalol not given per MD orders to hold because bp 152/94
== END 2023-08-03 02:20 | disposition home or self-care (01) ==
PROVIDERS: Emergency Provider Physician Assistant; PCP Family Medicine
DX: I16.0 Hypertensive urgency (principal); Z87.891 Personal history of nicotine dependence; M54.2 Cervicalgia
CPT/HCPCS: 51701; 70460; 70491; 71045; 80053; 81001; 85025; 93005; 96361; 96374; 96375; 99285; J1885; J2060; J2270; J2360; J7040; Q9967

== ENCOUNTER 2023-08-27 21:30 | Emergency (ER) | payer MEDICARE, SELFPAY ==
[2023-08-27] VITALS (17 sets, daily range): BP systolic 114–197; BP diastolic 68–141; PULSE 78–87; RESP 7–19; TEMP 36.8; O2SAT 91–94; BMI 17.2
--- NOTE | 2023-08-27 21:31 | XRR_ITS ---
PROCEDURE INFORMATION: Exam: XR Chest Exam date and time: 08/27/2023 9:56 PM Age: 78 years old Clinical indication: Shortness of breath; Additional info: CVA TECHNIQUE: Imaging protocol: Radiologic exam of the chest. Views: 1 view. COMPARISON: CR (CHEST, ) 08/02/2023 5:58 PM FINDINGS: Lungs: Low lung volumes. Stable platelike scar or atelectasis at the right lung base. Pleural spaces: No pleural effusion. No pneumothorax. Heart/Mediastinum: Large hiatal hernia. Stable moderate cardiomegaly. Bones/joints: Numerous old healed right rib fractures. Multilevel thoracic compression fractures. Lower thoracic vertebroplasty cement. XR/XR chest 1V portable [id number] IMPRESSION: 1. Moderate cardiomegaly is stable. 2. Low lung volumes. No convincing airspace disease.
--- NOTE | 2023-08-27 21:32 | CTR_ITS ---
PROCEDURE INFORMATION: Exam: CT Head Without Contrast Exam date and time: 08/27/2023 9:31 PM Age: 78 years old Clinical indication: Stroke-like symptoms; Altered mental status/memory loss; Additional info: Symptoms of acute stroke TECHNIQUE: Imaging protocol: Computed tomography of the head without contrast. Radiation optimization: All CT scans at this facility use at least one of these dose optimization techniques: automated exposure control; mA and/or kV adjustment per patient size (includes targeted exams where dose is matched to clinical indication); or iterative reconstruction. Other technique: STROKE PROTOCOL was implemented. REPORTING DATA: Count of CT and Cardiac NM exams in prior 12 months: This patient has received 10 known CTs and 0 known cardiac nuclear medicine studies in the 12 months prior to the current study. COMPARISON: CT head w con [id number] 08/02/2023 10:58 PM RADIATION DOSE METRICS: Total DLP (mGy-cm): 940 FINDINGS: Brain: No hemorrhage. Unremarkable white matter. No mass effect. Preserved kelly-white interfaces. Mild atrophy of the left cerebellar hemisphere is unchanged from priors. Cerebral ventricles: No ventriculomegaly. Paranasal sinuses: Visualized sinuses are unremarkable. No fluid levels. Mastoid air cells: Visualized mastoid air cells are well aerated. Bones/joints: Unremarkable. No acute fracture. Soft tissues: Unremarkable. CT/CT head thrombolytic [id number] IMPRESSION: No evidence of acute intracranial hemorrhage, mass effect, or edema. ASSESSMENT: ASPECTS ([place] Stroke Program Early CT Score) is 10.
--- NOTE | 2023-08-27 21:32 | ECG_ITS ---
[facility] Test Date: 2023-08-27 Pat Name: Trini Jetre Department: Room: Gender: Female Radio Installer: : 1945 Requested By: Aj Vizcarra Order Number: [id number] Reading MD: Arvin Barahona M.D. Measurements Intervals [place] Rate: 87 P: 48 OK: 181 QRS: -13 QRSD: 88 T: 67 QT: 359 QTc: 433 Interpretive Statements SINUS RHYTHM POSSIBLE LEFT ATRIAL ENLARGEMENT [-0.1mV P-WAVE IN V1/V2] INFERIOR MYOCARDIAL INFARCTION , PROBABLY OLD [40+ ms Q WAVE AND/OR ST/T ABNORMALITY IN II/aVF] Anterior wall NE, probably old Compared to ECG 08/27/2023 21:36:04 No significant changes Electronically Signed On 08-29-2023 14:11:02 MULTICULTURAL MANAGER by Arvin Barahona M.D. [email or web address] [email or web address] central regional medical centerAccerasouthview medical center.[email or web address]/[id number]
--- NOTE | 2023-08-27 21:41 | W.ED.GENADLT ---
HPI - General Adult General: Chief complaint: Neuro Symptoms/Deficit Stated complaint: stroke Time Seen by Provider: 08/27/23 21:31 Source: patient and EMS Mode of arrival: EMS Limitations: no limitations History of Present Illness: 78-year-old female who is here from [facility] she had complained of a headache earlier in the night and they checked on her at 9 she is doing well they then checked on her again knows she has left-sided facial droop. Patient does have facial droop she has no other complaints at this time she denies headache she is speaking clearly she is moving all extremities. 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 Associated symptoms: Reports headache(s); Deny chest pain, dyspnea, nausea, rash or vomiting Review of Systems Const: Denies: fever(s), chills, body aches or change in appetite Eyes: Denies: blurry vision or eye discomfort ENMT: Denies: throat pain or dental pain Card: Denies: chest pain Resp: Denies: dyspnea GI: Denies: abdominal pain, nausea, vomiting or diarrhea : Denies: dysuria Musc: Denies: neck pain or back pain Skin/Breast: Denies: rash Neuro: Reports: headache(s) PFSH ED PFSH: Medical History Frequent falls Gastroesophageal reflux disease Osteoporosis Surgical History H/O bilateral hip replacements Social History Smoking and tobacco/nicotine status: former use of tobacco/nicotine Alcohol intake: never Substance/Drug Use: never Physical Exam Const: COMMON NORMALS: no acute distress and patient oriented x3 HENMT: COMMON NORMALS: normocephalic and atraumatic HEAD & SCALP: normocephalic and atraumatic Eye: COMMON NORMALS: Equal, round and reactive pupils present and EOMs intact bilaterally PUPIL: Yes Equal, round and reactive pupils present Neck/C-Spine: COMMON NORMALS: full ROM and supple Chest: COMMONS NORMALS: normal inspection of the chest and normal palpation of entire chest wall Resp: COMMON NORMALS: normal respiratory effort, No retractions, No use of accessory muscles and clear to auscultation bilaterally AUSCULTATION: clear to auscultation bilaterally Cardio: COMMON NORMALS: regular rate, regular rhythm and No murmurs present (Cardio) RATE: regular rate RHYTHM: regular rhythm GI: COMMON NORMALS: Normal to inspection, nondistended, normoactive bowel sounds present, Soft to palpation, non-tender and no masses PALPATION: Yes Soft to palpation Extremity: COMMON NORMALS: normal to inspection and full ROM Neuro: COMMON NORMALS: patient oriented x3, moves all extremities and no focal motor deficits MOTOR EXAM: 5/5 motor strength present throughout OTHER: left sided facial droop Psych: COMMON NORMALS: mental status grossly normal, Normal thought process present and cooperative THOUGHT PROCESS: Normal thought process present Skin: COMMON NORMALS: no rashes or lesions noted and no wounds GENERAL SKIN EXAM: no rashes or lesions noted Course Vital Signs: Vital signs: Vital Signs Temperature 98.2 F 08/27/23 21:52 Pulse Rate 87 08/27/23 23:15 Respiratory Rate 19 H 08/27/23 23:15 Blood Pressure 134/105 08/27/23 23:15 Pulse Oximetry 91 08/27/23 23:15 [facility] - General Adult Medical Decision Making Patient presents with left-sided facial droop she has had a history of Galvan's palsy her exam here is consistent with likely Galvan's palsy she has no other focal deficits head CT is normal we will discharge back to care home patient return if worsening. Medical Records I reviewed the patient's medical records. Lab Data I reviewed the patient's lab results. 08/27/23 21:25 08/27/23 21:25 Radiology Impressions Chest X-Ray 08/27/23 21:31 IMPRESSION: 1. Moderate cardiomegaly is stable. 2. Low lung volumes. No convincing airspace disease. Head CT 08/27/23 21:32 IMPRESSION: No evidence of acute intracranial hemorrhage, mass effect, or edema. ASSESSMENT: ASPECTS ([place] Stroke Program Early CT Score) is 10. Laboratory Results WBC 8.73 10^3/uL (3.29-11.43) 08/27/23 21:25 RBC 4.22 10^6/uL (3.85-5.65) 08/27/23 21:25 Hgb 10.90 g/dL (11.27-16.99) L 08/27/23: Hct 35.4 % (36-47) L 08/27/23: MCV 83.9 fl (85-98) L 08/27/23: MCH 25.8 pg (27-33) L 08/27/23: MCHC 30.8 g/dL (30-55) 08/27/23: RDW 16.0 % (12.1-15.1) H 08/27/23: Plt Count 247 10^3/cmm (157-399) 08/27/23: MPV 9.9 fL (7.4-10.4) 08/27/23: Neut % (Auto) 70.4 % 08/27/23: Lymph % (Auto) 19.7 % 08/27/23: [place] % (Auto) 8.6 % 08/27/23: Eos % (Auto) 0.6 % 08/27/23: Baso % (Auto) 0.2 % 08/27/23: Neut # (Auto) 6.15 10^3/uL (1.8-7.7) 08/27/23: Lymph # (Auto) 1.7 10^3/uL (0.8-4.8) 08/27/23: [place] # (Auto) 0.8 10^3/uL (0.2-0.9) 08/27/23: Eos # (Auto) 0.1 10^3/uL (0.0-0.8) 08/27/23: Baso # (Auto) 0.0 10^3/uL (0.0-0.1) 08/27/23: Nucleated RBC % (auto) 0 % 08/27/23 Nucleated RBCs # 0.0 /100WBC 08/27/23: PT 13.60 SECONDS (12.1-14.9) 08/27/23: INR 1.01 (0.8-1.2) 08/27/23: APTT 29.3 SECONDS (23.9-36.7) 08/27/23 21:25 Sodium 137 mmol/L (136-145) 08/27/23 21:25 Potassium 4.2 mmol/L (3.5-5.1) 08/27/23 21:25 Chloride 102 mmol/L (98-107) 08/27/23 21:25 Carbon Dioxide 24 mmol/L (22-29) 08/27/23 21:25 Anion Gap 15.2 (5-19) 08/27/23 21:25 BUN 23 mg/dL (8-23) 08/27/23 21:25 Creatinine 0.6 mg/dL (0.5-0.9) 08/27/23 21:25 GFR Calculation Not Reportable 08/27/23 21:25 Glucose 121 mg/dL (65-115) H 08/27/23 21:25 Calculated Osmolality 289 mOsm/kg (285-295) 08/27/23 21:25 Calcium 9.9 mg/dL (8.5-10.5) 08/27/23 21:25 Total Bilirubin 0.2 mg/dL (0.15-1.2) 08/27/23 21:25 AST 13 U/L (0-32) 08/27/23 21:25 ALT 8 U/L (0-33) 08/27/23 21:25 Alkaline Phosphatase 104 U/L (35-105) 08/27/23 21:25 Total Protein 7.1 g/dL (6.6-8.7) 08/27/23 21:25 Albumin 4.1 g/dL (3.5-5.2) 08/27/23 21:25 Globulin 3.0 g/dL (1.3-4.6) 08/27/23 21:25 All radiology interpretation(s) finalized by discharge Discharge Plan Discharge Patient Disposition: Home Clinical Impression: Facial droop Condition: Stable Prescriptions: No Action tolterodine 2 mg capsule,extended release 24hr 2 mg PO DAILY@08 Qty: 90 3RF Rx Instructions: 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 latanoprost 0.005 % drops 1 drp ophthalmic (eye) BEDTIME@19 Qty: 2.5 3RF acetaminophen [Tylenol 8 Hour] 650 mg Tablet Extended Release 650 mg PO Q4H PRN (Reason: pain/fever) diphenhydramine HCl 25 mg Capsule 25 mg PO BEDTIME@19 Tussin DM 10-100 mg/5 mL liquid 10 ml PO Q4H PRN (Reason: Cough) tramadol 50 mg tablet 50 mg PO Q6H PRN (Reason: Pain) Artificial Tears (cmc) 1 % Drops 1 drp OPHTHALMIC (EYE) QID furosemide 40 mg tablet 40 mg PO DAILY@08 PRN (Reason: edema) 30 Days Qty: 30 0RF amlodipine 10 mg tablet 10 mg PO DAILY Qty: 30 0RF potassium chloride 10 mEq tablet extended release 10 meq PO DAILY@08 omeprazole 20 mg capsule,delayed release(DR/EC) 20 mg PO DAILY@08 polyethylene glycol 3350 [Gavilax] 17 gram/dose Powder 17 g PO DAILY@08 Rx Instructions: with 8 oz of water or juice Evangelist Chew 1 tab PO .Q4-6H PRN (Reason: unknown) cyanocobalamin (vitamin B-12) [Vitamin B-12] 1,000 mcg Tablet Extended Release 1,000 mcg PO DAILY@08 gabapentin 600 mg tablet 600 mg PO BID@08,19 ascorbic acid (vitamin C) [Vitamin C] 500 mg Tablet 500 mg PO DAILY@08 calcium carbonate [Tums] 200 mg calcium (500 mg) Tablet,Chewable 1,000 mg PO BID PRN (Reason: Heartburn) cholecalciferol (vitamin D3) [Vitamin D3] 10 mcg (400 unit) Tablet 10 mcg PO DAILY@08 turmeric root extract 500 mg Capsule 500 mg PO DAILY@08 magnesium citrate 100 mg Tablet 100 mg PO DAILY@08 Cough Drops 7.5 mg Lozenge See Rx Instructions .ROUTE .COMPLEX Rx Instructions: dissolve 1 lozenge every 2 hours as needed for cough or sore throat *may keep at bedside* biotin 1,000 mcg Tablet,Chewable 1,000 mcg PO DAILY@08 Discharge Orders: Discharge ED (Routine); Ordered 08/27/23 Ordered By: Aj Vizcarra Referrals: Eduardo Jimenez [Primary Care Provider] - 1-3 days Discharge Diet: Advance as tolerated Discharge Activity: Resume usual activity Patient Instructions: Galvan Palsy (ED) Coding Level of Care Code ED Keyboard Operator for Chg Fwd NIH stroke score NIHSS Level Of Consciousness - 1a: 0 Level Of Consciousness Questions - 1b: Both Correct Level Of Consciousness Commands - 1c: Both Correct Best Gaze - 2: Normal Visual [place] - 3: No Visual Loss Facial Palsy - 4: Complete Paralysis Motor Arm Right - 5: No Drift Motor Arm Left - 5: No Drift Motor Leg Right - 6: No Drift Motor Leg Left - 6: No Drift Limb Ataxia - 7: Absent Sensory - 8: Normal Best Language - 9: No Aphasia Dysarthia - 10: Normal Extinction And Inattention - 11: 0 Score Total Score: 3
[2023-08-27 21:43] LABS: Basophils % 0.2 %; Eosinophils # 0.1 10^3/uL (0.0-0.8); Eosinophils % 0.6 %; Hematocrit 35.4 % (36-47); Lymphocytes # 1.7 10^3/uL (0.8-4.8); Lymphocytes % 19.7 %; Mean Corpuscular HGB Conc 30.8 g/dL (30-55); Mean Corpuscular Hemoglobin 25.8 pg (27-33); Mean Corpuscular Volume 83.9 fl (85-98); Mean Platelet Volume 9.9 fL (7.4-10.4); Monocytes # 0.8 10^3/uL (0.2-0.9); Monocytes % 8.6 %; Neutrophils # 6.15 10^3/uL (1.8-7.7); Neutrophils % 70.4 %; Nucleated Red Blood Cells % 0 %; Platelet Count 247 10^3/cmm (157-399); Red Blood Count 4.22 10^6/uL (3.85-5.65); White Blood Count 8.73 10^3/uL (3.29-11.43)
[2023-08-27] MEDS: hyDRALAzine 20 mg/mL INJ 1 mL 10 MG IVP (21:47)
--- NOTE | 2023-08-27 21:54 | PC.NURSE ---
Spoke to daughter on patient arrival, according to oniel paperwork pt is a DNR. Nurse confirmed this with daughter that patient is a DNR.
[2023-08-27 21:57] LABS: INR 1.01 (0.8-1.2)
[2023-08-27 21:58] LABS: Partial Thromboplastin Time 29.3 SECONDS (23.9-36.7)
[2023-08-27 22:05] LABS: Alanine Aminotransferase 8 U/L (0-33); Albumin Level 4.1 g/dL (3.5-5.2); Alkaline Phosphatase 104 U/L (35-105); Anion Gap 15.2 (5-19); Aspartate Amino Transferase 13 U/L (0-32); Blood Urea Nitrogen 23 mg/dL (8-23); Calcium 9.9 mg/dL (8.5-10.5); Carbon Dioxide 24 mmol/L (22-29); Chloride 102 mmol/L (98-107); Glucose 121 mg/dL (65-115); Osmolality Calculated 289 mOsm/kg (285-295); Potassium 4.2 mmol/L (3.5-5.1); Sodium 137 mmol/L (136-145); Total Bilirubin 0.2 mg/dL (0.15-1.2); Total Protein 7.1 g/dL (6.6-8.7)
--- NOTE | 2023-08-27 23:42 | PC.NURSE ---
report given to [facility]. [facility] left facility at approx [phone] to take pt to [facility].
--- NOTE | 2023-08-27 23:43 | PC.NURSE ---
report was called to Gela at [facility] at approx [phone]
== END 2023-08-27 23:44 | disposition home or self-care (01) ==
PROVIDERS: Emergency Provider Emergency Medicine; PCP Family Medicine
DX: R29.810 Facial weakness (principal); Z87.891 Personal history of nicotine dependence
CPT/HCPCS: 70450; 71045; 80053; 85025; 85610; 85730; 93005; 96374; 99285; J0360

== ENCOUNTER 2023-08-31 18:45 | Emergency (ER) | payer MEDICARE, SELFPAY ==
--- NOTE | 2023-08-31 18:52 | CTR_ITS ---
PROCEDURE INFORMATION: Exam: CT Head Without Contrast Exam date and time: 08/31/2023 6:46 PM Age: 78 years old Clinical indication: Stroke-like symptoms; Altered mental status/memory loss; Lt upper extremity weakness; Additional info: Poss CVA TECHNIQUE: Imaging protocol: Computed tomography of the head without contrast. Radiation optimization: All CT scans at this facility use at least one of these dose optimization techniques: automated exposure control; mA and/or kV adjustment per patient size (includes targeted exams where dose is matched to clinical indication); or iterative reconstruction. Other technique: STROKE PROTOCOL was implemented. REPORTING DATA: Count of CT and Cardiac NM exams in prior 12 months: This patient has received 11 known CTs and 0 known cardiac nuclear medicine studies in the 12 months prior to the current study. COMPARISON: CT head thrombolytic [id number] 08/27/2023 9:31 PM RADIATION DOSE METRICS: Total DLP (mGy-cm): 1137.55 FINDINGS: Brain: Stable 3.0 x 2.3 x 1.9 cm low-density area lateral to the left cerebellar hemisphere which could represent epidermoid cyst versus arachnoid cyst versus CSF normal variant fluid collection. On MRI dated May 25, 2023, there is no restricted diffusion suggesting this is not an epidermoid cyst. Possible normal variant CSF fluid collection. Severe calcified intracranial atherosclerotic vessel disease. Mild cerebral atrophy and ischemic leukoencephalopathy. Cerebral ventricles: No ventriculomegaly. Paranasal sinuses: Visualized sinuses are unremarkable. No fluid levels. Mastoid air cells: Visualized mastoid air cells are well aerated. Bones/joints: Unremarkable. No acute fracture. Soft tissues: Unremarkable. CT/CT head thrombolytic [id number] IMPRESSION: 1. Stable 3.0 x 2.3 x 1.9 cm low-density area lateral to the left cerebellar hemisphere which could represent epidermoid cyst versus arachnoid cyst versus CSF normal variant fluid collection. On MRI dated May 25, 2023, there is no restricted diffusion suggesting this is not an epidermoid cyst. Possible normal variant CSF fluid collection. 2. No acute intracranial findings. ASSESSMENT: ASPECTS ([place] Stroke Program Early CT Score) is 10.
[2023-08-31 18:53] VITALS: BP 176/114; PULSE 92; RESP 18; TEMP 37; O2SAT 93; BMI 18.2
--- NOTE | 2023-08-31 19:03 | ECG_ITS ---
[facility] Test Date: 2023-08-31 Pat Name: Trini Jeter Department: Room: Gender: Female Health And Safety Tech: : 1945 Requested By: Gregg Redd Order Number: [id number] Reading MD: Keegan Yung M.D. Measurements Intervals [place] Rate: 85 P: 54 NV: 181 QRS: -41 QRSD: 81 T: 69 QT: 348 QTc: 416 Interpretive Statements SINUS RHYTHM POSSIBLE LEFT ATRIAL ENLARGEMENT [-0.1mV P-WAVE IN V1/V2] INFERIOR MYOCARDIAL INFARCTION , OF INDETERMINATE AGE [40+ ms Q WAVE AND/OR ST/T ABNORMALITY IN II/aVF] ANTEROSEPTAL MYOCARDIAL INFARCTION , OF INDETERMINATE AGE [40+ ms Q WAVE IN V1-V4] Compared to ECG 08/27/2023 21:38:13 No significant changes Electronically Signed On 08-31-2023 22:11:30 CASING IN LINE SETTER by Keegan Yung M.D. [id number]
--- NOTE | 2023-08-31 19:03 | XRR_ITS ---
PROCEDURE INFORMATION: Exam: XR Chest Exam date and time: 08/31/2023 7:13 PM Age: 78 years old Clinical indication: Other: AMS TECHNIQUE: Imaging protocol: Radiologic exam of the chest. Views: 1 view. COMPARISON: CR (CHEST, ) 08/27/2023 9:56 PM FINDINGS: Lungs: Unremarkable. No consolidation. Pleural spaces: Unremarkable. No pleural effusion. No pneumothorax. Heart/Mediastinum: Unremarkable. No cardiomegaly. Bones/joints: Levoscoliosis. Stable one or more thoracic vertebroplasties. Other findings: Patient rotation to the right. XR/XR chest 1V portable [id number] IMPRESSION: No acute findings.
[2023-08-31 19:23] LABS: Basophils % 0.3 %; Eosinophils # 0.1 10^3/uL (0.0-0.8); Eosinophils % 0.6 %; Hematocrit 38.7 % (36-47); Lymphocytes # 2.5 10^3/uL (0.8-4.8); Lymphocytes % 28.3 %; Mean Corpuscular HGB Conc 29.7 g/dL (30-55); Mean Corpuscular Hemoglobin 25.8 pg (27-33); Mean Corpuscular Volume 86.8 fl (85-98); Mean Platelet Volume 9.8 fL (7.4-10.4); Monocytes # 0.7 10^3/uL (0.2-0.9); Monocytes % 7.8 %; Neutrophils # 5.43 10^3/uL (1.8-7.7); Neutrophils % 62.7 %; Nucleated Red Blood Cells % 0 %; Platelet Count 275 10^3/cmm (157-399); Red Blood Count 4.46 10^6/uL (3.85-5.65); Red Cell Distribution Width 15.9 % (12.1-15.1); White Blood Count 8.68 10^3/uL (3.29-11.43)
[2023-08-31 19:43] LABS: INR 1.03 (0.8-1.2)
[2023-08-31 19:44] LABS: Partial Thromboplastin Time 27.8 SECONDS (23.9-36.7)
[2023-08-31 19:50] VITALS: BP 176/114; PULSE 77; RESP 16; O2SAT 96
[2023-08-31 19:55] LABS: Alanine Aminotransferase 8 U/L (0-33); Albumin Level 4.2 g/dL (3.5-5.2); Alkaline Phosphatase 102 U/L (35-105); Anion Gap 17.4 (5-19); Aspartate Amino Transferase 15 U/L (0-32); Blood Urea Nitrogen 14 mg/dL (8-23); Carbon Dioxide 21 mmol/L (22-29); Chloride 104 mmol/L (98-107); Globulin 3.1 g/dL (1.3-4.6); Glucose 109 mg/dL (65-115); Osmolality Calculated 287 mOsm/kg (285-295); Potassium 4.4 mmol/L (3.5-5.1); Sodium 138 mmol/L (136-145); Total Bilirubin 0.2 mg/dL (0.15-1.2); Total Protein 7.3 g/dL (6.6-8.7)
[2023-08-31 20:03] VITALS: BP 188/94
--- NOTE | 2023-08-31 21:13 | ED_ITS ---
HPI - Neuro Symptoms/Deficit General: Chief Complaint: Neuro Symptoms/Deficit Stated Complaint: STROKE Time Seen by Provider: 08/31/23 19:02 History of Present Illness: 78-year-old female presents to the emergency department via EMS from [facility] long-term care facility. EMS personnel state that the medical staff at her long-term care facility were concerned about the patient's left-sided facial droop and left-sided weakness and elevated blood pressure with a systolic in the 200s. The patient's family member who is here in the emergency department visiting states that she the patient complains of neck and shoulders becoming stiff resulting in elevated blood pressure. Patient was recently seen here in the emergency department and diagnosed with Galvan's palsy. The patient does have a clear and obvious left facial droop which appears to be unchanged from previous. Review of Systems General: Reports: ROS unobtainable due to medical condition and ROS unobtainable due to mental status PFSH ED PFSH: Medical History Frequent falls Gastroesophageal reflux disease Osteoporosis Surgical History H/O bilateral hip replacements Social History Smoking and tobacco/nicotine status: former use of tobacco/nicotine Alcohol intake: never Substance/Drug Use: never Physical Exam Narrative: EXAM NARRATIVE: Constitutional: the patient appears well nourished and with normal development. Vital signs reviewed as documented. Awake alert to person HENMT: Normocephalic, atraumatic. Extermal ears with normal appearance without drainage. Nose without drainage, normal appearance. Mucus membranes moist. Obvious left-sided facial deficit consistent with Galvan's palsy Neck is supple, No jugular venous distension, trachea is midline, no appreciable carotid bruits. No lymphadenopathy. No meningeal signs. Flexion, extension and lateral rotation is without pain. Eyes: Pupils are equal, round, reactive to light and accommodation. No scleral icterus. Extra-ocular movement are intact. Thorax is symmetrical and with equal rise and fall with respirations. Resp: Lungs are clear to auscultation. No wheezes, rales, crackles or ronchi at present. Cardio: Regular rate and rhythm. Positive S1, S2. No appreciable murmurs, rubs or gallops. GI: Abdominal exam reveals normal bowel sounds to all quadrants. No organomegaly. No obvious palpable masses noted. No hepatomegally appreciated. Soft, nontender to palpation. Extremity: Extremities are non-edematous and both femoral and pedal pulses are 2+ and equal bilaterally. Moves all extremities well, sensation in all extremities. Neuro: Alert and oriented x4, person, place, time and situation. Cranial nerves II through XII are grossly intact, there is no focal neurological deficits that I can appreciate at present. I do not appreciate any weakness to the extremities. Motor strength in the upper and lower extremities are equal and bilateral 5/5. Psych: Cooperative, calm, normal thought process, appropriate judgment. Skin: No lesions, rashes. No gross abnormalities noted. Back: Symmetrical, no obvious deformity, No CVA tenderness Course Vital Signs: Vital signs: Vital Signs Temperature 98.6 F 08/31/23 18:53 Pulse Rate 77 08/31/23 19:50 Respiratory Rate 16 08/31/23 19:50 Blood Pressure 188/94 08/31/23 22:26 Pulse Oximetry 96 08/31/23 19:50 Oxygen Delivery Me thod Room Air 08/31/23 19:50 MDM - Neuro Symptoms/Deficit Medical Decision Making Physical exam completed and documented, I reviewed the previous medical record from 08/27/2023 and I have reviewed the patient's presenting paperwork from the care facility. I will obtain a CT scan of her head as well as laboratory ev aluation to include a CBC CMP and urinalysis as well as EKG and cardiac enzymes for evaluation. The patient's family members that are here at present state that the patient appears to be much more awake at night and sleeps throughout the day. I did spend approximately 35 minutes educating the family members regarding the progression of dementia. Lab Data 08/31/23 18:58 08/31/23 18:[address] 08/31/23 18:52 IMPRESSION: 1. Stable 3.0 x 2.3 x 1.9 cm low-density area lateral to the left cerebellar hemisphere which could represent epidermoid cyst versus arachnoid cyst versus CSF normal variant fluid collection. On MRI dated May 25, 2023, there is no restricted diffusion suggesting this is not an epidermoid cyst. Possible normal variant CSF fluid collection. 2. No acute intracranial findings. ASSESSMENT: ASPECTS ([place] Stroke Program Early CT Score) is 10. Chest X-Ray 08/31/23 19:03 IMPRESSION: No acute findings. Laboratory Results WBC 8.68 10^3/uL (3.29-11.43) 08/31/23 18:58 RBC 4.46 10^6/uL (3.85-5.65) 08/31/23 18:58 Hgb 11.50 g/dL (11.27-16.99) 08/31/23 18:58 Hct 38.7 % (36-47) 08/31/23 18:58 MCV 86.8 fl (85-98) 08/31/23 18:58 MCH 25.8 pg (27-33) L 08/31/23 18:58 MCHC 29.7 g/dL (30-55) L 08/31/23 18:58 RDW 15.9 % (12.1-15.1) H 08/31/23 18:58 Plt Count 275 10^3/cmm (157-399) 08/31/23 18:58 MPV 9.8 fL (7.4-10.4) 08/31/23 18:58 Neut % (Auto) 62.7 % 08/31/23 18:58 Lymph % (Auto) 28.3 % 08/31/23 18:58 [place] % (Auto) 7.8 % 08/31/23 18:58 Eos % (Auto) 0.6 % 08/31/23 18:58 Baso % (Auto) 0.3 % 08/31/23 18:58 Neut # (Auto) 5.43 10^3/uL (1.8-7.7) 08/31/23 18:58 Lymph # (Auto) 2.5 10^3/uL (0.8-4.8) 08/31/23 18:58 [place] # (Auto) 0.7 10^3/uL (0.2-0.9) 08/31/23 18:58 Eos # (Auto) 0.1 10^3/uL (0.0-0.8) 08/31/23 18:58 Baso # (Auto) 0.0 10^3/uL (0.0-0.1) 08/31/23 18:58 Nucleated RBC % (auto) 0 % 08/31/23 18:58 Nucleated RBCs # 0.0 /100WBC 08/31/23 18:58 PT 13.80 SECONDS (12.1-14.9) 08/31/23 18:58 INR 1.03 (0.8-1.2) 08/31/23 18:58 APTT 27.8 SECONDS (23.9-36.7) 08/31/23 18:58 Sodium 138 mmol/L (136-145) 08/31/23 18:58 Potassium 4.4 mmol/L (3.5-5.1) 08/31/23 18:58 Chloride 104 mmol/L (98-107) 08/31/23 18:58 Carbon Dioxide 21 mmol/L (22-29) L 08/31/23 18:58 Anion Gap 17.4 (5-19) 08/31/23 18:58 BUN 14 mg/dL (8-23) 08/31/23 18:58 Creatinine 0.6 mg/dL (0.5-0.9) 08/31/23 18:58 GFR Calculation Not Reportable 08/31/23 18:58 Glucose 109 mg/dL (65-115) 08/31/23 18:58 Calculated Osmolality 287 mOsm/kg (285-295) 08/31/23 18:58 Calcium 10.0 mg/dL (8.5-10.5) 08/31/23 18:58 Total Bilirubin 0.2 mg/dL (0.15-1.2) 08/31/23 18:58 AST 15 U/L (0-32) 08/31/23 18:58 ALT 8 U/L (0-33) 08/31/23 18:58 Alkaline Phosphatase 102 U/L (35-105) 08/31/23 18:58 Total Protein 7.3 g/dL (6.6-8.7) 08/31/23 18:58 Albumin 4.2 g/dL (3.5-5.2) 08/31/23 18:58 Globulin 3.1 g/dL (1.3-4.6) 08/31/23 18:58 All radiology interpretation(s) finalized by discharge Discharge Plan Discharge Patient Disposition: Home Clinical Impression: Dementia Condition: Stable Prescriptions: No Action tolterodine 2 mg capsule,extended release 24hr 2 mg PO DAILY@08 Qty: 90 3RF Rx Instructions: 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 latanoprost 0.005 % drops 1 drp ophthalmic (eye) BEDTIME@19 Qty: 2.5 3RF acetaminophen [Tylenol 8 Hour] 650 mg Tablet Extended Release 650 mg PO Q4H PRN (Reason: pain/fever) diphenhydramine HCl 25 mg Capsule 25 mg PO BEDTIME@19 Tussin DM 10-100 mg/5 mL liquid 10 ml PO Q4H PRN (Reason: Cough) tramadol 50 mg tablet 50 mg PO Q6H PRN (Reason: Pain) Artificial Tears (cmc) 1 % Drops 1 drp OPHTHALMIC (EYE) QID furosemide 40 mg tablet 40 mg PO DAILY@08 PRN (Reason: edema) 30 Days Qty: 30 0RF amlodipine 10 mg tablet 10 mg PO DAILY Qty: 30 0RF potassium chloride 10 mEq tablet extended release 10 meq PO DAILY@08 omeprazole 20 mg capsule,delayed release(DR/EC) 20 mg PO DAILY@08 polyethylene glycol 3350 [Gavilax] 17 gram/dose Powder 17 g PO DAILY@08 Rx Instructions: with 8 oz of water or juice Evangelist Chew 1 tab PO .Q4-6H PRN (Reason: unknown) cyanocobalamin (vitamin B-12) [Vitamin B-12] 1,000 mcg Tablet Extended Release 1,000 mcg PO DAILY@08 gabapentin 600 mg tablet 600 mg PO BID@08,19 ascorbic acid (vitamin C) [Vitamin C] 500 mg Tablet 500 mg PO DAILY@08 calcium carbonate [Tums] 200 mg calcium (500 mg) Tablet,Chewable 1,000 mg PO BID PRN (Reason: Heartburn) cholecalciferol (vitamin D3) [Vitamin D3] 10 mcg (400 unit) Tablet 10 mcg PO DAILY@08 turmeric root extract 500 mg Capsule 500 mg PO DAILY@08 magnesium citrate 100 mg Tablet 100 mg PO DAILY@08 Cough Drops 7.5 mg Lozenge See Rx Instructions .ROUTE .COMPLEX Rx Instructions: dissolve 1 lozenge every 2 hours as needed for cough or sore throat *may keep at bedside* biotin 1,000 mcg Tablet,Chewable 1,000 mcg PO DAILY@08 Discharge Orders: Discharge ED (Routine); Ordered 08/31/23 Ordered By: Gregg Redd Referrals: Eduardo Jimenez [Primary Care Provider] - Discharge Diet: Advance as tolerated Discharge Activity: Resume usual activity Patient Instructions: Opioid Safety, Pain Management Activity Restrictions/Additional Instructions: Activity Restrictions/Additional Instructions: Thank you for choosing [facility] for your healthcare needs today. Please realize that you were seen in the Emergency Department and that we are providing you with an emergency medical screening exam and this may not be complete and all inclusive of all the testing and or medical work-up that you may need to determine your ailment or severity of your illness. It is very important that you follow-up as instructed with your Primary care provider or Specialist for additional evaluation and to discuss your medical treatment plan. You may return to the Emergency Department should you have concerns or if your condition changes or worsens in any way. Coding Level of Care Code ED Gauge Maker Apprentice for Monica Toledo
[2023-08-31] MEDS: LORazepam 0.5 mg Tablet PO (22:24)
[2023-08-31 22:26] VITALS: BP 188/94
== END 2023-08-31 22:29 | disposition home or self-care (01) ==
PROVIDERS: Emergency Provider Internal Medicine; PCP Family Medicine
DX: F03.90 Unspecified dementia, unspecified severity, without behavioral disturbance, psychotic disturbance, mood disturbance, and anxiety (principal); Z87.891 Personal history of nicotine dependence
CPT/HCPCS: 36415; 70450; 71045; 80053; 85025; 85610; 85730; 93005; 99285

== ENCOUNTER 2023-09-14 18:39 | Emergency (ER) | payer MEDICARE, SELFPAY ==
[2023-09-14 18:41] VITALS: BP 173/125; PULSE 98; RESP 27; TEMP 36.6; O2SAT 93
--- NOTE | 2023-09-14 18:45 | ED_ITS ---
Documented by User: Gregg Redd MD 09/17/23 23:49 HPI - Altered Mental Status 2 General: Chief Complaint: Neuro Symptoms/Deficit Stated Complaint: LEFT FACIAL DROOP Time Seen by Provider: 09/14/23 18:45 History of Present Illness: 78-year-old female presents emergency de partment via EMS for complaints of left- sided facial droop. 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 Patient states that the patient complains of a headache as well as a vague abdominal pain. Patient's states she also has had a headache and this is the similar headache that she has had for many previous presentations with similar complaints. The patient has been diagnosed with advancing dementia. Her NIH stroke scale was 1. Review of Systems 2 General: Reports: 10 or more systems reviewed and unremarkable except in HPI and below Neuro: Reports: headache(s) and other (Existing left-sided facial droop) [facility] ED 2 PFSH: Medical History Frequent falls Gastroesophageal reflux disease Osteoporosis Surgical History H/O bilateral hip replacements Social History Smoking and tobacco/nicotine status: former use of tobacco/nicotine Alcohol intake: never Substance/Drug Use: never Physical Exam 2 Narrative: Constitutional: the patient appears well nourished and with normal development. Vital signs reviewed as documented. HENMT: Normocephalic, atraumatic. Extermal ears with normal appearance without drainage. Nose without drainage, normal appearance. Mucus membranes moist. Neck is supple, No jugular venous distension, trachea is midline, no appreciable carotid bruits. No lymphadenopathy. No meningeal signs. Flexion, extension and lateral rotation is without pain. Eyes: Pupils are equal, round, reactive to light and accommodation. No scleral icterus. Extra-ocular movement are intact. Thorax is symmetrical and with equal rise and fall with respirations. Resp: Lungs are clear to auscultation. No wheezes, rales, crackles or ronchi at present. Cardio: Regular rate and rhythm. Positive S1, S2. No appreciable murmurs, rubs or gallops. GI: Abdominal exam reveals normal bowel sounds to all quadrants. No organomegaly. No obvious palpable masses noted. No hepatomegally appreciated. Soft, nontender to palpation. Extremity: Extremities are non-edematous and both femoral and pedal pulses are 2+ and equal bilaterally. Moves all extremities well, sensation in all extremities. Neuro: Alert and oriented x, person, place, and situation. Cranial nerves II through XII are grossly intact, there is no focal neurological deficits that I can appreciate at present. Left-sided facial droop noted from previous exams and has currently been unchanged Motor strength in the upper and lower extremities are equal and bilateral 5/5. Psych: Cooperative, calm, normal thought process, appropriate judgment. Skin: No lesions, rashes. No gross abnormalities noted. Back: Symmetrical, no obvious deformity, No CVA tenderness Course 2 ED course: Checkout to Dr. Emery currently awaiting reevaluation of the patient. Vital Signs: Vital signs: Vital Signs Temperature 97.9 F 09/14/23 18:41 Pulse Rate 87 09/14/23 21:57 Respiratory Rate 14 09/14/23 21:57 Blood Pressure 120/103 09/14/23 21:57 Pulse Oximetry 96 09/14/23 21:57 Oxygen Delivery Me thod Room Air 09/14/23 21:57 MDM - Altered Mental Status Medical Decision Making Physical exam completed and documented, I will obtain laboratory evaluation to include a CBC and CMP. Medical Records I reviewed the patient's medical records. Lab Data I reviewed the patient's lab results. 09/14/23 18:25 09/14/23 18:25 Laboratory Results WBC 8.99 10^3/uL (3.29-11.43) 09/14/23 18:25 RBC 4.15 10^6/uL (3.85-5.65) 09/14/23 18:25 Hgb 10.80 g/dL (11.27-16.99) L 09/14/23 18:25 Hct 35.3 % (36-47) L 09/14/23 18:25 MCV 85.1 fl (85-98) 09/14/23 18: MCH 26.0 pg (27-33) L 09/14/23 18: MCHC 30.6 g/dL (30-55) 09/14/23 18:25 RDW 15.5 % (12.1-15.1) H 09/14/23 18:25 Plt Count 261 10^3/cmm (157-399) 09/14/23 18:25 MPV 10.1 fL (7.4-10.4) 09/14/23 18:25 Neut % (Auto) 73.6 % 09/14/23 18:25 Lymph % (Auto) 18.0 % 09/14/23 18:25 [place] % (Auto) 7.3 % 09/14/23 18:25 Eos % (Auto) 0.7 % 09/14/23 18:25 Baso % (Auto) 0.2 % 09/14/23 18:25 Neut # (Auto) 6.61 10^3/uL (1.8-7.7) 09/14/23 18:25 Lymph # (Auto) 1.6 10^3/uL (0.8-4.8) 09/14/23 18:25 [place] # (Auto) 0.7 10^3/uL (0.2-0.9) 09/14/23 18:25 Eos # (Auto) 0.1 10^3/uL (0.0-0.8) 09/14/23 18:25 Baso # (Auto) 0.0 10^3/uL (0.0-0.1) 09/14/23 18:25 Nucleated RBC % (auto) 0 % 09/14/23 18:25 Nucleated RBCs # 0.0 /100WBC 09/14/23 18:25 PT 13.80 SECONDS (12.1-14.9) 09/14/23 18:25 INR 1.03 (0.8-1.2) 09/14/23 18:25 APTT 27.6 SECONDS (23.9-36.7) 09/14/23 18:25 Sodium 142 mmol/L (136-145) 09/14/23 18:25 Potassium 4.2 mmol/L (3.5-5.1) 09/14/23 18:25 Chloride 106 mmol/L (98-107) 09/14/23 18:25 Carbon Dioxide 23 mmol/L (22-29) 09/14/23 18:25 Anion Gap 17.2 (5-19) 09/14/23 18:25 BUN 22 mg/dL (8-23) 09/14/23 18:25 Creatinine 0.8 mg/dL (0.5-0.9) 09/14/23 18:25 GFR Calculation Not Reportable 09/14/23 18:25 Glucose 103 mg/dL (65-115) 09/14/23 18:25 POC Glucose 124 mg/dL (70-110) H 09/14/23 18:51 Calculated Osmolality 298 mOsm/kg (285-295) H 09/14/23 18:25 Calcium 9.7 mg/dL (8.5-10.5) 09/14/23 18:25 Total Bilirubin 0.2 mg/dL (0.15-1.2) 09/14/23 18:25 AST 16 U/L (0-32) 09/14/23 18:25 ALT 6 U/L (0-33) 09/14/23 18:25 Alkaline Phosphatase 87 U/L (35-105) 09/14/23 18:25 Total Protein 7.3 g/dL (6.6-8.7) 09/14/23 18:25 Albumin 4.1 g/dL (3.5-5.2) 09/14/23 18:25 Globulin 3.2 g/dL (1.3-4.6) 09/14/23 18:25 Urine Color Yellow (Yellow) 09/14/23 21:38 Urine Appearance Cloudy (CLEAR) A 09/14/23 21:38 Urine pH 7 (5-7) 09/14/23 21:38 Ur Specific [place] 1.010 (1.005-1.030) 09/14/23 21:38 Urine Protein Neg (Negative) 09/14/23 21:38 Urine Glucose (UA) Norm (Normal) 09/14/23 21:38 Urine Ketones 1+ (Negative) H 09/14/23 21:38 Urine Blood 3+ (Negative) H 09/14/23 21:38 Urine Nitrate Positive (Negative) H 09/14/23 21:38 Urine Bilirubin Neg (Negative) 09/14/23 21:38 Urine Urobilinogen Neg mg/dL (Negative) 09/14/23 21:38 Ur Leukocyte Esterase Trace (Negative) H 09/14/23 21:38 Urine RBC 0-4 /hpf (0-2) H 09/14/23 21:38 Urine WBC 0-4 /hpf (0-5) H 09/14/23 21:38 Ur Squamous Epith Cells Rare /hpf (0-5) 09/14/23 21:38 Amorphous Sediment 4+ /hpf 09/14/23 21:38 Urine Bacteria 4+ /hpf (NONE) H 09/14/23 21:38 Urine Opiates Screen Negative ng/mL (Negative) 09/14/23 21:38 Ur Barbiturates Screen Negative ng/mL (Negative) 09/14/23 21:38 Ur Phencyclidine Scrn Negative ng/mL (Negative) 09/14/23 21:38 Ur Amphetamines Screen Negative ng/mL (Negative) 09/14/23 21:38 U Benzodiazepines Scrn Negative ng/mL (Negative) 09/14/23 21:38 Urine Cocaine Screen Negative ng/mL (Negative) 09/14/23 21:38 U Marijuana (THC) Screen Negative ng/mL (Negative) 09/14/23 21:38 Ethyl Alcohol < 10 mg/dL (0-10) 09/14/23 18:25 All radiology interpretation(s) finalized by discharge Discharge Plan Discharge Patient Disposition: Home Clinical Impression: Abdominal pain in female Condition: Stable Prescriptions: No Action latanoprost 0.005 % drops 1 drp ophthalmic (eye) BEDTIME@19 Qty: 2.5 3RF tolterodine 2 mg capsule,extended release 24hr See Rx Instructions .ROUTE .COMPLEX Qty: 90 1RF Dose Instruction: TAKE 1 CAPSULE BY MOUTH ONCE DAILY DAILY AT 8:00AM FOR OVERACTIVE BLADDER Rx Instructions: TAKE 1 CAPSULE BY MOUTH ONCE DAILY DAILY AT 8:00AM FOR OVERACTIVE BLADDER acetaminophen [Tylenol 8 Hour] 650 mg Tablet Extended Release 650 mg PO Q4H PRN (Reason: pain/fever) diphenhydramine HCl 25 mg Capsule 25 mg PO BEDTIME@19 Tussin DM 10-100 mg/5 mL liquid 10 ml PO Q4H PRN (Reason: Cough) tramadol 50 mg tablet 50 mg PO Q6H PRN (Reason: Pain) Artificial Tears (cmc) 1 % Drops 1 drp OPHTHALMIC (EYE) QID furosemide 40 mg tablet 40 mg PO DAILY@08 PRN (Reason: edema) 30 Days Qty: 30 0RF amlodipine 10 mg tablet 10 mg PO DAILY Qty: 30 0RF potassium chloride 10 mEq tablet extended release 10 meq PO DAILY@08 omeprazole 20 mg capsule,delayed release(DR/EC) 20 mg PO DAILY@08 polyethylene glycol 3350 [Gavilax] 17 gram/dose Powder 17 g PO DAILY@08 Rx Instructions: with 8 oz of water or juice [place] Chew 1 tab PO .Q4-6H PRN (Reason: unknown) cyanocobalamin (vitamin B-12) [Vitamin B-12] 1,000 mcg Tablet Extended Release 1,000 mcg PO DAILY@08 gabapentin 600 mg tablet 600 mg PO BID@08,19 ascorbic acid (vitamin C) [Vitamin C] 500 mg Tablet 500 mg PO DAILY@08 calcium carbonate [Tums] 200 mg calcium (500 mg) Tablet,Chewable 1,000 mg PO BID PRN (Reason: Heartburn) cholecalciferol (vitamin D3) [Vitamin D3] 10 mcg (400 unit) Tablet 10 mcg PO DAILY@08 turmeric root extract 500 mg Capsule 500 mg PO DAILY@08 magnesium citrate 100 mg Tablet 100 mg PO DAILY@08 Cough Drops 7.5 mg Lozenge See Rx Instructions .ROUTE .COMPLEX Rx Instructions: dissolve 1 lozenge every 2 hours as needed for cough or sore throat *may keep at bedside* biotin 1,000 mcg Tablet,Chewable 1,000 mcg PO DAILY@08 Discharge Orders: Discharge ED (Routine); Ordered 09/14/23 Ordered By: John Emery Referrals: Eduardo Jimenez [Primary Care Provider] - Discharge Diet: Advance as tolerated Discharge Activity: Resume usual activity Patient Instructions: Abdominal Pain (ED), Opioid Safety, Pain Management Activity Restrictions/Additional Instructions: Return for fever greater than 100, vomiting liquids or medications, other concerning symptoms. Coding Level of Care Code ED Zinc Plate Grainer for Chg Fwd Documented by User: John Emery DO 09/15/23 00:22 HPI - Altered Mental Status 2 General: Chief Complaint: Neuro Symptoms/Deficit Stated Complaint: LEFT FACIAL DROOP Time Seen by Provider: 09/14/23 18:45 [facility] ED 2 PFSH: Medical History Frequent falls Gastroesophageal reflux disease Osteoporosis Surgical History H/O bilateral hip replacements Social History Smoking and tobacco/nicotine status: former use of tobacco/nicotine Alcohol intake: never Substance/Drug Use: never Course 2 Vital Signs: Vital signs: Vital Signs Temperature 97.9 F 09/14/23 18:41 Pulse Rate 87 09/14/23 21:57 Respiratory Rate 14 09/14/23 21:57 Blood Pressure 120/103 09/14/23 21:57 Pulse Oximetry 96 09/14/23 21:57 Oxygen Delivery Me thod Room Air 09/14/23 21:57 MDM - Altered Mental Status Medical Decision Making Physical exam completed and documented, I will obtain laboratory evaluation to include a CBC and CMP. 78-year-old female checked out to me by Dr. Redd at shift change. This lady comes to the hospital with a facial droop that is chronic. She has no other signs of stroke. Her NIH scale is 1. She complains of chronic headache and abdominal pain, for which she was given morphine and Zofran here. This is improved. She is nontachycardic. Afebrile. Blood pressure 120 systolic. Her hemoglobin is 11 which is stable for her. White blood cell count is 9. CMP is not remarkable. Urinalysis is not remarkable. Creatinine is 0.8. With stable laboratory, afebrile status, and chronic complaints, [facility] Lab Data 09/14/23 18:25 09/14/23 18:25 Laboratory Results WBC 8.99 10^3/uL (3.29-11.43) 09/14/23 18:25 RBC 4.15 10^6/uL (3.85-5.65) 09/14/23 18:25 Hgb 10.80 g/dL (11.27-16.99) L 09/14/23 18:25 Hct 35.3 % (36-47) L 09/14/23 18:25 MCV 85.1 fl (85-98) 09/14/23 18:25 MCH 26.0 pg (27-33) L 09/14/23 18:25 MCHC 30.6 g/dL (30-55) 09/14/23 18:25 RDW 15.5 % (12.1-15.1) H 09/14/23 18:25 Plt Count 261 10^3/cmm (157-399) 09/14/23 18:25 MPV 10.1 fL (7.4-10.4) 09/14/23 18:25 Neut % (Auto) 73.6 % 09/14/23 18:25 Lymph % (Auto) 18.0 % 09/14/23 18:25 [place] % (Auto) 7.3 % 09/14/23 18:25 Eos % (Auto) 0.7 % 09/14/23 18:25 Baso % (Auto) 0.2 % 09/14/23 18:25 Neut # (Auto) 6.61 10^3/uL (1.8-7.7) 09/14/23 18:25 Lymph # (Auto) 1.6 10^3/uL (0.8-4.8) 09/14/23 18:25 [place] # (Auto) 0.7 10^3/uL (0.2-0.9) 09/14/23 18:25 Eos # (Auto) 0.1 10^3/uL (0.0-0.8) 09/14/23 18:25 Baso # (Auto) 0.0 10^3/uL (0.0-0.1) 09/14/23 18:25 Nucleated RBC % (auto) 0 % 09/14/23 18: Nucleated RBCs # 0.0 /100WBC 09/14/23 18:25 PT 13.80 SECONDS (12.1-14.9) 09/14/23 18:25 INR 1.03 (0.8-1.2) 09/14/23 18:25 APTT 27.6 SECONDS (23.9-36.7) 09/14/23 18:25 Sodium 142 mmol/L (136-145) 09/14/23 18:25 Potassium 4.2 mmol/L (3.5-5.1) 09/14/23 18:25 Chloride 106 mmol/L (98-107) 09/14/23 18:25 Carbon Dioxide 23 mmol/L (22-29) 09/14/23 18:25 Anion Gap 17.2 (5-19) 09/14/23 18:25 BUN 22 mg/dL (8-23) 09/14/23 18:25 Creatinine 0.8 mg/dL (0.5-0.9) 09/14/23 18:25 GFR Calculation Not Reportable 09/14/23 18:25 Glucose 103 mg/dL (65-115) 09/14/23 18:25 POC Glucose 124 mg/dL (70-110) H 09/14/23 18:51 Calculated Osmolality 298 mOsm/kg (285-295) H 09/14/23 18:25 Calcium 9.7 mg/dL (8.5-10.5) 09/14/23 18:25 Total Bilirubin 0.2 mg/dL (0.15-1.2) 09/14/23 18:25 AST 16 U/L (0-32) 09/14/23 18:25 ALT 6 U/L (0-33) 09/14/23 18:25 Alkaline Phosphatase 87 U/L (35-105) 09/14/23 18:25 Total Protein 7.3 g/dL (6.6-8.7) 09/14/23 18:25 Albumin 4.1 g/dL (3.5-5.2) 09/14/23 18:25 Globulin 3.2 g/dL (1.3-4.6) 09/14/23 18:25 Urine Color Yellow (Yellow) 09/14/23 21:38 Urine Appearance Cloudy (CLEAR) A 09/14/23 21:38 Urine pH 7 (5-7) 09/14/23 21:38 Ur Specific [place] 1.010 (1.005-1.030) 09/14/23 21:38 Urine Protein Neg (Negative) 09/14/23 21:38 Urine Glucose (UA) Norm (Normal) 09/14/23 21:38 Urine Ketones 1+ (Negative) H 09/14/23 21:38 Urine Blood 3+ (Negative) H 09/14/23 21:38 Urine Nitrate Positive (Negative) H 09/14/23 21:38 Urine Bilirubin Neg (Negative) 09/14/23 21:38 Urine Urobilinogen Neg mg/dL (Negative) 09/14/23 21:38 Ur Leukocyte Esterase Trace (Negative) H 09/14/23 21:38 Urine RBC 0-4 /hpf (0-2) H 09/14/23 21:38 Urine WBC 0-4 /hpf (0-5) H 09/14/23 21:38 Ur Squamous Epith Cells Rare /hpf (0-5) 09/14/23 21:38 Amorphous Sediment 4+ /hpf 09/14/23 21:38 Urine Bacteria 4+ /hpf (NONE) H 09/14/23 21:38 Urine Opiates Screen Negative ng/mL (Negative) 09/14/23 21:38 Ur Barbiturates Screen Negative ng/mL (Negative) 09/14/23 21:38 Ur Phencyclidine Scrn Negative ng/mL (Negative) 09/14/23 21:38 Ur Amphetamines Screen Negative ng/mL (Negative) 09/14/23 21:38 U Benzodiazepines Scrn Negative ng/mL (Negative) 09/14/23 21:38 Urine Cocaine Screen Negative ng/mL (Negative) 09/14/23 21:38 U Marijuana (THC) Screen Negative ng/mL (Negative) 09/14/23 21:38 Ethyl Alcohol < 10 mg/dL (0-10) 09/14/23 18:25 Discharge Plan Discharge Patient Disposition: Home Clinical Impression: Abdominal pain in female Condition: Stable Prescriptions: No Action latanoprost 0.005 % drops 1 drp ophthalmic (eye) BEDTIME@19 Qty: 2.5 3RF tolterodine 2 mg capsule,extended release 24hr See Rx Instructions .ROUTE .COMPLEX Qty: 90 1RF Dose Instruction: TAKE 1 CAPSULE BY MOUTH ONCE DAILY DAILY AT 8:00AM FOR OVERACTIVE BLADDER Rx Instructions: TAKE 1 CAPSULE BY MOUTH ONCE DAILY DAILY AT 8:00AM FOR OVERACTIVE BLADDER acetaminophen [Tylenol 8 Hour] 650 mg Tablet Extended Release 650 mg PO Q4H PRN (Reason: pain/fever) diphenhydramine HCl 25 mg Capsule 25 mg PO BEDTIME@19 Tussin DM 10-100 mg/5 mL liquid 10 ml PO Q4H PRN (Reason: Cough) tramadol 50 mg tablet 50 mg PO Q6H PRN (Reason: Pain) Artificial Tears (cmc) 1 % Drops 1 drp OPHTHALMIC (EYE) QID furosemide 40 mg tablet 40 mg PO DAILY@08 PRN (Reason: edema) 30 Days Qty: 30 0RF amlodipine 10 mg tablet 10 mg PO DAILY Qty: 30 0RF potassium chloride 10 mEq tablet extended release 10 meq PO DAILY@08 omeprazole 20 mg capsule,delayed release(DR/EC) 20 mg PO DAILY@08 polyethylene glycol 3350 [Gavilax] 17 gram/dose Powder 17 g PO DAILY@08 Rx Instructions: with 8 oz of water or juice [place] Chew 1 tab PO .Q4-6H PRN (Reason: unknown) cyanocobalamin (vitamin B-12) [Vitamin B-12] 1,000 mcg Tablet Extended Release 1,000 mcg PO DAILY@08 gabapentin 600 mg tablet 600 mg PO BID@08,19 ascorbic acid (vitamin C) [Vitamin C] 500 mg Tablet 500 mg PO DAILY@08 calcium carbonate [Tums] 200 mg calcium (500 mg) Tablet,Chewable 1,000 mg PO BID PRN (Reason: Heartburn) cholecalciferol (vitamin D3) [Vitamin D3] 10 mcg (400 unit) Tablet 10 mcg PO DAILY@08 turmeric root extract 500 mg Capsule 500 mg PO DAILY@08 magnesium citrate 100 mg Tablet 100 mg PO DAILY@08 Cough Drops 7.5 mg Lozenge See Rx Instructions .ROUTE .COMPLEX Rx Instructions: dissolve 1 lozenge every 2 hours as needed for cough or sore throat *may keep at bedside* biotin 1,000 mcg Tablet,Chewable 1,000 mcg PO DAILY@08 Discharge Orders: Discharge ED (Routine); Ordered 09/14/23 Ordered By: John Emery Referrals: Eduardo Jimenez [Primary Care Provider] - Discharge Diet: Advance as tolerated Discharge Activity: Resume usual activity Patient Instructions: Abdominal Pain (ED), Opioid Safety, Pain Management Activity Restrictions/Additional Instructions: Return for fever greater than 100, vomiting liquids or medications, other concerning symptoms. Coding Level of Care Code ED Zinc Plate Grainer for Monica [place]
[2023-09-14 18:54] LABS: Glucose Point of Care 124 mg/dL (70-110)
[2023-09-14 19:00] LABS: Basophils % 0.2 %; Eosinophils # 0.1 10^3/uL (0.0-0.8); Eosinophils % 0.7 %; Hematocrit 35.3 % (36-47); Lymphocytes # 1.6 10^3/uL (0.8-4.8); Mean Corpuscular HGB Conc 30.6 g/dL (30-55); Mean Corpuscular Volume 85.1 fl (85-98); Mean Platelet Volume 10.1 fL (7.4-10.4); Monocytes # 0.7 10^3/uL (0.2-0.9); Monocytes % 7.3 %; Neutrophils # 6.61 10^3/uL (1.8-7.7); Neutrophils % 73.6 %; Nucleated Red Blood Cells % 0 %; Platelet Count 261 10^3/cmm (157-399); Red Blood Count 4.15 10^6/uL (3.85-5.65); Red Cell Distribution Width 15.5 % (12.1-15.1); White Blood Count 8.99 10^3/uL (3.29-11.43)
[2023-09-14 19:06] VITALS: BP 141/96; PULSE 90; RESP 20; O2SAT 94
[2023-09-14 19:18] LABS: INR 1.03 (0.8-1.2)
[2023-09-14 19:19] LABS: Partial Thromboplastin Time 27.6 SECONDS (23.9-36.7)
[2023-09-14 19:27] LABS: Alanine Aminotransferase 6 U/L (0-33); Albumin Level 4.1 g/dL (3.5-5.2); Alkaline Phosphatase 87 U/L (35-105); Anion Gap 17.2 (5-19); Aspartate Amino Transferase 16 U/L (0-32); Blood Urea Nitrogen 22 mg/dL (8-23); Calcium 9.7 mg/dL (8.5-10.5); Carbon Dioxide 23 mmol/L (22-29); Chloride 106 mmol/L (98-107); Globulin 3.2 g/dL (1.3-4.6); Glucose 103 mg/dL (65-115); Osmolality Calculated 298 mOsm/kg (285-295); Potassium 4.2 mmol/L (3.5-5.1); Sodium 142 mmol/L (136-145); Total Bilirubin 0.2 mg/dL (0.15-1.2); Total Protein 7.3 g/dL (6.6-8.7)
[2023-09-14 19:28] LABS: Alcohol Level < 10 mg/dL (0-10)
--- NOTE | 2023-09-14 19:41 | ECG_ITS ---
[facility] Test Date: 2023-09-14 Pat Name: Trini Jeter Department: Room: Gender: Female Lead Painter: : 1945 Requested By: Gregg Redd Order Number: [id number] Judith MD: Roxie Mcmanus M.D. Measurements Intervals [place] Rate: 87 P: 39 DE: 176 QRS: -5 QRSD: 91 T: 60 QT: 365 QTc: 440 Interpretive Statements SINUS RHYTHM POSSIBLE LEFT ATRIAL ENLARGEMENT [-0.1mV P-WAVE IN V1/V2] INFERIOR MYOCARDIAL INFARCTION , PROBABLY OLD [40+ ms Q WAVE AND/OR ST/T ABNORMALITY IN II/aVF] ANTEROSEPTAL MYOCARDIAL INFARCTION , OF INDETERMINATE AGE [40+ ms Q WAVE IN V1-V4] Compared to ECG 08/31/2023 19:08:04 No significant changes Electronically Signed On 09-14-2023 21:25:34 SAMPLE MOUNTER by Roxie Mcmanus M.D. [id number]
[2023-09-14 20:55] VITALS: PULSE 96; O2SAT 90
[2023-09-14 21:17] VITALS: RESP 16; O2SAT 92
[2023-09-14] MEDS: morphine 4 mg/mL SDV 1 mL IVP (21:17)
[2023-09-14] MEDS: ondansetron 2 mg/ML SDV 2 mL 4 MG IVP (21:17)
[2023-09-14 21:52] LABS: Add Urine Culture? Yes; Add Urine Microscopic? YES; Amorphous Sediment Urine 4+ /hpf; Bacteria Urine 4+ /hpf; Bilirubin Urine Neg (Negative); Blood Urine 3+ (Negative); Glucose Urine UA Norm (Normal); Ketones Urine 1+ (Negative); Leukocyte Esterase Urine Trace (Negative); Nitrate Urine Positive (Negative); Protein Urine Neg (Negative); RBC Urine 0-4 /hpf (0-2); Squamous Epithelial Cell Urine RARE /hpf (0-5); Urine Appearance Cloudy (CLEAR); Urine Color Yellow (Yellow); Urobilinogen Urine Neg (Negative); WBC Urine 0-4 /hpf (0-5); pH Urine 7 (5-7)
[2023-09-14 21:54] LABS: Amphetamines Screen Urine Negative (Negative); Barbiturates Screen Urine Negative (Negative); Benzodiazepines Screen Urine Negative (Negative); Cocaine Screen Urine Negative (Negative); Opiate Screen Urine Negative (Negative); PCP Screen Urine Negative (Negative); THC Screen Urine Negative (Negative)
[2023-09-14 21:57] VITALS: BP 120/103; PULSE 87; RESP 14; O2SAT 96
--- NOTE | 2023-09-14 23:03 | PC.NURSE ---
this nurse spoke with [facility] at approx 2200.
== END 2023-09-14 23:25 | disposition home or self-care (01) ==
PROVIDERS: Internal Medicine; Emergency Provider Emergency Medicine; PCP Family Medicine
DX: R10.9 Unspecified abdominal pain (principal); Z87.891 Personal history of nicotine dependence
CPT/HCPCS: 36416; 80053; 80306; 80307; 81001; 82962; 85025; 85610; 85730; 87086; 93005; 96374; 96375; 99285; J2270; J2405

== ENCOUNTER 2023-11-21 11:20 | Outpatient (CLI) | payer MEDICARE, SELFPAY ==
[2023-11-21 11:38] LABS: Add Urine Culture? No; Add Urine Microscopic? YES; Bacteria Urine 4+ /hpf; Bilirubin Urine Neg (Negative); Blood Urine 2+ (Negative); Glucose Urine UA Norm (Normal); Ketones Urine Negative (Negative); Leukocyte Esterase Urine Negative (Negative); Nitrate Urine Positive (Negative); Protein Urine Neg (Negative); RBC Urine 0-4 /hpf (0-2); Specific Gravity, Urine 1.005 (1.005-1.030); Squamous Epithelial Cell Urine 0-4 /hpf (0-5); Urine Appearance SL Hazy (CLEAR); Urine Color Yellow (Yellow); Urobilinogen Urine Norm (Negative); WBC Urine 0-4 /hpf (0-5); pH Urine 7 (5-7)
== END 2023-11-21 11:21 | disposition home or self-care (01) ==
PROVIDERS: PCP Family Medicine; Visit Provider Family Medicine
DX: N39.0 Urinary tract infection, site not specified (principal)
CPT/HCPCS: 81001; 87086

== ENCOUNTER 2024-01-01 10:12 | Outpatient (CLI) | payer MEDICARE, SELFPAY ==
[2024-01-01 11:10] LABS: Add Urine Microscopic? YES; Bilirubin Urine Neg (Negative); Blood Urine Neg (Negative); Glucose Urine UA Norm (Normal); Ketones Urine Negative (Negative); Leukocyte Esterase Urine Negative (Negative); Nitrate Urine Negative (Negative); Protein Urine Neg (Negative); Specific Gravity, Urine 1.015 (1.005-1.030); Urine Appearance SL Hazy (CLEAR); Urine Color Yellow (Yellow); Urobilinogen Urine Norm (Negative); pH Urine 5 (5-7)
[2024-01-01 11:13] LABS: Add Urine Culture? No; Bacteria Urine TRACE /hpf; Calcium Oxalate Crystals Urine 40-55 /hpf; Mucus Urine 2+ /hpf; RBC Urine 0-4 /hpf (0-2); Transitional Epi Cells Urine 0-4 /hpf; WBC Urine 0-4 /hpf (0-5)
== END 2024-01-01 10:13 | disposition home or self-care (01) ==
LOC: LAB 10:13
PROVIDERS: PCP Family Medicine; Visit Provider Family Medicine
DX: N39.0 Urinary tract infection, site not specified (principal)
CPT/HCPCS: 81001

== ENCOUNTER 2024-03-03 17:18 | Emergency (ER) | payer MEDICARE, SELFPAY ==
--- NOTE | 2024-03-03 17:29 | ECG_ITS ---
[facility] Test Date: 2024-03-03 Pat Name: Trini Jeter Department: Room: Gender: Female Survey Project Manager: : 1945 Requested By: Aj Vizcarra Order Number: [id number] Judith MD: Keegan Yung M.D. Measurements Intervals [place] Rate: 78 P: 46 [place]: 169 QRS: -17 QRSD: 85 T: 76 QT: 370 QTc: 423 Interpretive Statements SINUS RHYTHM POSSIBLE ANTERIOR MYOCARDIAL INFARCTION , OF INDETERMINATE AGE [30 ms Q WAVE IN V3/V4, OR R < 0.2 mV IN V4] Compared to ECG 09/14/2023 19:41:39 No significant changes Electronically Signed On 03-03-2024 18:14:28 CDT by Keegan Yung M.D. [id number] f
--- NOTE | 2024-03-03 17:31 | XRR_ITS ---
PROCEDURE INFORMATION: Exam: XR Chest Exam date and time: 03/03/2024 5:42 PM Age: 78 years old Clinical indication: Pain; Chest pressure; Additional info: HTN TECHNIQUE: Imaging protocol: Radiologic exam of the chest. Views: 1 view. COMPARISON: CR (CHEST, ) 08/31/2023 7:13 PM FINDINGS: Lungs: Unremarkable. No consolidation. Pleural spaces: Unremarkable. No pleural effusion. No pneumothorax. Heart/Mediastinum: No cardiomegaly. Large hiatal hernia. Bones/joints: Unremarkable. XR/XR chest 1V portable [id number] IMPRESSION: 1. No acute findings. 2. Large hiatal hernia.
--- NOTE | 2024-03-03 17:31 | CTR_ITS ---
PROCEDURE INFORMATION: Exam: CT Head Without Contrast Exam date and time: 03/03/2024 6:08 PM Age: 78 years old Clinical indication: Pain; Headache; Additional info: MONTES TECHNIQUE: Imaging protocol: Computed tomography of the head without contrast. Radiation optimization: All CT scans at this facility use at least one of these dose optimization techniques: automated exposure control; mA and/or kV adjustment per patient size (includes targeted exams where dose is matched to clinical indication); or iterative reconstruction. COMPARISON: CT head thrombolytic [id number] 08/31/2023 6:46 PM RADIATION DOSE METRICS: Total DLP (mGy-cm): 3349 FINDINGS: Brain: No hemorrhage. No edema. Mild diffuse cerebral atrophy and sequela of chronic small vessel ischemic disease. No mass effect. Cerebral ventricles: No ventriculomegaly. Paranasal sinuses: Visualized sinuses are unremarkable. No fluid levels. Mastoid air cells: Visualized mastoid air cells are well aerated. Bones: Unremarkable. No acute fracture. Soft tissues: Unremarkable. CT/CT head wo con* [id number] IMPRESSION: No acute intracranial abnormality.
[2024-03-03 17:40] VITALS: BP 190/103; PULSE 76; RESP 14; TEMP 36.3; O2SAT 93
--- NOTE | 2024-03-03 17:43 | ED_ITS ---
HPI - General Adult 2 General: Chief complaint: General Medical Stated complaint: HTN, Weakness, AMS Time Seen by Provider: 03/03/24 17:20 Source: patient and EMS Mode of arrival: EMS Limitations: no limitations History of Present Illness: 78-year-old female sent here from [facility] due to hypertension her blood pressure been running in the upper 100s there and she complains of a slight headache she does have a mild headache here she had some confusion as well she able to tell me her name she knows where she lives but she does not know the date her friend is at bedside and states this is her baseline she is at her normal self currently and has confusion at baseline she has no focal deficits no slurred speech no weakness Associated symptoms: Reports headache(s); Deny chest pain, dyspnea, nausea, rash or vomiting Review of Systems 2 Const: Denies: fever(s), chills, body aches or change in appetite Eyes: Denies: blurry vision ENMT: Denies: throat pain or dental pain Card: Denies: chest pain Resp: Denies: dyspnea GI: Denies: abdominal pain, nausea, vomiting or diarrhea : Denies: dysuria Musc: Denies: neck pain or back pain Skin/Breast: Denies: rash Neuro: Reports: headache(s) PFSH ED 2 PFSH: Medical History Frequent falls Gastroesophageal reflux disease Osteoporosis Surgical History H/O bilateral hip replacements Social History Smoking and tobacco/nicotine status: former use of tobacco/nicotine Alcohol intake: never Substance/Drug Use: never Physical Exam 2 Const: COMMON NORMALS: no acute distress, healthy appearing and alert O RIENTATION/CONSCIOUSNESS: Yes oriented to person and Yes oriented to place; not oriented to time HENMT: COMMON NORMALS: normocephalic and atraumatic HEAD & SCALP: n ormocephalic and atraumatic Eye: COMMON NORMALS: Equal, round and reactive pupils present and EOMs intact bilaterally PUPIL: Yes Equal, round and reactive pupils present Neck/C-Spine: COMMON NORMALS: full ROM and supple Chest: COMMONS NORMALS: normal inspection of the chest and normal palpation of entire chest wall Resp: COMMON NORMALS: normal respiratory effort, No retractions, No use of accessory muscles and clear to auscultation bilaterally AUSCULTATION: clear to auscultation bilaterally Cardio: COMMON NORMALS: regular rate, regular rhythm and No murmurs present (Cardio) RATE: regular rate RHYTHM: regular rhythm GI: COMMON NORMALS: Normal to inspection, nondistended, normoactive bowel sounds present, Soft to palpation, non-tender and no masses PALPATION: Yes Soft to palpation Extremity: COMMON NORMALS: normal to inspection and full ROM Neuro: COMMON NORMALS: moves all extremities and no focal motor deficits S ENSORIUM/ORIENTATION: Yes alert, Yes oriented to person, Yes oriented to place and No oriented to time Psych: COMMON NORMALS: mental status grossly normal, Normal thought process present and cooperative THOUGHT PROCESS: Normal thought process present Skin: COMMON NORMALS: no rashes or lesions noted and no wounds GENERAL SKIN EXAM: no rashes or lesions noted Course 2 Vital Signs: Vital signs: Vital Signs Temperature 97.4 F L 03/03/24 17:40 Pulse Rate 74 03/03/24 18:30 Respiratory Rate 14 03/03/24 17:40 Blood Pressure 155/99 03/03/24 18:13 Pulse Oximetry 95 03/03/24 18:30 Oxygen Delivery Me thod Room Air 03/03/24 18:30 [facility] - General Adult Medical Decision Making Patient presents here with headache along with some hypertension she feels much improved here blood pressure is improved head CT is normal she is at her baseline here no focal deficits she is stable for discharge back to assisted living. Medical Records I reviewed the patient's medical records. Lab Data I reviewed the patient's lab results. 03/03/24 17:03 03/03/24 17:03 Radiology Impressions Chest X-Ray 03/03/24 17:31 IMPRESSION: 1. No acute findings. 2. Large hiatal hernia. Head CT 03/03/24 17:31 IMPRESSION: No acute intracranial abnormality. Laboratory Results WBC 11.38 10^3/uL (3.29-11.43) 03/03/24 17:03 RBC 4.77 10^6/uL (3.85-5.65) 03/03/24 17:03 Hgb 13.00 g/dL (11.27-16.99) 03/03/24 17:03 Hct 41.3 % (36-47) 03/03/24 17:03 MCV 86.6 fl (85-98) 03/03/24 17:03 MCH 27.3 pg (27-33) 03/03/24 17:03 MCHC 31.5 g/dL (30-55) 03/03/24 17:03 RDW 15.4 % (12.1-15.1) H 03/03/24 17:03 Plt Count 183 10^3/cmm (157-399) 03/03/24 17:03 MPV 10.5 fL (7.4-10.4) H 03/03/24 17:03 Neut % (Auto) 85.7 % 03/03/24 17:03 Lymph % (Auto) 8.0 % 03/03/24 17:03 Quay % (Auto) 5.6 % 03/03/24 17:03 Eos % (Auto) 0.0 % 03/03/24 17:03 Baso % (Auto) 0.3 % 03/03/24 17:03 Neut # (Auto) 9.75 10^3/uL (1.8-7.7) H 03/03/24 17:03 Lymph # (Auto) 0.9 10^3/uL (0.8-4.8) 03/03/24 17:03 Quay # (Auto) 0.6 10^3/uL (0.2-0.9) 03/03/24 17:03 Eos # (Auto) 0.0 10^3/uL (0.0-0.8) 03/03/24 17:03 Baso # (Auto) 0.0 10^3/uL (0.0-0.1) 03/03/24 17:03 Nucleated RBC % (auto) 0 % 03/03/24 17:03 Nucleated RBCs # 0.0 /100WBC 03/03/24 17:03 Sodium 138 mmol/L (136-145) 03/03/24 17:03 Potassium 4.1 mmol/L (3.5-5.1) 03/03/24 17:03 Chloride 102 mmol/L (98-107) 03/03/24 17:03 Carbon Dioxide 24 mmol/L (22-29) 03/03/24 17:03 Anion Gap 16.1 (5-19) 03/03/24 17:03 BUN 13 mg/dL (8-23) 03/03/24 17:03 Creatinine 0.5 mg/dL (0.5-0.9) 03/03/24 17:03 GFR Calculation Not Reportable 03/03/24 17:03 Glucose 134 mg/dL (65-115) H 03/03/24 17:03 Calculated Osmolality 288 mOsm/kg (285-295) 03/03/24 17:03 Calcium 9.6 mg/dL (8.5-10.5) 03/03/24 17:03 Total Bilirubin 0.3 mg/dL (0.15-1.2) 03/03/24 17:03 AST 13 U/L (0-32) 03/03/24 17:03 ALT 6 U/L (0-33) 03/03/24 17:03 Alkaline Phosphatase 108 U/L (35-105) H 03/03/24 17:03 Total Protein 7.9 g/dL (6.6-8.7) 03/03/24 17:03 Albumin 4.4 g/dL (3.5-5.2) 03/03/24 17:03 Globulin 3.5 g/dL (1.3-4.6) 03/03/24 17:03 All radiology interpretation(s) finalized by discharge Discharge Plan Discharge Patient Disposition: Home Clinical Impression: Hypertension, Headache Condition: Stable Prescriptions: No Action latanoprost 0.005 % drops 1 drp ophthalmic (eye) BEDTIME@19 Qty: 2.5 3RF tolterodine 2 mg capsule,extended release 24hr See Rx Instructions .ROUTE .COMPLEX Qty: 90 1RF Dose Instruction: TAKE 1 CAPSULE BY MOUTH ONCE DAILY DAILY AT 8:00AM FOR OVERACTIVE BLADDER Rx Instructions: TAKE 1 CAPSULE BY MOUTH ONCE DAILY DAILY AT 8:00AM FOR OVERACTIVE BLADDER acetaminophen [Tylenol 8 Hour] 650 mg Tablet Extended Release 650 mg PO Q4H PRN (Reason: pain/fever) diphenhydramine HCl 25 mg Capsule 25 mg PO BEDTIME@19 Tussin DM 10-100 mg/5 mL liquid 10 ml PO Q4H PRN (Reason: Cough) tramadol 50 mg tablet 50 mg PO Q6H PRN (Reason: Pain) Artificial Tears (cmc) 1 % Drops 1 drp OPHTHALMIC (EYE) QID furosemide 40 mg tablet 40 mg PO DAILY@08 PRN (Reason: edema) 30 Days Qty: 30 0RF amlodipine 10 mg tablet 10 mg PO DAILY Qty: 30 0RF potassium chloride 10 mEq tablet extended release 10 meq PO DAILY@08 omeprazole 20 mg capsule,delayed release(DR/EC) 20 mg PO DAILY@08 polyethylene glycol 3350 [Gavilax] 17 gram/dose Powder 17 g PO DAILY@08 Rx Instructions: with 8 oz of water or juice [facility] Chew 1 tab PO .Q4-6H PRN (Reason: unknown) cyanocobalamin (vitamin B-12) [Vitamin B-12] 1,000 mcg Tablet Extended Release 1,000 mcg PO DAILY@08 gabapentin 600 mg tablet 600 mg PO BID@08,19 ascorbic acid (vitamin C) [Vitamin C] 500 mg Tablet 500 mg PO DAILY@08 calcium carbonate [Tums] 200 mg calcium (500 mg) Tablet,Chewable 1,000 mg PO BID PRN (Reason: Heartburn) cholecalciferol (vitamin D3) [Vitamin D3] 10 mcg (400 unit) Tablet 10 mcg PO DAILY@08 turmeric root extract 500 mg Capsule 500 mg PO DAILY@08 magnesium citrate 100 mg Tablet 100 mg PO DAILY@08 Cough Drops 7.5 mg Lozenge See Rx Instructions .ROUTE .COMPLEX Rx Instructions: dissolve 1 lozenge every 2 hours as needed for cough or sore throat *may keep at bedside* biotin 1,000 mcg Tablet,Chewable 1,000 mcg PO DAILY@08 Discharge Orders: Discharge ED (Routine); Ordered 03/03/24 Ordered By: Aj Vizcarra Referrals: Edurado Jimenez [Primary Care Provider] - Discharge Diet: Advance as tolerated Discharge Activity: Resume usual activity Patient Instructions: Hypertension (ED) Coding Level of Care Code ED [facility] Work[facility] for Monica Toledo
[2024-03-03 17:48] LABS: Basophils % 0.3 %; Hematocrit 41.3 % (36-47); Lymphocytes # 0.9 10^3/uL (0.8-4.8); Mean Corpuscular HGB Conc 31.5 g/dL (30-55); Mean Corpuscular Hemoglobin 27.3 pg (27-33); Mean Corpuscular Volume 86.6 fl (85-98); Mean Platelet Volume 10.5 fL (7.4-10.4); Monocytes # 0.6 10^3/uL (0.2-0.9); Monocytes % 5.6 %; Neutrophils # 9.75 10^3/uL (1.8-7.7); Neutrophils % 85.7 %; Nucleated Red Blood Cells % 0 %; Platelet Count 183 10^3/cmm (157-399); Red Blood Count 4.77 10^6/uL (3.85-5.65); Red Cell Distribution Width 15.4 % (12.1-15.1); White Blood Count 11.38 10^3/uL (3.29-11.43)
[2024-03-03 18:11] LABS: Alanine Aminotransferase 6 U/L (0-33); Albumin Level 4.4 g/dL (3.5-5.2); Alkaline Phosphatase 108 U/L (35-105); Anion Gap 16.1 (5-19); Aspartate Amino Transferase 13 U/L (0-32); Blood Urea Nitrogen 13 mg/dL (8-23); Calcium 9.6 mg/dL (8.5-10.5); Carbon Dioxide 24 mmol/L (22-29); Chloride 102 mmol/L (98-107); Creatinine Clr Calc Pharmacy 35.7443; Globulin 3.5 g/dL (1.3-4.6); Glucose 134 mg/dL (65-115); Osmolality Calculated 288 mOsm/kg (285-295); Potassium 4.1 mmol/L (3.5-5.1); Sodium 138 mmol/L (136-145); Total Bilirubin 0.3 mg/dL (0.15-1.2); Total Protein 7.9 g/dL (6.6-8.7)
[2024-03-03 18:13] VITALS: BP 155/99; PULSE 71; O2SAT 94
[2024-03-03] MEDS: hyDRALAzine 20 mg/mL INJ 1 mL 10 MG IVP ×2 (18:23→19:06)
[2024-03-03 18:30] VITALS: PULSE 74; O2SAT 95
[2024-03-03] MEDS: morphine 4 mg/mL SDV 1 mL IVP (19:09)
[2024-03-03 19:52] VITALS: BP 126/78; PULSE 92; RESP 16; O2SAT 94
[2024-03-03 19:53] VITALS: BP 126/78; PULSE 92; RESP 16; TEMP 36.3; O2SAT 94
== END 2024-03-03 20:01 | disposition home or self-care (01) ==
PROVIDERS: Emergency Provider Emergency Medicine; PCP Family Medicine
DX: I10 Essential (primary) hypertension (principal); R51.9 Headache, unspecified; Z87.891 Personal history of nicotine dependence
CPT/HCPCS: 70450; 71045; 80053; 85025; 93005; 96374; 96375; 96376; 99285; J0360; J2270

== ENCOUNTER 2024-04-28 15:28 | Emergency (ER) | payer MEDICARE, SELFPAY ==
[2024-04-28 15:36] VITALS: BP 133/81; PULSE 93; RESP 18; TEMP 36.8; O2SAT 98
--- NOTE | 2024-04-28 15:38 | CTR_ITS ---
PROCEDURE INFORMATION: Exam: CT Cervical Spine Without Contrast Exam date and time: 04/28/2024 4:17 PM Age: 78 years old Clinical indication: Injury or trauma; Fall TECHNIQUE: Imaging protocol: Computed tomography of the cervical spine without contrast. Radiation optimization: All CT scans at this facility use at least one of these dose optimization techniques: automated exposure control; mA and/or kV adjustment per patient size (includes targeted exams where dose is matched to clinical indication); or iterative reconstruction. COMPARISON: CT cervical spin wo con* [id number] 05/24/2023 11:43 AM RADIATION DOSE METRICS: Total DLP (mGy-cm): 159 FINDINGS: Bones: Generalized osseous demineralization. No acute fracture. Increased lordosis of the cervical spine. No spinal malalignment. No significant disc bulge or herniation. No severe spinal canal stenosis. Lungs: Lung apices are normal. Soft tissues: Unremarkable. CT/CT cervical spin wo con* [id number] IMPRESSION: No acute findings.
--- NOTE | 2024-04-28 15:38 | XRR_ITS ---
PROCEDURE INFORMATION: Exam: XR Chest Exam date and time: 04/28/2024 3:43 PM Age: 78 years old Clinical indication: Injury or trauma; Fall; Blunt trauma (contusions or hematomas) TECHNIQUE: Imaging protocol: Radiologic exam of the chest. Views: 1 view. COMPARISON: CR XR chest 1V portable [id number] 03/03/2024 5:42 PM FINDINGS: Lungs: No consolidation. Pleural spaces: No pleural effusion. No pneumothorax. Heart/Mediastinum: No cardiomegaly. Bones/joints: Kyphoplasty material noted within the lower thoracic spine. No acute findings. XR/XR chest 1V portable [id number] IMPRESSION: No acute findings.
--- NOTE | 2024-04-28 15:38 | CTR_ITS ---
PROCEDURE INFORMATION: Exam: CT Head Without Contrast Exam date and time: 04/28/2024 4:15 PM Age: 78 years old Clinical indication: Injury or trauma; Fall TECHNIQUE: Imaging protocol: Computed tomography of the head without contrast. Radiation optimization: All CT scans at this facility use at least one of these dose optimization techniques: automated exposure control; mA and/or kV adjustment per patient size (includes targeted exams where dose is matched to clinical indication); or iterative reconstruction. COMPARISON: CT head wo con* [id number] 03/03/2024 6:08 PM RADIATION DOSE METRICS: Total DLP (mGy-cm): 924.7 FINDINGS: Brain: No hemorrhage. No edema. Moderate diffuse cerebral atrophy and mild sequela of chronic small vessel ischemic disease. No mass effect. Cerebral ventricles: No ventriculomegaly. Paranasal sinuses: Visualized sinuses are unremarkable. No fluid levels. Mastoid air cells: Visualized mastoid air cells are well aerated. Bones: Unremarkable. No acute fracture. Soft tissues: Unremarkable. CT/CT head wo con* [id number] IMPRESSION: No acute intracranial abnormality.
--- NOTE | 2024-04-28 15:38 | XRR_ITS ---
PROCEDURE INFORMATION: Exam: XR Left Hip Exam date and time: 04/28/2024 3:45 PM Age: 78 years old Clinical indication: Injury or trauma; Fall; Blunt trauma (contusions or hematomas); Left; Hip; Additional info: Fall, include pelvis TECHNIQUE: Imaging protocol: Radiologic exam of the left hip. Views: 2 or 3 views hip with pelvis when performed. COMPARISON: CT chest abdpel w/*[id number] 07/05/2022 4:16 PM FINDINGS: Bones/joints: Intact bilateral hip fixation hardware. No acute fracture. Moderate DJD of both hips. Soft tissues: Unremarkable. XR/XR hip LT 2-3V wo/w pel* [id number] IMPRESSION: No acute findings.
--- NOTE | 2024-04-28 15:38 | XRR_ITS ---
PROCEDURE INFORMATION: Exam: XR Lumbosacral Spine Exam date and time: 04/28/2024 3:45 PM Age: 78 years old Clinical indication: Injury or trauma; Fall; Blunt trauma (contusions or hematomas) TECHNIQUE: Imaging protocol: Radiologic exam of the lumbosacral spine. Views: 2 or 3 views. COMPARISON: CR XR lumbar spine 2-3V* [id number] 04/03/2022 2:28 AM FINDINGS: Bones/joints: Generalized osseous demineralization. Multiple compression deformities of the thoracolumbar spine. No spinal malalignment. Kyphoplasty material noted within the T11 vertebral body. Soft tissues: Unremarkable. XR/XR lumbar spine 2-3V* [id number] IMPRESSION: Multiple compression deformities of the visualized thoracolumbar spine. Given generalized osseous demineralization difficult to distinguish acute from chronic radiographically.
--- NOTE | 2024-04-28 15:39 | ED_ITS ---
HPI - Fall General: Chief Complaint: Fall Stated Complaint: FALL Time Seen by Provider: 04/28/24 15:34 History of Present Illness: 78-year-old female comes in today for by her EMS from residential care facility after unwitnessed fall. Patient states that she had slipped and fell in her room landing on her buttocks. Nursing staff reports patient was found in the floor on her buttocks. Patient reports pain in the buttocks. Patient denied hitting her head today but states that she did hit 2 to 3 days ago. Patient does have a history of dementia. No shortening or irregularity is noted in the lower extremities. It was reported patient had complained of left hip pain. Skin is intact. There is a small area of ecchymosis approximately 2 cm to the right ribs posteriorly without crepitus or flailing. Review of Systems General: Reports: 10 or more systems reviewed and unremarkable except in HPI and below PFSH ED PFSH: Medical History Frequent falls Gastroesophageal reflux disease Osteoporosis Surgical History H/O bilateral hip replacements Social History Smoking and tobacco/nicotine status: former use of tobacco/nicotine Alcohol intake: never Substance/Drug Use: never Physical Exam Const: COMMON NORMALS: alert HENMT: COMMON NORMALS: normocephalic HEAD & SCALP: normocephalic Neck/C-Spine: COMMON NORMALS: full ROM Chest: CHEST: Yes abnormal inspection of the chest (Small area of ecchymosis right posterior ribs) Resp: COMMON NORMALS: normal respiratory effort and clear to auscultation bilaterally AUSCULTATION: clear to auscultation bilaterally Cardio: COMMON NORMALS: regular rate and regular rhythm RATE: regular rate RHYTHM: regular rhythm GI: COMMON NORMALS: Soft to palpation and non-tender PALPATION: Yes Soft to palpation Back/Pelvis: COMMON NORMALS: thoracic and lumbar spine normal to inspection Extremity: COMMON NORMALS: normal to inspection Neuro: SENSORIUM/ORIENTATION: Yes alert Skin: COMMON NORMALS: turgor normal GENERAL SKIN EXAM: turgor normal Course Vital Signs: Vital signs: Vital Signs Temperature 98.2 F 04/28/24 15:36 Pulse Rate 93 04/28/24 15:36 Respiratory Rate 18 04/28/24 15:36 Blood Pressure 133/81 04/28/24 15:36 Pulse Oximetry 98 04/28/24 15:36 Oxygen Delivery Me thod Room Air 04/28/24 15:36 MDM - Fall Medical Decision Making 78-year-old female comes in today with complaints of fall injury. No obvious injuries are noted. Patient does complain of some buttock pain. Examination notes a small area of bruising to the right posterior ribs. No tenderness is noted along the spine. No obvious head injury is noted. Patient also reports both arms hurting but no sign of deformity or swelling or bruising noted. Differential diagnosis is fracture, sprain, contusion. Reviewed CT scan of the head and cervical spine which noted no fractures or abnormalities. I reviewed the x-rays of the lumbar spine, chest, and hip which also did not show any acute findings. Patient reported understanding of recommendations for further treatment and follow-up. Patient was returned in stable condition back to retirement. Lab Data Radiology Impressions Cervical Spine CT 04/28/24 15:38 IMPRESSION: No acute findings. Chest X-Ray 04/28/24 15:38 IMPRESSION: No acute findings. Head CT 04/28/24 15:38 IMPRESSION: No acute intracranial abnormality. Hip/Pelvis X-Ray 04/28/24 15:38 IMPRESSION: No acute findings. Lumbar Spine X-Ray 04/28/24 15:38 IMPRESSION: Multiple compression deformities of the visualized thoracolumbar spine. Given generalized osseous demineralization difficult to distinguish acute from chronic radiographically. All radiology interpretation(s) finalized by discharge Discharge Plan Discharge Patient Disposition: Home Clinical Impression: Fall from slipping Qualifiers: Encounter type: initial encounter Qualified Code(s): W01.0XXA - Fall on same level from slipping, tripping and stumbling without subsequent striking against object, initial encounter Contusion Qualifiers: Encounter type: initial encounter Contusion area: hip Laterality: left Qualified Code(s): S70.02XA - Contusion of left hip, initial encounter Condition: Stable Prescriptions: No Action latanoprost 0.005 % drops 1 drp ophthalmic (eye) BEDTIME@19 Qty: 2.5 3RF tolterodine 2 mg capsule,extended release 24hr See Rx Instructions .ROUTE .COMPLEX Qty: 90 1RF Dose Instruction: TAKE 1 CAPSULE BY MOUTH ONCE DAILY DAILY AT 8:00AM FOR OVERACTIVE BLADDER Rx Instructions: TAKE 1 CAPSULE BY MOUTH ONCE DAILY DAILY AT 8:00AM FOR OVERACTIVE BLADDER acetaminophen [Tylenol 8 Hour] 650 mg Tablet Extended Release 650 mg PO Q4H PRN (Reason: pain/fever) diphenhydramine HCl 25 mg Capsule 25 mg PO BEDTIME@19 Tussin DM 10-100 mg/5 mL liquid 10 ml PO Q4H PRN (Reason: Cough) tramadol 50 mg tablet 50 mg PO Q6H PRN (Reason: Pain) Artificial Tears (cmc) 1 % Drops 1 drp OPHTHALMIC (EYE) QID furosemide 40 mg tablet 40 mg PO DAILY@08 PRN (Reason: edema) 30 Days Qty: 30 0RF amlodipine 10 mg tablet 10 mg PO DAILY Qty: 30 0RF potassium chloride 10 mEq tablet extended release 10 meq PO DAILY@08 omeprazole 20 mg capsule,delayed release(DR/EC) 20 mg PO DAILY@08 polyethylene glycol 3350 [Gavilax] 17 gram/dose Powder 17 g PO DAILY@08 Rx Instructions: with 8 oz of water or juice [facility] Chew 1 tab PO .Q4-6H PRN (Reason: unknown) cyanocobalamin (vitamin B-12) [Vitamin B-12] 1,000 mcg Tablet Extended Release 1,000 mcg PO DAILY@08 gabapentin 600 mg tablet 600 mg PO BID@08,19 ascorbic acid (vitamin C) [Vitamin C] 500 mg Tablet 500 mg PO DAILY@08 calcium carbonate [Tums] 200 mg calcium (500 mg) Tablet,Chewable 1,000 mg PO BID PRN (Reason: Heartburn) cholecalciferol (vitamin D3) [Vitamin D3] 10 mcg (400 unit) Tablet 10 mcg PO DAILY@08 turmeric root extract 500 mg Capsule 500 mg PO DAILY@08 magnesium citrate 100 mg Tablet 100 mg PO DAILY@08 Cough Drops 7.5 mg Lozenge See Rx Instructions .ROUTE .COMPLEX Rx Instructions: dissolve 1 lozenge every 2 hours as needed for cough or sore throat *may keep at bedside* biotin 1,000 mcg Tablet,Chewable 1,000 mcg PO DAILY@08 Discharge Orders: Discharge ED (Routine); Ordered 04/28/24 Ordered By: Vahe Montesinos Referrals: Eduardo Jimenez [Primary Care Provider] - Discharge Diet: Usual diet Discharge Activity: Increase activity as tolerated Patient Instructions: Pain Management Activity Restrictions/Additional Instructions: Continue routine care. Coding Level of Care Code ED [facility]ology for Monica Toledo
[2024-04-28 18:04] VITALS: BP 129/79; PULSE 91; RESP 15; TEMP 36.8; O2SAT 97
== END 2024-04-28 17:55 | disposition home or self-care (01) ==
PROVIDERS: Emergency Provider Nurse Practitioner Family; PCP Family Medicine
DX: S70.02XA Contusion of left hip, initial encounter (principal); Z87.891 Personal history of nicotine dependence; W01.0XXA Fall on same level from slipping, tripping and stumbling without subsequent striking against object, initial encounter; Y92.129 Unspecified place in nursing home as the place of occurrence of the external cause
CPT/HCPCS: 70450; 71045; 72100; 72125; 73502; 99284

== ENCOUNTER 2024-08-23 17:10 | Outpatient (CLI) | payer MEDICARE, SELFPAY ==
[2024-08-23 17:25] LABS: Bacteria Urine None Seen /hpf; Squamous Epithelial Cell Urine 0-5 /hpf (0-5); WBC Urine 0-5 /hpf (0-5)
[2024-08-23 17:33] LABS: Add Urine Microscopic? YES; Bilirubin Urine Negative (Negative); Blood Urine Negative (Negative); Glucose Urine UA Negative (Normal); Ketones Urine Negative (Negative); Leukocyte Esterase Urine Negative (Negative); Nitrate Urine Negative (Negative); Protein Urine Negative (Negative); Specific Gravity, Urine 1.011 (1.005-1.030); Urine Appearance Clear (CLEAR); Urine Color Yellow (Yellow)
== END 2024-08-23 17:11 | disposition home or self-care (01) ==
PROVIDERS: PCP Family Medicine; Visit Provider Family Medicine
DX: N39.0 Urinary tract infection, site not specified (principal)
CPT/HCPCS: 81001; 87086

== ENCOUNTER 2024-09-15 14:10 | Inpatient (IN) | payer MEDICARE, SELFPAY ==
[2024-09-15] VITALS (20 sets, daily range): BP systolic 99–140; BP diastolic 55–82; PULSE 68–95; RESP 14–22; TEMP 36.7–37.8; O2SAT 91–98; BMI 16.8; BMI 17.5
--- NOTE | 2024-09-15 14:34 | XRR_ITS ---
PROCEDURE INFORMATION: Exam: XR Chest Exam date and time: 09/15/2024 2:44 PM Age: 79 years old Clinical indication: Shortness of breath; Additional info: Possible sepsis TECHNIQUE: Imaging protocol: Radiologic exam of the chest. Views: 1 view. COMPARISON: CR XR chest 1V portable [id number] 04/28/2024 3:43 PM FINDINGS: Lungs: Consolidation occupying the majority of the right mid and lower lung. No consolidation. Pleural spaces: Unremarkable. No pleural effusion. No pneumothorax. Heart/Mediastinum: Unremarkable. No cardiomegaly. Bones/joints: Kyphoplasty material noted in the lower thoracic spine. Visualized osseous structures are intact. XR/XR chest 1V portable [id number] IMPRESSION: Pneumonia centered in the right mid and lower lung.
--- NOTE | 2024-09-15 14:36 | PC.PHAR ---
patient is from [facility]
--- NOTE | 2024-09-15 14:51 | ED_ITS ---
HPI - Weakness 2 General: Chief complaint: Weakness Stated complaint: Weakness Time Seen by Provider: 09/15/24 14:19 History of Present Illness: 79-year-old female here from local [facility]. Patient found to be hypoxic and lethargic. On arrival patient has a low-grade fever and is requiring 4 L of oxygen by nasal cannula. She has crackles in her right lung. At baseline the patient does have some dementia, is nonambulatory, history of bilateral hip fractures, history of left facial droop, among other comorbidities. The patient is communicating with me but is slow and quiet. She cannot give much history however. Review of Systems 2 General: Reports: ROS unobtainable due to medical condition and ROS unobtainable due to mental status PFSH ED 2 PFSH: Medical History Frequent falls Gastroesophageal reflux disease Osteoporosis Surgical History H/O bilateral hip replacements Social History Smoking and tobacco/nicotine status: former use of tobacco/nicotine Alcohol intake: never Substance/Drug Use: never Physical Exam 2 Narrative: EXAM NARRATIVE: This is an elderly appearing, deconditioned, chronically ill-appearing female. She is asleep when into the room. She awakes to voice. She does communicate with me using a soft voice. Her responses are pretty limited. She does have a strong radial pulse. She does feel slightly warm to the touch in keeping with her fever. She does have crackles in her lungs, worse on the right side. Her respiratory rate is within normal limits. She has very poor range of motion in her hips, knees, back, extremities. I am told that she is nonambulatory. She has pretty diffuse muscle wasting. She has stage I pressure sores on her right hip and sacral area. She seems to prefer leaning to the right. She will help me move to the left but cannot extend all the way. Abdomen soft and nontender. Patient is wearing a depends. Turgor is slightly decreased. HENMT: COMMON NORMALS: normocephalic, atraumatic and external ears normal H EAD & SCALP: normocephalic and atraumatic EXTERNAL EAR: Yes external ears normal MOUTH: no muffled voice Eye: COMMON NORMALS: EOMs intact bilaterally, conjunctivae normal and no scleral icterus CONJUNCTIVA: Yes conjunctivae normal Neck/C-Spine: GENERAL: Yes normal visual inspection and Yes trachea midline Cardio: COMMON NORMALS: regular rate and regular rhythm RATE: regular rate RHYTHM: regular rhythm GI: COMMON NORMALS: Soft to palpation and non-tender PALPATION: Yes Soft to palpation and No Guarding due to palpation present (GI) Extremity: COMMON NORMALS: normal to inspection Neuro: COMMON NORMALS: no focal motor deficits and no sensory deficits noted Skin: COMMON NORMALS: no jaundice Course 2 Vital Signs: Vital signs: Vital Signs Temperature 100.0 F H 09/15/24 14:19 Pulse Rate 89 09/15/24 14:19 Respiratory Rate 14 09/15/24 14:19 Blood Pressure 114/62 09/15/24 14:19 Pulse Oximetry 92 09/15/24 14:19 Oxygen Delivery Me thod Nasal Cannula 09/15/24 14:19 Oxygen Flow Rate 4 09/15/24 14:19 MDM - Weakness Medical Decision Making Differential diagnosis includes pneumonia, sepsis, pleural effusion, heart failure, cellulitis, UTI, aspiration, bronchitis, and multiple others. 1455 Chest x-ray 1 view. EP interpretation. Patient has pretty diffuse infiltrates in the right lower and midlung on the right side. Left side is relatively clear. Patient will be initiated on IV antibiotics and sepsis protocol has been ordered. Because she resides in a [facility] facility and has some risk factors for aspiration as well, I am going to initially give her a dose of Zosyn and 1 dose of vancomycin. May need to add some additional atypical coverage pending clinical course 1345. White blood cell count 18,000, hemoglobin is 6.7, platelet count 209,000, 90% neutrophil percentage. ABG shows a pH of 7.4 with a pCO2 of 40 and a pO2 of 68.5. This is consistent with acute hypoxic respiratory failure. Patient's hemoglobin down significantly compared to prior. Hemoglobin is less than 7 and the patient does have respiratory insufficiency. Therefore I am going to order her 1 L of packed red blood cells. I have ordered a fecal occult blood test. Patient will need an anemia workup as an inpatient. Lab Data 09/15/24 15:22 09/15/24 15:22 Radiology Impressions Chest X-Ray 09/15/24 14:34 IMPRESSION: Pneumonia centered in the right mid and lower lung. Laboratory Results WBC 17.95 10^3/uL (3.29-11.43) H 09/15/24 15:22 RBC 3.16 10^6/uL (3.85-5.65) L 09/15/24 15:22 Hgb 6.70 g/dL (11.27-16.99) L 09/15/24 15:22 Hct 24.6 % (36-47) L 09/15/24 15:22 MCV 77.8 fl (85-98) L 09/15/24 15:22 MCH 21.2 pg (27-33) L 09/15/24 15:22 MCHC 27.2 g/dL (30-55) L 09/15/24 15:22 RDW 16.6 % (12.1-15.1) H 09/15/24 15:22 Plt Count 209 10^3/cmm (157-399) 09/15/24 15:22 MPV 10.5 fL (7.4-10.4) H 09/15/24 15:22 Neut % (Auto) 89.9 % 09/15/24 15:22 Lymph % (Auto) 5.0 % 09/15/24 15:22 [place] % (Auto) 4.6 % 09/15/24 15:22 Eos % (Auto) 0.0 % 09/15/24 15:22 Baso % (Auto) 0.1 % 09/15/24 15:22 Neut # (Auto) 16.13 10^3/uL (1.8-7.7) H 09/15/24 15:22 Lymph # (Auto) 0.9 10^3/uL (0.8-4.8) 09/15/24 15:22 [place] # (Auto) 0.8 10^3/uL (0.2-0.9) 09/15/24 15:22 Eos # (Auto) 0.0 10^3/uL (0.0-0.8) 09/15/24 15:22 Baso # (Auto) 0.0 10^3/uL (0.0-0.1) 09/15/24 15:22 Nucleated RBC % (auto) 0 % 09/15/24 15:22 Nucleated RBCs # 0.0 /100WBC 09/15/24 15:22 PT 16.00 SECONDS (12.1-14.9) H 09/15/24 15:22 INR 1.23 (0.8-1.2) H 09/15/24 15:22 Specimen Type Arterial 09/15/24 15:01 Sample Site Radial, right 09/15/24 15:01 ABG pH 7.40 (7.35-7.45) 09/15/24 15:01 ABG pCO2 39.9 mmHg (35-45) 09/15/24 15:01 ABG pO2 68.5 mmHg (80.0-100.0) L 09/15/24 15:01 ABG PO2/FiO2 Ratio 214 09/15/24 15:01 ABG HCO3 24.9 mmol/L (22-26) 09/15/24 15:01 ABG O2 Saturation 94.1 09/15/24 15:01 ABG Base Excess 0.2 mmol/L (-2.0-2.0) 09/15/24 15:01 Nathan Test Pos 09/15/24 15:01 A-a O2 Gradient 14.3 mmHg (5-10) H 09/15/24 15:01 Hematocrit 21.8 % (37-47) L 09/15/24 15:01 Hgb O2 Saturation 92.0 % (95-100) L 09/15/24 15:01 Carboxyhemoglobin 1.6 %THgb (0.4-20.1) 09/15/24 15:01 Methemoglobin 0.7 % (0.4-1.5) 09/15/24 15:01 Total Hemoglobin 7.1 g/dL (12-16) L 09/15/24 15:01 Sodium 142.0 mmol/L (131-143) 09/15/24 15:01 Potassium 3.5 mmol/L (3.5-5.0) 09/15/24 15:01 Glucose 119.0 mg/dL (70-115) H 09/15/24 15:01 Ionized Calcium 1.3 mmol/L (1.1-1.4) 09/15/24 15:01 O2 Delivery Device Nc 09/15/24 15:01 O2 Liters/Min 3.0 % 09/15/24 15:01 FiO2 32.0 % 09/15/24 15:01 [employer] ID glc 09/15/24 15:01 Sodium 137 mmol/L (136-145) 09/15/24 15:22 Potassium 3.5 mmol/L (3.5-5.1) 09/15/24 15:22 Chloride 104 mmol/L (98-107) 09/15/24 15:22 Carbon Dioxide 23 mmol/L (22-29) 09/15/24 15:22 Anion Gap 13.5 (5-19) 09/15/24 15:22 BUN 15 mg/dL (8-23) 09/15/24 15:22 Creatinine 0.6 mg/dL (0.5-0.9) 09/15/24 15:22 GFR Calculation Not Reportable 09/15/24 15:22 Glucose 117 mg/dL (65-115) H 09/15/24 15:22 Calculated Osmolality 286 mOsm/kg (285-295) 09/15/24 15:22 Lactic Acid 1.3 mmol/L (0.5-2.2) 09/15/24 15:22 Calcium 8.6 mg/dL (8.5-10.5) 09/15/24 15:22 Magnesium 1.9 mg/dL (1.7-2.3) 09/15/24 15:22 Total Bilirubin 0.3 mg/dL (0.15-1.2) 09/15/24 15:22 AST 16 U/L (0-32) 09/15/24 15:22 ALT < 5 U/L (0-33) 09/15/24 15:22 Alkaline Phosphatase 54 U/L (35-105) 09/15/24 15:22 Total Protein 5.6 g/dL (6.6-8.7) L 09/15/24 15:22 Albumin 3.5 g/dL (3.5-5.2) 09/15/24 15:22 Globulin 2.1 g/dL (1.3-4.6) 09/15/24 15:22 All radiology interpretation(s) finalized by discharge ED provider radiology interpretation(s): Significant right mid and lower lobe infiltrate Discharge Plan Discharge Patient Disposition: Admitted As Inpatient Clinical Impression: Acute hypoxemic respiratory failure, Resides in penitentiary facility, Microcytic anemia Pneumonia Qualifiers: Pneumonia type: due to unspecified organism Laterality: right Condition: Stable Coding Level of Care Code ED Side Gluer for Chg Fwd Related Data Home Medications Medication Instructions Recorded Confirmed omeprazole 20 mg capsule,delayed 20 mg PO DAILY@12/30/21 09/15/24 release potassium chloride 10 mEq 10 meq PO DAILY@12/30/21 09/15/24 tablet,extended release diphenhydramine HCl 25 mg capsule 25 mg PO BEDTIME@01/22/22 09/15/24 biotin 1,000 mcg chewable tablet 1,000 mcg PO DAILY@07/05/22 09/15/24 gabapentin 600 mg tablet 600 mg PO BID@07/05/22 09/15/24 magnesium citrate 100 mg tablet 100 mg PO DAILY@07/05/22 09/15/24 turmeric root extract 500 mg 500 mg PO DAILY@07/05/22 09/15/24 capsule carboxymethylcellulose sodium 1 % 1 drp ophthalmic (eye) QID 05/24/23 09/15/24 eye drops (Artificial Tears (carboxymethylcellulose)) dextromethorphan-guaifenesin 10 10 ml PO Q4H PRN Cough 05/24/23 09/15/24 mg-100 mg/5 mL oral liquid (Tussin DM) acetaminophen 300 mg-codeine 30 mg 1 tab PO Q4H 09/15/24 09/15/24 tablet ascorbic acid (vitamin C) 500 mg 500 mg PO DAILY 09/15/24 09/15/24 tablet (Vitamin C) calcium carbonate (Tums) 300 mg PO BID 09/15/24 09/15/24 cholecalciferol (vitamin D3) 10 10 mcg PO DAILY 09/15/24 09/15/24 mcg (400 unit) tablet (Vitamin D3) clonidine HCl 0.1 mg tablet 0.1 mg PO PRN PRN blood pressure 09/15/24 09/15/24 greater than 160/100 cyanocobalamin (vitamin B-12) 1,000 mcg PO DAILY 09/15/24 09/15/24 1,000 mcg tablet (Vitamin B-12) tolterodine 2 mg capsule,extended 2 mg PO DAILY 09/15/24 09/15/24 release 24 hr turmeric root extract 500 mg 500 mg PO DAILY 09/15/24 09/15/24 capsule Previous Rx's Medication Instructions Recorded latanoprost 0.005 % eye drops 1 drp ophthalmic (eye) BEDTIME@19 10/01/22 #2.5 mL furosemide 40 mg tablet 40 mg PO DAILY@08 PRN edema 30 05/26/23 days #30 tabs Allergies Allergy/AdvReac Type Severity Reaction Status Date / Time No Known Allergies Allergy Verified 09/15/24 14:29
[2024-09-15 15:13] LABS: ABG PCO2 39.9 mmHg (35-45); Alveolar-Arterial Oxygen Gradi 14.3 mmHg (5-10); Arterial Blood Gas Hematocrit 21.8 % (37-47); Base Excess ABG 0.2 mmol/L (-2.0-2.0); Blood Gas Allen Test Pos; Blood Gas Operator Identificat glc; Blood Gas Sample Site Radial, right; Blood Gas Sample Type Arterial; Carboxyhemoglobin 1.6 %THgb (0.4-20.1); HCO3 ABG 24.9 mmol/L (22-26); Ionized Calcium Level - ABG 1.3 mmol/L (1.1-1.4); Methemoglobin 0.7 % (0.4-1.5); Oxygen Device NC; Oxygen Saturation ABG 94.1; PO2 ABG 68.5 mmHg (80.0-100.0); PO2 FiO2 Ratio Arterial Blood 214; Potassium Level - ABG 3.5 mmol/L (3.5-5.0); Total Hemoglobin 7.1 g/dL (12-16)
[2024-09-15] MEDS: acetaminophen 1,000 MG/100 ML PIGGYBACK 400 MG IV (15:14)
[2024-09-15] MEDS: piperacillin-tazobactam 3.375 GM in sodium chloride 0.9% (plus) 50 ML IV ×2 (15:17→22:12)
[2024-09-15 15:36] LABS: Basophils % 0.1 %; Hematocrit 24.6 % (36-47); Lymphocytes # 0.9 10^3/uL (0.8-4.8); Mean Corpuscular HGB Conc 27.2 g/dL (30-55); Mean Corpuscular Hemoglobin 21.2 pg (27-33); Mean Corpuscular Volume 77.8 fl (85-98); Mean Platelet Volume 10.5 fL (7.4-10.4); Monocytes # 0.8 10^3/uL (0.2-0.9); Monocytes % 4.6 %; Neutrophils # 16.13 10^3/uL (1.8-7.7); Neutrophils % 89.9 %; Nucleated Red Blood Cells % 0 %; Platelet Count 209 10^3/cmm (157-399); Red Blood Count 3.16 10^6/uL (3.85-5.65); Red Cell Distribution Width 16.6 % (12.1-15.1); White Blood Count 17.95 10^3/uL (3.29-11.43)
[2024-09-15] MEDS: VANCOMYCIN ADD-Vantage 1,000 MG in 0.9% NaCl ADD-Vantage 250 ML 250 MG IV (15:46)
[2024-09-15 15:47] LABS: INR 1.23 (0.8-1.2)
[2024-09-15 15:54] LABS: Alanine Aminotransferase < 5 U/L (0-33); Albumin Level 3.5 g/dL (3.5-5.2); Alkaline Phosphatase 54 U/L (35-105); Anion Gap 13.5 (5-19); Aspartate Amino Transferase 16 U/L (0-32); Blood Urea Nitrogen 15 mg/dL (8-23); Calcium 8.6 mg/dL (8.5-10.5); Carbon Dioxide 23 mmol/L (22-29); Chloride 104 mmol/L (98-107); Creatinine Clr Calc Pharmacy 37.5176; Globulin 2.1 g/dL (1.3-4.6); Glucose 117 mg/dL (65-115); Magnesium 1.9 mg/dL (1.7-2.3); Osmolality Calculated 286 mOsm/kg (285-295); Potassium 3.5 mmol/L (3.5-5.1); Sodium 137 mmol/L (136-145); Total Bilirubin 0.3 mg/dL (0.15-1.2); Total Protein 5.6 g/dL (6.6-8.7)
[2024-09-15 15:55] LABS: Lactic Sepsis W/Reflex 1.3 mmol/L (0.5-2.2)
[2024-09-15 16:01] LABS: Procalcitonin 1.69 ng/mL (0-0.5)
[2024-09-15 16:56] LABS: Bilirubin Urine Negative (Negative); Blood Urine Negative (Negative); Glucose Urine UA Negative (Normal); Ketones Urine Trace (Negative); Leukocyte Esterase Urine Negative (Negative); Nitrate Urine Negative (Negative); Protein Urine Negative (Negative); Urine Appearance Clear (CLEAR); Urine Color Yellow (Yellow); pH Urine 6.5 (5-7)
[2024-09-15 16:58] LABS: Add Urine Microscopic? YES; Bacteria Urine None Seen /hpf; Squamous Epithelial Cell Urine 0-5 /hpf (0-5); WBC Urine 0-5 /hpf (0-5)
--- NOTE | 2024-09-15 17:49 | P.HP_ITS ---
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 Currently patient is alert to person, not to place, not to time, she does not follow commands, she does not appear to be in respiratory distress, blood pressure 140/62 pulse 89 respiratory rate 14 temperature 100, O2 sat 92% on 4 L, patient's friend Atnhony is at bedside and helps in the history taking. Patient was sent over to [facility] for being hypoxic and lethargic. Anthony tells me that Trini at the retirement facility is dependent on staff for activities of daily living, she needs help with transfers, is nonambulatory, at times needs help some with feeding, no evidence of dementia in his opinion, she has been doing fine today, she actually went to her doctor and thereafter she was quite confused. I cannot get a significant history from her. I also spoke to patient's daughter, who is in [place], daughter tells me that she does have dementia, she sees Dr. Jimenez, she has been dealing with some respiratory issues since about Mother's Day. No issues with anemia, to her knowledge, no reported bloody or black stools. No reported history of smoking. Review of Systems 2 General: Reports: ROS unobtainable due to mental status Medications/Allergies Home Medications Medication Instructions Recorded Confirmed Last Taken Type omeprazole 20 mg capsule,delayed 20 mg PO DAILY@12/30/21 09/15/24 07/05/22 History release potassium chloride 10 mEq 10 meq PO DAILY@12/30/21 09/15/24 07/05/22 08:00 History tablet,extended release diphenhydramine HCl 25 mg capsule 25 mg PO BEDTIME@01/22/22 09/15/24 07/04/22 History biotin 1,000 mcg chewable tablet 1,000 mcg PO DAILY@07/05/22 09/15/24 07/05/22 History gabapentin 600 mg tablet 600 mg PO BID@ 07/05/22 09/15/24 07/05/22 History magnesium citrate 100 mg tablet 100 mg PO DAILY@07/05/22 09/15/24 07/05/22 History turmeric root extract 500 mg 500 mg PO DAILY@07/05/22 09/15/24 07/05/22 History capsule latanoprost 0.005 % eye drops 1 drp ophthalmic (eye) BEDTIME@10/01/22 09/15/24 Unknown Rx #2.5 mL carboxymethylcellulose sodium 1 % 1 drp ophthalmic (eye) QID 05/24/23 09/15/24 Unknown History eye drops (Artificial Tears (carboxymethylcellulose)) dextromethorphan-guaifenesin 10 10 ml PO Q4H PRN Cough 05/24/23 09/15/24 Unknown History mg-100 mg/5 mL oral liquid (Tussin DM) furosemide 40 mg tablet 40 mg PO DAILY@08 PRN edema 30 05/26/23 09/15/24 07/05/22 Rx days #30 tabs acetaminophen 300 mg-codeine 30 mg 1 tab PO Q4H 09/15/24 09/15/24 Unknown History tablet ascorbic acid (vitamin C) 500 mg 500 mg PO DAILY 09/15/24 09/15/24 Unknown History tablet (Vitamin C) calcium carbonate (Tums) 300 mg PO BID 09/15/24 09/15/24 Unknown History cholecalciferol (vitamin D3) 10 10 mcg PO DAILY 09/15/24 09/15/24 Unknown History mcg (400 unit) tablet (Vitamin D3) clonidine HCl 0.1 mg tablet 0.1 mg PO PRN PRN blood pressure 09/15/24 09/15/24 Unknown History greater than 160/100 cyanocobalamin (vitamin B-12) 1,000 mcg PO DAILY 09/15/24 09/15/24 Unknown History 1,000 mcg tablet (Vitamin B-12) tolterodine 2 mg capsule,extended 2 mg PO DAILY 09/15/24 09/15/24 Unknown History release 24 hr turmeric root extract 500 mg 500 mg PO DAILY 09/15/24 09/15/24 Unknown History capsule Allergies Allergy/AdvReac Type Severity Reaction Status Date / Time No Known Allergies Allergy Verified 09/15/24 14:29 PFSH Acute 2 PFSH: Medical History Frequent falls Gastroesophageal reflux disease Osteoporosis Surgical History H/O bilateral hip replacements Social History Smoking and tobacco/nicotine status: former use of tobacco/nicotine Alcohol intake: never Substance/Drug Use: never Vitals/I&O/Wt Last Vital Signs Temp 100.0 F H 09/15/24 14:19 Pulse 89 09/15/24 14:19 Resp 14 09/15/24 14:19 BP 114/62 09/15/24 14:19 Pulse Ox 92 09/15/24 14:19 O2 Del Method Nasal Cannula 09/15/24 14:19 O2 Flow Rate 4 09/15/24 14:19 09/15/24 09/15/24 09/15/24 06:59 14:59 22:59 Intake Total 150 / 150 1692.73 / 1842.73 Balance 150 / 150 1692.73 / 1842.73 Weight last 48 hrs Weight 43.091 kg Physical Exam 2 Const: COMMON NORMALS: no acute distress and patient oriented x3 OTHER: Conjunctival pallor, appears pale HENMT: COMMON NORMALS: normocephalic Eye: COMMON NORMALS: Equal, round and reactive pupils present and EOMs intact bilaterally Lymph: LYMPHATIC: no lymphadenopathy noted Resp: COMMON NORMALS: normal respiratory effort, No retractions, No use of accessory muscles and clear to auscultation bilaterally AUSCULTATION: c rackles and wheezes Cardio: COMMON NORMALS: regular rate, regular rhythm, S1 normal heart sound present and S2 normal heart sound present RATE: tachycardic RHYTHM: r egular rhythm HEART SOUNDS: S1 normal heart sound present and S2 normal heart sound present GI: COMMON NORMALS: Normal to inspection, nondistended, normoactive bowel sounds present, Soft to palpation and non-tender Extremity: COMMON NORMALS: capillary refill normal and no pedal edema Skin: NARRATIVE SKIN EXAM: Evidence of protein calorie malnutrition, loss of fat pad under bilateral clavicles, ribs, bilateral temporal muscle wasting, thinning of muscles bilateral thighs, bilateral arms Sepsis: Is patient septic: Yes Focused sepsis exam performed: Yes F ocused sepsis exam: DP PT pulses diminished, cap refill greater than 2 seconds, no significant mottling Date exam was performed: 09/15/24 Time exam was performed: 17:53 Data 09/15/24 15:22 09/15/24 15:22 Micro: Microbiology 09/15/24 15:16 Blood Culture - Preliminary Blood SPECIMEN COLLECTED 09/15/24 15:22 Blood Culture - Preliminary Blood SPECIMEN COLLECTED A&P Assessment and plan (1) Acute encephalopathy: (2) Acute hypoxemic respiratory failure: (3) Aspiration pneumonia: (4) Sepsis: Plan Acute hypoxic respiratory failure -Secondary to right middle right lower lobe pneumonia, highly suspicious for aspiration pneumonia Plan -Keep n.p.o. -Aspiration precautions -Oxygen therapy -DuoNeb -Budesonide -Vancomycin -Zosyn -Blood cultures -Respiratory viral panel -Sputum culture Acute encephalopathy, toxic, metabolic -Multifactorial from acute hypoxia, pneumonia, acute anemia -Neurochecks -Aspiration precautions -NIH stroke scale -CT head Sepsis ? Sepsis features met given acute encephalopathy, acute respiratory failure, pneumonia, leukocytosis elevated Pro-Juan, anemia, febrile, tachycardia Acute anemia -Evidence of microcytic anemia -Iron studies, ferritin, B12 -Hemoccult stool -Transfuse 1 unit PRBC -Protonix 40 twice daily -Monitor hemoglobin -Avoid blood thinners Low BMI, 16.8 -Evidence of protein calorie malnutrition, physical deconditioning -Given underlying COPD SCDs for DVT prophylaxis -CODE STATUS she is a DNR, confirmed with daughter who is patient's next of kin, okay with intubation and mechanical ventilation if required -Hold all p.o. meds given concerns for aspiration ammonia, mentation Attestations 2 Medical Necessity Statement*: Patient requires hospitalization, inpatient, greater than 2 minutes for acute encephalopathy, acute hypoxic respiratory failure, pneumonia, sepsis, acute anemia Diagnoses Acute encephalopathy G93.40 Acute hypoxemic respiratory failure J96.01 Aspiration pneumonia J69.0 Sepsis A41.9
--- NOTE | 2024-09-15 17:57 | CTR_ITS ---
PROCEDURE INFORMATION: Exam: CT Head Without Contrast Exam date and time: 09/15/2024 6:42 PM Age: 79 years old Clinical indication: Altered mental status/memory loss; Additional info: AMS TECHNIQUE: Imaging protocol: Computed tomography of the head without contrast. Radiation optimization: All CT scans at this facility use at least one of these dose optimization techniques: automated exposure control; mA and/or kV adjustment per patient size (includes targeted exams where dose is matched to clinical indication); or iterative reconstruction. COMPARISON: CT head wo con* [id number] 04/28/2024 4:15 PM RADIATION DOSE METRICS: Total DLP (mGy-cm): 988.3 FINDINGS: Brain: No hemorrhage. No edema. Moderate diffuse cerebral atrophy and mild sequela of chronic small vessel ischemic disease. Punctate old lacunar infarct noted in the right basal ganglia. No mass effect. Cerebral ventricles: No ventriculomegaly. Paranasal sinuses: Visualized sinuses are unremarkable. No fluid levels. Mastoid air cells: Visualized mastoid air cells are well aerated. Bones: Unremarkable. No acute fracture. Soft tissues: Unremarkable. CT/CT head wo con* [id number] IMPRESSION: No acute intracranial abnormality.
[2024-09-15 18:24] LABS: Troponin(5th) Baseline 25 ng/L (0-10)
--- NOTE | 2024-09-15 18:25 | ECG_ITS ---
[facility] Test Date: 2024-09-15 Pat Name: Trini Jeter Department: Room: Gender: Female Conventional Mortgage Underwriter: : 1945 Requested By: Luan Fisher Order Number: [id number] Judith MD: Keegan Yung M.D. Measurements Intervals [place] Rate: 73 P: 39 SC: 197 QRS: -22 QRSD: 81 T: 75 QT: 408 QTc: 451 Interpretive Statements SINUS RHYTHM ANTEROSEPTAL MYOCARDIAL INFARCTION , OF INDETERMINATE AGE [40+ ms Q WAVE IN V1-V4] Compared to ECG 03/03/2024 17:29:29 No significant changes Electronically Signed On 09-15-2024 19:30:31 LAB ASSISTANT by Keegan Yung M.D. [email or web address]
[2024-09-15] MEDS: sodium chloride 0.9% 100 mL Bag 50 ML IV (18:51)
[2024-09-15 18:59] LABS: C Reactive Protein 10.2 mg/L (0.0-4.9); Ferritin 11 ng/mL (15-150); Iron 14 ug/dL (37-145); Percent Saturation 3.9 % (20-50); Total Iron Binding Capacity 358 mcg/dl; Unsaturated Iron Binding 344 ug/dL (112-347)
[2024-09-15 19:15] LABS: Vitamin B12 1254 pg/mL (232-1245)
[2024-09-15 19:17] LABS: Folate Level 11.2 ng/mL (4.8-37.3)
[2024-09-15 19:28] LABS: Covid PCR NEGATIVE (Negative); Influenza A NEGATIVE (Negative); Influenza B NEGATIVE (Negative); Respiratory Syncytial Virus Ce NEGATIVE (Negative)
--- NOTE | 2024-09-15 20:45 | PHA.VACGOAL ---
Vancomycin Goal - Goal Vancomycin Goal:: 15-20 mg/L Vancomycin Indication:: Pneumonia (SEPSIS) - Therapy Current therapy:: Pip/Tazo Day of therpy:: Day [1]of [] . Actual body weight (kg): 44.906 kg - Data Labs: WBC 17.95 10^3/uL (3.29-11.43) H 09/15/24 15:22 RBC 3.16 10^6/uL (3.85-5.65) L 09/15/24 15:22 Hgb 6.70 g/dL (11.27-16.99) L 09/15/24 15:22 Hct 24.6 % (36-47) L 09/15/24 15:22 MCV 77.8 fl (85-98) L 09/15/24 15:22 MCH 21.2 pg (27-33) L 09/15/24 15:22 MCHC 27.2 g/dL (30-55) L 09/15/24 15:22 RDW 16.6 % (12.1-15.1) H 09/15/24 15:22 Sodium 137 mmol/L (136-145) 09/15/24 15:22 Potassium 3.5 mmol/L (3.5-5.1) 09/15/24 15:22 Chloride 104 mmol/L (98-107) 09/15/24 15:22 Carbon Dioxide 23 mmol/L (22-29) 09/15/24 15:22 Anion Gap 13.5 (5-19) 09/15/24 15:22 BUN 15 mg/dL (8-23) 09/15/24 15:22 Creatinine 0.6 mg/dL (0.5-0.9) 09/15/24 15:22 GFR Calculation Not Reportable 09/15/24 15:22 Treatment plan:: new consult Regimen:: Patient is 79 year old female new start vancomycin for Pneumonia and Sepsis. Patient is 44 kg received 1000 mg load dose in ER. Maintenance dose of 750 mg q24h on population based Pharmacokinetic Nomogram. Pharmacy will continue to monitor daily.
[2024-09-15] MEDS: ipratropium-albuterol 3 mL Neb INHALATION (21:39)
[2024-09-15] MEDS: budesonide 0.5 mg/2 mL Neb INHALATION (21:40)
[2024-09-15] MEDS: pantoprazole 40 mg SDV IVP (22:08)
[2024-09-15 23:21] LABS: Troponin 5 6HR 36.82 ng/L (0-10); Troponin 5 6HR Delta 11.82 ng/L (0-12)
[2024-09-15 23:30] LABS: Chol HDL Ratio 2.29 mg/dL (0.0-4.40); Cholesterol 135 mg/dL (0-200); HDL Cholesterol 59 mg/dL (60-100); LDL Cholesterol Calculated 65 mg/dL (50-129); Thyroid Stimulating Hormone 0.34 uIU/mL (0.27-4.20); Triglycerides 55 mg/dL (0-150)
--- NOTE | 2024-09-15 23:49 | ECG_ITS ---
[facility] Date: 2024-09-16 Pat Name: Trini Jeter Department: Room: 256 Gender: Female Fine Arts Model: : 1945 Requested By: Kieran Morrison Order Number: [id number] Judith MD: Cecil Flores M.D. Measurements Intervals [place] Rate: 71 P: 56 NM: 201 QRS: 18 QRSD: 91 T: 84 QT: 386 QTc: 420 Interpretive Statements SINUS RHYTHM ANTEROSEPTAL MYOCARDIAL INFARCTION , OF INDETERMINATE AGE [40+ ms Q WAVE IN V1-V4] Compared to ECG 09/15/2024 18:25:16 No significant changes Electronically Signed On 09-16-2024 14:48:30 WELDER PLASMA ARC by Cecil Flores M.D. [email or web address]
[2024-09-16] VITALS (16 sets, daily range): BP systolic 130–167; BP diastolic 64–83; PULSE 68–85; RESP 15–20; TEMP 36.4–37.2; O2SAT 85–96
[2024-09-16] MEDS: piperacillin-tazobactam 3.375 GM in sodium chloride 0.9% (plus) 50 ML IV ×3 (04:25→20:55)
[2024-09-16 05:55] LABS: Basophils % 0.2 %; Hematocrit 28.2 % (36-47); Lymphocytes # 1.3 10^3/uL (0.8-4.8); Lymphocytes % 7.6 %; Mean Corpuscular HGB Conc 29.8 g/dL (30-55); Mean Corpuscular Hemoglobin 23.8 pg (27-33); Mean Corpuscular Volume 79.9 fl (85-98); Mean Platelet Volume 10.6 fL (7.4-10.4); Monocytes # 0.6 10^3/uL (0.2-0.9); Monocytes % 3.6 %; Neutrophils # 14.56 10^3/uL (1.8-7.7); Neutrophils % 88.2 %; Nucleated Red Blood Cells % 0 %; Platelet Count 179 10^3/cmm (157-399); Red Blood Count 3.53 10^6/uL (3.85-5.65); Red Cell Distribution Width 16.2 % (12.1-15.1); White Blood Count 16.49 10^3/uL (3.29-11.43)
[2024-09-16 06:15] LABS: Alanine Aminotransferase 6 U/L (0-33); Albumin Level 3.5 g/dL (3.5-5.2); Alkaline Phosphatase 60 U/L (35-105); Anion Gap 12.7 (5-19); Aspartate Amino Transferase 14 U/L (0-32); Blood Urea Nitrogen 17 mg/dL (8-23); Calcium 8.5 mg/dL (8.5-10.5); Carbon Dioxide 23 mmol/L (22-29); Chloride 111 mmol/L (98-107); Creatinine Clr Calc Pharmacy 42.9176; Globulin 1.9 g/dL (1.3-4.6); Glucose 98 mg/dL (65-115); Osmolality Calculated 298 mOsm/kg (285-295); Phosphorus 2.2 mg/dL (2.5-4.5); Potassium 3.7 mmol/L (3.5-5.1); Sodium 143 mmol/L (136-145); Total Bilirubin 0.7 mg/dL (0.15-1.2); Total Protein 5.4 g/dL (6.6-8.7)
[2024-09-16 06:27] LABS: NT Pro B Type Natriuretic Pept 1824 pg/mL (0-450)
[2024-09-16] MEDS: ipratropium-albuterol 3 mL Neb INHALATION ×4 (07:34→19:29)
[2024-09-16] MEDS: budesonide 0.5 mg/2 mL Neb INHALATION ×2 (07:34→19:29)
[2024-09-16] MEDS: FUROsemide 10 mg/mL SDV 4mL 40 MG IVP (11:35)
[2024-09-16] MEDS: pantoprazole 40 mg SDV IVP ×2 (11:35→20:55)
[2024-09-16] MEDS: lidocaine 1% 5 ML in potassium chloride premix 100 ML 52.5 ML IV (11:35)
--- NOTE | 2024-09-16 12:45 | P.PN_ITS ---
Subjective 2 Subjective: Patient was seen this morning, Anthony is at bedside, she is to person, place, time but she is awake, she follows commands at times but remains encephalopathic, Vitals/I&O/Wt Last Vital Signs Temp 97.5 F L 09/16/24 11:54 Pulse 81 09/16/24 11:54 Resp 17 09/16/24 11:54 BP 137/64 09/16/24 11:54 Pulse Ox 93 09/16/24 11:54 O2 Del Method Nasal Cannula 09/16/24 11:54 O2 Flow Rate 2.5 09/16/24 11:00 09/15/24 09/16/24 09/16/24 22:59 06:59 14:59 Intake Total 2092.73 / 2242.73 75 / 2317.73 Output Total 200 / 200 500 / 700 Balance 1892.73 / 2042.73 -425 / 1617.73 Weight last 48 hrs Weight 44.633 kg Weight 44.906 kg Weight 43.091 kg Physical Exam 2 Const: COMMON NORMALS: no acute distress and patient oriented x3 Neck/C-Spine: COMMON NORMALS: no JVD Resp: COMMON NORMALS: normal respiratory effort, No retractions and No use of accessory muscles AUSCULTATION: crackles and wheezes Cardio: COMMON NORMALS: no JVD, regular rate, regular rhythm, S1 normal heart sound present and S2 normal heart sound present RATE: regular rate RHYTHM: regular rhythm HEART SOUNDS: S1 normal heart sound present and S2 normal heart sound present GI: COMMON NORMALS: Normal to inspection, nondistended, normoactive bowel sounds present and non-tender Extremity: COMMON NORMALS: no pedal edema Neuro: COMMON NORMALS: patient oriented x3 Psych: COMMON NORMALS: mental status grossly normal Urinary Catheter Management: Ruiz: Cath Placed During This Visit: yes Reason for Continuing Indwelling Catheter: Other Urinary Catheter Date of Insertion: 09/15/24 Data 09/16/24 05:10 09/16/24 05:10 Micro: Microbiology 09/15/24 15:16 Blood Culture - Preliminary Blood SPECIMEN COLLECTED 09/15/24 15:22 Blood Culture - Preliminary Blood SPECIMEN COLLECTED A&P Assessment and plan (1) Acute encephalopathy: (2) Acute hypoxemic respiratory failure: (3) Aspiration pneumonia: (4) Sepsis: Plan Acute hypoxic respiratory failure -Secondary to right middle right lower lobe pneumonia, highly suspicious for aspiration pneumonia Plan -Keep n.p.o. -Aspiration precautions -Oxygen therapy -DuoNeb -Budesonide -Vancomycin -Zosyn -Blood cultures -Sputum culture Acute encephalopathy, toxic, metabolic -Multifactorial from acute hypoxia, pneumonia, acute anemia -Neurochecks -Aspiration precautions -NIH stroke scale -CT head no acute findings Sepsis ? Sepsis features met given acute encephalopathy, acute respiratory failure, pneumonia, leukocytosis elevated Pro-Juan, anemia, febrile, tachycardia Acute anemia -Evidence of microcytic anemia -Hemoccult stool -Transfuse 1 unit PRBC -Protonix 40 twice daily -Monitor hemoglobin -Avoid blood thinners Low BMI, 16.8 -Evidence of protein calorie malnutrition, physical deconditioning -Given underlying COPD SCDs for DVT prophylaxis -CODE STATUS she is a DNR, confirmed with daughter who is patient's next of kin, okay with intubation and mechanical ventilation if required -Hold all p.o. meds given concerns for aspiration ammonia, mentation Attestations 2 Medical Necessity Statement*: Patient requires hospitalization for acute hypoxic respiratory failure, acute encephalopathy, sepsis, acute anemia Diagnoses Acute encephalopathy G93.40 Acute hypoxemic respiratory failure J96.01 Aspiration pneumonia J69.0 Sepsis A41.9
[2024-09-16 15:11] LABS: Estmated Average Glucose 91; Hemoglobin A1C 4.8 % (4.0-6.0)
[2024-09-16] MEDS: VANCOMYCIN ADD-Vantage 750 MG in 0.9% NaCl ADD-Vantage 250 ML 250 MG IV (17:14)
[2024-09-16] MEDS: artificial tears Op Soln 15 mL Btl 1 DROP EYE-BOTH (22:22)
[2024-09-17] VITALS (14 sets, daily range): BP systolic 155–184; BP diastolic 66–82; PULSE 63–80; RESP 14–18; TEMP 36.4–36.8; O2SAT 91–100
[2024-09-17] MEDS: piperacillin-tazobactam 3.375 GM in sodium chloride 0.9% (plus) 50 ML IV ×3 (04:28→22:19)
[2024-09-17 05:17] LABS: Basophils % 0.2 %; Eosinophils % 0.3 %; Hematocrit 27.4 % (36-47); Lymphocytes # 1.3 10^3/uL (0.8-4.8); Lymphocytes % 11.1 %; Mean Corpuscular HGB Conc 29.9 g/dL (30-55); Mean Corpuscular Hemoglobin 23.5 pg (27-33); Mean Corpuscular Volume 78.5 fl (85-98); Mean Platelet Volume 10.8 fL (7.4-10.4); Monocytes # 0.8 10^3/uL (0.2-0.9); Monocytes % 6.4 %; Neutrophils # 9.52 10^3/uL (1.8-7.7); Neutrophils % 81.6 %; Nucleated Red Blood Cells % 0 %; Platelet Count 177 10^3/cmm (157-399); Red Blood Count 3.49 10^6/uL (3.85-5.65); White Blood Count 11.67 10^3/uL (3.29-11.43)
[2024-09-17 05:33] LABS: Alanine Aminotransferase < 5 U/L (0-33); Albumin Level 3.4 g/dL (3.5-5.2); Alkaline Phosphatase 68 U/L (35-105); Anion Gap 15.1 (5-19); Aspartate Amino Transferase 18 U/L (0-32); Blood Urea Nitrogen 14 mg/dL (8-23); Calcium 9.4 mg/dL (8.5-10.5); Carbon Dioxide 22 mmol/L (22-29); Chloride 105 mmol/L (98-107); Creatinine Clr Calc Pharmacy 36.8463; Globulin 2.4 g/dL (1.3-4.6); Glucose 92 mg/dL (65-115); Magnesium 1.9 mg/dL (1.7-2.3); Osmolality Calculated 288 mOsm/kg (285-295); Phosphorus 2.6 mg/dL (2.5-4.5); Potassium 3.1 mmol/L (3.5-5.1); Sodium 139 mmol/L (136-145); Total Bilirubin 0.5 mg/dL (0.15-1.2); Total Protein 5.8 g/dL (6.6-8.7)
--- NOTE | 2024-09-17 06:40 | P.PN_ITS ---
Subjective 2 Subjective: - Patient was seen this morning -She is alert to person, not to place, n ot to time, she does not follow commands -She had episodes of confusion throughou t the night, she removed her gown -Presently trying to take out her IV -Hypertensive during the night, on room air, afebrile Vitals/I&O/Wt Last Vital Signs Temp 97.8 F 09/17/24 04:00 Pulse 63 09/17/24 04:00 Resp 15 09/17/24 04:00 BP 184/82 09/17/24 04:00 Pulse Ox 100 09/17/24 04:00 O2 Del Method Room Air 09/17/24 04:00 O2 Flow Rate 2 09/16/24 20:00 09/16/24 09/16/24 09/17/24 14:59 22:59 06:59 Intake Total 130 / 130 300 / 430 50 / 480 Output Total 2400 / 2400 Balance 130 / 130 -2100 / -1970 50 / -1920 Weight last 48 hrs Weight 42.32 kg Weight 44.633 kg Weight 44.906 kg Weight 43.091 kg Physical Exam 2 Const: COMMON NORMALS: no acute distress ORIENTATION/CONSCIOUSNESS: Yes awake, Yes oriented to person and Yes confused; not oriented to place and not oriented to time Resp: COMMON NORMALS: normal respiratory effort, No retractions, No use of accessory muscles and clear to auscultation bilaterally AUSCULTATION: clear to auscultation bilaterally Cardio: COMMON NORMALS: regular rate, regular rhythm, S1 normal heart sound present and S2 normal heart sound present RATE: regular rate RHYTHM: r egular rhythm HEART SOUNDS: S1 normal heart sound present and S2 normal heart sound present GI: COMMON NORMALS: Normal to inspection, nondistended, normoactive bowel sounds present and non-tender Extremity: COMMON NORMALS: no pedal edema Neuro: SENSORIUM/ORIENTATION: Yes oriented to person, No oriented to place and No oriented to time Urinary Catheter Management: Ruiz: Cath Placed During This Visit: yes Reason for Continuing Indwelling Catheter: Other Urinary Catheter Date of Insertion: 09/15/24 Data 09/17/24 04:36 09/17/24 04:36 Micro: Microbiology 09/15/24 15:22 Blood Culture - Preliminary Blood NEGATIVE TO DATE 09/15/24 15:16 Blood Culture - Preliminary Blood NEGATIVE TO DATE A&P Assessment and plan (1) Acute encephalopathy: (2) Acute hypoxemic respiratory failure: (3) Aspiration pneumonia: (4) Sepsis: Plan Acute hypoxic respiratory failure -Secondary to right middle right lower lobe pneumonia, highly suspicious for aspiration pneumonia Plan -Keep n.p.o., continues to be high aspiration risk -Aspiration precautions -Oxygen therapy -DuoNeb -Budesonide -Vancomycin -Zosyn -Blood cultures -Sputum culture Acute encephalopathy, toxic, metabolic -Multifactorial from acute hypoxia, pneumonia, acute anemia -Neurochecks -Aspiration precautions -NIH stroke scale -CT head no acute findings -Has episodes of removing her IVs, episodes of agitation, low-dose Zyprexa 2.5 mg twice daily Sepsis ? Sepsis features met given acute encephalopathy, acute respiratory failure, pneumonia, leukocytosis elevated Pro-Juan, anemia, febrile, tachycardia Acute anemia, 8.4 -Evidence of microcytic anemia -Hemoccult stool -Status post transfuse 1 unit PRBC -Protonix 40 twice daily -Monitor hemoglobin -Avoid blood thinners Low BMI, 16.8 -Evidence of protein calorie malnutrition, physical deconditioning -Given underlying COPD SCDs for DVT prophylaxis -CODE STATUS she is a DNR, confirmed with daughter who is patient's next of kin, okay with intubation and mechanical ventilation if required -Hold all p.o. meds given concerns for aspiration ammonia, mentation Plan for today IV antibiotics, continues to have high aspiration risk, keep n.p.o., will start her on IV fluids today, Zyprexa for agitation, monitor mentation hopefully can start her on a diet Attestations 2 Medical Necessity Statement*: Patient requires hospitalization for acute hypoxic respiratory failure, acute encephalopathy, sepsis, acute anemia high aspiration risk, altered mental status Diagnoses Acute encephalopathy G93.40 Acute hypoxemic respiratory failure J96.01 Aspiration pneumonia J69.0 Sepsis A41.9
[2024-09-17] MEDS: ipratropium-albuterol 3 mL Neb INHALATION ×4 (07:28→20:29)
[2024-09-17] MEDS: budesonide 0.5 mg/2 mL Neb INHALATION ×2 (07:29→20:29)
[2024-09-17] MEDS: dextrose 5%-sod chloride 0.9% 1,000 ML 75 ML IV (10:51)
[2024-09-17] MEDS: pantoprazole 40 mg SDV IVP ×2 (10:51→22:19)
[2024-09-17] MEDS: OLANZapine 5 mg ODT 2.5 MG PO ×2 (10:51→22:20)
[2024-09-17] MEDS: artificial tears Op Soln 15 mL Btl 1 DROP EYE-BOTH ×3 (10:52→17:56)
[2024-09-17] MEDS: VANCOMYCIN ADD-Vantage 750 MG in 0.9% NaCl ADD-Vantage 250 ML 250 MG IV (17:55)
[2024-09-17] MEDS: haloperidol inj 5 mg/mL INJ 1 mL IM (21:27)
[2024-09-18] VITALS (12 sets, daily range): BP systolic 116–193; BP diastolic 62–104; PULSE 62–85; RESP 14–20; TEMP 36.4–37; O2SAT 91–98
[2024-09-18] MEDS: dextrose 5%-sod chloride 0.9% 1,000 ML 75 ML IV ×2 (02:55→15:24)
[2024-09-18] MEDS: piperacillin-tazobactam 3.375 GM in sodium chloride 0.9% (plus) 50 ML IV ×3 (04:30→20:31)
[2024-09-18 04:48] LABS: Basophils % 0.2 %; Eosinophils # 0.1 10^3/uL (0.0-0.8); Eosinophils % 1.5 %; Hematocrit 29.9 % (36-47); Lymphocytes # 1.3 10^3/uL (0.8-4.8); Mean Corpuscular HGB Conc 30.4 g/dL (30-55); Mean Corpuscular Hemoglobin 23.4 pg (27-33); Mean Corpuscular Volume 76.9 fl (85-98); Mean Platelet Volume 10.2 fL (7.4-10.4); Monocytes # 0.8 10^3/uL (0.2-0.9); Monocytes % 9.6 %; Neutrophils # 6.43 10^3/uL (1.8-7.7); Neutrophils % 73.2 %; Nucleated Red Blood Cells % 0 %; Platelet Count 180 10^3/cmm (157-399); Red Blood Count 3.89 10^6/uL (3.85-5.65); Red Cell Distribution Width 17.4 % (12.1-15.1); White Blood Count 8.78 10^3/uL (3.29-11.43)
[2024-09-18 05:10] LABS: Alanine Aminotransferase 6 U/L (0-33); Albumin Level 3.7 g/dL (3.5-5.2); Alkaline Phosphatase 79 U/L (35-105); Anion Gap 13.6 (5-19); Aspartate Amino Transferase 12 U/L (0-32); Blood Urea Nitrogen 6 mg/dL (8-23); Calcium 9.9 mg/dL (8.5-10.5); Carbon Dioxide 23 mmol/L (22-29); Chloride 109 mmol/L (98-107); Creatinine Clr Calc Pharmacy 36.8463; Globulin 2.5 g/dL (1.3-4.6); Glucose 94 mg/dL (65-115); Magnesium 1.8 mg/dL (1.7-2.3); Osmolality Calculated 293 mOsm/kg (285-295); Phosphorus 2.3 mg/dL (2.5-4.5); Sodium 143 mmol/L (136-145); Total Bilirubin 0.6 mg/dL (0.15-1.2); Total Protein 6.2 g/dL (6.6-8.7)
[2024-09-18 05:13] LABS: Potassium 2.6 mmol/L (3.5-5.1)
[2024-09-18] MEDS: lidocaine 1% 5 ML in potassium chloride premix 100 ML 26.25 ML IV ×2 (06:18→16:38)
[2024-09-18] MEDS: pantoprazole 40 mg SDV IVP ×2 (08:35→20:03)
[2024-09-18] MEDS: artificial tears Op Soln 15 mL Btl 1 DROP EYE-BOTH ×4 (08:35→20:03)
[2024-09-18] MEDS: budesonide 0.5 mg/2 mL Neb INHALATION ×2 (09:14→20:57)
[2024-09-18] MEDS: ipratropium-albuterol 3 mL Neb INHALATION ×4 (09:14→20:57)
[2024-09-18] MEDS: VANCOMYCIN ADD-Vantage 750 MG in 0.9% NaCl ADD-Vantage 250 ML 250 MG IV (15:24)
[2024-09-18 15:41] LABS: Glucose Point of Care 127 mg/dL (70-110)
--- NOTE | 2024-09-18 16:00 | P.PN_ITS ---
Subjective 2 Subjective: Patient was noted to be more awake earlier in the morning. Her friend at bedside reports that she was sitting up and able to have a basic conversation. At the time of my assessment patient is asleep. She wakes up to correctly tell her name, repeats back my name to me however then goes right back to sleep. Blood pressure uncontrolled currently at 193/62. Medications: Reviewed: Yes Vitals/I&O/Wt Last Vital Signs Temp 97.5 F L 09/18/24 12:00 Pulse 68 09/18/24 15:03 Resp 18 09/18/24 15:03 BP 193/62 09/18/24 12:00 Pulse Ox 96 09/18/24 15:03 O2 Del Method Room Air 09/18/24 15:03 O2 Flow Rate 2 09/16/24 20:00 09/18/24 09/18/24 09/18/24 06:59 14:59 22:59 Intake Total 388.75 / 1388.75 155 / 155 948.75 / 1103.75 Output Total 800 / 2250 Balance -411.25 / -861.25 155 / 155 948.75 / 1103.75 Weight last 48 hrs Weight 40.625 kg Weight 42.32 kg Physical Exam 2 Narrative: General: No acute distress, AO x1-2 HEENT: PERRLA, pupils bilaterally equal and reactive, pallors not present Chest: Normal vesicular breath sounds, no added sounds, equal good air entry bilaterally CVS: S1-S2 regular, no murmurs, no tachycardia, no gallops, no rubs Abdomen: Soft, nontender, no organomegaly, bowel sounds present Urinary Catheter Management: Ruiz: Cath Placed During This Visit: yes Reason for Continuing Indwelling Catheter: Other Urinary Catheter Date of Insertion: 09/15/24 Data 09/18/24 03:31 09/18/24 03:31 A&P Assessment and plan (1) Acute encephalopathy: (2) Acute hypoxemic respiratory failure: (3) Aspiration pneumonia: (4) Sepsis: Plan Acute hypoxic respiratory failure -Secondary to right middle right lower lobe pneumonia, highly suspicious for aspiration pneumonia Plan -Keep n.p.o., continues to be high aspiration risk -Aspiration precautions -Oxygen therapy -DuoNeb -Budesonide -Vancomycin -Zosyn -Blood cultures -Sputum culture Acute encephalopathy, toxic, metabolic -Multifactorial from acute hypoxia, pneumonia, acute anemia -Neurochecks -Aspiration precautions -NIH stroke scale -CT head no acute findings -Has episodes of removing her IVs, episodes of agitation, low-dose Zyprexa 2.5 mg twice daily Sepsis ? Sepsis features met given acute encephalopathy, acute respiratory failure, pneumonia, leukocytosis elevated Pro-Juan, anemia, febrile, tachycardia Acute anemia, 8.4 -Evidence of microcytic anemia -Hemoccult stool -Status post transfuse 1 unit PRBC -Protonix 40 twice daily -Monitor hemoglobin -Avoid blood thinners Low BMI, 16.8 -Evidence of protein calorie malnutrition, physical deconditioning -Given underlying COPD SCDs for DVT prophylaxis -CODE STATUS she is a DNR, confirmed with daughter who is patient's next of kin, okay with intubation and mechanical ventilation if required -Hold all p.o. meds given concerns for aspiration ammonia, mentation Plan for today IV antibiotics, continues to have high aspiration risk, keep n.p.o., will start her on IV fluids today, Zyprexa for agitation, monitor mentation hopefully can start her on a diet 09/18/2024 Appreciate speech therapy recommendations. Will be started on a dysphagia 4 diet while pending modified barium swallow to be performed on Friday per speech therapy recommendation. Patient's mentation was slightly improved this morning, she was able to sit up in bed, had a conversation with her friend at bedside. At the time of my assessment she is lethargic, laying in bed. However wakes up on calling name, correctly tells me her name, my name and the fact that she is in the hospital. Continue IV antibiotics zosyn. D/c vancomycin. BP elevated at 190 , add amlodipine 5mg po daily, She has orders for labetalol 10 mg IV every 4 hours for systolic blood pressure greater than 180. Hypokalemia 2.6, repleted IV. Attestations 2 Medical Necessity Statement*: Needs modified barium swallow, IV antibiotics, starting dysphagia 4 diet, closely monitor for any deterioration with initiation of oral diet. Coding Level of Care Code Acute Code for [facility] Diagnoses Acute encephalopathy G93.40 Acute hypoxemic respiratory failure J96.01 Aspiration pneumonia J69.0 Sepsis A41.9
[2024-09-18] MEDS: amlodipine 5 mg Tablet PO (16:38)
[2024-09-19] VITALS (11 sets, daily range): BP systolic 142–177; BP diastolic 76–82; PULSE 57–75; RESP 14–19; TEMP 36.6–37.1; O2SAT 92–99
[2024-09-19] MEDS: piperacillin-tazobactam 3.375 GM in sodium chloride 0.9% (plus) 50 ML IV ×3 (04:38→20:15)
[2024-09-19 08:16] LABS: Basophils % 0.5 %; Eosinophils # 0.2 10^3/uL (0.0-0.8); Hematocrit 28.8 % (36-47); Lymphocytes # 1.4 10^3/uL (0.8-4.8); Lymphocytes % 24.3 %; Mean Corpuscular HGB Conc 28.5 g/dL (30-55); Mean Corpuscular Hemoglobin 22.3 pg (27-33); Mean Corpuscular Volume 78.3 fl (85-98); Mean Platelet Volume 10.4 fL (7.4-10.4); Monocytes # 0.6 10^3/uL (0.2-0.9); Monocytes % 10.9 %; Neutrophils # 3.47 10^3/uL (1.8-7.7); Neutrophils % 59.8 %; Nucleated Red Blood Cells % 0 %; Platelet Count 204 10^3/cmm (157-399); Red Blood Count 3.68 10^6/uL (3.85-5.65); Red Cell Distribution Width 18.3 % (12.1-15.1)
[2024-09-19 08:37] LABS: Alanine Aminotransferase < 5 U/L (0-33); Albumin Level 3.3 g/dL (3.5-5.2); Alkaline Phosphatase 67 U/L (35-105); Anion Gap 10.8 (5-19); Aspartate Amino Transferase 10 U/L (0-32); Blood Urea Nitrogen 6 mg/dL (8-23); Calcium 9.6 mg/dL (8.5-10.5); Carbon Dioxide 24 mmol/L (22-29); Chloride 113 mmol/L (98-107); Creatinine Clr Calc Pharmacy 35.7406; Globulin 2.5 g/dL (1.3-4.6); Glucose 86 mg/dL (65-115); Osmolality Calculated 295 mOsm/kg (285-295); Potassium 3.8 mmol/L (3.5-5.1); Sodium 144 mmol/L (136-145); Total Bilirubin 0.5 mg/dL (0.15-1.2); Total Protein 5.8 g/dL (6.6-8.7)
[2024-09-19] MEDS: budesonide 0.5 mg/2 mL Neb INHALATION ×2 (08:43→20:04)
[2024-09-19] MEDS: ipratropium-albuterol 3 mL Neb INHALATION ×3 (08:43→20:04)
[2024-09-19] MEDS: artificial tears Op Soln 15 mL Btl 1 DROP EYE-BOTH ×4 (08:48→20:03)
[2024-09-19] MEDS: pantoprazole 40 mg SDV IVP ×2 (08:48→20:03)
[2024-09-19] MEDS: amlodipine 5 mg Tablet PO ×2 (08:48→14:44)
--- NOTE | 2024-09-19 13:51 | P.PN_ITS ---
Subjective 2 Subjective: Patient is much more awake and alert today. She is able to correctly tell me her name, age and date of . She lays in bed. Tells me that she typically needs assistance with all of her ADLs Medications: Reviewed: Yes Vitals/I&O/Wt Last Vital Signs Temp 98.1 F 09/19/24 12:25 Pulse 75 09/19/24 12:25 Resp 17 09/19/24 12:25 BP 177/81 09/19/24 12:25 Pulse Ox 93 09/19/24 12:25 O2 Del Method Room Air 09/19/24 12:25 O2 Flow Rate 2 09/16/24 20:00 09/18/24 09/19/24 09/19/24 22:59 06:59 14:59 Intake Total 2163.75 / 2318.75 50 / 2368.75 770 / 770 Balance 2163.75 / 2318.75 50 / 2368.75 770 / 770 Weight last 48 hrs Weight 41.05 kg Weight 40.625 kg Physical Exam 2 Narrative: General: No acute distress, AO x3 HEENT: PERRLA, pupils bilaterally equal and reactive, pallors not present Chest: Normal vesicular breath sounds, no added sounds, equal good air entry bilaterally CVS: S1-S2 regular, no murmurs, no tachycardia, no gallops, no rubs Abdomen: Soft, nontender, no organomegaly, bowel sounds present Urinary Catheter Management: Ruiz: Cath Placed During This Visit: yes Reason for Continuing Indwelling Catheter: Acute Urinary Retention or Obstruction Urinary Catheter Date of Insertion: 09/15/24 Data 09/19/24 06:18 09/19/24 06:18 A&P Assessment and plan (1) Acute encephalopathy: (2) Acute hypoxemic respiratory failure: (3) Aspiration pneumonia: (4) Sepsis: Plan Acute hypoxic respiratory failure -Secondary to right middle right lower lobe pneumonia, highly suspicious for aspiration pneumonia Plan -Keep n.p.o., continues to be high aspiration risk -Aspiration precautions -Oxygen therapy -DuoNeb -Budesonide -Vancomycin -Zosyn -Blood cultures -Sputum culture Acute encephalopathy, toxic, metabolic -Multifactorial from acute hypoxia, pneumonia, acute anemia -Neurochecks -Aspiration precautions -NIH stroke scale -CT head no acute findings -Has episodes of removing her IVs, episodes of agitation, low-dose Zyprexa 2.5 mg twice daily Sepsis ? Sepsis features met given acute encephalopathy, acute respiratory failure, pneumonia, leukocytosis elevated Pro-Juan, anemia, febrile, tachycardia Acute anemia, 8.4 -Evidence of microcytic anemia -Hemoccult stool -Status post transfuse 1 unit PRBC -Protonix 40 twice daily -Monitor hemoglobin -Avoid blood thinners Low BMI, 16.8 -Evidence of protein calorie malnutrition, physical deconditioning -Given underlying COPD SCDs for DVT prophylaxis -CODE STATUS she is a DNR, confirmed with daughter who is patient's next of kin, okay with intubation and mechanical ventilation if required -Hold all p.o. meds given concerns for aspiration ammonia, mentation Plan for today IV antibiotics, continues to have high aspiration risk, keep n.p.o., will start her on IV fluids today, Zyprexa for agitation, monitor mentation hopefully can start her on a diet 09/18/2024 Appreciate speech therapy recommendations. Will be started on a dysphagia 4 diet while pending modified barium swallow to be performed on Friday per speech therapy recommendation. Patient's mentation was slightly improved this morning, she was able to sit up in bed, had a conversation with her friend at bedside. At the time of my assessment she is lethargic, laying in bed. However wakes up on calling name, correctly tells me her name, my name and the fact that she is in the hospital. Continue IV antibiotics zosyn. D/c vancomycin. BP elevated at 190 , add amlodipine 5mg po daily, She has orders for labetalol 10 mg IV every 4 hours for systolic blood pressure greater than 180. Hypokalemia 2.6, repleted IV. 09/19/24 Currently tolerating a dysphagia 4 diet. Pending modified barium swallow tomorrow. Blood pressure continues to be elevated with systolic between 1 70-1 80. Will increase amlodipine to 10 mg daily. Mentation is improving. Based on results of modified barium swallow to decide if might be safe to discharge with a modified diet. Anticipate discharge in the upcoming 24 hours since otherwise clinically improving. Attestations 2 Medical Necessity Statement*: modified Ba swallow tomorrow, appears to be getting closer to baseline Coding Level of Care Code Acute Code for Chg Fwd Straight Forward/Low MDM includes number and complexity of problems actively addressed during encounter, amount and/or complexity of data reviewed/ordered and described risk of complication, morbidity or mortality of management as documented Diagnoses Acute encephalopathy G93.40 Acute hypoxemic respiratory failure J96.01 Aspiration pneumonia J69.0 Sepsis A41.9
[2024-09-20] VITALS (9 sets, daily range): BP systolic 144–191; BP diastolic 67–92; PULSE 68–88; RESP 14–18; TEMP 36.3–37.2; O2SAT 90–95
[2024-09-20] MEDS: labetalol 5 mg/mL SDV 20mL 10 MG IVP (00:51)
[2024-09-20] MEDS: OLANZapine 5 mg ODT 2.5 MG PO (00:56)
--- NOTE | 2024-09-20 01:41 | PC.NURSE ---
Labetalol vial placed in patient bin by this nurse.
[2024-09-20] MEDS: piperacillin-tazobactam 3.375 GM in sodium chloride 0.9% (plus) 50 ML IV (04:55)
[2024-09-20] MEDS: hyDRALAzine 20 mg/mL INJ 1 mL 10 MG IVP (05:17)
--- NOTE | 2024-09-20 05:23 | PC.NURSE ---
Patient refused morning lab work. Patient was educated on the importance of lab work and patient stated , I do not care. I dont want them done. Plan of care ongoing.
--- NOTE | 2024-09-20 09:00 | FL_ITS ---
WS: [id number] Exam: FL barium swallow modifd [id number] Date/Time of Exam: 09/20/2024 11:03 AM Reason For Exam: Oropharyngeal dysphagia Fluoroscopy time: 6min [id number] minutes # of spot films: 0 Modified barium swallow test was performed in conjunction with the speech therapy service. The patient experienced penetration and mild aspiration when ingesting thin liquid barium solution. T he patient tolerated the remaining barium mixture foodstuffs without penetration or aspiration. The p atient had significant difficulty swallowing the barium tablet. A prominent hiatal hernia was noted. FL/FL barium swallow modifd [id number] IMPRESSION: 1. The patient experienced penetration and mild aspiration when ingesting thin liquid barium. The patient tolerated the remaining barium mixture foodstuffs wi thout difficulty. 2. The patient experienced significant difficulty swallowing the barium tablet. A separate report and recommendations will follow from the speech therapy servi ce.
[2024-09-20] MEDS: budesonide 0.5 mg/2 mL Neb INHALATION (09:04)
[2024-09-20] MEDS: ipratropium-albuterol 3 mL Neb INHALATION (09:05)
[2024-09-20] MEDS: amlodipine 5 mg Tablet 10 MG PO (10:29)
[2024-09-20] MEDS: artificial tears Op Soln 15 mL Btl 1 DROP EYE-BOTH ×2 (10:29→13:07)
--- NOTE | 2024-09-20 12:31 | PC.SOCIAL ---
IMM Updated Updated pt's family on IMM. No questions voiced. Provided pt a copy. Initialed, dated, & timed copy in chart.
[2024-09-20 12:46] LABS: Basophils % 0.3 %; Eosinophils # 0.2 10^3/uL (0.0-0.8); Eosinophils % 1.5 %; Hematocrit 32.6 % (36-47); Lymphocytes # 0.8 10^3/uL (0.8-4.8); Lymphocytes % 8.6 %; Mean Corpuscular HGB Conc 30.1 g/dL (30-55); Mean Corpuscular Volume 76.5 fl (85-98); Monocytes # 0.8 10^3/uL (0.2-0.9); Monocytes % 8.5 %; Neutrophils # 7.83 10^3/uL (1.8-7.7); Neutrophils % 80.5 %; Nucleated Red Blood Cells % 0 %; Platelet Count 227 10^3/cmm (157-399); Red Blood Count 4.26 10^6/uL (3.85-5.65); White Blood Count 9.74 10^3/uL (3.29-11.43)
[2024-09-20 13:10] LABS: Alanine Aminotransferase < 5 U/L (0-33); Albumin Level 3.5 g/dL (3.5-5.2); Alkaline Phosphatase 71 U/L (35-105); Aspartate Amino Transferase 10 U/L (0-32); Blood Urea Nitrogen 14 mg/dL (8-23); Calcium 9.4 mg/dL (8.5-10.5); Carbon Dioxide 21 mmol/L (22-29); Chloride 107 mmol/L (98-107); Creatinine Clr Calc Pharmacy 34.9901; Globulin 2.6 g/dL (1.3-4.6); Glucose 117 mg/dL (65-115); Osmolality Calculated 290 mOsm/kg (285-295); Sodium 139 mmol/L (136-145); Total Bilirubin 0.3 mg/dL (0.15-1.2); Total Protein 6.1 g/dL (6.6-8.7)
--- NOTE | 2024-09-20 14:56 | P.DS_ITS ---
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 At the retirement facility is dependent on staff for activities of daily living, she needs help with transfers, is nonambulatory, at times needs help some with feeding. Head CT did not show any acute intracranial abnormality. Patient was found to have a right middle lobe pneumonia highly suspicious for aspiration. Patient underwent multiple swallow studies during the course of her admission which raise concern for aspiration. She underwent a modified barium swallow today which showed penetration and mild aspiration when ingesting thin liquid barium. The patient experienced significant difficulty swallowing the barium tablet. She has been recommended to be remain on a dysphagia 4 diet consisting of pur?e and moderately thick liquids. She would likely be at risk for recurrent aspirations. Patient was treated with IV antibiotics including piperacillin/tazobactam. She improved significantly with this intervention. At the time of discharge patient is alert awake oriented knows her whereabouts, is able to have a short conversation with me and her friend at bedside. She notes she lives in a retirement facility. She has been discharged with recommendations to complete 3 remaining days of Augmentin. Discussed with her that given noted aspiration, she remains at high risk for recurrent aspiration pneumonias. Possibility of a PEG tube in the future was raised with her should this become a recurrent problem, however patient stated that she would not like to have any feeding tubes placed. Her mental status was most likely related to acute encephalopathy from the pneu monia. Patient had acute anemia, hemoglobin on arrival was 8.7. Evidence of microcytic anemia was present. She received 1 unit packed red blood cell transfusion. Hemoglobin at the time of discharge is improved at 9.8. Occult blood testing was unable to be completed. She is being discharged today in improved condition back to her baseline. She remains chronically ill but best optimized. Physical Exam Narrative: General: Chronically ill lady in no acute distress, prefers to lay on her right side AO x3 HEENT: PERRLA, pupils bilaterally equal and reactive, pallors not present Chest: Normal vesicular breath sounds, no added sounds, equal good air entry bilaterally CVS: S1-S2 regular, no murmurs, no tachycardia, no gallops, no rubs Abdomen: Soft, nontender, no organomegaly, bowel sounds present Neuro: Multiple contractures affecting lower extremities. Very weak, cachectic. Chronically ill. Urinary Catheter Management: Ruiz: Cath Placed During This Visit: yes Reason for Continuing Indwelling Catheter: Acute Urinary Retention or Obstruction Urinary Catheter Date of Insertion: 09/15/24 Discharge Data Studies Completed and Pending Completed Studies During Hospitalization Category Date Time Status CT head wo con* [id number] Stat Cat Scan 09/15/24 17:57 Completed [place] barium swallow modifd [id number] Routine Exams 09/20/24 09:00 Completed XR chest 1V portable [id number] Stat Exams 09/15/24 14:34 Completed Pending at discharge Category Date Time Status Blood Culture Stat Lab 09/15/24 15:16 Results Fecal Occult Blood [Immunochemical Fecal OCB] Routine Lab 09/15/24 15:44 Uncollected Sputum Culture and Gram Stain Stat Lab 09/15/24 17:45 Uncollected Radiology Impressions Chest X-Ray 09/15/24 14:34 IMPRESSION: Pneumonia centered in the right mid and lower lung. Head CT 09/15/24 17:57 IMPRESSION: No acute intracranial abnormality. Modified Barium Swallow 09/20/24 09:00 IMPRESSION: 1. The patient experienced penetration and mild aspiration when ingesting thin liquid barium. The patient tolerated the remaining barium mixture foodstuffs without difficulty. 2. The patient experienced significant difficulty swallowing the barium tablet. A separate report and recommendations will follow from the speech therapy service. Laboratory Results WBC 9.74 10^3/uL (3.29-11.43) 09/20/24 12:06 RBC 4.26 10^6/uL (3.85-5.65) 09/20/24 12:06 Hgb 9.80 g/dL (11.27-16.99) L 09/20/24 12:06 Hct 32.6 % (36-47) L 09/20/24 12:06 MCV 76.5 fl (85-98) L 09/20/24 12:06 MCH 23.0 pg (27-33) L 09/20/24 12:06 MCHC 30.1 g/dL (30-55) D 09/20/24 12:06 RDW 19.0 % (12.1-15.1) H 09/20/24 12:06 Plt Count 227 10^3/cmm (157-399) 09/20/24 12:06 MPV 11.0 fL (7.4-10.4) H 09/20/24 12:06 Neut % (Auto) 80.5 % 09/20/24 12:06 Lymph % (Auto) 8.6 % 09/20/24 12:06 [place] % (Auto) 8.5 % 09/20/24 12:06 Eos % (Auto) 1.5 % 09/20/24 12:06 Baso % (Auto) 0.3 % 09/20/24 12:06 Neut # (Auto) 7.83 10^3/uL (1.8-7.7) H 09/20/24 12:06 Lymph # (Auto) 0.8 10^3/uL (0.8-4.8) 09/20/24 12:06 [place] # (Auto) 0.8 10^3/uL (0.2-0.9) 09/20/24 12:06 Eos # (Auto) 0.2 10^3/uL (0.0-0.8) 09/20/24 12:06 Baso # (Auto) 0.0 10^3/uL (0.0-0.1) 09/20/24 12:06 Nucleated RBC % (auto) 0 % 09/20/24 12:06 Nucleated RBCs # 0.0 /100WBC 09/20/24 12:06 PT 16.00 SECONDS (12.1-14.9) H 09/15/24 15:22 INR 1.23 (0.8-1.2) H 09/15/24 15:22 Specimen Type Arterial 09/15/24 15:01 Sample Site Radial, right 09/15/24 15:01 ABG pH 7.40 (7.35-7.45) 09/15/24 15:01 ABG pCO2 39.9 mmHg (35-45) 09/15/24 15:01 ABG pO2 68.5 mmHg (80.0-100.0) L 09/15/24 15:01 ABG PO2/FiO2 Ratio 214 09/15/24 15:01 ABG HCO3 24.9 mmol/L (22-26) 09/15/24 15:01 ABG O2 Saturation 94.1 09/15/24 15:01 ABG Base Excess 0.2 mmol/L (-2.0-2.0) 09/15/24 15:01 Nathan Test Pos 09/15/24 15:01 A-a O2 Gradient 14.3 mmHg (5-10) H 09/15/24 15:01 Hematocrit 21.8 % (37-47) L 09/15/24 15:01 Hgb O2 Saturation 92.0 % (95-100) L 09/15/24 15:01 Carboxyhemoglobin 1.6 %THgb (0.4-20.1) 09/15/24 15:01 Methemoglobin 0.7 % (0.4-1.5) 09/15/24 15:01 Total Hemoglobin 7.1 g/dL (12-16) L 09/15/24 15:01 Sodium 142.0 mmol/L (131-143) 09/15/24 15:01 Potassium 3.5 mmol/L (3.5-5.0) 09/15/24 15:01 Glucose 119.0 mg/dL (70-115) H 09/15/24 15:01 Ionized Calcium 1.3 mmol/L (1.1-1.4) 09/15/24 15:01 O2 Delivery Device Nc 09/15/24 15:01 O2 Liters/Min 3.0 % 09/15/24 15:01 FiO2 32.0 % 09/15/24 15:01 T[employer] ID glc 09/15/24 15:01 Sodium 139 mmol/L (136-145) 09/20/24 12:06 Potassium 3.0 mmol/L (3.5-5.1) L 09/20/24 12:06 Chloride 107 mmol/L (98-107) 09/20/24 12:06 Carbon Dioxide 21 mmol/L (22-29) L 09/20/24 12:06 Anion Gap 14.0 (5-19) 09/20/24 12:06 BUN 14 mg/dL (8-23) 09/20/24 12:06 Creatinine 0.4 mg/dL (0.5-0.9) L 09/20/24 12:06 GFR Calculation Not Reportable 09/20/24 12:06 Glucose 117 mg/dL (65-115) H 09/20/24 12:06 POC Glucose 127 mg/dL (70-110) H 09/18/24 15:26 Estimat Average Glucose 91 09/15/24 15:22 Hemoglobin A1c 4.8 % (4.0-6.0) 09/15/24 15:22 Calculated Osmolality 290 mOsm/kg (285-295) 09/20/24 12:06 Lactic Acid 1.3 mmol/L (0.5-2.2) 09/15/24 15:22 Calcium 9.4 mg/dL (8.5-10.5) 09/20/24 12:06 Phosphorus 2.3 mg/dL (2.5-4.5) L 09/18/24 03:31 Magnesium 1.8 mg/dL (1.7-2.3) 09/18/24 03:31 Iron 14 ug/dL (37-145) L 09/15/24 15:22 TIBC 358 mcg/dl 09/15/24 15:22 % Saturation 3.9 % (20-50) L 09/15/24 15:22 Unsat Iron Binding 344 ug/dL (112-347) 09/15/24 15:22 Ferritin 11 ng/mL (15-150) L 09/15/24 15:22 Total Bilirubin 0.3 mg/dL (0.15-1.2) 09/20/24 12:06 AST 10 U/L (0-32) 09/20/24 12:06 ALT < 5 U/L (0-33) 09/20/24 12:06 Alkaline Phosphatase 71 U/L (35-105) 09/20/24 12:06 Troponin T Baseline 25 ng/L (0-10) H 09/15/24 15:22 Troponin T Hi Sens 6Hr 36.82 ng/L (0-10) H 09/15/24 22:40 Troponin T Hi Sens 6Hr Delta 11.82 ng/L (0-12) 09/15/24 22:40 C-Reactive Protein 10.2 mg/L (0.0-4.9) H 09/15/24 15:22 NT-Pro-B Natriuret Pep 1824 pg/mL (0-450) H 09/16/24 05:10 Total Protein 6.1 g/dL (6.6-8.7) L 09/20/24 12:06 Albumin 3.5 g/dL (3.5-5.2) 09/20/24 12:06 Globulin 2.6 g/dL (1.3-4.6) 09/20/24 12:06 Triglycerides 55 mg/dL (0-150) 09/15/24 22:40 Cholesterol 135 mg/dL (0-200) 09/15/24 22:40 LDL Cholesterol, Calc 65 mg/dL (50-129) 09/15/24 22:40 HDL Cholesterol 59 mg/dL (60-100) L 09/15/24 22:40 LDL/HDL Ratio 1.10 RATIO (0.00-3.22) 09/15/24 22:40 Cholesterol/HDL Ratio 2.29 mg/dL (0.0-4.40) 09/15/24 22:40 Vitamin B12 1254 pg/mL (232-1245) H 09/15/24 15:22 Folate 11.2 ng/mL (4.8-37.3) 09/15/24 18:18 Procalcitonin 1.69 ng/mL (0-0.5) H 09/15/24 15:22 TSH 0.34 uIU/mL (0.27-4.20) 09/15/24 22:40 Urine Color Yellow (Yellow) 09/15/24 16:41 Urine Appearance Clear (CLEAR) 09/15/24 16:41 Urine pH 6.5 (5-7) 09/15/24 16:41 Ur Specific [place] 1.020 (1.005-1.030) 09/15/24 16:41 Urine Protein Negative (Negative) 09/15/24 16:41 Urine Glucose (UA) Negative (Normal) 09/15/24 16:41 Urine Ketones Trace (Negative) 09/15/24 16:41 Urine Blood Negative (Negative) 09/15/24 16:41 Urine Nitrate Negative (Negative) 09/15/24 16:41 Urine Bilirubin Negative (Negative) 09/15/24 16:41 Urine Urobilinogen 1.0 mg/dL (Negative) 09/15/24 16:41 Ur Leukocyte Esterase Negative (Negative) 09/15/24 16:41 Urine RBC 6-10 /hpf (0-2) 09/15/24 16:41 Urine WBC 0-5 /hpf (0-5) 09/15/24 16:41 Ur Squamous Epith Cells 0-5 /hpf (0-5) 09/15/24 16:41 Amorphous Sediment Not Reportable 09/15/24 16:41 Urine Bacteria None seen /hpf (NONE) 09/15/24 16:41 Hyaline Casts 3.30 /lpf 09/15/24 16:41 Vancomycin Trough 6.0 ug/mL (10-15) L 09/18/24 15:01 Coronavirus (PCR) Negative (Negative) 09/15/24 18:29 Influenza A (PCR) Negative (Negative) 09/15/24 18:29 Influenza Type B (PCR) Negative (Negative) 09/15/24 18:29 RSV (PCR) Negative (Negative) 09/15/24 18:29 Blood Type O Positive 09/15/24 16:03 Rho(D) Type Rh positive 09/15/24 16:03 Antibody Screen Negative 09/15/24 16:03 Crossmatch See Detail 09/15/24 16:03 Vitals Last Vital Signs Temp 97.9 F 09/20/24 12:41 Pulse 80 09/20/24 12:41 Resp 18 09/20/24 12:41 BP 149/76 09/20/24 12:41 Pulse Ox 95 09/20/24 12:41 O2 Del Method Room Air 09/20/24 12:41 O2 Flow Rate 2 09/16/24 20:00 Discharge Plan Discharge Patient Disposition: Xfer SNF Condition: Stable Prescriptions: New amlodipine 5 mg Tablet 10 mg PO DAILY 30 Days Qty: 30 0RF olanzapine 5 mg Tablet,Disintegrating 2.5 mg PO Q12H 14 Days Qty: 14 0RF amoxicillin-pot clavulanate 875-125 mg tablet 1 tab PO BID 3 Days Qty: 6 0RF albuterol sulfate 2.5 mg /3 mL (0.083 %) solution for nebulization 2.5 mg inhalation Q6H PRN (Reason: shortness of breath or wheezing) Qty: 75 0RF Continued latanoprost 0.005 % drops 1 drp ophthalmic (eye) BEDTIME@19 Qty: 2.5 3RF diphenhydramine HCl 25 mg Capsule 25 mg PO BEDTIME@19 dextromethorphan-guaifenesin [Tussin DM] 10-100 mg/5 mL liquid 10 ml PO Q4H PRN (Reason: Cough) Artificial Tears (cmc) 1 % Drops 1 drp OPHTHALMIC (EYE) QID clonidine HCl 0.1 mg Tablet 0.1 mg PO PRN PRN (Reason: blood pressure greater than 160/100) cyanocobalamin (vitamin B-12) [Vitamin B-12] 1,000 mcg Tablet 1,000 mcg PO DAILY Tums 300 mg (750 mg) Tablet,Chewable 300 mg PO BID acetaminophen-codeine 300-30 mg tablet 1 tab PO Q4H ascorbic acid (vitamin C) [Vitamin C] 500 mg Tablet 500 mg PO DAILY cholecalciferol (vitamin D3) [Vitamin D3] 10 mcg (400 unit) Tablet 10 mcg PO DAILY turmeric root extract 500 mg Capsule 500 mg PO DAILY tolterodine 2 mg capsule,extended release 24hr 2 mg PO DAILY potassium chloride 10 mEq tablet extended release 10 meq PO DAILY@08 omeprazole 20 mg capsule,delayed release(DR/EC) 20 mg PO DAILY@08 turmeric root extract 500 mg Capsule 500 mg PO DAILY@08 magnesium citrate 100 mg Tablet 100 mg PO DAILY@08 biotin 1,000 mcg Tablet,Chewable 1,000 mcg PO DAILY@08 Held gabapentin 600 mg tablet 600 mg PO BID@08,19 Hold Instructions: Resume on 09/27/24. Discontinued furosemide 40 mg tablet 40 mg PO DAILY@08 PRN (Reason: edema) 30 Days Qty: 30 0RF Discharge Orders: Discharge Order (Routine); Ordered 09/20/24 Ordered By: Debby Reed Referrals: [facility] [Outside] Eduardo Jimenez [Primary Care Provider] - 7-10 days Discharge Diet: As Directed Discharge Activity: Resume usual activity Activity Restrictions/Additional Instructions: dysphagia 4 diet, --puree with moderately thick liquids.? She will likely be at risk with aspiration with other consistencies due to premature spillage, decreased pharyngeal peristalsis, mild swallow delay, and decreased laryngeal excursion.? The patient displayed silent aspiration on mildly thick liquids on 1 occasion during the modified barium swallow study.? Penetration noted with multiple other consistencies, but no aspiration noted with other consistencies.? Mild to moderate pharyngeal residue noted between swallows.Will need cueing with feeds. Discharge Attestations Time Spent in Discharge Care*: greater than 30 min Quality Metrics Clinical Quality Measures [ No reported AMI, CVA or VTE this stay] Coding Level of Care Code Acute Code for Chg Fwd Diagnoses Acute encephalopathy G93.40 Acute hypoxemic respiratory failure J96.01 Aspiration pneumonia J69.0 Sepsis A41.9
== END 2024-09-20 16:55 | disposition skilled nursing facility (03) | DRG 871 ==
LOC: ER 16:25 → MEDSURG 20:07
PROVIDERS: Admitting Provider Family Medicine; Emergency Provider Emergency Medicine; PCP Family Medicine; Visit Provider Student in an Organized Health Care Education/Training Program
DX: A41.9 Sepsis, unspecified organism (principal); G93.41 Metabolic encephalopathy; J69.0 Pneumonitis due to inhalation of food and vomit; J96.01 Acute respiratory failure with hypoxia; E46 Unspecified protein-calorie malnutrition; Z68.1 Body mass index [BMI] 19.9 or less, adult; R65.20 Severe sepsis without septic shock; K21.9 Gastro-esophageal reflux disease without esophagitis; M81.0 Age-related osteoporosis without current pathological fracture; F03.90 Unspecified dementia, unspecified severity, without behavioral disturbance, psychotic disturbance, mood disturbance, and anxiety; Z96.643 Presence of artificial hip joint, bilateral; D50.9 Iron deficiency anemia, unspecified; Z66 Do not resuscitate; I10 Essential (primary) hypertension; E87.6 Hypokalemia; R13.10 Dysphagia, unspecified; Z91.81 History of falling; Z87.891 Personal history of nicotine dependence
CPT/HCPCS: 0241U; 36415; 36416; 36430; 36600; 51702; 70450; 71045; 74230; 80051; 80053; 80061; 80202; 81001; 82330; 82607; 82728; 82746; 82805; 82962; 83036; 83540; 83550; 83605; 83735; 83880; 84100; 84145; 84443; 84484; 85014; 85018; 85025; 85610; 86140; 86850; 86900; 86920; 87040; 92523; 92526; 92610; 92611; 93005; 94640; 96365; 96367; 96372; 96375; 99285; J0131; J0360; J1630; J1940; J2470; J2543; J3370; J3480; J3490; J7030; J7042; J7050; J7626; P9016